=== PATIENT | male | born 1940 | race Caucasian/White ===

== ENCOUNTER 2017-03-25 10:57 | Emergency (ER) | payer OTHER ==
[~2017-03-25] VITALS: Ht 162.6 cm; Wt 66.1 kg
[~2017-03-25 10:57] MED LIST: AMLO5TAB2 PO; CLOB-65 TOP; DEXT30TA7 PO; DOCU100C31 PO; DOXY1LIQ PO; ERGO1CAP35 PO; GLC/500 PO; LSN25 PO; LVQ500 PO; METH500T37 PO; OXYC7.5T65 PO
[2017-03-25 11:01] VITALS: TEMP 37.3; Ht 162.6 cm; Wt 66.1 kg
[2017-03-25] MEDS ORDERED: RGL/5 PO (11:29)
[2017-03-25] MEDS ORDERED: MAGN1TAB41 PO (11:29)
[2017-03-25] MEDS ORDERED: VNTHFA/IN INH (11:29)
[2017-03-25] MEDS ORDERED: OXYC20TA50 PO (11:29)
[2017-03-25] MEDS ORDERED: [UNRECOGNIZED DRUG - CODE] (11:29)
[2017-03-25] MEDS ORDERED: VALA1TAB31 PO (11:29)
[2017-03-25] MEDS ORDERED: LACT10SO17 PO (11:29)
[2017-03-25] MEDS ORDERED: CLBCR15 (11:29)
[2017-03-25] MEDS ORDERED: ERGO500037 PO (11:29)
[2017-03-25] MEDS ORDERED: FLUT0.15 NAE (11:29)
[2017-03-25] MEDS ORDERED: KETOROLAC TROMETHAMINE 30 MG/ML VIAL IV STA (11:40)
[2017-03-25] MEDS ORDERED: DiphenhydrAMINE HCL 50 MG/ML VIAL IV STA (11:40)
[2017-03-25] MEDS ORDERED: DEXAMETHASONE SOD INJ 10 MG/ML VIAL IV ONE (11:45)
[2017-03-25 12:08] LABS: BASO % 0.3 %; BASO ABS # 0.03 K/uL (0-0.2); COMPLETE YES; EOS % 0.5 %; HEMATOCRIT 38.1 % (42-52); IG% 0.2 %; LYMPH % 12.8 %; LYMPH ABS # 1.12 K/uL (1.2-3.4); MEAN CELL VOLUME 91.4 fL (80-100); MEAN CORPUSCULAR HEMOGLOBIN 29.3 pg (25-34); MEAN PLATELET VOLUME 9.8 fL (7.4-10.4); MONO % 10.4 %; NEUT % 75.8 %; PLATELET COUNT 243 K/uL (130-400); RED BLOOD COUNT 4.17 M/uL (4.7-6.1); WHITE BLOOD COUNT 8.72 K/uL (4.8-10.8)
[2017-03-25 12:26] LABS: BUN/CREATININE RATIO 19.6 (10-20); CALCIUM 8.7 mg/dl (8.5-10.1); CREATININE 0.6 mg/dl (0.60-1.40)
[2017-03-25 12:29] LABS: C-REACTIVE PROTEIN 4.11 mg/dl (0-0.29)
[2017-03-25] MEDS ORDERED: PRED20TA PO (13:22)
--- NOTE | 2017-03-25 13:23 | EMERGENCY ROOM VISIT NOTE ---
History Report prepared by Baylee: Max Ponce Under the Supervision of: Dr. Sai Lema D.O. First contact with patient: 11:22 Chief Complaint: ALLERGIC REACTION Stated Complaint: RED FACE-BREATHING IS OK Nursing Triage Summary: Pt presents with c/o red, sore face that began during the night. Denies difficulty swallowing. Denies sob. Denies any new foods/meds. Pt states took Oxycodone PAPER STRIPPER for the pain. History of Present Illness The patient is a 76 year old male who presents to the Emergency Room with complaints of a persistent facial rash that started last night. The patient notes that started getting weak and tired 2 days ago, and was so tired that he could not get out of his chair. He states that he was going to the bathroom last night, when he started getting chills and facial swelling and redness. He then started having pain around the bridge of his nose. The patient says that his face was 3 times more swollen last night than it is currently. He denies any shortness of breath or difficulty swallowing. The patient also denies any environmental exposures, new foods, or new medications. He is diabetic. Per the patient's family, the patient has lost a lot of weight since being diagnosed with diabetes. The patient states that he has no history of lupus. The patient' s family says that they all live in the [facility], and there is concern that the patient may have Lyme Disease. Source of History: patient, family Onset: Last night Position: other (global - allergic reaction) Timing: other (persistent) Associated Symptoms: + chills, + fatigue, + weakness, No SOB Note: Associated symptoms: Facial swelling and redness, pain around bridge of nose. Denies any difficulty swallowing. Review of Systems See HPI for pertinent positives & negatives. A total of 10 systems reviewed and were otherwise negative. Past Medical & Surgical Medical Problems: (1) H/O blood clots (2) Left lower lobe pneumonia Surgical Problems: (1) Hx of gastric bypass Family History Diabetes mellitus Heart disease Hypertension Social History Smoking Status: Former Smoker Alcohol Use: none Drug Use: none Marital Status: Occupation Status: retired Current/Historical Medications Scheduled Albuterol Hfa (Ventolin Hfa), 1-2 PUFFS INH 4-6 hours Allopurinol (Zyloprim), 300 MG PO QAM Clobetasol Propionate (Clobetasol Propionate), BID Cyanocobalamin (Cyanocobalamin), 1,000 MCG IM MONTHLY Ergocalciferol (Vitamin D 98520 Unit), 50,000 UNIT PO 2XWK Ferrous Fumarate (Ferrous Fumarate 324), 324 MG PO QAM Fluticasone Propionate (Nasal) (Flonase Allergy Relief), 2 SPRAYS JOE DAILY Isosorbide Mononitrate Ext Rel (Imdur Ext Rel), 30 MG PO QAM Lactulose (Chronulac), 15 ML PO DAILY Loratadine (Claritin), 10 MG PO DAILY Magnesium Oxide (Magnesium), 400 MG PO DAILY Metoclopramide HCl (Metoclopramide HCl), 5 MG PO BID Metoprolol Tartrate (Lopressor) (Lopressor), 25 MG PO BID Omeprazole (Prilosec), 20 MG PO BID Pimecrolimus (Elidel), 1 APPLN TOP BID Prednisone (Prednisone), 3 TAB PO DAILY Ranitidine Hcl (Zantac), 300 MG PO HS Ropinirole (Requip), 2 MG PO HS Simvastatin (Simvastatin), 10 MG PO HS Tamsulosin Hcl (Flomax), 0.4 MG PO DAILY Valacyclovir Hcl (Valtrex), 1 GM PO DAILY Scheduled PRN Furosemide (Lasix), 40 MG PO DAILY PRN for EDEMA Nitroglycerin (Nitrostat), 0.4 MG UT UD PRN for Chest Pain Oxycodone Hcl (Oxycontin), 20 MG PO 5XD PRN for Pain Polyethylene Glycol 3350 (Miralax), 17 GM PO DAILY PRN for Constipation Miscellaneous Medications Nitroglycerin (Nitromist) Allergies Coded Allergies: No Known Allergies (Verified , 03/25/17) Physical Exam Vital Signs Date Time Temp Pulse Resp B/P Pulse Ox O2 Delivery O2 Flow Rate FiO2 03/25/17 13:07 69 18 153/78 94 Room Air 03/25/17 12:31 67 18 138/63 94 Room Air 03/25/17 11:03 95 Room Air 03/25/17 11:01 37.3 82 18 179/107 95 Room Air Physical Exam CONSTITUTIONAL/VITAL SIGNS: Reviewed / noted above. GENERAL: Non-toxic in appearance. INTEGUMENTARY: Warm, dry, and [place]. HEAD: Normocephalic. EYES: without scleral icterus or trauma. ENT/OROPHARYNX: Erythema, warmth, and mild swelling distributed in bilateral maxillary and cheek areas, as well as overlying bridge of nose. No mucosal edema. LYMPHADENOPATHY/NECK: Is supple without lymphadenopathy or meningismus. RESPIRATORY: Lungs clear and equal. CARDIOVASCULAR: Regular rate and rhythm. GI/ABDOMEN: Soft and nontender. No organomegaly or pulsatile mass. No rebound or guarding. Normal bowel sounds. EXTREMITIES: Warm and well perfused. BACK: No CVA tenderness. NEUROLOGICAL: Intact without focal deficits. PSYCHIATRIC: normal affect. MUSCULOSKELETAL: Normally developed with good muscle tone. Medical Decision & Procedures Laboratory Results 03/25/17 11:50 Red Blood Count 4.17, Mean Corpuscular Volume 91.4, Mean Corpuscular Hemoglobin 29.3, Mean Corpuscular Hemoglobin Concent 32.0, Mean Platelet Volume 9.8, Neutrophils (%) (Auto) 75.8, Lymphocytes (%) (Auto) 12.8, Monocytes (%) (Auto) 10.4, Eosinophils (%) (Auto) 0.5, Basophils (%) (Auto) 0.3, Neutrophils # (Auto ) 6.60, Lymphocytes # (Auto) 1.12, Monocytes # (Auto) 0.91, Eosinophils # (Auto ) 0.04, Basophils # (Auto) 0.03 03/25/17 11:50 Test 03/25/17 11:50 White Blood Count 8.72 K/uL (4.8-10.8) Red Blood Count 4.17 M/uL (4.7-6.1) Hemoglobin 12.2 g/dL (14.0-18.0) Hematocrit 38.1 % (42-52) Mean Corpuscular Volume 91.4 fL (80-100) Mean Corpuscular Hemoglobin 29.3 pg (25-34) Mean Corpuscular Hemoglobin Concent 32.0 g/dl (32-36) Platelet Count 243 K/uL (130-400) Mean Platelet Volume 9.8 fL (7.4-10.4) Neutrophils (%) (Auto) 75.8 % Lymphocytes (%) (Auto) 12.8 % Monocytes (%) (Auto) 10.4 % Eosinophils (%) (Auto) 0.5 % Basophils (%) (Auto) 0.3 % Neutrophils # (Auto) 6.60 K/uL (1.4-6.5) Lymphocytes # (Auto) 1.12 K/uL (1.2-3.4) Monocytes # (Auto) 0.91 K/uL (0.11-0.59) Eosinophils # (Auto) 0.04 K/uL (0-0.5) Basophils # (Auto) 0.03 K/uL (0-0.2) RDW Standard Deviation 54.8 fL (36.4-46.3) RDW Coefficient of Variation 16.5 % (11.5-14.5) Immature Granulocyte % (Auto) 0.2 % Immature Granulocyte # (Auto) 0.02 K/uL (0.00-0.02) Erythrocyte Sedimentation Rate 58 mm/hr (0-14) Anion Gap 6.0 mmol/L (3-11) Est Creatinine Clear Calc Drug Dose 85.0 ml/min Estimated GFR () 111.6 Estimated GFR (Non- 96.3 BUN/Creatinine Ratio 19.6 (10-20) Calcium Level 8.7 mg/dl (8.5-10.1) Total Bilirubin 0.4 mg/dl (0.2-1) Direct Bilirubin 0.1 mg/dl (0-0.2) Aspartate Amino Transf (AST/SGOT) 10 U/L (15-37) Alanine Aminotransferase (ALT/SGPT) 14 U/L (12-78) Alkaline Phosphatase 79 U/L (45-117) C-Reactive Protein 4.11 mg/dl (0-0.29) Total Protein 7.0 gm/dl (6.4-8.2) Albumin 3.1 gm/dl (3.4-5.0) Laboratory results as stated above per my review. Medications Administered Medications (Trade) Dose Ordered Sig/Bony Route Start Time Stop Time Status Last Admin Dose Admin Dexamethasone Sodium Phosphate (Decadron Inj) 10 mg NOW ONCE IV 03/25/17 11:45 03/25/17 11:46 DC 03/25/17 11:58 10 MG Diphenhydramine HCl (Benadryl Inj) 25 mg NOW STAT IV 03/25/17 11:40 03/25/17 11:41 DC 03/25/17 11:56 25 MG Ketorolac Tromethamine (Toradol Inj) 30 mg NOW STAT IV 03/25/17 11:40 03/25/17 11:41 DC 03/25/17 12:00 30 MG ED Course 1130: Previous medical records were reviewed. The patient was evaluated in room A2. A complete history and physical examination was performed. 1140: Ordered Toradol Inj 30 mg IV, Benadryl Inj 25 mg IV. 1145: Ordered Decadron Inj 10 mg IV. 1325: On reevaluation, the patient is resting comfortably. I discussed the results and findings with the patient. He verbalized agreement of the treatment plan. He was discharged home. Medical Decision Differential diagnosis: Etiologies such as contact dermatitis, viral exanthem, urticaria, allergic reaction, Saldaña-Almas syndrome, toxic epidermal necrolysis, erythema multiforme, cellulitis, scabies, HSV, varicella, zoster, eczema, staph scalded skin syndrome, fungal infection, as well as others were entertained. This is a 76-year-old male who presents to the ED with a chief complaint of a rash on his face. The patient states that he awoke in the middle the night with facial swelling and redness. He states that it was worse earlier in the night and has seemed to improve some. He states that yesterday he had some chills and felt cold. He denies any other significant symptoms. He denies any possible allergens or exposures. He has no other rashes on his body. He denies any shortness of breath or mucosal irritation. His initial blood pressure was elevated here. Vital signs were otherwise stable. His exam reveals a malar type rash to the face. It is symmetric on both sides of the face and extends over the bridge of the nose into the bilateral maxillary area and bilateral cheek area. It involves the chin slightly. There is no intraoral lesions or evidence of dental abscess. There is no mucosal edema. It is warm and slightly edematous. CBC is unremarkable. Sedimentation rate and CRP are mildly elevated. Complete metabolic panel was unremarkable. The patient was treated with IV Decadron IV Benadryl. He is looking a lot better. Redness is down as is swelling. He is felt to be stable for discharge. He will be discharged on Benadryl and prednisone. ANAs pending. He will follow- up with his PCP for this. This does not appear to be infection. It is symmetric in bilateral. This is likely immunologic. He is felt to be stable for discharge. He does not appear to be septic or toxic. Impression Primary Impression: Malar rash Scribe Attestation The scribe's documentation has been prepared under my direction and personally reviewed by me in its entirety. I confirm that the note above accurately reflects all work, treatment, procedures, and medical decision making performed by me. Departure Information Dispostion Home / Self-Care Prescriptions Prednisone (Prednisone) 20 Mg Tab 3 TAB PO DAILY for 4 Days, #12 TAB Prov: Sai Lema D.O. 03/25/17 Referrals Luisa Velasquez MD (PCP) Patient Instructions My [facility] Additional Instructions Take prednisone as prescribed. Take Benadryl 25 mg every 6-8 hours as needed for rash. Follow-up with your doctor for recheck. Have them check the blood work that was done today. Return for severe worsening or other concerns.
[2017-03-25 13:30] VITALS: BP 153/78; PULSE 69; O2SAT 94
[2017-03-25] MEDS ORDERED: ISOS30TA3 PO (14:01)
[2017-03-25] MEDS ORDERED: CYNI1000 IM (14:01)
[2017-03-25] MEDS ORDERED: POLY335019 PO (14:01)
[2017-03-25] MEDS ORDERED: FURO40TA3 PO (14:04)
[2017-03-25] MEDS ORDERED: ELDCR/30 TOP (14:04)
[2017-03-25] MEDS ORDERED: FERR324T15 PO (18:37)
[2017-03-25] MEDS ORDERED: CLR10 PO (18:37)
[2017-03-25] MEDS ORDERED: TAMS0.4C38 PO (23:22)
[2017-03-25] MEDS ORDERED: SIMV-150 PO (23:22)
[2017-03-25] MEDS ORDERED: ROPI2TAB6 PO (23:22)
[2017-03-25] MEDS ORDERED: RANI300T2 PO (23:22)
[2017-03-25] MEDS ORDERED: NTRGSL/4 UT (23:25)
[2017-03-25] MEDS ORDERED: PRLSR20 PO (23:25)
[2017-03-25] MEDS ORDERED: METO50TA16 PO (23:25)
[2017-03-25] MEDS ORDERED: ALLO300T2 PO (23:26)
== END 2017-03-25 13:30 | disposition home or self-care (01) ==
LOC: C.EDB 10:59 → C.EDA 13:30
DX: R21 Rash and other nonspecific skin eruption (principal); Z86.718 Personal history of other venous thrombosis and embolism; Z98.84 Bariatric surgery status; Z83.3 Family history of diabetes mellitus; Z82.49 Family history of ischemic heart disease and other diseases of the circulatory system; Z87.891 Personal history of nicotine dependence; Z79.899 Other long term (current) drug therapy

== ENCOUNTER → 2017-09-16 | Outpatient (CLI) | payer OTHER ==
[~2017-09-16] MED LIST changes: +ALLO300T2 PO; -AMLO5TAB2 PO; +CLBCR15; -CLOB-65 TOP; +CLR10 PO; +CYNI1000 IM; -DEXT30TA7 PO; -DOCU100C31 PO; -DOXY1LIQ PO; +ELDCR/30 TOP; -ERGO1CAP35 PO; +ERGO500037 PO; +FERR324T15 PO; +FLUT0.15 NAE; +FURO40TA3 PO; -GLC/500 PO; +ISOS30TA3 PO; +LACT10SO17 PO; -LSN25 PO; -LVQ500 PO; +MAGN1TAB41 PO; -METH500T37 PO; +METO50TA16 PO; +NTRGSL/4 UT; +OXYC20TA50 PO; -OXYC7.5T65 PO; +POLY335019 PO; +PRLSR20 PO; +RANI300T2 PO; +RGL/5 PO; +ROPI2TAB6 PO; +SIMV-150 PO; +TAMS0.4C38 PO; +VALA1TAB31 PO; +VNTHFA/IN INH; +[UNRECOGNIZED DRUG - CODE]
== END | disposition home or self-care (01) ==
LOC: C.LABSPEC 10:49
PROVIDERS: ATTEND Family Medicine
DX: S31.109A Unspecified open wound of abdominal wall, unspecified quadrant without penetration into peritoneal cavity, initial encounter (principal); X58.XXXA Exposure to other specified factors, initial encounter

== ENCOUNTER → 2017-11-05 | Outpatient (CLI) | payer OTHER | END | disposition home or self-care (01) | LOC: C.LABSPEC 17:44 | PROVIDERS: ATTEND Family Medicine | DX: S31.109A Unspecified open wound of abdominal wall, unspecified quadrant without penetration into peritoneal cavity, initial encounter (principal); X58.XXXA Exposure to other specified factors, initial encounter ==

== ENCOUNTER 2022-02-28 15:41 | Observation (INO) ==
--- NOTE | 2022-02-28 15:54 | Emergency Department Note ---
Impression & Plan Acute dehydration, Hypoxemia, Hypotension, Weakness, Cough ED Provider Note NAME: TULIO RUIZ JR AGE: 81 SEX: M : 1940 ARRIVES VIA: Ambulance INFORMANT: Patient, ED PROVIDER(S): Ernesto Mcclellan MD Chief Complaint: Outpatient referral, weakness, low oxygen saturation, chest pain, abdominal HPI: Patient presents at the behest of the primary care office as the patient reported he was hypotensive and hypoxic into the 80s. The patient has complained of worsening weakness and associated shortness of breath and chest pain ongoing for the last 3 weeks or so. The patient states that he tries to eat but he does have difficulty doing so. Patient does complain of upper abdominal pain that is nonradiating. Patient has also had associated chest pain in his back with radiation up to his head. Patient states that that pain has been ongoing for approximately 10 days or so. Patient denies any nausea or vomiting. Patient denies any diaphoresis. The patient does live at home by himself. Patient denies any fevers or chills or leg swelling. The patient does have a remote history of DVT in the past but does not take any blood thinners at this time as this was greater than 30 years ago. Former smoker 40 years prior. The patient does take oxycodone. He does suffer from chronic pain. Patient's cough has been productive with clear sputum. ROS: See HPI for pertinent positives and negatives. A total of 10 systems were reviewed and otherwise negative. Past medical history: See below Surgical history: See below Social history: See below Physical Exam: GENERAL: Cachectic in appearance, NAD, wearing glasses, wearing a mask, non- toxic. EYE EXAM: Normal conjunctiva. PERRL, no anisocoria and EOM's grossly intact w/o pain. NECK: Supple, no nuchal rigidity, no adenopathy, non-tender. No signs of meningismus. LUNGS: Sonorous breath sounds bilateral bases. Normal chest wall mechanics. HEART: NSR, no MRG. ABDOMEN: Abdomen soft, mild diffuse discomfort throughout but most prominent in the upper abdomen, normo-active bowel sounds, no masses, no rebound or guarding. BACK: No CVA TTP. SKIN: No rashes and no bruising. UPPER EXTREMITIES: Upper extremities are grossly normal. LOWER EXTREMITIES: Grossly normal, no edema. Negative Homans' sign bilaterally. NEURO EXAM: A&O x3, cranial nerves II-XII grossly intact, normal speech, moves all 4 extremities on command w/o issue. Differential diagnoses: Infection, dehydration, metabolic abnormality, hypo/hyperglycemia, electrolyte disturbance, anemia, hypoxia, cardiac sources, intracerebral event, toxicologic, neurologic, as well as other pathologies. Course: Patient was seen and evaluated the bedside. Full history physical exam was performed. EKG interpreted by me Normal sinus rhythm, rate of 69, normal intervals, normal axis, no ST changes or T WI Imaging Studies: See Below Cardiac monitoring: An order was placed for continuous cardiac monitoring. The monitor shows a rate of 72 with sinus rhythm. MDM: Patient presents due to concern for weakness hypoxemia and cough with associated chest and abdominal pain. Blood work is obtained along with a CT abdomen pelvis, EKG and troponin. Covid swab also obtained. The patient is also on fairly high-dose narcotics as the patient is on 45 mg of oxycodone twice daily. I did ask the overtakes this but states that he does not. Per review of the patient's vital signs at the time of check-in at [facility] this afternoon in the outpatient setting: The patient had a blood pressure of 88/48 with a pulse of 69 respirations 18 at 87% on room air with a temp of 34.5. Patient was ordered additional IV fluids and did have blood cultures ordered as well. The patient has a normal white count with mild anemia at 11.7. Coags are normal. The patient has normal kidney function albeit with prerenal azotemia and do believe that there is a dehydration component. Patient's TSH is normal. Urinalysis does not show no signs of obvious infection. Covid negative. Chest x-ray is clear. Patient CT shows wall thickening which may be due to underdistention versus nonspecific enteritis. Incompetence ruling mesenteric vessels raises the possibility of internal hernia however no evidence of bowel obstruction. The patient said symptoms for greater than 10 days with a normal white count and believe this to be less likely. Patient did have abdominal discomfort but it does not have a surgical abdomen. I did Siuta the on-call hospitalist Oliverio Angel resident physician and the patient was admitted to the medicine service by Dr. Sebastian. Antibiotics were deferred to the inpatient tea m Past Med/Surg History Medical History B12 deficiency BPH (benign prostatic hyperplasia) Chronic, continuous use of opioids Constipation Coronary atherosclerosis of [place] coronary vessel Depression DM2 (diabetes mellitus, type 2) prior to gastric bypass--no meds now Gastroparesis GERD without esophagitis Gouty arthropathy Hearing deficit Hyperlipidemia LDL goal <100 Hypertension OA (osteoarthritis) of hip Other psoriasis Poor historian Restless legs Sleep apnea hx of prior to gastric bypass sx--no device Surgical History Bariatric [place] [facility] [place] of bilateral cataract extraction History of cardiac cath x2 ? prior to bypass--pt does not believe any stents placed History of carpal tunnel surgery of right wrist History of colonoscopy History of esophagogastroduodenoscopy (EGD) History of tooth extraction all teeth removed S/P triple vessel bypass pt states "between 1994 and 1997 had procedure done" [place] [facility] [place] with Emigdio Bautista @ [facility] Status post panniculectomy Family History Mother Diabetes Other No family history of adverse response to anesthesia Denies family history of Ovarian cancer Prostate cancer Myocardial infarction Breast cancer Colorectal cancer Social History Smoking Status: Never smoker Tobacco Type: Cigarettes Age Started Using Tobacco: 20; Age Quit Using Tobacco: 63; packs per day: 1; Second Hand Exposure: No; Hx Alcohol Use: No Hx Substance Use: No Preferred Language: Turkish Communication Ability: Effective Visual Impairment: No Limitations Hearing Ability: Use of Hearing Aid Plastics Fitter Required: No Beliefs That Will Affect Care: None marital status: / Current Living Situation: Alone 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al status: retired 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 Feels Safe at Home: Yes Childhood Exposure to Second-Hand Smoke: No Diet Comment: "I barely eat, I live on boost" Dental Care, Regularly: No Physical Activity Frequency: Does not Exercise Seatbelt Use: sometimes Sunscreen Use: No Assistive Devices: Glasses and Hearing Aid - Bilateral Allergies Allergies Allergy/AdvReac Type Severity Reaction Status Date / Time No Known Allergies Allergy Verified 02/28/22 14:43 Home Meds Home Medications Medication Instructions Recorded Confirmed clobetasol 0.05 % topical cream 1 appln TOPICAL BID #1 gm 07/01/19 02/28/22 nitroglycerin 0.4 mg sublingual 0.4 mg SL Q5M PRN #25 tab 07/01/19 02/28/22 tablet polyethylene glycol 3350 17 17 gm PO DAILY PRN #1 gm 07/01/19 02/28/22 gram/dose oral powder allopurinol 300 mg tablet 300 mg PO QAM 07/13/21 02/28/22 food supplemt, lactose-reduced 1 ea PO 6XD 07/13/21 02/28/22 0.06 gram-1 kcal/mL oral liquid (Boost High Protein) linaclotide 290 mcg capsule 290 mcg PO QAM 07/13/21 02/28/22 (Linzess) Previous Rx's Medication Instructions Recorded guaifenesin 600 mg tablet, 600 mg PO Q12H PRN #60 tab 12/18/20 extended release 12 hr (Mucinex) omeprazole 40 mg capsule,delayed 40 mg PO BID #60 cap 07/24/21 release loratadine 10 mg tablet (Claritin) 10 mg PO HS #90 tab 08/02/21 tamsulosin 0.4 mg capsule 0.4 mg PO HS #90 cap 08/02/21 Lift Chair #1 ea 09/18/21 lactulose 10 gram/15 mL oral 30 ml PO BID PRN #946 ml 11/22/21 solution mupirocin 2 % topical ointment 1 applic TOPICAL BID #15 g 11/22/21 miconazole nitrate 2 % topical 1 applic TOPICAL BID 14 Days #85 g 12/04/21 powder prednisone 5 mg tablet 5 mg PO QAM #30 tab 02/04/22 oxycodone 15 mg tablet 15 mg PO BID PRN #60 tab 02/07/22 oxycodone 30 mg tablet,crush 30 mg PO Q12H 30 Days #60 tab 02/14/22 resistant,extended release 12 hr (OxyContin) Results & Data (ED) Vital Signs Vital Signs - 24 hr 02/28/22 15:33 02/28/22 15:45 02/28/22 15:50 Temperature 36.3 C L Temperature Source Oral Pulse Rate 70 67 70 Pulse Rate [Finger] Pulse Rate from SpO2 Sensor 67 67 Pulse Rhythm Respiratory Rate 20 16 22 Respiratory Effort / Characteristics Non-Labored Respiratory Pattern Regular Blood Pressure 109/43 L Blood Pressure [Right Arm] Blood Pressure Mean 65 Blood Pressure Mean [Right Arm] Pulse Oximetry 96 94 96 Oxygen Delivery Method Room Air Sepsis Recent Fever Within 48 Hours No Sepsis New/Unexplained Change in Mental Status No Sepsis Action Taken by Nursing No Action Required 02/28/22 16:00 02/28/22 16:02 02/28/22 16:05 Temperature Temperature Source Pulse Rate 69 68 66 Pulse Rate [Finger] Pulse Rate from SpO2 Sensor Pulse Rhythm Regular Respiratory Rate 21 17 13 Respiratory Effort / Characteristics Respiratory Pattern Blood Pressure 109/43 L 95/65 L Blood Pressure [Right Arm] Blood Pressure Mean 65 75 Blood Pressure Mean [Right Arm] Pulse Oximetry 96 Oxygen Delivery Method Room Air Sepsis Recent Fever Within 48 Hours Sepsis New/Unexplained Change in Mental Status Sepsis Action Taken by Nursing 02/28/22 16:10 02/28/22 16:20 02/28/22 16:30 Temperature Temperature Source Pulse Rate 70 69 67 Pulse Rate [Finger] Pulse Rate from SpO2 Sensor 69 69 67 Pulse Rhythm Respiratory Rate 21 16 16 Respiratory Effort / Characteristics Respiratory Pattern Blood Pressure 113/52 L Blood Pressure [Right Arm] Blood Pressure Mean 72 Blood Pressure Mean [Right Arm] Pulse Oximetry 95 95 93 Oxygen Delivery Method Sepsis Recent Fever Within 48 Hours Sepsis New/Unexplained Change in Mental Status Sepsis Action Taken by Nursing 02/28/22 16:40 02/28/22 16:57 02/28/22 17:00 Temperature Temperature Source Pulse Rate 70 66 68 Pulse Rate [Finger] Pulse Rate from SpO2 Sensor 71 Pulse Rhythm Respiratory Rate 22 17 22 Respiratory Effort / Characteristics Respiratory Pattern Blood Pressure 103/43 L Blood Pressure [Right Arm] Blood Pressure Mean 63 Blood Pressure Mean [Right Arm] Pulse Oximetry 97 Oxygen Delivery Method Sepsis Recent Fever Within 48 Hours Sepsis New/Unexplained Change in Mental Status Sepsis Action Taken by Nursing 02/28/22 17:10 02/28/22 17:20 02/28/22 17:30 Temperature Temperature Source Pulse Rate 69 69 68 Pulse Rate [Finger] Pulse Rate from SpO2 Sensor 65 69 67 Pulse Rhythm Respiratory Rate 21 19 22 Respiratory Effort / Characteristics Respiratory Pattern Blood Pressure 104/55 L Blood Pressure [Right Arm] Blood Pressure Mean 71 Blood Pressure Mean [Right Arm] Pulse Oximetry 91 92 95 Oxygen Delivery Method Sepsis Recent Fever Within 48 Hours Sepsis New/Unexplained Change in Mental Status Sepsis Action Taken by Nursing 02/28/22 17:40 02/28/22 17:50 02/28/22 18:00 Temperature Temperature Source Pulse Rate 67 70 68 Pulse Rate [Finger] Pulse Rate from SpO2 Sensor 69 Pulse Rhythm Respiratory Rate 17 18 25 H Respiratory Effort / Characteristics Respiratory Pattern Blood Pressure 122/81 Blood Pressure [Right Arm] Blood Pressure Mean 94 Blood Pressure Mean [Right Arm] Pulse Oximetry 97 Oxygen Delivery Method Sepsis Recent Fever Within 48 Hours Sepsis New/Unexplained Change in Mental Status Sepsis Action Taken by Nursing 02/28/22 18:10 02/28/22 18:20 02/28/22 18:30 Temperature Temperature Source Pulse Rate 71 73 72 Pulse Rate [Finger] Pulse Rate from SpO2 Sensor 71 Pulse Rhythm Respiratory Rate 24 19 19 Respiratory Effort / Characteristics Respiratory Pattern Blood Pressure 104/61 Blood Pressure [Right Arm] Blood Pressure Mean 75 Blood Pressure Mean [Right Arm] Pulse Oximetry 97 Oxygen Delivery Method Sepsis Recent Fever Within 48 Hours Sepsis New/Unexplained Change in Mental Status Sepsis Action Taken by Nursing 02/28/22 18:40 02/28/22 18:50 02/28/22 19:10 Temperature Temperature Source Pulse Rate 72 70 Pulse Rate [Finger] 71 Pulse Rate from SpO2 Sensor Pulse Rhythm Respiratory Rate 24 20 20 Respiratory Effort / Characteristics Respiratory Pattern Blood Pressure Blood Pressure [Right Arm] 99/54 L Blood Pressure Mean Blood Pressure Mean [Right Arm] 69 Pulse Oximetry 93 Oxygen Delivery Method Room Air Sepsis Recent Fever Within 48 Hours Sepsis New/Unexplained Change in Mental Status Sepsis Action Taken by Nursing 02/28/22 19:32 Temperature Temperature Source Pulse Rate 70 Pulse Rate [Finger] Pulse Rate from SpO2 Sensor Pulse Rhythm Respiratory Rate 18 Respiratory Effort / Characteristics Respiratory Pattern Blood Pressure 106/57 L Blood Pressure [Right Arm] Blood Pressure Mean Blood Pressure Mean [Right Arm] Pulse Oximetry 97 Oxygen Delivery Method Room Air Sepsis Recent Fever Within 48 Hours Sepsis New/Unexplained Change in Mental Status Sepsis Action Taken by [facility] Medications Current Medication List: was personally reviewed by me Laboratory Data Attestation: I reviewed the patient's lab results. Result diagrams: 02/28/22 15:58 02/28/22 15:58 Lab Results 02/28/22 02/28/22 02/28/22 Range/Units 15:58 15:58 15:58 WBC 8.85 (4.8-10.8) K/uL RBC 4.12 L (4.7-6.1) M/uL Hgb 11.7 L (14.0-18.0) g/dL Hct 36.1 L (42-52) % MCV 87.6 (80-100) fL MCH 28.4 (25-34) pg MCHC 32.4 (32-36) g/dL RDW Std Deviation 50.5 H (36.4-46.3) fL RDW Coeff of Yoanna 15.7 H (11.5-14.5) % Plt Count 347 (130-400) K/uL MPV 9.6 (7.4-10.4) fL Immature Gran % (Auto) 0.1 % Neut % (Auto) 71.1 % Lymph % (Auto) 19.3 % [place] % (Auto) 8.6 % Eos % (Auto) 0.7 % Baso % (Auto) 0.2 % Neut # (Auto) 6.29 (1.4-6.5) K/uL Lymph # (Auto) 1.71 (1.2-3.4) K/uL [place] # (Auto) 0.76 H (0.11-0.59) K/uL Eos # (Auto) 0.06 (0-0.5) K/uL Baso # (Auto) 0.02 (0-0.2) K/uL Immature Gran # (Auto) 0.01 (0.00-0.02) K/uL PT 11.5 (9.0-12.0) Seconds INR 1.1 (0.9-1.1) Sodium 136 (136-145) mmol/L Potassium 4.4 (3.5-5.1) mmol/L Chloride 100 (98-107) mmol/L Carbon Dioxide 29 (21-32) mmol/L Anion Gap 7 (3-11) BUN 23 (6-23) mg/dl Creatinine 0.68 (0.6-1.4) mg/dl Est Cr Clr Drug Dosing Not Reportable Est GFR ( Amer) 102.4 ml/min Est GFR (Non-Af Amer) 88.3 ml/min BUN/Creatinine Ratio 33.8 H (10-20) Glucose 100 H (70-99(Fasting)) mg/dl Lactate (0.4-2.0) mmol/L Calcium 8.8 (8.5-10.1) mg/dl Magnesium 1.7 (1.7-2.4) mg/dl Total Bilirubin 0.5 (0.2-1.0) mg/dl AST 14 (13-39) U/L ALT 8 (7-52) U/L Alkaline Phosphatase 99 (34-104) U/L Troponin I < 0.03 (0-0.04) ng/ml C-Reactive Protein (0-0.5) mg/dl Total Protein 7.0 (6.0-8.3) gm/dl Albumin 3.3 L (3.4-5.0) gm/dl Globulin 3.7 (2.5-4.0) gm/dl Albumin/Globulin Ratio 0.9 (0.9-2) TSH (0.300-4.500) uIu/ml Urine Color Urine Appearance (Clear) Urine pH (4.5-7.5) Ur Specific [place] (1.000-1.030) Urine Protein (Negative) Urine Glucose (UA) (Negative) Urine Ketones (Negative) Urine Blood (Negative) Urine Nitrite (Negative) Urine Bilirubin (Negative) Urine Urobilinogen (Negative) Ur Leukocyte Esterase (Negative) SARS-CoV-2, RNA, NAAT (NEGATIVE) 02/28/22 02/28/22 02/28/22 Range/Units 15:58 15:58 16:23 WBC (4.8-10.8) K/uL RBC (4.7-6.1) M/uL Hgb (14.0-18.0) g/dL Hct (42-52) % MCV (80-100) fL MCH (25-34) pg MCHC (32-36) g/dL RDW Std Deviation (36.4-46.3) fL RDW Coeff of Yoanna (11.5-14.5) % Plt Count (130-400) K/uL MPV (7.4-10.4) fL Immature Gran % (Auto) % Neut % (Auto) % Lymph % (Auto) % [place] % (Auto) % Eos % (Auto) % Baso % (Auto) % Neut # (Auto) (1.4-6.5) K/uL Lymph # (Auto) (1.2-3.4) K/uL [place] # (Auto) (0.11-0.59) K/uL Eos # (Auto) (0-0.5) K/uL Baso # (Auto) (0-0.2) K/uL Immature Gran # (Auto) (0.00-0.02) K/uL PT (9.0-12.0) Seconds INR (0.9-1.1) Sodium (136-145) mmol/L Potassium (3.5-5.1) mmol/L Chloride (98-107) mmol/L Carbon Dioxide (21-32) mmol/L Anion Gap (3-11) BUN (6-23) mg/dl Creatinine (0.6-1.4) mg/dl Est Cr Clr Drug Dosing Est GFR ( Amer) ml/min Est GFR (Non-Af Amer) ml/min BUN/Creatinine Ratio (10-20) Glucose (70-99(Fasting)) mg/dl Lactate (0.4-2.0) mmol/L Calcium (8.5-10.1) mg/dl Magnesium (1.7-2.4) mg/dl Total Bilirubin (0.2-1.0) mg/dl AST (13-39) U/L ALT (7-52) U/L Alkaline Phosphatase (34-104) U/L Troponin I (0-0.04) ng/ml C-Reactive Protein 1.22 H (0-0.5) mg/dl Total Protein (6.0-8.3) gm/dl Albumin (3.4-5.0) gm/dl Globulin (2.5-4.0) gm/dl Albumin/Globulin Ratio (0.9-2) TSH 2.869 (0.300-4.500) uIu/ml Urine Color Urine Appearance (Clear) Urine pH (4.5-7.5) Ur Specific [place] (1.000-1.030) Urine Protein (Negative) Urine Glucose (UA) (Negative) Urine Ketones (Negative) Urine Blood (Negative) Urine Nitrite (Negative) Urine Bilirubin (Negative) Urine Urobilinogen (Negative) Ur Leukocyte Esterase (Negative) SARS-CoV-2, RNA, NAAT NEGATIVE (NEGATIVE) 02/28/22 02/28/22 Range/Units 18:13 18:15 WBC (4.8-10.8) K/uL RBC (4.7-6.1) M/uL Hgb (14.0-18.0) g/dL Hct (42-52) % MCV (80-100) fL MCH (25-34) pg MCHC (32-36) g/dL RDW Std Deviation (36.4-46.3) fL RDW Coeff of [place]anna (11.5-14.5) % Plt Count (130-400) K/uL MPV (7.4-10.4) fL Immature Gran % (Auto) % Neut % (Auto) % Lymph % (Auto) % [place] % (Auto) % Eos % (Auto) % Baso % (Auto) % Neut # (Auto) (1.4-6.5) K/uL Lymph # (Auto) (1.2-3.4) K/uL [place] # (Auto) (0.11-0.59) K/uL Eos # (Auto) (0-0.5) K/uL Baso # (Auto) (0-0.2) K/uL Immature Gran # (Auto) (0.00-0.02) K/uL PT (9.0-12.0) Seconds INR (0.9-1.1) Sodium (136-145) mmol/L Potassium (3.5-5.1) mmol/L Chloride (98-107) mmol/L Carbon Dioxide (21-32) mmol/L Anion Gap (3-11) BUN (6-23) mg/dl Creatinine (0.6-1.4) mg/dl Est Cr Clr Drug Dosing Est GFR ( Amer) ml/min Est GFR (Non-Af Amer) ml/min BUN/Creatinine Ratio (10-20) Glucose (70-99(Fasting)) mg/dl Lactate 0.5 (0.4-2.0) mmol/L Calcium (8.5-10.1) mg/dl Magnesium (1.7-2.4) mg/dl Total Bilirubin (0.2-1.0) mg/dl AST (13-39) U/L ALT (7-52) U/L Alkaline Phosphatase (34-104) U/L Troponin I (0-0.04) ng/ml C-Reactive Protein (0-0.5) mg/dl Total Protein (6.0-8.3) gm/dl Albumin (3.4-5.0) gm/dl Globulin (2.5-4.0) gm/dl Albumin/Globulin Ratio (0.9-2) TSH (0.300-4.500) uIu/ml Urine Color Yellow Urine Appearance Clear (Clear) Urine pH 7.5 (4.5-7.5) Ur Specific [place] > 1.045 H (1.000-1.030) Urine Protein Negative (Negative) Urine Glucose (UA) Negative (Negative) Urine Ketones Negative (Negative) Urine Blood Negative (Negative) Urine Nitrite Negative (Negative) Urine Bilirubin Negative (Negative) Urine Urobilinogen Negative (Negative) Ur Leukocyte Esterase Negative (Negative) SARS-CoV-2, RNA, NAAT (NEGATIVE) Administered Medications Discontinued Medications Sodium Chloride (Nss 1000ml) 500 mls @ 999 mls/hr IV .Q31M ONE Stop: 02/28/22 16:39 Last Infusion: 02/28/22 19:06 Dose: 0 mls/hr Documented by: [id number] Admin: 02/28/22 17:12 Dose: 999 mls/hr Documented by: [id number] Sodium Chloride (Nss 1000ml) 500 mls @ 999 mls/hr IV .Q31M ONE Stop: 02/28/22 17:52 Last Infusion: 02/28/22 19:06 Dose: 0 mls/hr Documented by: [id number] Admin: 02/28/22 17:26 Dose: 999 mls/hr Documented by: [id number] Ioversol (Optiray 320 100ml) 92 ml IV ONCE ONE Stop: 02/28/22 16:53 Last Admin: 02/28/22 16:53 Dose: 92 ml Documented by: [id number] Imaging Data Radiologist's Impression: Chest X-Ray 02/28/22 16:02 XR chest 1V portable CLINICAL HISTORY: weakness COMPARISON STUDY: Chest radiograph May 02, 2021. Chest CT July 26, 2020. FINDINGS: Median sternotomy wires are noted. Cardiomediastinal silhouette is unremarkable. Elevation of the left hemidiaphragm is unchanged. Skinfolds project over the left chest. No pneumothorax or pleural effusion. No evidence for pulmonary edema or pneumonia. IMPRESSION: No acute cardiopulmonary findings. ACT 112: Negative or not required by law. Electronically signed by: Joshua Hernandez M.D. 02/28/2022 4:30 PM Abdomen/Pelvis CT 02/28/22 16:03 CT OF THE ABDOMEN AND PELVIS WITH CONTRAST CLINICAL HISTORY: Upper abdominal pain. COMPARISON STUDY: CT of the abdomen and pelvis April 15, 2018. TECHNIQUE: Following IV administration of 92 mL of Optiray, axial images of the abdomen and pelvis were obtained from the lung bases to the proximal femurs. Images were reviewed in the axial, sagittal, and coronal planes. IV contrast was administered without complication. Automated exposure control was utilized for the study. A dose lowering technique was utilized adhering to the principles of ALARA. CT DOSE: 269.49 mGy.cm FINDINGS: Bilateral gynecomastia is incidentally noted. Elevation of the left hemidiaphragm is unchanged. No pneumatosis, free air or portal venous gas is present. Evaluation of the abdomen and pelvis is difficult given a paucity of intra-abdominal fat. Water attenuation bilateral renal lesions reflect cysts. Biliary ductal dilatation is unchanged and likely related to cholecystectomy. The spleen, adrenal glands and pancreas are unremarkable. There is no peripancreatic infiltration. 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 There is swirling of the mesenteric vessels within left abdomen. However, there is no resultant bowel obstruction. There is mild wall thickening of several left upper quadrant jejunal loops. Apparent wall thickening of the sigmoid colon and rectum is likely due to underdistention. The appendix is normal. The abdominal aorta is ectatic, measuring 2.8 cm in caliber. There is extensive atherosclerotic plaque within the abdominal aorta and branch vessels. No acute fracture or suspicious lesion within the visualized skeletal structures. No ascites or lymphadenopathy. IMPRESSION: 1. Wall thickening of several left upper quadrant jejunal loops. Although this could be due to underdistention, the findings suggest a nonspecific enteritis. 2. Swirling of the mesenteric vessels within the left mid abdomen. This raises the possibility of an internal hernia however no evidence for a bowel obstruction at this time. Close clinical follow-up is recommended. 3. Technically difficult study to interpret given paucity of intra-abdominal fat. 4. Ectatic abdominal aorta. Extensive atherosclerotic plaque. ACT 112: Negative or not required by law. Electronically signed by: Joshua Hernandez M.D. 02/28/2022 5:16 PM Discharge Plan Visit Data Chief Complaint: Weakness ED Provider: Ernesto Mcclellan Discharge Problem: Acute dehydration, Hypoxemia, Hypotension, Weakness, Cough Patient Disposition: Admitted As Inpatient Discharge Instructions Interventions: ED Discharge Assessment Last Done: 02/28/22 19:32 Forms Stand Alone Forms: [facility] [place] [employer] Prescriptions Prescriptions: No Action omeprazole 40 mg capsule,delayed release(DR/EC) 40 mg PO BID Qty: 60 RF: 5 (DME) Lift Chair Misc See Rx Instructions .Route Qty: 1 RF: 0 lactulose 10 gram/15 mL solution 30 ml PO BID PRN (Reason: constipation) Qty: 946 RF: 1 mupirocin 2 % ointment 1 applic topical BID Qty: 15 RF: 3 prednisone 5 mg tablet 5 mg PO QAM Qty: 30 RF: 5 oxycodone 15 mg tablet 15 mg PO BID PRN (Reason: breakthrough pain) Qty: 60 RF: 0 oxycodone [OxyContin] 30 mg tablet,oral only,ext.rel.12 hr 30 mg PO Q12H 30 Days Qty: 60 RF: 0 clobetasol 0.05 % cream 1 appln topical BID Qty: 1 RF: 0 nitroglycerin 0.4 mg tablet, sublingual 0.4 mg SL Q5M PRN (Reason: chest pain) Qty: 25 RF: 0 polyethylene glycol 3350 17 gram/dose powder 17 gm PO DAILY PRN (Reason: Constipation) Qty: 1 RF: 0 guaifenesin [Mucinex] 600 mg tablet extended release 12hr 600 mg PO Q12H PRN (Reason: congestion) Qty: 60 RF: 0 loratadine [Claritin] 10 mg tablet 10 mg PO HS Qty: 90 RF: 1 tamsulosin 0.4 mg capsule 0.4 mg PO HS Qty: 90 RF: 3 miconazole nitrate 2 % powder 1 applic topical BID 14 Days Qty: 85 RF: 0 allopurinol 300 mg tablet 300 mg PO QAM RF: 0 Linzess 290 mcg capsule 290 mcg PO QAM RF: 0 Boost High Protein 0.06 gram- 1 kcal/mL liquid 1 ea PO 6XD RF: 0 Referrals Referrals: Luisa Velasquez MD [Primary Care Provider] -
[2022-02-28] MEDS ORDERED: SODIUM CHLORIDE 0.9% 1000ML 500 ML IV ONE ×2 (16:09→17:22)
[2022-02-28 16:12] LABS: Basophils # (auto) 0.02 K/uL (0-0.2); Basophils % (auto) 0.2 %; Eosinophils # (auto) 0.06 K/uL (0-0.5); Eosinophils % (auto) 0.7 %; Hematocrit (blood only) 36.1 % (42-52); Hemoglobin 11.7 g/dL (14.0-18.0); Immature Granulocytes # (auto) 0.01 K/uL (0.00-0.02); Immature Granulocytes % (auto) 0.1 %; Lymphocytes # (auto) 1.71 K/uL (1.2-3.4); Lymphocytes % (auto) 19.3 %; Mean Corpuscular Hemoglobin 28.4 pg (25-34); Mean Corpuscular Hgb Conc 32.4 g/dL (32-36); Mean Corpuscular Volume 87.6 fL (80-100); Mean Platelet Volume 9.6 fL (7.4-10.4); Monocytes # (auto) 0.76 K/uL (0.11-0.59); Monocytes % (auto) 8.6 %; Neutrophils # (auto) 6.29 K/uL (1.4-6.5); Neutrophils % (auto) 71.1 %; Platelet Count 347 K/uL (130-400); RDW Coefficient of Variation 15.7 % (11.5-14.5); RDW Standard Deviation 50.5 fL (36.4-46.3); Red Blood Count 4.12 M/uL (4.7-6.1); White Blood Count 8.85 K/uL (4.8-10.8)
[2022-02-28 16:21] LABS: INR 1.1 (0.9-1.1); Prothrombin Time 11.5 Seconds (9.0-12.0)
--- NOTE | 2022-02-28 16:31 | XRay Report ---
XR chest 1V portable CLINICAL HISTORY: weakness COMPARISON STUDY: Chest radiograph May 02, 2021. Chest CT July 26, 2020. FINDINGS: Median sternotomy wires are noted. Cardiomediastinal silhouette is unremarkable. Elevation of the left hemidiaphragm is unchanged. Skinfolds project over the left chest. No pneumothorax or ple ural effusion. No evidence for pulmonary edema or pneumonia. IMPRESSION: No acute cardiopulmonary findings. ACT 112: Negative or not required by law. Electronically signed by: Joshua Hernandez M.D. 02/28/2022 4:30 PM
[2022-02-28 16:38] LABS: Alanine Aminotransferase 8 U/L (7-52); Albumin Globulin Ratio 0.9 (0.9-2); Albumin Level 3.3 gm/dl (3.4-5.0); Alkaline Phosphatase 99 U/L (34-104); Anion Gap 7 (3-11); Aspartate Aminotransferase 14 U/L (13-39); BUN Creatinine Ratio 33.8 (10-20); Bilirubin,Total 0.5 mg/dl (0.2-1.0); Blood Urea Nitrogen 23 mg/dl (6-23); Calcium 8.8 mg/dl (8.5-10.1); Carbon Dioxide 29 mmol/L (21-32); Chloride 100 mmol/L (98-107); Est GFR (African American) 102.4 ml/min; Est GFR (Non-African American) 88.3 ml/min; Globulin 3.7 gm/dl (2.5-4.0); Glucose 100 mg/dl (70-99(Fasting)); Magnesium 1.7 mg/dl (1.7-2.4); Potassium 4.4 mmol/L (3.5-5.1); Sodium 136 mmol/L (136-145); Troponin I < 0.03 ng/ml (0-0.04)
--- NOTE | 2022-02-28 16:38 | Electrocardiogram Report ---
Test Reason : Blood Pressure : / mmHG Vent. Rate : 069 BPM Atrial Rate : 069 BPM P-R Int : 192 ms QRS Dur : 072 ms QT Int : 410 ms P-R-T Axes : 051 014 044 degrees QTc Int : 439 ms Normal sinus rhythm Normal ECG When compared with ECG of 26-JUL-2020 14:25, No significant change was found Confirmed by Diony Sky ([id number]) on 02/28/2022 4:38:34 PM Referred By: Luisa Velasquez Confirmed By:Diony Sky
[2022-02-28] MEDS ORDERED: OPTIRAY 320 100ml IV ONE (16:52)
--- NOTE | 2022-02-28 17:18 | CT Scan Report ---
CT OF THE ABDOMEN AND PELVIS WITH CONTRAST CLINICAL HISTORY: Upper abdominal pain. COMPARISON STUDY: CT of the abdomen and pelvis April 15, 2018. TECHNIQUE: Following IV administration of 92 mL of Optiray, axial images of the abdomen and pelvis we re obtained from the lung bases to the proximal femurs. Images were reviewed in the axial, sagittal, and coronal planes. IV contrast was administered without complication. Automated exposure control wa s utilized for the study. A dose lowering technique was utilized adhering to the principles of ALARA . CT DOSE: 269.49 mGy.cm FINDINGS: Bilateral gynecomastia is incidentally noted. Elevation of the left hemidiaphragm is unchan ged. No pneumatosis, free air or portal venous gas is present. Evaluation of the abdomen and pelvis i s difficult given a paucity of intra-abdominal fat. Water attenuation bilateral renal lesions reflect cysts. Biliary ductal dilatation is unchanged and likely related to cholecystectomy. The spleen, adr enal glands and pancreas are unremarkable. There is no peripancreatic infiltration. 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 There is swirling of the mesenteric vessels within left abdomen. However, ther e is no resultant bowel obstruction. There is mild wall thickening of several left upper quadrant jej unal loops. Apparent wall thickening of the sigmoid colon and rectum is likely due to underdistention . The appendix is normal. The abdominal aorta is ectatic, measuring 2.8 cm in caliber. There is exten sive atherosclerotic plaque within the abdominal aorta and branch vessels. No acute fracture or suspi cious lesion within the visualized skeletal structures. No ascites or lymphadenopathy. IMPRESSION: 1. Wall thickening of several left upper quadrant jejunal loops. Although this could be due to underd istention, the findings suggest a nonspecific enteritis. 2. Swirling of the mesenteric vessels within the left mid abdomen. This raises the possibility of an internal hernia however no evidence for a bowel obstruction at this time. Close clinical follow-up is recommended. 3. Technically difficult study to interpret given paucity of intra-abdominal fat. 4. Ectatic abdominal aorta. Extensive atherosclerotic plaque. ACT 112: Negative or not required by law. Electronically signed by: Joshua Hernandez M.D. 02/28/2022 5:16 PM
--- NOTE | 2022-02-28 17:38 | History & Physical Report ---
Date of Service February 28, 2022 Assessment & Plan (1) Generalized weakness: Plan: This is an 81-year-old gentleman with a notable history of gastric bypass surgery in ~2013 for obesity, B12 deficiency, CAD status post triple-vessel bypass, constipation, depression, type 2 diabetes, ?gastroparesis (patient unsure of this), hypertension, chronic use of opioids for back pain, cachexia, GERD, hypersomnia with sleep apnea, iron deficiency, blood clots > 30 years ago not on AC who presents to [facility] at recommendation of his PCP for weakness, hypotension, and hypoxemia, found to be saturating appropriately with low blood pressure on arrival. Etiology of his weakness and objective findings are currently unclear. Generalized Weakness -- over last 2-3 weeks Patient reporting significant fatigue-like weakness over the past 2 weeks in setting of abdominal discomfort and poor p.o. intake Work-up as follows On arrival, blood pressure around 90/60 with normal heart rates, respiratory rate, oxygen saturation CBC notable for mild normocytic anemia; electrolytes WNL; TSH WNL Troponin normal, ECG without conduction or repolarization abnormalities CRP elevated at 1.22, pro-Shamar normal; no leukocytosis Chest x-ray without acute pathology CT abdomen pelvis demonstrated wall thickening of the jejunum, mesenteric vessels swirlinginterpreted as possibly hernia versus bowel obstruction At present, suspect etiology of weakness is multifactorial. Suspect chronic poor p.o. intake and cachexia, alongside regular opioid use and constipation, are likely the major culprits. Malignancy certainly a possibility given cachexia, but unclear source at present. No current evidence of infection. No neurologic abnormalities appreciated. Cardiac murmurs appreciated on exam, however no symptoms or findings consistent with acute heart failure. Blood sugar, TSH normal. Defer from starting ABX at this time given no clear infectious source Check B12, folate, iron studies Check urine and blood cultures Fall precautions Appreciate assessments by PT, OT Maintain gentle hydration at 80 cc/h (2) Cachexia: Plan: Cachexia Per patient and daughter, long-term history of poor p.o. intake; history of gastric bypass in 2013 noted Per patient, dysphagia has only been ongoing for 2 weekssuspect cachexia rep resents a much longer term process. No pain with eating/drinking chronically. Boost 3 times daily Supplement with thiamine, folate, multivitamin Appreciate RD consultation for nutritional assessment and recommendations moving forward Can consider appetite stimulant, such as Marinol, pending further work-up above (3) Dysphagia: Plan: Dysphagia Patient reporting approximately 2 weeks worth of solid and liquid food dysphagia without odynophagia that feels like things are "getting stuck" CAUSTICS LOADER consulted for swallowing assessment, including possibly video/barium assessment Can consider consultation with gastroenterology pending their assessment Easy to chew diet in the interim Aspiration precautions (4) Epigastric pain: Plan: Abdominal Pain / Epigastric Pain / R-sided Chest Pain Patient reporting multiple weeks worth of waxing and waning abdominal discomfort, worse in the right upper quadrant; not associated with exertion or eating Patient's history of significant coronary artery disease requiring triple bypass noted in this regard. ECG without acute conduction or repolarization abnormalities. Admission troponin negative. --> Trend once more. Patient's chart does reflect a history of gastroparesis, however him and his daughter were unaware of such history; most recent A1c at 6.5%, no regurgitation of undigested food CT abdomen pelvis demonstrated wall thickening of the jejunum, mesenteric vessels swirlinginterpreted as possibly hernia versus bowel obstruction --> Patient reports passing a bowel movement morning of admission, as well as gas. No obvious evidence of hernia on exam. No diarrhea, n/v. Unclear etiology. Primarily suspect secondary to constipation in setting of poor p.o. intake, frequent opioid use. SBO seems more likely given recent passage of bowel movement. Monitor intake, output Constipation management as below (5) Constipation: Plan: Constipation Patient reporting long-term history of constipation/difficulty passing bowel movements, intermittently requiring manual extraction Primarily suspect secondary to poor p.o. intake, dehydration, and frequent use of opioids Patient did have large, non-bloody BM (per his report) on morning of admission; has been passing gas since Initiate MiraLAX twice daily, senna each morning Reduce oxycodone 15mg b.i.d. to once daily, add scheduled Tylenol and Toradol p.r.n. (6) Hypoxemia: Plan: Previous Hypoxemia Reported history of hypoxemia at PCP's office (high 80s) -- however, has largely been normal since been here No e/o CP abnormalities on CXR, including infectious etiologies or hypervolemia No evidence of leg swelling on exam - given normal HR, SpO2 here, lower suspicion for PE CAUSTICS LOADER consultation as above for swallow function Possibly atelectasis? If recurs and is persistent, could consider CT/CTA for further clarification (7) Murmur, cardiac: Plan: Murmurs On exam, patient found to have grade 2 out of 6 holosystolic murmur at the apex with "radiation versus additional systolic murmur to the right upper sternal border Patient significant history of coronary artery disease noted No evidence or symptoms of acute heart failure Check TTE in AM (8) History of gastric bypass: Plan: History of Gastric Bypass History noted in terms of cachexia above. Check B12, folate, iron panel in AM RD assessment, as above (9) S/P triple vessel bypass: Plan: CAD s/p CABG History noted in context of epigastric pain noted above ECG without conduction, repolarization abnormalities; troponin negative Not on statin, ASA, or BB (though contraindicated right now in setting of HoTN) -- will require further investigation as acute issues resolve TTE, as above (10) BPH (benign prostatic hyperplasia): Plan: BPH Continue Flomax (11) GERD without esophagitis: Plan: GERD Continue PPI (12) DM2 (diabetes mellitus, type 2): Plan: T2DM History noted. Last A1c at 6.7% in 02/2021. Not on home medications Check A1c in AM -- can consider starting ACHS BSG checks p.r.n. (13) Hypotension: Plan: Hypotension On arrival, patient noted to have blood pressure of around 90/60 with normal heart rate, respiratory rate, oxygen saturation, perfusion. Thankfully, not symptomatic (subacute weakness noted). Initially responsive to 2 L of fluid since arrival Good peripheral perfusion on exam. No evidence of heart failure or VTE. No obvious infectious source. Patient does appear somewhat dry. Weakness work-up ongoing, as above; primarily suspect hypotension is related to poor p.o. intake, dehydration, cachectic body habitus Await infectious labs: Procalcitonin (neg), blood cultures, urine studies Maintain normal saline at 80 cc / hour -- can do gentle boluses p.r.n. while awaiting TTE Check AM cortisol; setting of hypothermia noted (14) Chronic, continuous use of opioids: Plan: Chronic Back Pain Noted history of multilevel degenerative back pain that is chronic in nature Patient reports taking oxycodone 15mg bid - tid over the last few weeks Decrease oxycodone to 15mg once daily for now (in setting of abdominal pain, constipation) Schedule Tylenol - 1g t.i.d., Toradol p.r.n. for breakthrough pain Consider imaging if worsening / concern for infectious etiology (15) Body temperature low: Plan: On arrival, patient noted to have T 34.5C that subsequently improved with heated blankets. No shivering appreciated on exam. Normal mentation, normal telemetry. Low core body temperatures has been noted in past on chart review - though admitting temperature is quite low (94F/34.5C) Suspect multifactorial: cachexia, opioids, inactivity all known to cause hypothermia. No active source of infection at present. Cortisol level pending for AM. Thyroid normal. No obvious environmental causes Continue regular temperature checks Monitor on telemetry Continue above work-up Plan: Code: Full code - discussed with daughter in the room; he had indicated some uncertainty about this, and wishes to discuss more in the future, but for now wishes to remain FC Dispo: MS/Tele for tonight - likely can transition to MS tomorrow Diet: Easy to chew, NS @ 80cc/hr, MVI+thiamine+folate, RD consult PPX: Reduced Lovenox dose @ 30 q24 given weight, advanced age History of Present Illness Chief Complaint: weakness Primary Care Provider: Luisa Velasquez MD This is an 81-year-old gentleman with a notable history of gastric bypass surgery in ~2013 for obesity, B12 deficiency, CAD status post triple-vessel bypass, constipation, depression, type 2 diabetes, ?gastroparesis (patient unsure of this), hypertension, chronic use of opioids for back pain, cachexia, GERD, hypersomnia with sleep apnea, iron deficiency, blood clots > 30 years ago not on AC who presents to [facility] at recommendation of his PCP for weakness, hypotension, and hypoxemia. Patient says that over the last 2 weeks, he has progressively felt more and more weak. He says that this is generalized, and not waxing and waning. He describes the weakness as fatigue. He denies shortness of breath or cough. He denies any recent fevers, chills, night sweats. He does say that he has been having difficulty swallowing both liquids and solids. He says that when he swallows, "it feels like it will not go down, but then it does." He does not believe that this is contributing to his oral intake. However, he does endorse a long history of poor p.o. intake that started after his gastric bypass in 2013. In addition, he describes a vague epigastric/right sided chest pain that is there all the time. It is not worse with exertion and is not associated with shortness of breath. It does not seem to get worse with eating or drinking. He says it is difficult to describe. No nausea or vomiting. No leg swelling. When he went to his PCP today, he was noted to have hypoxemia in the high 80s as well as low blood pressure. In combination with the symptoms, they did recommend he go to the ER for further evaluation. He denies any pain or discomfort right now. Does endorse feeling fatigued. 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 He says he has been taking about 3 oxycodone 15 mg daily due to the pain. 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 Medications reviewed, include allopurinol, guaifenesin, lactulose, loratadine, omeprazole, oxycodone 15 mg twice daily, oxycodone 30 mg twice daily, prednisone 5 mg daily, Flomax. He denies new medications. Upon arrival in the ER, patient was found to be hypothermic to 34.5 and soft blood pressures ranging from 90/50 - 100/40 with normal HR, RR, SpO2. Labs demonstrated normal white count of 8.8, persistent anemia 11.7, mild monocytosis 0.76, normal electrolytes, negative troponin, TSH 2.8. Chest x-ray did not demonstrate any acute findings. CT abdomen pelvis demonstrated wall thickening of the jejunum, mesenteric vessels swirlinginterpreted as possibly hernia versus bowel obstruction, ectatic abdominal aorta. ECG demonstrated normal sinus rhythm. He was given 2 L of normal saline. Allergies Allergy/AdvReac Type Severity Reaction Status Date / Time No Known Allergies Allergy Verified 02/28/22 14:43 Home Medications Medication Instructions Recorded Confirmed Type clobetasol 0.05 % topical cream 1 appln TOPICAL BID #1 gm 07/01/19 02/28/22 History nitroglycerin 0.4 mg sublingual 0.4 mg SL Q5M PRN #25 tab 07/01/19 02/28/22 History tablet polyethylene glycol 3350 17 17 gm PO DAILY PRN #1 gm 07/01/19 02/28/22 History gram/dose oral powder guaifenesin 600 mg tablet, 600 mg PO Q12H PRN #60 tab 12/18/20 02/28/22 Rx extended release 12 hr (Mucinex) allopurinol 300 mg tablet 300 mg PO QAM 07/13/21 02/28/22 History food supplemt, lactose-reduced 1 ea PO 6XD 07/13/21 02/28/22 History 0.06 gram-1 kcal/mL oral liquid (Boost High Protein) linaclotide 290 mcg capsule 290 mcg PO QAM 07/13/21 02/28/22 History (Linzess) omeprazole 40 mg capsule,delayed 40 mg PO BID #60 cap 07/24/21 02/28/22 Rx release loratadine 10 mg tablet (Claritin) 10 mg PO HS #90 tab 08/02/21 02/28/22 Rx tamsulosin 0.4 mg capsule 0.4 mg PO HS #90 cap 08/02/21 02/28/22 Rx Lift Chair #1 ea 09/18/21 02/28/22 Rx lactulose 10 gram/15 mL oral 30 ml PO BID PRN #946 ml 11/22/21 02/28/22 Rx solution mupirocin 2 % topical ointment 1 applic TOPICAL BID #15 g 11/22/21 02/28/22 Rx miconazole nitrate 2 % topical 1 applic TOPICAL BID 14 Days #85 g 12/04/21 02/28/22 Rx powder prednisone 5 mg tablet 5 mg PO QAM #30 tab 02/04/22 02/28/22 Rx oxycodone 15 mg tablet 15 mg PO BID PRN #60 tab 02/07/22 02/28/22 Rx oxycodone 30 mg tablet,crush 30 mg PO Q12H 30 Days #60 tab 02/14/22 02/28/22 Rx resistant,extended release 12 hr (OxyContin) Past Med/Surg History Medical History (Updated 03/01/22 @ 12:03 by Avinash Demarco DO, FACS) B12 deficiency BPH (benign prostatic hyperplasia) Chronic, continuous use of opioids Constipation Coronary atherosclerosis of [place] coronary vessel Depression DM2 (diabetes mellitus, type 2) prior to gastric bypass--no meds now Gastroparesis GERD without esophagitis Gouty arthropathy Hearing deficit Hyperlipidemia LDL goal <100 Hypertension Internal hernia OA (osteoarthritis) of hip Other psoriasis Poor historian Restless legs Sleep apnea hx of prior to gastric bypass sx--no device Surgical History (Updated 02/28/22 @ 19:30 by Oliverio Angel MD) Bariatric surgery status 2007 @ [facility] [place] History of bilateral cataract extraction History of cardiac cath x2 ? prior to bypass--pt does not believe any stents placed History of carpal tunnel surgery of right wrist History of colonoscopy History of esophagogastroduodenoscopy (EGD) History of tooth extraction all teeth removed S/P triple vessel bypass pt states "between 1994 and 1997 had procedure done" @ [facility] [place] follows with Emigdio Bautista @ [facility] Status post panniculectomy Family History Mother Diabetes Other No family history of adverse response to anesthesia Denies family history of Ovarian cancer Prostate cancer Myocardial infarction Breast cancer Colorectal cancer Social History Smoking Status: Former smoker Tobacco Type: Cigarettes Age Started Using Tobacco: 20; Age Quit Using Tobacco: 63; packs per day: 1; Second Hand Exposure: No; Hx Alcohol Use: No Hx Substance Use: No Preferred Language: Slovenian Communication Ability: Effective Visual Impairment: No Limitations Hearing Ability: Use of Hearing Aid Supervisor Blasting Required: No Beliefs That Will Affect Care: None marital status: / Current Living Situation: Alone Current Living Situation Comment: lives home alone, states grandson is there often 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al status: retired 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 Fully alert and oriented. HEENT: NCAT. - Eyes - Sclera are white, anicteric, and without injection. PERRL. - Mouth - MMM with no tonsillar edema or exudates. - Neck - supple and without LAD. No JVD. Cardiac: Normal rate and regular rhythm; S1 and S2 present with grade 2/6 holosystolic murmur best heard at the apex that radiates towards the left sternal border. Also heard is a systolic murmur at the RUSB. Capillary refill < 3 seconds. Pulmonary: Good respiratory effort with symmetric expansion of the chest. No use of accessory muscles. Lungs were clear to auscultation bilaterally with no crackles or wheezes. Abdominal: Normoactive bowel sounds. Abdomen was soft and nondistended. There is +TTP in the epigastrium. Extremities: Upper and lower extremities are warm and well perfused. No peripheral edema. Desquamation of both heals appreciated. Back: Palpation down the spine does reveal diffuse TTP, primarily in the cervical and mid-thoracic spine. Neuro: CN2-12 grossly intact. UE, LE strength is 5/5. Sensation to light touch is grossly in tact in UE, LE. Psych: Well-developed, well-nourished, appropriately dressed for occasion. Behavior is cooperative and appropriate. Affect is WNL. Insight is appropriate. Results & Data Results & Data ([facility]) Vital Signs (Past 12 Hours) Vital Signs Temp Pulse Resp BP Pulse Ox 02/28/22 16:20 69 16 95 02/28/22 16:10 70 21 95 02/28/22 16:05 66 13 95/65 L 02/28/22 16:02 68 17 109/43 L 96 02/28/22 16:00 69 21 02/28/22 15:50 70 22 96 02/28/22 15:45 67 16 94 02/28/22 15:33 36.3 C L 70 20 109/43 L 96 Supervising Physician Co-Signing Physician Notes Patient seen and examined at bedside. During face to face encounter, obtained a physical examination and a history of present illness. Reviwed above history and agree with it. D/W admission plan with Dr. Angel Patient will be admitted for generalized weakness. Concern that this may be from poor nutrition. Malignancy is also a possibility for weight loss. will consult speech therapy. may require dietary consult. will also check cortisol in AM Resident Activity Tracking Resident Involvement: Resident Care Provided Care Provided: Adult [facility]
[2022-02-28] MEDS ORDERED: ACETAMINOPHEN 325 MG TAB PO PRN (18:15)
[2022-02-28] MEDS ORDERED: ACETAMINOPHEN 500 MG TAB PO STA (18:21)
[2022-02-28 18:46] LABS: Appearance Urine Clear (Clear); Bilirubin Urine Negative (Negative); Blood Urine Negative (Negative); Color Urine Yellow; Glucose Urine UA Negative (Negative); Ketones Urine Negative (Negative); Leukocyte Esterase Urine Negative (Negative); Nitrite Urine Negative (Negative); Protein Urine Negative (Negative); Specific Gravity Urine > 1.045 (1.000-1.030); Urobilinogen Urine Negative (Negative); pH Urine 7.5 (4.5-7.5)
[2022-02-28] MEDS ORDERED: SODIUM CHLORIDE 0.9% 1000ML 1,000 ML IV SCH (19:30)
[2022-02-28] MEDS ORDERED: POLYETHYLENE (MIRALAX) 17 GM PACK PO PRN (20:47)
[2022-02-28] MEDS ORDERED: KETOROLAC TROMETHAMINE 10 MG TABLET PO PRN (20:47)
[2022-02-28] MEDS ORDERED: NITROGLYCERIN SL 0.4 MG/TAB TAB SL PRN (20:47)
[2022-02-28] MEDS ORDERED: guaiFENesin 600 MG TABCR PO PRN (20:47)
[2022-02-28] MEDS: TAMSULOSIN HCL 0.4 MG CAP PO SCH (22:06)
[2022-02-28] MEDS: LORATADINE 10 MG TAB PO SCH (22:06)
[2022-02-28] MEDS: MICONAZOLE NITRATE POWDER 43 GM TOP SCH (22:06)
[2022-02-28] MEDS: MUPIROCIN 2% OINT 22 GM TUBE TOP SCH (22:07)
[2022-02-28] MEDS: PANTOprazole 40 MG TAB PO SCH (22:07)
[2022-02-28] MEDS: POLYETHYLENE (MIRALAX) 17 GM PACK PO SCH (22:07)
[2022-02-28] MEDS ORDERED: KETOROLAC TROMETHAMINE 15 MG/ML VIAL IV PRN (22:38)
[2022-02-28] MEDS: ENOXAPARIN INJ 30 MG/0.3 ML SYR SQ SCH (22:51)
[2022-02-28] MEDS ORDERED: ONDANSETRON 4 MG OD TAB PO PRN (23:10)
[2022-03-01 07:58] LABS: Basophils # (auto) 0.02 K/uL (0-0.2); Basophils % (auto) 0.3 %; Eosinophils # (auto) 0.07 K/uL (0-0.5); Hematocrit (blood only) 32.9 % (42-52); Hemoglobin 10.2 g/dL (14.0-18.0); Immature Granulocytes # (auto) 0.01 K/uL (0.00-0.02); Immature Granulocytes % (auto) 0.1 %; Lymphocytes % (auto) 20.6 %; Mean Corpuscular Hemoglobin 27.7 pg (25-34); Mean Corpuscular Volume 89.4 fL (80-100); Mean Platelet Volume 9.4 fL (7.4-10.4); Monocytes % (auto) 10.3 %; Neutrophils # (auto) 4.58 K/uL (1.4-6.5); Neutrophils % (auto) 67.7 %; Platelet Count 289 K/uL (130-400); RDW Standard Deviation 51.2 fL (36.4-46.3); Red Blood Count 3.68 M/uL (4.7-6.1); White Blood Count 6.78 K/uL (4.8-10.8)
[2022-03-01] MEDS: FOLIC ACID 1 MG TAB PO SCH (08:01)
[2022-03-01] MEDS: LINACLOTIDE 145 MCG CAPSULE PO SCH (08:02)
[2022-03-01] MEDS: PANTOprazole 40 MG TAB PO SCH ×2 (08:02→21:44)
[2022-03-01] MEDS: MULTIVITAMIN TAB PO SCH (08:02)
[2022-03-01] MEDS: THIAMINE HCL 100 MG TAB PO SCH (08:02)
[2022-03-01] MEDS: allopurinoL 300 MG TAB PO SCH (08:02)
[2022-03-01] MEDS: MICONAZOLE NITRATE POWDER 43 GM TOP SCH ×2 (08:02→21:49)
[2022-03-01] MEDS: MUPIROCIN 2% OINT 22 GM TUBE TOP SCH ×2 (08:03→21:49)
[2022-03-01] MEDS: POLYETHYLENE (MIRALAX) 17 GM PACK PO SCH ×2 (08:04→21:46)
[2022-03-01 08:26] LABS: Albumin Globulin Ratio 0.9 (0.9-2); Albumin Level 2.7 gm/dl (3.4-5.0); BUN Creatinine Ratio 33.9 (10-20); Bilirubin,Total 0.4 mg/dl (0.2-1.0); Calcium 8.1 mg/dl (8.5-10.1); Creatinine Clr Calc Pharmacy 74.5 ml/min; Est GFR (African American) 110.9 ml/min; Est GFR (Non-African American) 95.7 ml/min; Globulin 2.9 gm/dl (2.5-4.0); Total Protein 5.6 gm/dl (6.0-8.3)
[2022-03-01 08:31] LABS: Cortisol AM 23.66 mcg/dl (6.2-22.6)
[2022-03-01 08:45] LABS: Ferritin 140.2 ng/ml (8-388); Folate (Folic Acid) 16.47 ng/ml (>5.38)
[2022-03-01] MEDS ORDERED: oxyCODONE HCL IR 5 MG TAB (IMMEDIATE RELEASE) PO SCH (09:00)
[2022-03-01] MEDS ORDERED: predniSONE 5 MG TAB PO SCH (09:00)
[2022-03-01] MEDS ORDERED: SENNA 8.6 MG TAB PO SCH (09:00)
[2022-03-01] MEDS: LACTATED RINGER'S 1,000 ML IV SCH ×2 (09:56→21:48)
--- NOTE | 2022-03-01 10:11 | Gastrointestinal Consultation ---
Date of Consultation March 01, 2022 Assessment & Plan (1) Nausea & vomiting: (2) Weight loss: (3) Dysphagia: (4) Abdominal pain: Pt is a 81 yo male w hx of multiple abd surgeries (RYGB -> partial gastrectomy, cholecystectomy, gastrojejunostomy, hernia repair w VAC placement), having issues w chronic abd pain, and post prandial nausea, weight loss. He did note that in the last couple of weeks he's able to eat solids such as eggs and puckett. CT abd/pelvis showed LUQ jejunal thickening ? enteritis, mesenteric vessel swirling suspicious for internal hernia, no bowel obstruction noted. He is on chronic narcotic for back pain, has constipation despite several laxatives. Pain likely multifactorial including scarring from multiple abd surgeries, possible internal hernia, constipation. - Protonix 40mg BID - Post prandial nausea ? related to gastroparesis, can try Reglan 5mg IV BID - He does have mild dysphagia s/p EGD w dilation to 54Fr in 06/2021. Currently tolerating solids. Will defer repeat EGD at this time - Consider changing bowel regimen from Linzess to Movantik 25mg daily for opioid induced constipation. - Surgery consulted for possible hernia - Clinical Research Analyst consulted; protein supplements Supervising Physician Co-Signing Physician Notes I performed a history and physical examination of the patient today, including specifically on physical exam - soft abdomen. I have discussed the patient's management with the advanced practitioner. Please refer to the nurse practitioner's note for the documented findings and plan of care. Abdominal pain with Hx of extensive abdominal surgeries and adhesions, now with mesenteric swirling on CT scan and nonspecific enteritis. Recommend: Surgical evaluation. Bowel rest. Antiemetics. Recall GI if needed. History of Present Illness Reason for Consultation: Abd pain, hx of RYGB Requesting Physician: Dr. Mayra Nicole Attending Physician: Dr. Mo Márquez History of Present Illness Pt is a 81 yo male seen today for evaluation of diffuse abdominal pain, post prandial nausea, and weight loss. He had multiple abdominal surgeries including RYGB in 2003, followed by incisional hernia repair & cholecystectomy in 2006, partial gastrectomy with gastrojejunostomy in 2011, incisional hernia repair complicated by non healing wound w VAC placement in 2013. He reports that his abdominal pain has been present since his surgeries but it would intermittently get worse. He reports post prandial nausea in the last few months and only able to tolerate Boost 6-7 cans a day. In the last couple of weeks, he was able to eat solid meals such as puckett and eggs. He was 125lbs in 06/2021, today he's 115lbs. Hx of gastroparesis noted in chart but I cannot find gastric emptying study result. He does have mild dysphagia s/p EGD w dilation to 54Fr by Dr. Meade in 06/2021. G-J anastomosis normal appearing on EGD exam at that time. Not having problem with solid meals now. He admits to having constipation, hard stools and needing to digitally disimpact himself. Last BM yesterday, hard stools which turn to liquid. No rectal bleeding. Bowel regimen at home: Linzess, Amitiza, Senna/Colace, Miralax. He takes Oxycodone for chronic back pain. Labs reviewed - no leukocytosis, H/H , iron deficiency, normal coags, kidney and liver function tests. CT abd/pelvis w contrast: 1. Wall thickening of several left upper quadrant jejunal loops. Although this could be due to underdistention, the findings suggest a nonspecific enteritis. 2. Swirling of the mesenteric vessels within the left mid abdomen. This raises the possibility of an internal hernia however no evidence for a bowel obstruction at this time. Close clinical follow-up is recommended. 3. Technically difficult study to interpret given paucity of intra-abdominal fat. 4. Ectatic abdominal aorta. Extensive atherosclerotic plaque. Allergies Allergy/AdvReac Type Severity Reaction Status Date / Time No Known Allergies Allergy Verified 02/28/22 14:43 Home Medications Medication Instructions Recorded Confirmed Type clobetasol 0.05 % topical cream 1 appln TOPICAL BID #1 gm 07/01/19 02/28/22 History nitroglycerin 0.4 mg sublingual 0.4 mg SL Q5M PRN #25 tab 07/01/19 02/28/22 History tablet polyethylene glycol 3350 17 17 gm PO DAILY PRN #1 gm 07/01/19 02/28/22 History gram/dose oral powder guaifenesin 600 mg tablet, 600 mg PO Q12H PRN #60 tab 12/18/20 02/28/22 Rx extended release 12 hr (Mucinex) allopurinol 300 mg tablet 300 mg PO QAM 07/13/21 02/28/22 History food supplemt, lactose-reduced 1 ea PO 6XD 07/13/21 02/28/22 History 0.06 gram-1 kcal/mL oral liquid (Boost High Protein) linaclotide 290 mcg capsule 290 mcg PO QAM 07/13/21 02/28/22 History (Linzess) omeprazole 40 mg capsule,delayed 40 mg PO BID #60 cap 07/24/21 02/28/22 Rx release loratadine 10 mg tablet (Claritin) 10 mg PO HS #90 tab 08/02/21 02/28/22 Rx tamsulosin 0.4 mg capsule 0.4 mg PO HS #90 cap 08/02/21 02/28/22 Rx Lift Chair #1 ea 09/18/21 02/28/22 Rx lactulose 10 gram/15 mL oral 30 ml PO BID PRN #946 ml 11/22/21 02/28/22 Rx solution mupirocin 2 % topical ointment 1 applic TOPICAL BID #15 g 11/22/21 02/28/22 Rx miconazole nitrate 2 % topical 1 applic TOPICAL BID 14 Days #85 g 12/04/21 02/28/22 Rx powder prednisone 5 mg tablet 5 mg PO QAM #30 tab 02/04/22 02/28/22 Rx oxycodone 15 mg tablet 15 mg PO BID PRN #60 tab 02/07/22 02/28/22 Rx oxycodone 30 mg tablet,crush 30 mg PO Q12H 30 Days #60 tab 02/14/22 02/28/22 Rx resistant,extended release 12 hr (OxyContin) Patient History Medical History (Updated 03/01/22 @ 15:44 by Charlie Rowley MD) B12 deficiency BPH (benign prostatic hyperplasia) Chronic, continuous use of opioids Constipation Coronary atherosclerosis of [place] coronary vessel Depression DM2 (diabetes mellitus, type 2) prior to gastric bypass--no meds now Gastroparesis GERD without esophagitis Gouty arthropathy Hearing deficit Hyperlipidemia LDL goal <100 Hypertension Internal hernia OA (osteoarthritis) of hip Other psoriasis Poor historian Restless legs Sleep apnea hx of prior to gastric bypass sx--no device Surgical History (Updated 03/01/22 @ 15:44 by Charlie Rowley MD) Bariatric surgery status 2007 @ [facility] [place] History of bilateral cataract extraction History of cardiac cath x2 ? prior to bypass--pt does not believe any stents placed History of carpal tunnel surgery of right wrist History of colonoscopy History of esophagogastroduodenoscopy (EGD) History of tooth extraction all teeth removed S/P triple vessel bypass 1996 Status post panniculectomy Family History Mother Diabetes Other No family history of adverse response to anesthesia Denies family history of Ovarian cancer Prostate cancer Myocardial infarction Breast cancer Colorectal cancer Social History Smoking Status: Former smoker Tobacco Type: Cigarettes Age Started Using Tobacco: 20; Age Quit Using Tobacco: 63; packs per day: 1; Second Hand Exposure: No; Hx Alcohol Use: No Hx Substance Use: No Preferred Language: Yi Communication Ability: Effective Visual Impairment: No Limitations Hearing Ability: Use of Hearing Aid Locomotive Crane Operator Required: No Beliefs That Will Affect Care: None marital status: / Current Living Situation: Alone Current Living Situation Comment: lives home alone, states grandson is there often 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al status: retired 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 Feels Safe at Home: Yes Safety Concerns: Feels Safe At This Time Childhood Exposure to Second-Hand Smoke: No Diet Comment: "I barely eat, I live on boost" Dental Care, Regularly: No Physical Activity Frequency: Does not Exercise Seatbelt Use: sometimes Sunscreen Use: No Assistive Devices: None Physical Exam Constitutional: well groomed, cooperative and comfortable Cachectic appearing Eyes: PERRL, conjunctivae normal, anicteric sclerae ENMT: external ear and nose normal, oropharynx normal Respiratory: normal respiratory effort, lungs clear to auscultation Cardiovascular: RRR, no murmur, no edema Gastrointestinal (Abdomen): Soft, BS present, mild TTP Skin: no rashes, warm and dry no jaundice Neurologic: Motor/Sensory: no asterixis Psychiatric: A+Ox3, euthymic affect Lymphatic: no lymphedema Results & Data ([facility]) Vital Signs (Past 12 Hours) Vital Signs Temp Pulse Pulse Resp BP Pulse Ox 03/01/22 07:43 72 03/01/22 02:48 36.3 C L 65 16 96/42 L 96 03/01/22 00:57 66 94/41 L 95 02/28/22 23:15 36.5 C 67 18 88/49 L 94 02/28/22 22:20 76
--- NOTE | 2022-03-01 12:05 | Surgery Consultation ---
Date of Consultation March 01, 2022 Assessment & Plan (1) History of gastric bypass: 81-year-old male with complex surgical history including Ja-en-Y gastric bypass with chronic abdominal pain over the past several years, poor p.o. intake and failure to thrive. His symptoms do not sound acute. His CT scan suggests a possible internal hernia with no obstruction or ischemia. This can be a cause of chronic intermittent abdominal pain, though internal hernias are less common with open procedures versus laparoscopic. Given his surgical history, and history of bariatric surgery, we would recommend evaluation at a tertiary center. This may be performed as an outpatient as this does not appear acute. No surgical intervention would be recommended at this facility. No surgical intervention at this time Consider bariatric surgery evaluation at a tertiary center as an outpatient Surgery will sign off, call with questions or concerns (2) Internal hernia: History of Present Illness Attending Physician: Mayra Nicole MD History of Present Illness 81-year-old male with complex surgical history and chronic abdominal pain admitted for weakness. He has a history of an open Ja-en-Y gastric bypass performed in [place] around 2007. This appears to been complicated by a leak for which he had a revision. He later had another revision surgery. He then had either a hernia or stitch abscess with a chronic wound for 2 years that was later treated with removal of the sutures and wound VAC placement. Since then he has had chronic abdominal pain. Is on chronic narcotics. He can only take 5-6 boost shakes a day, and occasionally small amounts of food. The pain became worse over the past few weeks and he has been eating less. He also has cardiac history with a bypass surgery. He has been passing gas and having bowel movements. Allergies Allergy/AdvReac Type Severity Reaction Status Date / Time No Known Allergies Allergy Verified 02/28/22 14:43 Home Medications Medication Instructions Recorded Confirmed Type clobetasol 0.05 % topical cream 1 appln TOPICAL BID #1 gm 07/01/19 02/28/22 History nitroglycerin 0.4 mg sublingual 0.4 mg SL Q5M PRN #25 tab 07/01/19 02/28/22 History tablet polyethylene glycol 3350 17 17 gm PO DAILY PRN #1 gm 07/01/19 02/28/22 History gram/dose oral powder guaifenesin 600 mg tablet, 600 mg PO Q12H PRN #60 tab 12/18/20 02/28/22 Rx extended release 12 hr (Mucinex) allopurinol 300 mg tablet 300 mg PO QAM 07/13/21 02/28/22 History food supplemt, lactose-reduced 1 ea PO 6XD 07/13/21 02/28/22 History 0.06 gram-1 kcal/mL oral liquid (Boost High Protein) linaclotide 290 mcg capsule 290 mcg PO QAM 07/13/21 02/28/22 History (Linzess) omeprazole 40 mg capsule,delayed 40 mg PO BID #60 cap 07/24/21 02/28/22 Rx release loratadine 10 mg tablet (Claritin) 10 mg PO HS #90 tab 08/02/21 02/28/22 Rx tamsulosin 0.4 mg capsule 0.4 mg PO HS #90 cap 08/02/21 02/28/22 Rx Lift Chair #1 ea 09/18/21 02/28/22 Rx lactulose 10 gram/15 mL oral 30 ml PO BID PRN #946 ml 11/22/21 02/28/22 Rx solution mupirocin 2 % topical ointment 1 applic TOPICAL BID #15 g 11/22/21 02/28/22 Rx miconazole nitrate 2 % topical 1 applic TOPICAL BID 14 Days #85 g 12/04/21 02/28/22 Rx powder prednisone 5 mg tablet 5 mg PO QAM #30 tab 02/04/22 02/28/22 Rx oxycodone 15 mg tablet 15 mg PO BID PRN #60 tab 02/07/22 02/28/22 Rx oxycodone 30 mg tablet,crush 30 mg PO Q12H 30 Days #60 tab 02/14/22 02/28/22 Rx resistant,extended release 12 hr (OxyContin) Patient History Medical History (Updated 03/01/22 @ 12:03 by Avinash Demarco DO, FACS) B12 deficiency BPH (benign prostatic hyperplasia) Chronic, continuous use of opioids Constipation Coronary atherosclerosis of [place] coronary vessel Depression DM2 (diabetes mellitus, type 2) prior to gastric bypass--no meds now Gastroparesis GERD without esophagitis Gouty arthropathy Hearing deficit Hyperlipidemia LDL goal <100 Hypertension Internal hernia OA (osteoarthritis) of hip Other psoriasis Poor historian Restless legs Sleep apnea hx of prior to gastric bypass sx--no device Surgical History (Updated 02/28/22 @ 19:30 by Oliverio Angel MD) [place] [facility] [place] of bilateral cataract extraction History of cardiac cath x2 ? prior to bypass--pt does not believe any stents placed History of carpal tunnel surgery of right wrist History of colonoscopy History of esophagogastroduodenoscopy (EGD) History of tooth extraction all teeth removed S/P triple vessel bypass pt states "between 1994 and 1997 had procedure done" [place] [facility] [place] Emigd[facility] [place] Status post panniculectomy Family History Mother Diabetes Other No family history of adverse response to anesthesia Denies family history of Ovarian cancer Prostate cancer Myocardial infarction Breast cancer Colorectal cancer Social History Smoking Status: Former smoker Tobacco Type: Cigarettes Age Started Using Tobacco: 20; Age Quit Using Tobacco: 63; packs per day: 1; Second Hand Exposure: No; Hx Alcohol Use: No Hx Substance Use: No Preferred Language: Japanese Communication Ability: Effective Visual Impairment: No Limitations Hearing Ability: Use of Hearing Aid Roller Staker Required: No Beliefs That Will Affect Care: None marital status: / Current Living Situation: Alone Current Living Situation Comment: lives home alone, states grandson is there often 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al status: retired 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 Feels Safe at Home: Yes Safety Concerns: Feels Safe At This Time Childhood Exposure to Second-Hand Smoke: No Diet Comment: "I barely eat, I live on boost" Dental Care, Regularly: No Physical Activity Frequency: Does not Exercise Seatbelt Use: sometimes Sunscreen Use: No Assistive Devices: Glasses and Hearing Aid - Bilateral Review of Systems Review of Systems: All systems reviewed & are unremarkable except as noted in HPI & below Physical Exam Constitutional: + cachectic; no acute distress Gastrointestinal (Abdomen): normal bowel sounds, soft, nontender, no hepatosplenomegaly Inspection/Auscultation: + abdominal surgical scar (Large midline scar) Results & Data ([facility]) Vital Signs (Past 12 Hours) Vital Signs Temp Pulse Pulse Resp BP Pulse Ox 03/01/22 11:01 36.5 C 66 20 95/57 L 96 03/01/22 07:43 72 03/01/22 02:48 36.3 C L 65 16 96/42 L 96 03/01/22 00:57 66 94/41 L 95 Laboratory Results Laboratory Results - last 24 hr 02/28/22 02/28/22 02/28/22 15:58 15:58 15:58 WBC 8.85 RBC 4.12 L Hgb 11.7 L Hct 36.1 L MCV 87.6 MCH 28.4 MCHC 32.4 RDW Std Deviation 50.5 H RDW Coeff of Yoanna 15.7 H Plt Count 347 MPV 9.6 Immature Gran % (Auto) 0.1 Neut % (Auto) 71.1 Lymph % (Auto) 19.3 Garfield % (Auto) 8.6 Eos % (Auto) 0.7 Baso % (Auto) 0.2 Neut # (Auto) 6.29 Lymph # (Auto) 1.71 Garfield # (Auto) 0.76 H Eos # (Auto) 0.06 Baso # (Auto) 0.02 Immature Gran # (Auto) 0.01 PT 11.5 INR 1.1 Sodium 136 Potassium 4.4 Chloride 100 Carbon Dioxide 29 Anion Gap 7 BUN 23 Creatinine 0.68 Est Cr Clr Drug Dosing Not Reportable Est GFR ( Amer) 102.4 Est GFR (Non-Af Amer) 88.3 BUN/Creatinine Ratio 33.8 H Glucose 100 H Lactate Calcium 8.8 Magnesium 1.7 Iron Unsaturated IBC Transferrin Ferritin Total Bilirubin 0.5 AST 14 ALT 8 Alkaline Phosphatase 99 Troponin I < 0.03 C-Reactive Protein Total Protein 7.0 Albumin 3.3 L Globulin 3.7 Albumin/Globulin Ratio 0.9 Lipase Vitamin B12 Folate Procalcitonin TSH Cortisol AM Sample Urine Color Urine Appearance Urine pH Ur Specific [place] Urine Protein Urine Glucose (UA) Urine Ketones Urine Blood Urine Nitrite Urine Bilirubin Urine Urobilinogen Ur Leukocyte Esterase SARS-CoV-2, RNA, NAAT 02/28/22 02/28/22 02/28/22 15:58 15:58 16:23 WBC RBC Hgb Hct MCV MCH MCHC RDW Std Deviation RDW Coeff of Yoanna Plt Count MPV Immature Gran % (Auto) Neut % (Auto) Lymph % (Auto) [place] % (Auto) Eos % (Auto) Baso % (Auto) Neut # (Auto) Lymph # (Auto) Garfield # (Auto) Eos # (Auto) Baso # (Auto) Immature Gran # (Auto) PT INR Sodium Potassium Chloride Carbon Dioxide Anion Gap BUN Creatinine Est Cr Clr Drug Dosing Est GFR ( Amer) Est GFR (Non-Af Amer) BUN/Creatinine Ratio Glucose Lactate Calcium Magnesium Iron Unsaturated IBC Transferrin Ferritin Total Bilirubin AST ALT Alkaline Phosphatase Troponin I C-Reactive Protein 1.22 H Total Protein Albumin Globulin Albumin/Globulin Ratio Lipase Vitamin B12 Folate Procalcitonin TSH 2.869 Cortisol AM Sample Urine Color Urine Appearance Urine pH Ur Specific [place] Urine Protein Urine Glucose (UA) Urine Ketones Urine Blood Urine Nitrite Urine Bilirubin Urine Urobilinogen Ur Leukocyte Esterase SARS-CoV-2, RNA, NAAT NEGATIVE 02/28/22 02/28/22 02/28/22 18:13 18:13 18:15 WBC RBC Hgb Hct MCV MCH MCHC RDW Std Deviation RDW Coeff of Yoanna Plt Count MPV Immature Gran % (Auto) Neut % (Auto) Lymph % (Auto) [place] % (Auto) Eos % (Auto) Baso % (Auto) Neut # (Auto) Lymph # (Auto) Garfield # (Auto) Eos # (Auto) Baso # (Auto) Immature Gran # (Auto) PT INR Sodium Potassium Chloride Carbon Dioxide Anion Gap BUN Creatinine Est Cr Clr Drug Dosing Est GFR ( Amer) Est GFR (Non-Af Amer) BUN/Creatinine Ratio Glucose Lactate 0.5 Calcium Magnesium Iron Unsaturated IBC Transferrin Ferritin Total Bilirubin AST ALT Alkaline Phosphatase Troponin I C-Reactive Protein Total Protein Albumin Globulin Albumin/Globulin Ratio Lipase Vitamin B12 Folate Procalcitonin < 0.05 TSH Cortisol AM Sample Urine Color Yellow Urine Appearance Clear Urine pH 7.5 Ur Specific [place] > 1.045 H Urine Protein Negative Urine Glucose (UA) Negative Urine Ketones Negative Urine Blood Negative Urine Nitrite Negative Urine Bilirubin Negative Urine Urobilinogen Negative Ur Leukocyte Esterase Negative SARS-CoV-2, RNA, NAAT 02/28/22 03/01/22 03/01/22 23:11 07:40 07:40 WBC RBC Hgb Hct MCV MCH MCHC RDW Std Deviation RDW Coeff of Yoanna Plt Count MPV Immature Gran % (Auto) Neut % (Auto) Lymph % (Auto) Garfield % (Auto) Eos % (Auto) Baso % (Auto) Neut # (Auto) Lymph # (Auto) Garfield # (Auto) Eos # (Auto) Baso # (Auto) Immature Gran # (Auto) PT INR Sodium 139 Potassium 4.0 Chloride 107 Carbon Dioxide 30 Anion Gap 2 L BUN 19 Creatinine 0.56 L Est Cr Clr Drug Dosing 74.5 Est GFR ( Amer) 110.9 Est GFR (Non-Af Amer) 95.7 BUN/Creatinine Ratio 33.9 H Glucose 91 Lactate Calcium 8.1 L Magnesium Iron 13 L Unsaturated IBC 200 Transferrin 148 L Ferritin 140.2 Total Bilirubin 0.4 AST 11 L ALT 6 L Alkaline Phosphatase 79 Troponin I < 0.03 C-Reactive Protein Total Protein 5.6 L Albumin 2.7 L Globulin 2.9 Albumin/Globulin Ratio 0.9 Lipase Vitamin B12 500 Folate 16.47 Procalcitonin TSH Cortisol AM Sample 23.66 H Urine Color Urine Appearance Urine pH Ur Specific [place] Urine Protein Urine Glucose (UA) Urine Ketones Urine Blood Urine Nitrite Urine Bilirubin Urine Urobilinogen Ur Leukocyte Esterase SARS-CoV-2, RNA, NAAT 03/01/22 03/01/22 07:40 07:45 WBC 6.78 RBC 3.68 L Hgb 10.2 L Hct 32.9 L MCV 89.4 MCH 27.7 MCHC 31.0 L RDW Std Deviation 51.2 H RDW Coeff of Yoanna 16.0 H Plt Count 289 MPV 9.4 Immature Gran % (Auto) 0.1 Neut % (Auto) 67.7 Lymph % (Auto) 20.6 Garfield % (Auto) 10.3 Eos % (Auto) 1.0 Baso % (Auto) 0.3 Neut # (Auto) 4.58 Lymph # (Auto) 1.40 Garfield # (Auto) 0.70 H Eos # (Auto) 0.07 Baso # (Auto) 0.02 Immature Gran # (Auto) 0.01 PT INR Sodium Potassium Chloride Carbon Dioxide Anion Gap BUN Creatinine Est Cr Clr Drug Dosing Est GFR ( Amer) Est GFR (Non-Af Amer) BUN/Creatinine Ratio Glucose Lactate Calcium Magnesium Iron Unsaturated IBC Transferrin Ferritin Total Bilirubin AST ALT Alkaline Phosphatase Troponin I C-Reactive Protein Total Protein Albumin Globulin Albumin/Globulin Ratio Lipase 18 Vitamin B12 Folate Procalcitonin TSH Cortisol AM Sample Urine Color Urine Appearance Urine pH Ur Specific [place] Urine Protein Urine Glucose (UA) Urine Ketones Urine Blood Urine Nitrite Urine Bilirubin Urine Urobilinogen Ur Leukocyte Esterase SARS-CoV-2, RNA, NAAT Diagnostic Findings CT OF THE ABDOMEN AND PELVIS WITH CONTRAST CLINICAL HISTORY: Upper abdominal pain. COMPARISON STUDY: CT of the abdomen and pelvis April 15, 2018. TECHNIQUE: Following IV administration of 92 mL of Optiray, axial images of the abdomen and pelvis were obtained from the lung bases to the proximal femurs. Images were reviewed in the axial, sagittal, and coronal planes. IV contrast was administered without complication. Automated exposure control was utilized for the study. A dose lowering technique was utilized adhering to the principles of ALARA. CT DOSE: 269.49 mGy.cm FINDINGS: Bilateral gynecomastia is incidentally noted. Elevation of the left hemidiaphragm is unchanged. No pneumatosis, free air or portal venous gas is present. Evaluation of the abdomen and pelvis is difficult given a paucity of intra-abdominal fat. Water attenuation bilateral renal lesions reflect cysts. Biliary ductal dilatation is unchanged and likely related to cholecystectomy. T he spleen, adrenal glands and pancreas are unremarkable. There is no peripancreatic infiltration. 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 There is swirling of the mesenteric vessels within left abdomen. However, there is no resultant bowel obstruction. There is mild wall thickening of several left upper quadrant jejunal loops. Apparent wall thickening of the sigmoid colon and rectum is likely due to underdistention. The appendix is normal. The abdominal aorta is ectatic, measuring 2.8 cm in caliber. There is extensive atherosclerotic plaque within the abdominal aorta and branch vessels. No acute fracture or suspicious lesion within the visualized skeletal structures. No ascites or lymphadenopathy. IMPRESSION: 1. Wall thickening of several left upper quadrant jejunal loops. Although this could be due to underdistention, the findings suggest a nonspecific enteritis. 2. Swirling of the mesenteric vessels within the left mid abdomen. This raises the possibility of an internal hernia however no evidence for a bowel obstruction at this time. Close clinical follow-up is recommended. 3. Technically difficult study to interpret given paucity of intra-abdominal fat. 4. Ectatic abdominal aorta. Extensive atherosclerotic plaque. PG Care Time/CCT Total # of Minutes Spent Total Time Spent with Patient: Total time spent is greater than 50% in coordination of care (as documented) at patient's floor/unit and/or counseling patient: Coding Level of Care Code 80129 Initial Inpt Care Lvl 2 Diagnoses History of gastric bypass Z98.84 Internal hernia K45.8
[2022-03-01] MEDS: ONDANSETRON INJ 2 MG/ML 2 ML VIAL IV PRN ×2 (12:58→20:16)
[2022-03-01] MEDS ORDERED: oxyCODONE HCL IR 5 MG TAB (IMMEDIATE RELEASE) PO PRN (13:24)
--- NOTE | 2022-03-01 14:19 | Billing Data ---
Date of Service February 28, 2022 Coding Level of Care Code INT OBSERVATION CARE 70M LVL 3
[2022-03-01] MEDS ORDERED: bisacodyL 10 MG SUPP PR PRN (14:21)
--- NOTE | 2022-03-01 14:23 | Hospitalist Progress Note ---
Date of Service March 01, 2022 Assessment & Plan (1) Nausea & vomiting: Plan: This is an 81-year-old gentleman with a notable history of gastric bypass surgery in ~2014 for obesity, B12 deficiency, CAD status post triple-vessel bypass, constipation, depression, type 2 diabetes, ?gastroparesis (patient unsure of this), hypertension, chronic use of opioids for back pain, cachexia, GERD, hypersomnia with sleep apnea, iron deficiency, blood clots > 30 years ago not on AC who presents to [facility] at recommendation of his PCP for weakness, hypotension, and hypoxemia, found to be saturating appropriately with low blood pressure on arrival. Etiology of his weakness and objective findings are currently unclear. N/V Persistent, for years. ABle to take 6-7 Boost drinks daily but continues to lose weight EGD 06/2021 with esophageal dilation performed but otherwise normal. No colonoscopy in many years as per pt Chronic opioids almost certainly play some role even though he insists they do not as this has been present before he started on opioids Also with question of internal hernia present on CT--> no obstruction but Surgery here recommends tertiary care Bariatric Surgery outpt referral which is arranged by Nurse Navigator for next week 03/07 He requests to adv diet to regular and add on Boost Zofran as needed add IVFs Bowel regimen for severe constipation as below Add on Movantik as outpt for opioid induced constipation (2) Abdominal pain: Plan: as above, secondary to adhesions, possible internal hernia GI says no repeat ecope needed as EGD just performed 06/2021 continue bowel regimen as moving bowels does relieve his pain (3) Constipation: Plan: severe, opioid induced and 2/2 adhesive disease no obstruction on CT here increase lactulose to bid add Miralax bid although he reports this doesn't help he takes senna prn continue Linzess add on Movantix as outpt as not available here-cost $9/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 intake Work-up as follows On arrival, blood pressure around 90/60 with normal heart rates, respiratory rate, oxygen saturation CBC notable for mild normocytic anemia; electrolytes WNL; TSH WNL Troponin normal, ECG without conduction or repolarization abnormalities CRP elevated at 1.22, pro-Shamar normal; no leukocytosis Chest x-ray without acute pathology CT abdomen pelvis demonstrated wall thickening of the jejunum, mesenteric v essels swirlinginterpreted as possibly hernia versus bowel obstruction At present, suspect etiology of weakness is multifactorial. Suspect chronic poor p.o. intake and cachexia, alongside regular opioid use and constipation, are likely the major culprits. Malignancy certainly a possibility given cachexia, but unclear source at present. No current evidence of infection. No neurologic abnormalities appreciated. Cardiac murmurs appreciated on exam, however no symptoms or findings consistent with acute heart failure. Blood sugar, TSH normal. Also takes chronic prednisone 5mg daily for at least the last 8 months he reports but sometimes forgets to take it--> likely some component of adrenal insufficiency given hypothermia, low BPs although cortisol level this AM is 23 give one day of stress steroids IV today and convert to tapering prednisone dose for tomorrow at 20mg x 2 days, then 10mg x 2 days then back to 5mg daily Check B12, folate, iron studies-normal except low iron-give IV Venofer as po FeSO4 will worsen constipation -needs walker-will provide Rx -PT/OT consult Check urine and blood cultures-no growth Fall precautions (8) Severe aortic stenosis: Plan: seen on ECHO ordered for murmur consult Cardio will need outpt eval for TAVR? (9) Dysphagia: Plan: Patient reporting approximately 2 weeks worth of solid and liquid food dysphagia without odynophagia that feels like things are "getting stuck" in his throat [employer] consulted for swallowing assessment, including possibly video/barium assessment which could be done as outpt Aspiration precautions (10) Constipation: Plan: Constipation Patient reporting long-term history of constipation/difficulty passing bowel movements, intermittently requiring manual extraction Primarily suspect secondary to poor p.o. intake, dehydration, adhesive disease, and frequent use of opioids Patient did have large, non-bloody BM (per his report) on morning of admission; has been passing gas since Initiate MiraLAX twice daily, senna each morning and increase lactulose add Movantik as above cannot reduce opioids as pt very upset about this and says he has tried in the past but this causes severe pain-keep same doses for now (11) Hypoxemia: Plan: Previous Hypoxemia Reported history of hypoxemia at PCP's office 87% -- however, has been normal since been here No abnormalities on CXR, including infectious etiologies or hypervolemia -no h/o COPD No evidence of leg swelling on exam - given normal HR, SpO2 here, lower ney picion for PE [employer] consultation as above for swallow function Possibly atelectasis? If recurs and is persistent, could consider CT/CTA for further clarification (12) History of gastric bypass: Plan: as above, f/u with bariatric surgery nutritional assessment (13) S/P triple vessel bypass: Plan: CAD s/p CABG ECG without conduction, repolarization abnormalities; troponin negative Not on statin, ASA, or BB (though contraindicated right now in setting of HoTN) -- will require further investigation as acute issues resolve TTE, as above w/o WMAs (14) BPH (benign prostatic hyperplasia): Plan: BPH Continue Flomax (15) GERD without esophagitis: Plan: GERD Continue PPI (16) DM2 (diabetes mellitus, type 2): Plan: History noted. Last A1c at 6.7% in 02/2021. Not on home medications Check A1c in AM -- can consider starting ACHS BSG checks p.r.n. (17) Hypotension: Plan: On arrival, patient noted to have blood pressure of around 90/60 with normal heart rate, respiratory rate, oxygen saturation, perfusion. Thankfully, not symptomatic (subacute weakness noted). Initially responsive to 2 L of fluid since arrival Good peripheral perfusion on exam. No evidence of heart failure or VTE. No obvious infectious source. Patient does appear somewhat dry. Weakness work-up ongoing, as above; primarily suspect hypotension is related to poor p.o. intake, dehydration, cachectic body habitus, and missing doses of chronicprednisone stress steroids as above no signs of infection (18) Chronic, continuous use of opioids: Plan: Chronic Back and neck Pain continue chronic opioids-return to home doses at his request add Movantik avoid NSAIDs in h/o gastric bypass-dc toradol (19) Body temperature low: Plan: On arrival, patient noted to have T 34.5C that subsequently improved with hea alicia blankets. No shivering appreciated on exam. Normal mentation, normal telemetry. Low core body temperatures has been noted in past on chart review - though admitting temperature is quite low (94F/34.5C) Suspect multifactorial: cachexia, opioids, inactivity all known to cause hypothermia. No active source of infection at present. Cortisol level normal. Thyroid normal. No obvious environmental causes Continue regular temperature checks Monitor on telemetry stress steroids (20) B12 deficiency: Plan: continue B12 level here normal (21) Restless legs: Plan: replace iron Plan: Code: Full code - discussed with daughter in the room; he had indicated some uncertainty about this, and wishes to discuss more in the future, but for now wishes to remain FC Dispo: continued stay, likely dc tomorrow PPX: Reduced Lovenox dose @ 30 q24 given weight, advanced age Admission and Anticipated Discharge Date Admission Date: February 28, 2022 Subjective I had a long discussion with the patient about his medical issues over the last few years. He reports that he has had almost daily nausea and vomiting for years, but what changed recently was that he had severe mid abdominal and back pain about 2 weeks ago that improved with having 2 very large bowel movements after taking lactulose. Since that time, he continues to have worsening pain anytime he eats anything, but continues to move his bowels once daily although it is very hard and he has to strain to get it out. He insists that his severe constipation and nausea issues were ongoing for years before he was placed on chronic opioid therapy. He reports he is able to tolerate 6-7 boost shakes per day to keep up with his protein and occasionally has some solid foods. He does cough up sputum frequently He also reports that he frequently forgets to take his prednisone and has been on chronic prednisone for at least 8 months for chronic pain. His chronic pain is located in his neck and all the way down his spine. He denies any syncope or chest pain, no shortness of breath. We discussed his severe aortic stenosis found on echocardiogram. Telemetry with normal sinus rhythm with rates in the 60s. Review of Systems Review of Systems: All systems reviewed & are unremarkable except as noted in HPI & below Physical Exam Constitutional: + cachectic and + underweight; no acute distress Eyes: PERRL, conjunctivae normal, anicteric sclerae ENMT: external ear and nose normal, oropharynx normal Neck: trachea midline, no thyromegaly Respiratory: normal respiratory effort, lungs clear to auscultation Cardiovascular: Rate/Rhythm: regular rate and regular rhythm Heart Sounds: + murmur (3/6 ABIOLA at RUSB) Vessels: dorsalis pedis pulses present (1+ bilaterally) Extremities: no edema Chest (Breasts): Chest: normal inspection of chest Gastrointestinal (Abdomen): Inspection/Auscultation: normal bowel sounds; + abdomen abnormal to inspection (Numerous incisional scars on abdomen) and abdomen not distended Percussion/Palpation: + abdomen tender (Across mid abdomen) and abdomen soft; no guarding Musculoskeletal: Extremities: extremities normal to inspection; no cyanosis and no clubbing Sarcopenia throughout Skin: no rashes, warm and dry Neurologic: moves all extremities and awake; no focal motor deficits Psychiatric: A+Ox3, euthymic affect Lymphatic: no lymphedema Results & Data Results & Data ([facility]) Vital Signs (Past 12 Hours) Vital Signs Temp Pulse Pulse Resp BP Pulse Ox 03/01/22 11:01 36.5 C 66 20 95/57 L 96 03/01/22 07:43 72 03/01/22 02:48 36.3 C L 65 16 96/42 L 96 Laboratory Results 03/01/22 03/01/22 03/01/22 Range/Units 07:45 07:40 07:40 WBC 6.78 (4.8-10.8) K/uL RBC 3.68 L (4.7-6.1) M/uL Hgb 10.2 L (14.0-18.0) g/dL Hct 32.9 L (42-52) % MCV 89.4 (80-100) fL MCH 27.7 (25-34) pg MCHC 31.0 L (32-36) g/dL RDW Std Deviation 51.2 H (36.4-46.3) fL RDW Coeff of Yoanna 16.0 H (11.5-14.5) % Plt Count 289 (130-400) K/uL MPV 9.4 (7.4-10.4) fL Immature Gran % (Auto) 0.1 % Neut % (Auto) 67.7 % Lymph % (Auto) 20.6 % Ingham % (Auto) 10.3 % Eos % (Auto) 1.0 % Baso % (Auto) 0.3 % Neut # (Auto) 4.58 (1.4-6.5) K/uL Lymph # (Auto) 1.40 (1.2-3.4) K/uL Ingham # (Auto) 0.70 H (0.11-0.59) K/uL Eos # (Auto) 0.07 (0-0.5) K/uL Baso # (Auto) 0.02 (0-0.2) K/uL Immature Gran # (Auto) 0.01 (0.00-0.02) K/uL Sodium (136-145) mmol/L Potassium (3.5-5.1) mmol/L Chloride (98-107) mmol/L Carbon Dioxide (21-32) mmol/L Anion Gap (3-11) BUN (6-23) mg/dl Creatinine (0.6-1.4) mg/dl Est Cr Clr Drug Dosing ml/min Est GFR ( Amer) ml/min Est GFR (Non-Af Amer) ml/min BUN/Creatinine Ratio (10-20) Glucose (70-99(Fasting)) mg/dl Lactate (0.4-2.0) mmol/L Calcium (8.5-10.1) mg/dl Iron (35-175) mcg/dl Unsaturated IBC (155-355) mcg/dl Transferrin (200-360) mg/dl Ferritin (8-388) ng/ml Total Bilirubin (0.2-1.0) mg/dl AST (13-39) U/L ALT (7-52) U/L Alkaline Phosphatase (34-104) U/L Troponin I (0-0.04) ng/ml Total Protein (6.0-8.3) gm/dl Albumin (3.4-5.0) gm/dl Globulin (2.5-4.0) gm/dl Albumin/Globulin Ratio (0.9-2) Lipase 18 (11-82) U/L Vitamin B12 500 (180-914) pg/ml Folate 16.47 (>5.38) ng/ml Procalcitonin (0-0.5) ng/ml Cortisol AM Sample 23.66 H (6.2-22.6) mcg/dl Urine Color Urine Appearance (Clear) Urine pH (4.5-7.5) Ur Specific Weston (1.000-1.030) Urine Protein (Negative) Urine Glucose (UA) (Negative) Urine Ketones (Negative) Urine Blood (Negative) Urine Nitrite (Negative) Urine Bilirubin (Negative) Urine Urobilinogen (Negative) Ur Leukocyte Esterase (Negative) 03/01/22 02/28/22 02/28/22 Range/Units 07:40 23:11 18:15 WBC (4.8-10.8) K/uL RBC (4.7-6.1) M/uL Hgb (14.0-18.0) g/dL Hct (42-52) % MCV (80-100) fL MCH (25-34) pg MCHC (32-36) g/dL RDW Std Deviation (36.4-46.3) fL RDW Coeff of Yoanna (11.5-14.5) % Plt Count (130-400) K/uL MPV (7.4-10.4) fL Immature Gran % (Auto) % Neut % (Auto) % Lymph % (Auto) % Ingham % (Auto) % Eos % (Auto) % Baso % (Auto) % Neut # (Auto) (1.4-6.5) K/uL Lymph # (Auto) (1.2-3.4) K/uL Ingham # (Auto) (0.11-0.59) K/uL Eos # (Auto) (0-0.5) K/uL Baso # (Auto) (0-0.2) K/uL Immature Gran # (Auto) (0.00-0.02) K/uL Sodium 139 (136-145) mmol/L Potassium 4.0 (3.5-5.1) mmol/L Chloride 107 (98-107) mmol/L Carbon Dioxide 30 (21-32) mmol/L Anion Gap 2 L (3-11) BUN 19 (6-23) mg/dl Creatinine 0.56 L (0.6-1.4) mg/dl Est Cr Clr Drug Dosing 74.5 ml/min Est GFR ( Amer) 110.9 ml/min Est GFR (Non-Af Amer) 95.7 ml/min BUN/Creatinine Ratio 33.9 H (10-20) Glucose 91 (70-99(Fasting)) mg/dl Lactate (0.4-2.0) mmol/L Calcium 8.1 L (8.5-10.1) mg/dl Iron 13 L (35-175) mcg/dl Unsaturated IBC 200 (155-355) mcg/dl Transferrin 148 L (200-360) mg/dl Ferritin 140.2 (8-388) ng/ml Total Bilirubin 0.4 (0.2-1.0) mg/dl AST 11 L (13-39) U/L ALT 6 L (7-52) U/L Alkaline Phosphatase 79 (34-104) U/L Troponin I < 0.03 (0-0.04) ng/ml Total Protein 5.6 L (6.0-8.3) gm/dl Albumin 2.7 L (3.4-5.0) gm/dl Globulin 2.9 (2.5-4.0) gm/dl Albumin/Globulin Ratio 0.9 (0.9-2) Lipase (11-82) U/L Vitamin B12 (180-914) pg/ml Folate (>5.38) ng/ml Procalcitonin (0-0.5) ng/ml Cortisol AM Sample (6.2-22.6) mcg/dl Urine Color Yellow Urine Appearance Clear (Clear) Urine pH 7.5 (4.5-7.5) Ur Specific Weston > 1.045 H (1.000-1.030) Urine Protein Negative (Negative) Urine Glucose (UA) Negative (Negative) Urine Ketones Negative (Negative) Urine Blood Negative (Negative) Urine Nitrite Negative (Negative) Urine Bilirubin Negative (Negative) Urine Urobilinogen Negative (Negative) Ur Leukocyte Esterase Negative (Negative) 02/28/22 02/28/22 Range/Units 18:13 18:13 WBC (4.8-10.8) K/uL RBC (4.7-6.1) M/uL Hgb (14.0-18.0) g/dL Hct (42-52) % MCV (80-100) fL MCH (25-34) pg MCHC (32-36) g/dL RDW Std Deviation (36.4-46.3) fL RDW Coeff of Yoanna (11.5-14.5) % Plt Count (130-400) K/uL MPV (7.4-10.4) fL Immature Gran % (Auto) % Neut % (Auto) % Lymph % (Auto) % Ing[place] % (Auto) % Eos % (Auto) % Baso % (Auto) % Neut # (Auto) (1.4-6.5) K/uL Lymph # (Auto) (1.2-3.4) K/uL Ingham # (Auto) (0.11-0.59) K/uL Eos # (Auto) (0-0.5) K/uL Baso # (Auto) (0-0.2) K/uL Immature Gran # (Auto) (0.00-0.02) K/uL Sodium (136-145) mmol/L Potassium (3.5-5.1) mmol/L Chloride (98-107) mmol/L Carbon Dioxide (21-32) mmol/L Anion Gap (3-11) BUN (6-23) mg/dl Creatinine (0.6-1.4) mg/dl Est Cr Clr Drug Dosing ml/min Est GFR ( Amer) ml/min Est GFR (Non-Af Amer) ml/min BUN/Creatinine Ratio (10-20) Glucose (70-99(Fasting)) mg/dl Lactate 0.5 (0.4-2.0) mmol/L Calcium (8.5-10.1) mg/dl Iron (35-175) mcg/dl Unsaturated IBC (155-355) mcg/dl Transferrin (200-360) mg/dl Ferritin (8-388) ng/ml Total Bilirubin (0.2-1.0) mg/dl AST (13-39) U/L ALT (7-52) U/L Alkaline Phosphatase (34-104) U/L Troponin I (0-0.04) ng/ml Total Protein (6.0-8.3) gm/dl Albumin (3.4-5.0) gm/dl Globulin (2.5-4.0) gm/dl Albumin/Globulin Ratio (0.9-2) Lipase (11-82) U/L Vitamin B12 (180-914) pg/ml Folate (>5.38) ng/ml Procalcitonin < 0.05 (0-0.5) ng/ml Cortisol AM Sample (6.2-22.6) mcg/dl Urine Color Urine Appearance (Clear) Urine pH (4.5-7.5) Ur Specific Weston (1.000-1.030) Urine Protein (Negative) Urine Glucose (UA) (Negative) Urine Ketones (Negative) Urine Blood (Negative) Urine Nitrite (Negative) Urine Bilirubin (Negative) Urine Urobilinogen (Negative) Ur Leukocyte Esterase (Negative) PG Care Time/CCT Total # of Minutes Spent Total Time Spent with Patient: Total time spent is greater than 50% in coordination of care (as documented) at patient's floor/unit and/or counseling patient: Coding Level of Care Code 05462 Subseq Obs Care Lvl 3 Diagnoses Generalized weakness R53.1 Cachexia R64 Dysphagia R13.10 Constipation K59.00 Hypoxemia R09.02 History of gastric bypass Z98.84 S/P triple vessel bypass Z95.1 BPH (benign prostatic hyperplasia) N40.0 GERD without esophagitis K21.9 DM2 (diabetes mellitus, type 2) E11.9 Hypotension I95.9 Chronic, continuous use of opioids F11.90 Body temperature low R68.89 Severe aortic stenosis I35.0 Internal hernia K45.8 Abdominal pain R10.9 Nausea & vomiting R11.2 Weight loss R63.4 Constipation K59.00 B12 deficiency E53.8 Restless legs G25.81
--- NOTE | 2022-03-01 14:48 | Cardiology Consultation ---
Date of Consultation March 01, 2022 Assessment & Plan (1) Severe aortic stenosis: (2) S/P triple vessel bypass: (3) Bariatric surgery status: (4) Weakness: Patient is an 81-year-old male with complex history as outlined which includes coronary artery disease status post remote coronary bypass grafting with stable class I 2 angina pectoris, prior cor pulmonale and pickwickian syndrome status post gastric bypass surgery with resultant resolve Patient has struggled with chronic abdominal and back pain anorexia and weight loss. He presents this admission noting generalized weakness and fatigue slowly progressive. No initial acute findings however echocardiogram demonstrates severe calcific aortic stenosis. No signs or symptoms of acute infection with blood cultures negative and procalcitonin levels normal. EKG without strain pattern and no signs of congestive heart failure. Last echocardiogram performed 2015 demonstrated mild aortic stenosis at that time. Patient had discontinued cardiology follow-up in the interim Recommendations: Agree with current plans for evaluation of noncardiac source symptoms . Do believe aortic stenosis is contributing in part to patient's chronic symptoms of fatigue. We will schedule outpatient follow-up and referral to valve clinic to assess feasibility of JOSE A. No indications for urgent intervention Appointments being scheduled History of Present Illness Attending Physician: Mayra Nicole MD History of Present Illness 1. Atherosclerotic coronary artery disease status post CABG x 3 in 1996 2. Chronic stable class II angina pectoris 3. Prior morbid obesity status post gastric bypass surgery for right heart failure and cor pulmonale in 2003 with revision with resultant 200 pound weight loss 4. Hypertension 5. Hyperlipidemia 6. Chronic abdominal pain, gastroparesis 7. Type 2 diabetes mellitus 8. Chronic back pain narcotic dependent Patient was presented admitted for symptoms of gradually worsening fatigue, weakness and anorexia. He notes no acute cardiac complaints. No recent chest pains or shortness of breath. No fevers chills or unexplained infections. No syncope or near syncope. No tachypalpitations. Minimal edema but no orthopnea PND acute dyspnea. Weight has been trending lower until recent improvement in appetite. Has had chronic difficulties with oral intake and postprandial pain No history of TIA or stroke. No unexplained fevers or infections recently. Relatively sedentary about his home but does perform ADLs about. No recent falls or injuries Allergies Allergy/AdvReac Type Severity Reaction Status Date / Time No Known Allergies Allergy Verified 02/28/22 14:43 Home Medications Medication Instructions Recorded Confirmed Type clobetasol 0.05 % topical cream 1 appln TOPICAL BID #1 gm 07/01/19 02/28/22 History nitroglycerin 0.4 mg sublingual 0.4 mg SL Q5M PRN #25 tab 07/01/19 02/28/22 History tablet polyethylene glycol 3350 17 17 gm PO DAILY PRN #1 gm 07/01/19 02/28/22 History gram/dose oral powder guaifenesin 600 mg tablet, 600 mg PO Q12H PRN #60 tab 12/18/20 02/28/22 Rx extended release 12 hr (Mucinex) allopurinol 300 mg tablet 300 mg PO QAM 07/13/21 02/28/22 History food supplemt, lactose-reduced 1 ea PO 6XD 07/13/21 02/28/22 History 0.06 gram-1 kcal/mL oral liquid (Boost High Protein) linaclotide 290 mcg capsule 290 mcg PO QAM 07/13/21 02/28/22 History (Linzess) omeprazole 40 mg capsule,delayed 40 mg PO BID #60 cap 07/24/21 02/28/22 Rx release loratadine 10 mg tablet (Claritin) 10 mg PO HS #90 tab 08/02/21 02/28/22 Rx tamsulosin 0.4 mg capsule 0.4 mg PO HS #90 cap 08/02/21 02/28/22 Rx Lift Chair #1 ea 09/18/21 02/28/22 Rx lactulose 10 gram/15 mL oral 30 ml PO BID PRN #946 ml 11/22/21 02/28/22 Rx solution mupirocin 2 % topical ointment 1 applic TOPICAL BID #15 g 11/22/21 02/28/22 Rx miconazole nitrate 2 % topical 1 applic TOPICAL BID 14 Days #85 g 12/04/21 02/28/22 Rx powder prednisone 5 mg tablet 5 mg PO QAM #30 tab 02/04/22 02/28/22 Rx oxycodone 15 mg tablet 15 mg PO BID PRN #60 tab 02/07/22 02/28/22 Rx oxycodone 30 mg tablet,crush 30 mg PO Q12H 30 Days #60 tab 02/14/22 02/28/22 Rx resistant,extended release 12 hr (OxyContin) Patient History Medical History (Updated 03/01/22 @ 15:44 by Charlie Rowley MD) B12 deficiency BPH (benign prostatic hyperplasia) Chronic, continuous use of opioids Constipation Coronary atherosclerosis of ione coronary vessel Depression DM2 (diabetes mellitus, type 2) prior to gastric bypass--no meds now Gastroparesis GERD without esophagitis Gouty arthropathy Hearing deficit Hyperlipidemia LDL goal <100 Hypertension Internal hernia OA (osteoarthritis) of hip Other psoriasis Poor historian Restless legs Sleep apnea hx of prior to gastric bypass sx--no device Surgical History (Updated 03/01/22 @ 15:44 by Charlie Rowley MD) Bariatric surgery status 2007 @ [facility] [place] History of bilateral cataract extraction History of cardiac cath x2 ? prior to bypass--pt does not believe any stents placed History of carpal tunnel surgery of right wrist History of colonoscopy History of esophagogastroduodenoscopy (EGD) History of tooth extraction all teeth removed S/P triple vessel bypass 1996 Status post panniculectomy Family History Mother Diabetes Other No family history of adverse response to anesthesia Denies family history of Ovarian cancer Prostate cancer Myocardial infarction Breast cancer Colorectal cancer Social History Smoking Status: Former smoker Tobacco Type: Cigarettes Age Started Using Tobacco: 20; Age Quit Using Tobacco: 63; packs per day: 1; Second Hand Exposure: No; Hx Alcohol Use: No Hx Substance Use: No Preferred Language: Hungarian Communication Ability: Effective Visual Impairment: No Limitations Hearing Ability: Use of Hearing Aid Medical Imaging Technologist Required: No Beliefs That Will Affect Care: None marital status: / Current Living Situation: Alone Current Living Situation Comment: lives home alone, states grandson is there often 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al status: retired 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: 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 Feels Safe at Home: Yes Safety Concerns: Feels Safe At This Time Childhood Exposure to Second-Hand Smoke: No Diet Comment: "I barely eat, I live on boost" Dental Care, Regularly: No Physical Activity Frequency: Does not Exercise Seatbelt Use: sometimes Sunscreen Use: No Assistive Devices: None Review of Systems Review of Systems: All systems reviewed & are unremarkable except as noted in Subjective Physical Exam Constitutional: + thin and + cachectic; no acute distress Eyes: PERRL, conjunctivae normal, anicteric sclerae ENMT: external ear and nose normal, oropharynx normal Neck: trachea midline, no thyromegaly Respiratory: normal respiratory effort, lungs clear to auscultation Cardiovascular: Rate/Rhythm: regular rate and regular rhythm Heart Sounds: normal S1 and + murmur (Harsh grade 3/6 systolic murmur best at lower left sternal border); + abnormal S2 and no gallop Palpation: normal PMI Vessels: radial pulses present; no JVD and no carotid bruit Extremities: + edema (Trivial) Gastrointestinal (Abdomen): normal bowel sounds, soft, nontender, no hepatosplenomegaly Musculoskeletal: no cyanosis or clubbing, extremities motor strength 5/5 Skin: no rashes, warm and dry Neurologic: PERRL, EOMI, accommodation nl, no face palsy, no dysarthria Psychiatric: A+Ox3, euthymic affect Results & Data ([facility]) Vital Signs (Past 12 Hours) Vital Signs Temp Pulse Pulse Resp BP Pulse Ox 03/01/22 11:01 36.5 C 66 20 95/57 L 96 03/01/22 07:43 72 03/01/22 02:48 36.3 C L 65 16 96/42 L 96 Laboratory Results Laboratory Results - last 24 hr 02/28/22 02/28/22 02/28/22 15:58 15:58 15:58 WBC 8.85 RBC 4.12 L Hgb 11.7 L Hct 36.1 L MCV 87.6 MCH 28.4 MCHC 32.4 RDW Std Deviation 50.5 H RDW Coeff of Yoanna 15.7 H Plt Count 347 MPV 9.6 Immature Gran % (Auto) 0.1 Neut % (Auto) 71.1 Lymph % (Auto) 19.3 Cooper % (Auto) 8.6 Eos % (Auto) 0.7 Baso % (Auto) 0.2 Neut # (Auto) 6.29 Lymph # (Auto) 1.71 Cooper # (Auto) 0.76 H Eos # (Auto) 0.06 Baso # (Auto) 0.02 Immature Gran # (Auto) 0.01 PT 11.5 INR 1.1 Sodium 136 Potassium 4.4 Chloride 100 Carbon Dioxide 29 Anion Gap 7 BUN 23 Creatinine 0.68 Est Cr Clr Drug Dosing Not Reportable Est GFR ( Amer) 102.4 Est GFR (Non-Af Amer) 88.3 BUN/Creatinine Ratio 33.8 H Glucose 100 H Lactate Calcium 8.8 Magnesium 1.7 Iron Unsaturated IBC Transferrin Ferritin Total Bilirubin 0.5 AST 14 ALT 8 Alkaline Phosphatase 99 Troponin I < 0.03 C-Reactive Protein Total Protein 7.0 Albumin 3.3 L Globulin 3.7 Albumin/Globulin Ratio 0.9 Lipase Vitamin B12 Folate Procalcitonin TSH Cortisol AM Sample Urine Color Urine Appearance Urine pH Ur Specific [place] Urine Protein Urine Glucose (UA) Urine Ketones Urine Blood Urine Nitrite Urine Bilirubin Urine Urobilinogen Ur Leukocyte Esterase SARS-CoV-2, RNA, NAAT 02/28/22 02/28/22 02/28/22 15:58 15:58 16:23 WBC RBC Hgb Hct MCV MCH MCHC RDW Std Deviation RDW Coeff of Yoanna Plt Count MPV Immature Gran % (Auto) Neut % (Auto) Lymph % (Auto) Cooper % (Auto) Eos % (Auto) Baso % (Auto) Neut # (Auto) Lymph # (Auto) Cooper # (Auto) Eos # (Auto) Baso # (Auto) Immature Gran # (Auto) PT INR Sodium Potassium Chloride Carbon Dioxide Anion Gap BUN Creatinine Est Cr Clr Drug Dosing Est GFR ( Amer) Est GFR (Non-Af Amer) BUN/Creatinine Ratio Glucose Lactate Calcium Magnesium Iron Unsaturated IBC Transferrin Ferritin Total Bilirubin AST ALT Alkaline Phosphatase Troponin I C-Reactive Protein 1.22 H Total Protein Albumin Globulin Albumin/Globulin Ratio Lipase Vitamin B12 Folate Procalcitonin TSH 2.869 Cortisol AM Sample Urine Color Urine Appearance Urine pH Ur Specific [place] Urine Protein Urine Glucose (UA) Urine Ketones Urine Blood Urine Nitrite Urine Bilirubin Urine Urobilinogen Ur Leukocyte Esterase SARS-CoV-2, RNA, NAAT NEGATIVE 02/28/22 02/28/22 02/28/22 18:13 18:13 18:15 WBC RBC Hgb Hct MCV MCH MCHC RDW Std Deviation RDW Coeff of Yoanna Plt Count MPV Immature Gran % (Auto) Neut % (Auto) Lymph % (Auto) Cooper % (Auto) Eos % (Auto) Baso % (Auto) Neut # (Auto) Lymph # (Auto) Cooper # (Auto) Eos # (Auto) Baso # (Auto) Immature Gran # (Auto) PT INR Sodium Potassium Chloride Carbon Dioxide Anion Gap BUN Creatinine Est Cr Clr Drug Dosing Est GFR ( Amer) Est GFR (Non-Af Amer) BUN/Creatinine Ratio Glucose Lactate 0.5 Calcium Magnesium Iron Unsaturated IBC Transferrin Ferritin Total Bilirubin AST ALT Alkaline Phosphatase Troponin I C-Reactive Protein Total Protein Albumin Globulin Albumin/Globulin Ratio Lipase Vitamin B12 Folate Procalcitonin < 0.05 TSH Cortisol AM Sample Urine Color Yellow Urine Appearance Clear Urine pH 7.5 Ur Specific [place] > 1.045 H Urine Protein Negative Urine Glucose (UA) Negative Urine Ketones Negative Urine Blood Negative Urine Nitrite Negative Urine Bilirubin Negative Urine Urobilinogen Negative Ur Leukocyte Esterase Negative SARS-CoV-2, RNA, NAAT 02/28/22 03/01/22 03/01/22 23:11 07:40 07:40 WBC RBC Hgb Hct MCV MCH MCHC RDW Std Deviation RDW Coeff of Yoanna Plt Count MPV Immature Gran % (Auto) Neut % (Auto) Lymph % (Auto) Cooper % (Auto) Eos % (Auto) Baso % (Auto) Neut # (Auto) Lymph # (Auto) Cooper # (Auto) Eos # (Auto) Baso # (Auto) Immature Gran # (Auto) PT INR Sodium 139 Potassium 4.0 Chloride 107 Carbon Dioxide 30 Anion Gap 2 L BUN 19 Creatinine 0.56 L Est Cr Clr Drug Dosing 74.5 Est GFR ( Amer) 110.9 Est GFR (Non-Af Amer) 95.7 BUN/Creatinine Ratio 33.9 H Glucose 91 Lactate Calcium 8.1 L Magnesium Iron 13 L Unsaturated IBC 200 Transferrin 148 L Ferritin 140.2 Total Bilirubin 0.4 AST 11 L ALT 6 L Alkaline Phosphatase 79 Troponin I < 0.03 C-Reactive Protein Total Protein 5.6 L Albumin 2.7 L Globulin 2.9 Albumin/Globulin Ratio 0.9 Lipase Vitamin B12 500 Folate 16.47 Procalcitonin TSH Cortisol AM Sample 23.66 H Urine Color Urine Appearance Urine pH Ur Specific [place] Urine Protein Urine Glucose (UA) Urine Ketones Urine Blood Urine Nitrite Urine Bilirubin Urine Urobilinogen Ur Leukocyte Esterase SARS-CoV-2, RNA, NAAT 03/01/22 03/01/22 07:40 07:45 WBC 6.78 RBC 3.68 L Hgb 10.2 L Hct 32.9 L MCV 89.4 MCH 27.7 MCHC 31.0 L RDW Std Deviation 51.2 H RDW Coeff of Yoanna 16.0 H Plt Count 289 MPV 9.4 Immature Gran % (Auto) 0.1 Neut % (Auto) 67.7 Lymph % (Auto) 20.6 Cooper % (Auto) 10.3 Eos % (Auto) 1.0 Baso % (Auto) 0.3 Neut # (Auto) 4.58 Lymph # (Auto) 1.40 Cooper # (Auto) 0.70 H Eos # (Auto) 0.07 Baso # (Auto) 0.02 Immature Gran # (Auto) 0.01 PT INR Sodium Potassium Chloride Carbon Dioxide Anion Gap BUN Creatinine Est Cr Clr Drug Dosing Est GFR ( Amer) Est GFR (Non-Af Amer) BUN/Creatinine Ratio Glucose Lactate Calcium Magnesium Iron Unsaturated IBC Transferrin Ferritin Total Bilirubin AST ALT Alkaline Phosphatase Troponin I C-Reactive Protein Total Protein Albumin Globulin Albumin/Globulin Ratio Lipase 18 Vitamin B12 Folate Procalcitonin TSH Cortisol AM Sample Urine Color Urine Appearance Urine pH Ur Specific [place] Urine Protein Urine Glucose (UA) Urine Ketones Urine Blood Urine Nitrite Urine Bilirubin Urine Urobilinogen Ur Leukocyte Esterase SARS-CoV-2, RNA, NAAT Diagnostic Findings Echocardiogram 03/01/2022 Moderate left hypertrophy with normal left ventricular systolic function Calcified aortic valve with restricted valve leaflet mobility and severe aortic stenosis. Peak aortic valve velocity 3.9 m/s but calculated aortic valve area less than 0.6 cm Mildly restricted mitral valve leaflet mobility ECG Additional Comments: 28-FEB-2022 15:47:56 [facility]-EDSTAT ROUTINE RETRIEVAL Normal sinus rhythm Normal ECG When compared with ECG of 26-JUL-2020 14:25, No significant change was found
[2022-03-01] MEDS: HYDROCORTISONE SOD 50 MG in SYRINGE 0 ML IV SCH ×2 (15:12→21:46)
[2022-03-01] MEDS: oxyCODONE HCL 15 MG TABCR (OxyCONTIN) PO SCH (15:12)
[2022-03-01] MEDS: LACTULOSE SYRUP 30 GM/45 ML UDP PO SCH (17:37)
[2022-03-01] MEDS: ENOXAPARIN INJ 30 MG/0.3 ML SYR SQ SCH (21:43)
[2022-03-01] MEDS: TAMSULOSIN HCL 0.4 MG CAP PO SCH (21:43)
[2022-03-01] MEDS: LORATADINE 10 MG TAB PO SCH (21:44)
[2022-03-02] MEDS: HYDROCORTISONE SOD 50 MG in SYRINGE 0 ML IV SCH ×2 (05:53→14:41)
[2022-03-02] MEDS ORDERED: DOCUSATE SODIUM/SENNA 50/8.6MG TAB PO PRN (07:25)
[2022-03-02] MEDS ORDERED: IRON SUCROSE 300 MG in SODIUM CHLORIDE 0.9% 250 ML IV ONE (08:00)
[2022-03-02] MEDS: oxyCODONE HCL 15 MG TABCR (OxyCONTIN) PO SCH (08:24)
[2022-03-02] MEDS: allopurinoL 300 MG TAB PO SCH (08:25)
[2022-03-02] MEDS: MULTIVITAMIN TAB PO SCH (08:26)
[2022-03-02] MEDS: LINACLOTIDE 145 MCG CAPSULE PO SCH (08:26)
[2022-03-02] MEDS: PANTOprazole 40 MG TAB PO SCH (08:26)
[2022-03-02] MEDS: THIAMINE HCL 100 MG TAB PO SCH (08:26)
[2022-03-02] MEDS: FOLIC ACID 1 MG TAB PO SCH (08:26)
[2022-03-02] MEDS: LACTULOSE SYRUP 30 GM/45 ML UDP PO SCH (08:27)
[2022-03-02] MEDS: MICONAZOLE NITRATE POWDER 43 GM TOP SCH (08:27)
[2022-03-02] MEDS: MUPIROCIN 2% OINT 22 GM TUBE TOP SCH (08:28)
[2022-03-02] MEDS: POLYETHYLENE (MIRALAX) 17 GM PACK PO SCH (08:29)
[2022-03-02 08:38] LABS: Albumin Globulin Ratio 0.9 (0.9-2); Albumin Level 2.9 gm/dl (3.4-5.0); BUN Creatinine Ratio 21.9 (10-20); Bilirubin,Total 0.4 mg/dl (0.2-1.0); Calcium 8.5 mg/dl (8.5-10.1); Creatinine Clr Calc Pharmacy 61.8 ml/min; Est GFR (African American) 104.9 ml/min; Est GFR (Non-African American) 90.5 ml/min; Globulin 3.3 gm/dl (2.5-4.0); Magnesium 1.5 mg/dl (1.7-2.4); Phosphorus 3.2 mg/dl (2.5-4.9); Potassium 4.1 mmol/L (3.5-5.1); Total Protein 6.2 gm/dl (6.0-8.3)
[2022-03-02 08:57] LABS: Estimated Average Glucose 123 mg/dl; Hemoglobin A1C 5.9 % (4.5-5.6)
[2022-03-02] MEDS: MAGNESIUM SULFATE / D5W 1 GM/100 ML BAG IV SCH ×2 (10:43→12:56)
[2022-03-02] MEDS: LACTATED RINGER'S 1,000 ML IV SCH (11:41)
[2022-03-02] MEDS: ONDANSETRON INJ 2 MG/ML 2 ML VIAL IV PRN (13:01)
--- NOTE | 2022-03-02 15:42 | Discharge Summary ---
Date of Service March 02, 2022 Admission HPI Per Admitting Provider This is an 81-year-old gentleman with a notable history of gastric bypass surgery in ~2013 for obesity, B12 deficiency, CAD status post triple-vessel bypass, constipation, depression, type 2 diabetes, ?gastroparesis (patient unsure of this), hypertension, chronic use of opioids for back pain, cachexia, GERD, hypersomnia with sleep apnea, iron deficiency, blood clots > 30 years ago not on AC who presents to [facility] at recommendation of his PCP for weakness, hypotension, and hypoxemia. Patient says that over the last 2 weeks, he has progressively felt more and more weak. He says that this is generalized, and not waxing and waning. He describes the weakness as fatigue. He denies shortness of breath or cough. He denies any recent fevers, chills, night sweats. He does say that he has been having difficulty swallowing both liquids and solids. He says that when he swallows, "it feels like it will not go down, but then it does." He does not believe that this is contributing to his oral intake. However, he does endorse a long history of poor p.o. intake that started after his gastric bypass in 2013. In addition, he describes a vague epigastric/right sided chest pain that is there all the time. It is not worse with exertion and is not associated with shortness of breath. It does not seem to get worse with eating or drinking. He says it is difficult to describe. No nausea or vomiting. No leg swelling. When he went to his PCP today, he was noted to have hypoxemia in the high 80s as well as low blood pressure. In combination with the symptoms, they did recommend he go to the ER for further evaluation. He denies any pain or discomfort right now. Does endorse feeling fatigued. 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 He says he has been taking about 3 oxycodone 15 mg daily due to the pain. He also endorses a penitentiary history of restless leg syndrome, which will sometimes keep him up at night. Medications reviewed, include allopurinol, guaifenesin, lactulose, loratadine, omeprazole, oxycodone 15 mg twice daily, oxycodone 30 mg twice daily, prednisone 5 mg daily, Flomax. He denies new medications. Upon arrival in the ER, patient was found to be hypothermic to 34.5 and soft blood pressures ranging from 90/50 - 100/40 with normal HR, RR, SpO2. Labs demonstrated normal white count of 8.8, persistent anemia 11.7, mild monocytosis 0.76, normal electrolytes, negative troponin, TSH 2.8. Chest x-ray did not demonstrate any acute findings. CT abdomen pelvis demonstrated wall thickening of the jejunum, mesenteric vessels swirlinginterpreted as possibly hernia versus bowel obstruction, ectatic abdominal aorta. ECG demonstrated normal sinus rhythm. He was given 2 L of normal saline. Principal Diagnosis Failure to thrive, generalized weakness, nausea/vomiting, abdominal pain, possible internal hernia, severe constipation, severe aortic stenosis Discharge Exam Constitutional + cachectic and + underweight; no acute distress Eyes + anicteric sclerae ENMT external ear and nose normal, oropharynx normal Neck trachea midline, no thyromegaly Respiratory normal respiratory effort, lungs clear to auscultation Cardiovascular Rate/Rhythm: regular rate and regular rhythm Heart Sounds: + murmur (3/6 ABIOLA at RUSB) Vessels: dorsalis pedis pulses present (1+ bilaterally) Extremities: no edema Chest (Breasts) Chest: normal inspection of chest Gastrointestinal (Abdomen) Inspection/Auscultation: normal bowel sounds; + abdomen abnormal to inspection (Numerous incisional scars on abdomen) and abdomen not distended Percussion/Palpation: + abdomen tender (Across mid abdomen) and abdomen soft; no guarding Musculoskeletal Extremities: extremities normal to inspection; no cyanosis and no clubbing Skin no rashes, warm and dry Neurologic moves all extremities and awake; no focal motor deficits Psychiatric A+Ox3, euthymic affect Lymphatic no lymphedema Discharge Data Allergies Allergy/AdvReac Type Severity Reaction Status Date / Time No Known Allergies Allergy Verified 02/28/22 14:43 Consultations 02/28/22 17:39 ED Decision to Admit Stat 03/01/22 09:15 Consult Gastroenterology Routine Consult General Surgery Routine 03/01/22 14:18 Consult Cardiology Routine Ordered Studies 02/28/22 16:03 CT abd pelvis IV con only Stat Hospital Course (1) Nausea & vomiting: This is an 81-year-old gentleman with a notable history of gastric bypass surgery in ~2013 for obesity, B12 deficiency, CAD status post triple-vessel bypass, constipation, depression, type 2 diabetes, ?gastroparesis (patient unsure of this), hypertension, chronic use of opioids for back pain, cachexia, GERD, hypersomnia with sleep apnea, iron deficiency, blood clots > 30 years ago not on AC who presents to [facility] at recommendation of his PCP for weakness, hypotension, and hypoxemia, found to be saturating appropriately with low blood pressure on arrival. Etiology of his weakness and objective findings are currently unclear. N/V Persistent, for years. ABle to take 6-7 Boost drinks daily but continues to lose weight EGD 06/2021 with esophageal dilation performed but otherwise normal. No colonoscopy in many years as per pt Chronic opioids almost certainly play some role even though he insists they do not as this has been present before he started on opioids Also with question of internal hernia present on CT--> no obstruction but Surgery here recommends tertiary care Bariatric Surgery outpt referral which is arranged by Nurse Navigator for next week 03/07 He is feeling much improved after numerous bowel movements overnight with increased dose of lactulose. Still some nausea which is improved with Zofran Stable for discharge to home with prescription for p.o. Zofran Increase lactulose to 30 g p.o. twice daily on a regular basis Continue MiraLAX at least once daily upon discharge Continue on boost shakes 6 times a day as before to keep up with nutritional status We have arranged follow-up with bariatric surgeon at [place] for next week to evaluate further for this possible internal hernia (2) Abdominal pain: as above, secondary to adhesions, possible internal hernia, and severe constipation GI says no repeat EGD needed as EGD just performed 06/2021 continue bowel regimen as moving bowels does relieve his pain (3) Constipation: severe, opioid induced and 2/2 adhesive disease no obstruction on CT here As above, much improved with increased dose of lactulose Continue lactulose 30 g p.o. twice daily add Miralax once daily although he reports this does not usually help he takes senna prn at home continue Linlivs Could consider adding on Movantix as outpt -cost $9/month as per Physician Chief Of Pathology-we will hold off at this time as he is doing very well with just increased dose of lactulose alone (4) Weight loss: 2/2 chronic N/V, abd pain (5) Internal hernia: as above, follow-up with bariatric surgeon (6) Cachexia: as above Supplement with thiamine, folate, multivitamin Appreciate RD consultation for nutritional assessment and recommendations moving forward (7) Generalized weakness: - over last 2-3 weeks Patient reporting significant fatigue-like weakness over the past 2 weeks in setting of abdominal discomfort and poor p.o. intake Work-up as follows On arrival, blood pressure around 90/60 with normal heart rates, respiratory rate, oxygen saturation CBC notable for mild normocytic anemia; electrolytes WNL; TSH WNL Troponin normal, ECG without conduction or repolarization abnormalities CRP elevated at 1.22, pro-Shamar normal; no leukocytosis Chest x-ray without acute pathology CT abdomen pelvis demonstrated wall thickening of the jejunum, mesenteric vessels swirlinginterpreted as possibly hernia versus bowel obstruction At present, suspect etiology of weakness is multifactorial. Suspect chronic poor p.o. intake and cachexia, alongside regular opioid use and constipation, are likely the major culprits. Malignancy certainly a possibility given cachexia, but unclear source at present. No current evidence of infection. No neurologic abnormalities appreciated. Cardiac murmurs appreciated on exam, however no symptoms or findings consistent with acute heart failure. Blood sugar, TSH normal. Also takes chronic prednisone 5mg daily for at least the last 8 months he reports but sometimes forgets to take it--> likely some component of adrenal insufficiency given hypothermia, low BPs although cortisol level this AM is 23 give one day of stress steroids IV today and convert to tapering prednisone dose for tomorrow at 20mg x 2 days, then 10mg x 2 days then back to 5mg daily Check B12, folate, iron studies-normal except low iron-give IV Venofer as po FeSO4 will worsen constipation -needs walker-will provide Rx -PT/OT consult appreciated-stable for discharge to home Check urine and blood cultures-no growth Fall precautions (8) Severe aortic stenosis: seen on ECHO ordered for murmur consult Cardio will need outpt eval for TAVR (9) Dysphagia: Patient reporting approximately 2 weeks worth of solid and liquid food dysphagia without odynophagia that feels like things are "getting stuck" in his throat FARMWORKER consulted for swallowing assessment, including possibly video/barium assessment which could be done as outpt-needs to be ordered by PCP Aspiration precautions (10) Hypoxemia: Previous Hypoxemia Reported history of hypoxemia at PCP's office 87% -- however, has been normal since been here No abnormalities on CXR, including infectious etiologies or hypervolemia -no h/o COPD No evidence of leg swelling on exam - given normal HR, SpO2 here, lower suspicion for PE No further issues (11) History of gastric bypass: as above, f/u with bariatric surgery nutritional assessment (12) S/P triple vessel bypass: CAD s/p CABG ECG without conduction, repolarization abnormalities; troponin negative Not on statin, ASA, or BB (though contraindicated right now in setting of HoTN) -- will require further investigation as acute issues resolve TTE, as above w/o WMAs (13) BPH (benign prostatic hyperplasia): BPH Continue Flomax (14) GERD without esophagitis: GERD Continue PPI (15) DM2 (diabetes mellitus, type 2): History noted. Last A1c at 6.7% in 02/2021. Not on home medications A1c here now is 5.9% (16) Hypotension: On arrival, patient noted to have blood pressure of around 90/60 with normal heart rate, respiratory rate, oxygen saturation, perfusion. Thankfully, not symptomatic (subacute weakness noted). Initially responsive to 2 L of fluid since arrival Good peripheral perfusion on exam. No evidence of heart failure or VTE. No obvious infectious source. Patient does appear somewhat dry. Weakness work-up ongoing, as above; primarily suspect hypotension is related to poor p.o. intake, dehydration, cachectic body habitus, and missing doses of chronicprednisone stress steroids as above no signs of infection (17) Chronic, continuous use of opioids: Chronic Back and neck Pain continue chronic opioids-return to home doses at his request avoid NSAIDs in h/o gastric bypass (18) Body temperature low: On arrival, patient noted to have T 34.5C that subsequently improved with heated blankets. No shivering appreciated on exam. Normal mentation, normal telemetry. Low core body temperatures has been noted in past on chart review - though admitting temperature is quite low (94F/34.5C) Suspect multifactorial: cachexia, opioids, inactivity all known to cause hypothermia. No active source of infection at present. Cortisol level normal. Thyroid normal. No obvious environmental causes Continue regular temperature checks Monitor on telemetry stress steroids (19) B12 deficiency: continue B12 level here normal (20) Restless legs: replace iron Code: Full code - discussed with daughter in the room; he had indicated some uncertainty about this, and wishes to discuss more in the future, but for now wishes to remain FC Dispo: Stable for discharge to home, he declines to have home health. Prescription for rolling walker given PPX: Reduced Lovenox dose @ 30 q24 given weight, advanced age Total Time Total Time Spent Total Time Spent (In Minutes): 40 minutes Discharge Plan Discharge Items Patient Disposition: Home - Self-Care Reason For Visit: WEAKNESS Discharge Diagnosis: Nausea/vomiting, possible internal hernia, abdominal pain, severe constipation, failure to thrive, severe aortic stenosis Condition on Discharge: Fair Activity: Resume your previous activity Non-emergency contact: Primary Care Provider, Surgeon and Sleep Scientist Call non-emergency contact if: you have any medication questions and your symptoms worsen Follow-up/Referrals: Luisa Velasquez MD [Primary Care Provider] - (Follow up within 1-2 weeks) Charlie Rowley MD [Physician] - (Dr. Rowley's office should be arranging a Cardiology appointment for you at [facility]) Krzysztof Macedo MD [Outside Practitioners] - 03/07/22 11:45 am ([facility] in [place]: Dr. Macedo's office is on the 7th floor of [facility] in [place]. If you cannot attend this appointment, please call the office to reschedule.) Diet: Regular Addtl Attending Provider Instructions: Please continue on the lactulose twice a day for your severe constipation which is contributing to your nausea. You can take Zofran as needed for nausea. There is a medication called Movantik that you could trial for opioid-induced constipation, but since your constipation is much improved with just increasing your lactulose, we'll hold off on prescribing that for now. Please follow up with the Bariatric Surgeon at [place] as scheduled for you regarding your abdominal pain and possible internal hernia. Please taper your prednisone down as follows: Take 20 mg daily x2 days, then 10 mg daily x2 days, then back to your usual 5 mg daily. It is important that you do not skip any doses of prednisone as this can make your blood pressure and your temperature drop low like they were when you came i n. You will need to follow-up with the juice packaging machines setter regarding your severe aortic stenosis (bad heart valve). You may need to have evaluation for valve replacement surgery. Your iron levels were found to be low and you were given a dose of IV iron while you are in the hospital. Please follow-up with your primary care physician to arrange further IV iron infusions as an outpatient. Oral iron will make you more constipated so I would not recommend taking this. Pending Studies at Discharge: No Stand-Alone Forms: My [facility], Smoking Cessation Medications and DC Order Prescriptions: New lactulose 20 gram/30 mL Solution 30 g PO [id number] 30 Days Qty: 1350 RF: 0 folic acid 1 mg Tablet 1 mg PO QAM Qty: 30 RF: 0 multivitamin with folic acid [Daily-Ludivina (with folic acid)] 400 mcg Tablet 1 tab PO QAM Qty: 30 RF: 0 thiamine HCl (vitamin B1) 100 mg Tablet 100 mg PO QAM Qty: 30 RF: 0 prednisone 10 mg tablet 20 mg PO DAILY Qty: 6 RF: 0 ondansetron 4 mg tablet,disintegrating 4 mg PO Q8H PRN (Reason: nausea and vomiting) Qty: 30 RF: 0 Continued omeprazole 40 mg capsule,delayed release(DR/EC) 40 mg PO BID Qty: 60 RF: 5 (DME) Lift Chair Misc See Rx Instructions .Route Qty: 1 RF: 0 mupirocin 2 % ointment 1 applic topical BID Qty: 15 RF: 3 prednisone 5 mg tablet 5 mg PO QAM Qty: 30 RF: 5 oxycodone 15 mg tablet 15 mg PO BID PRN (Reason: breakthrough pain) Qty: 60 RF: 0 oxycodone [OxyContin] 30 mg tablet,oral only,ext.rel.12 hr 30 mg PO Q12H 30 Days Qty: 60 RF: 0 clobetasol 0.05 % cream 1 appln topical BID Qty: 1 RF: 0 nitroglycerin 0.4 mg tablet, sublingual 0.4 mg SL Q5M PRN (Reason: chest pain) Qty: 25 RF: 0 guaifenesin [Mucinex] 600 mg tablet extended release 12hr 600 mg PO Q12H PRN (Reason: congestion) Qty: 60 RF: 0 loratadine [Claritin] 10 mg tablet 10 mg PO HS Qty: 90 RF: 1 tamsulosin 0.4 mg capsule 0.4 mg PO HS Qty: 90 RF: 3 miconazole nitrate 2 % powder 1 applic topical BID 14 Days Qty: 85 RF: 0 allopurinol 300 mg tablet 300 mg PO QAM RF: 0 Linzess 290 mcg capsule 290 mcg PO QAM RF: 0 Boost High Protein 0.06 gram- 1 kcal/mL liquid 1 ea PO 6XD RF: 0 Changed polyethylene glycol 3350 17 gram/dose powder 17 gm PO DAILY Qty: 1 RF: 0 Discontinued lactulose 10 gram/15 mL solution 30 ml PO BID PRN (Reason: constipation) Qty: 946 RF: 1 Discharge Orders: Discharge Order (Routine); Ordered 03/02/22 Ordered By: Mayra Nicole Admission Data Admit Date/Time: 02/28/22 18:15 Attending Provider: Mayra Nicole Admit Provider: Oliverio Angel Primary Care Provider: Luisa Velasquez Other Providers: Brad Sebastian ; Avinash Demarco ; Erika Meade ; Charlie Rowley Coding Level of Care Code D/C DAY MANAGEMENT >30 MINS Diagnoses Nausea & vomiting R11.2 Abdominal pain R10.9 Constipation K59.00 Weight loss R63.4 Internal hernia K45.8 Cachexia R64 Generalized weakness R53.1 Severe aortic stenosis I35.0 Dysphagia R13.10 Hypoxemia R09.02 History of gastric bypass Z98.84 S/P triple vessel bypass Z95.1 BPH (benign prostatic hyperplasia) N40.0 GERD without esophagitis K21.9 DM2 (diabetes mellitus, type 2) E11.9 Hypotension I95.9 Chronic, continuous use of opioids F11.90 Body temperature low R68.89 B12 deficiency E53.8 Restless legs G25.81
== END 2022-03-02 16:14 | disposition home or self-care (01) ==
LOC: ED 15:41 → 2W 15:41 → SUATTDRO 18:15 → 2W 19:32

== ENCOUNTER 2022-05-07 15:13 | Inpatient (IN) ==
[2022-05-07] MEDS ORDERED: SODIUM CHLORIDE 0.9% 500 ML IV STA (15:19)
--- NOTE | 2022-05-07 15:25 | Emergency Department Note ---
Impression & Plan Fracture of hip, right, closed ED Provider Note NAME: TULIO RUIZ JR AGE: 81 SEX: M : 1940 ARRIVES VIA: Ambulance INFORMANT: Patient, EMS ED PROVIDER(S): Roamn Louie DO CHIEF COMPLAINT: Hip pain HPI: The patient is an 81-year-old male who presented to the emergency department after a ground-level fall. The patient was knocked to the ground by a dog. He fell onto his right side. He suffered injury to his right hip. He was unable to stand immediately. He denies having any headache. He does not take any blood thinners. He denies having any neck or back pain. There was no loss of consciousness. He states he has very severe pain into his right groin whenever he tries to ambulate. He denies having any numbness in his leg. He presented to the emergency department via ALS and received fentanyl prior to arrival with good improvement of his symptoms. ROS: See above HPI for pertinent positives & negatives. A total of 10 systems reviewed and were otherwise negative. PAST MEDICAL HISTORY: See Below PAST SURGICAL HISTORY: See Below FAMILY HISTORY: See Below SOCIAL HISTORY: See Below HOME MEDICATIONS: See Below ALLERGIES: See Below VITALS: See Below PHYSICAL EXAMINATION: GENERAL: The patient is awake and alert. He appears very uncomfortable. EYES: The conjunctivae are clear. The pupils are round and reactive. EARS, NOSE, MOUTH AND THROAT: The nose is without any evidence of any deformity. NECK: The neck is nontender and supple. RESPIRATORY: Normal respiratory effort is noted there is no evidence of wheezing rhonchi or rales CARDIOVASCULAR: Regular rate and rhythm was noted auscultation. Systolic murmur was suggested. GASTROINTESTINAL: The abdomen is soft. Abdomen is nontender. BACK: No midline tenderness or or step-off noted range of motion in flexion ext ension as well as rotation no signs of muscle spasm noted MUSCULOSKELETAL/EXTREMITIES: Right lower extremity is externally rotated and shortened. Pulses are symmetric in both feet. There is no evidence of gross deformity full range of motion is noted in the hips and shoulders. SKIN: There is no obvious evidence of any rash. There are no petechiae, pallor or cyanosis noted. NEUROLOGIC: Patient is awake alert and oriented x3 MEDICAL DECISION MAKING: The patient is an 81-year-old male who presented to the emergency department by ambulance for an evaluation after a fall. The patient had a fall onto his right side. He was unable to bear weight. Radiographic studies were obtained and appear to be consistent with a hip fracture. I discussed the patient's laboratory and radiographic studies with him. I also discussed his case with the on-call [facility] hospitalist as well as the on-call orthopedic doctor for the patient's requested group. The patient was treated with IV fentanyl in the emergency department. He was reevaluated multiple times. Triage Nursing notes reviewed. Prior medical records reviewed Vital Signs: reviewed and remarkable for no significant abnormalities Differential diagnosis: Fracture, subluxation, dislocation, contusion, ligamentous injury, neurovascular, compartment syndrome, rhabdomyolysis, as well as other pat hologies. ER treatment provided: See below Diagnostics interpreted by me: ECG: EKG was obtained in the emergency department. My interpretation is normal sinus rhythm at 85 bpm. There were no PVCs noted. There were no acute ST segment abnormalities noted. This was compared to a tracing from April 23, 2022. No changes were noted. Cardiac Monitoring: An order was placed for continuous cardiac monitoring. The monitor shows a rate of 84 bpm with sinus rhythm. Laboratory studies: As stated above and show below. Imaging studies: See below Consultation(s): I discussed this case with Dr. Hannah who is on-call for the [facility] hospitalist group. Discussed this case with Dr. 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 prior to bypass--pt does not believe any stents placed History of carpal tunnel surgery of right wrist History of colonoscopy History of esophagogastroduodenoscopy (EGD) History of tooth extraction all teeth removed S/P triple vessel bypass 1996 Status post panniculectomy Family History Mother Diabetes Other No family history of adverse response to anesthesia Denies family history of Ovarian cancer Prostate cancer Myocardial infarction Breast cancer Colorectal cancer Social History Smoking Status: Former smoker Tobacco Type: Cigarettes Age Started Using Tobacco: 20; Age Quit Using Tobacco: 63; packs per day: 1; Second Hand Exposure: No; Hx Alcohol Use: No Hx Substance Use: No Preferred Language: [place] Communication Ability: Effective Visual Impairment: No Limitations Hearing Ability: Use of Hearing Aid Podiatrist Required: No Beliefs That Will Affect Care: None marital status: / Current Living Situation: Alone Current Living Situation Comment: lives home alone, states grandson is there often 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al status: retired 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: 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 Feels Safe at Home: Yes Childhood Exposure to Second-Hand Smoke: No Diet Comment: "I barely eat, I live on boost" Dental Care, Regularly: No Physical Activity Frequency: Does not Exercise Seatbelt Use: sometimes Sunscreen Use: No Assistive Devices: None Allergies Allergies Allergy/AdvReac Type Severity Reaction Status Date / Time No Known Allergies Allergy Verified 05/07/22 17:20 Home Meds Home Medications Medication Instructions Recorded Confirmed clobetasol 0.05 % topical cream 1 appln TOPICAL BID PRN #1 gm 07/01/19 05/07/22 nitroglycerin 0.4 mg sublingual 0.4 mg SL Q5M PRN #25 tab 07/01/19 05/07/22 tablet allopurinol 300 mg tablet 300 mg PO QAM 07/13/21 05/07/22 food supplemt, lactose-reduced 1 ea PO 6XD 07/13/21 05/07/22 0.06 gram-1 kcal/mL oral liquid (Boost High Protein) linaclotide 290 mcg capsule 290 mcg PO QAM 07/13/21 05/07/22 (Linzess) ipratropium bromide 21 mcg (0.03 2 spray INTRANASAL BID PRN 04/23/22 05/07/22 %) nasal spray misoprostol 100 mcg tablet 100 mcg PO QID 04/23/22 05/07/22 sucralfate 1 gram tablet 1 g PO QID 04/23/22 05/07/22 mupirocin 2 % topical ointment 1 applic TOPICAL BID PRN 05/07/22 05/07/22 Previous Rx's Medication Instructions Recorded guaifenesin 600 mg tablet, 600 mg PO Q12H PRN #60 tab 12/18/20 extended release 12 hr (Mucinex) omeprazole 40 mg capsule,delayed 40 mg PO BID #60 cap 07/24/21 release loratadine 10 mg tablet (Claritin) 10 mg PO HS #90 tab 08/02/21 tamsulosin 0.4 mg capsule 0.4 mg PO HS #90 cap 08/02/21 prednisone 5 mg tablet 5 mg PO QAM #30 tab 02/04/22 folic acid 1 mg tablet 1 mg PO QAM #30 tab 03/02/22 multivitamin with folic acid 400 1 tab PO QAM #30 tab 03/02/22 mcg tablet (Daily-Ludivina (with folic acid)) polyethylene glycol 3350 17 17 gm PO DAILY #1 gm 03/02/22 gram/dose oral powder thiamine HCl (vitamin B1) 100 mg 100 mg PO QAM #30 tab 03/02/22 tablet duloxetine 30 mg capsule,delayed 30 mg PO DAILY #30 cap 03/14/22 release nystatin 100,000 unit/gram topical 1 applic TOPICAL BID #30 g 03/14/22 cream triamcinolone acetonide 0.1 % 1 applic TOPICAL BID #30 g 03/14/22 topical cream oxycodone 30 mg tablet,crush 30 mg PO Q12H 30 Days #60 tab 04/10/22 resistant,extended release 12 hr (OxyContin) ondansetron 4 mg disintegrating 4 mg PO Q8H PRN #30 tab 04/11/22 tablet oxycodone 15 mg tablet 15 mg PO BID PRN #60 tab 05/03/22 Results & Data (ED) Vital Signs Vital Signs - 24 hr 05/07/22 15:17 05/07/22 15:26 05/07/22 15:27 Temperature 36.5 C Temperature Source Oral Pulse Rate 87 84 Pulse Rate from SpO2 Sensor Respiratory Rate 16 14 Blood Pressure 127/71 Blood Pressure Mean 89 Blood Pressure Position Semi-fowlers Pulse Oximetry 94 94 Oxygen Delivery Method Room Air Room Air Sepsis Recent Fever Within 48 Hours No Sepsis New/Unexplained Change in Mental Status No Sepsis Action Taken by Nursing No Action Required 05/07/22 15:30 05/07/22 15:45 05/07/22 16:00 Temperature Temperature Source Pulse Rate 84 86 93 H Pulse Rate from SpO2 Sensor 83 88 Respiratory Rate 18 15 15 Blood Pressure Blood Pressure Mean Blood Pressure Position Pulse Oximetry 95 96 Oxygen Delivery Method Room Air Room Air Sepsis Recent Fever Within 48 Hours Sepsis New/Unexplained Change in Mental Status Sepsis Action Taken by Nursing 05/07/22 16:15 05/07/22 16:23 05/07/22 16:30 Temperature Temperature Source Pulse Rate 80 82 82 Pulse Rate from SpO2 Sensor 82 78 82 Respiratory Rate 15 22 15 Blood Pressure 101/70 Blood Pressure Mean 80 Blood Pressure Position Pulse Oximetry 91 91 94 Oxygen Delivery Method Room Air Room Air Sepsis Recent Fever Within 48 Hours Sepsis New/Unexplained Change in Mental Status Sepsis Action Taken by Nursing 05/07/22 16:45 05/07/22 17:00 05/07/22 17:30 Temperature Temperature Source Pulse Rate 83 86 88 Pulse Rate from SpO2 Sensor 83 88 Respiratory Rate 15 19 16 Blood Pressure 127/65 Blood Pressure Mean 85 Blood Pressure Position Pulse Oximetry 94 97 Oxygen Delivery Method Sepsis Recent Fever Within 48 Hours Sepsis New/Unexplained Change in Mental Status Sepsis Action Taken by Nursing 05/07/22 18:00 05/07/22 18:30 Temperature Temperature Source Pulse Rate 87 84 Pulse Rate from SpO2 Sensor Respiratory Rate 19 18 Blood Pressure 117/84 112/71 Blood Pressure Mean 95 84 Blood Pressure Position Pulse Oximetry 98 Oxygen Delivery Method Sepsis Recent Fever Within 48 Hours Sepsis New/Unexplained Change in Mental Status Sepsis Action Taken by Fdc Medications Current Medication List: was personally reviewed by me Laboratory Data Attestation: I reviewed the patient's lab results. Result diagrams: 05/07/22 15:25 05/07/22 15:25 Lab Results 05/07/22 05/07/22 05/07/22 Range/Units 15:25 15:25 15:25 WBC 6.56 (4.8-10.8) K/uL RBC 3.82 L (4.7-6.1) M/uL Hgb 11.0 L (14.0-18.0) g/dL Hct 35.0 L (42-52) % MCV 91.6 (80-100) fL MCH 28.8 (25-34) pg MCHC 31.4 L (32-36) g/dL RDW Std Deviation 50.8 H (36.4-46.3) fL RDW Coeff of Yoanna 15.5 H (11.5-14.5) % Plt Count 465 H (130-400) K/uL MPV 10.3 (7.4-10.4) fL Immature Gran % (Auto) 0.5 % Neut % (Auto) 64.9 % Lymph % (Auto) 24.7 % [place] % (Auto) 8.8 % Eos % (Auto) 0.6 % Baso % (Auto) 0.5 % Neut # (Auto) 4.26 (1.4-6.5) K/uL Lymph # (Auto) 1.62 (1.2-3.4) K/uL [place] # (Auto) 0.58 (0.11-0.59) K/uL Eos # (Auto) 0.04 (0-0.5) K/uL Baso # (Auto) 0.03 (0-0.2) K/uL Immature Gran # (Auto) 0.03 H (0.00-0.02) K/uL ESR (0-20) mm/hr PT 11.2 (9.0-12.0) Seconds INR 1.1 (0.9-1.1) APTT 27.9 (21.0-31.0) Seconds PTT Ratio 1.0 Sodium 133 L (136-145) mmol/L Potassium 4.5 (3.5-5.1) mmol/L Chloride 96 L (98-107) mmol/L Carbon Dioxide 30 (21-32) mmol/L Anion Gap 7 (3-11) BUN 18 (6-23) mg/dl Creatinine 0.59 L (0.6-1.4) mg/dl Est Cr Clr Drug Dosing 64.9 ml/min Est GFR ( Amer) 108.5 ml/min Est GFR (Non-Af Amer) 93.6 ml/min BUN/Creatinine Ratio 30.5 H (10-20) Glucose 113 H (70-99(Fasting)) mg/dl Calcium 9.0 (8.5-10.1) mg/dl Total Bilirubin 0.3 (0.2-1.0) mg/dl AST 20 (13-39) U/L ALT 16 (7-52) U/L Alkaline Phosphatase 80 (34-104) U/L Total Creatine Kinase (30-223) U/L Troponin I High Sens 7.3 (0-20) pg/ml Total Protein 7.0 (6.0-8.3) gm/dl Albumin 3.3 L (3.4-5.0) gm/dl Globulin 3.7 (2.5-4.0) gm/dl Albumin/Globulin Ratio 0.9 (0.9-2) Lipase 34 (11-82) U/L SARS-CoV-2, RNA, NAAT (NEGATIVE) 05/07/22 05/07/22 05/07/22 Range/Units 15:25 15:45 17:25 WBC (4.8-10.8) K/uL RBC (4.7-6.1) M/uL Hgb (14.0-18.0) g/dL Hct (42-52) % MCV (80-100) fL MCH (25-34) pg MCHC (32-36) g/dL RDW Std Deviation (36.4-46.3) fL RDW Coeff of Yoanna (11.5-14.5) % Plt Count (130-400) K/uL MPV (7.4-10.4) fL Immature Gran % (Auto) % Neut % (Auto) % Lymph % (Auto) % [place] % (Auto) % Eos % (Auto) % Baso % (Auto) % Neut # (Auto) (1.4-6.5) K/uL Lymph # (Auto) (1.2-3.4) K/uL [place] # (Auto) (0.11-0.59) K/uL Eos # (Auto) (0-0.5) K/uL Baso # (Auto) (0-0.2) K/uL Immature Gran # (Auto) (0.00-0.02) K/uL ESR 50 H (0-20) mm/hr PT (9.0-12.0) Seconds INR (0.9-1.1) APTT (21.0-31.0) Seconds PTT Ratio Sodium (136-145) mmol/L Potassium (3.5-5.1) mmol/L Chloride (98-107) mmol/L Carbon Dioxide (21-32) mmol/L Anion Gap (3-11) BUN (6-23) mg/dl Creatinine (0.6-1.4) mg/dl Est Cr Clr Drug Dosing ml/min Est GFR ( Amer) ml/min Est GFR (Non-Af Amer) ml/min BUN/Creatinine Ratio (10-20) Glucose (70-99(Fasting)) mg/dl Calcium (8.5-10.1) mg/dl Total Bilirubin (0.2-1.0) mg/dl AST (13-39) U/L ALT (7-52) U/L Alkaline Phosphatase (34-104) U/L Total Creatine Kinase 35 (30-223) U/L Troponin I High Sens (0-20) pg/ml Total Protein (6.0-8.3) gm/dl Albumin (3.4-5.0) gm/dl Globulin (2.5-4.0) gm/dl Albumin/Globulin Ratio (0.9-2) Lipase (11-82) U/L SARS-CoV-2, RNA, NAAT NEGATIVE (NEGATIVE) Administered Medications Morphine Sulfate (Morphine Sulfate 4 Mg/Ml 1 Ml Carp\\Vial) 4 mg IV Q3H PRN PRN Reason: Pain (6,7,8,9,10) Stop: 05/21/22 16:53 Last Admin: 05/07/22 17:25 Dose: 4 mg Documented by: [id number] Discontinued Medications Fentanyl Citrate (Fentanyl Citrate 100 Mcg/2 Ml Vial) 50 mcg IV Q15M PRN PRN Reason: Pain Stop: 05/21/22 15:18 Last Admin: 05/07/22 16:23 Dose: 50 mcg Documented by: [id number] Admin: 05/07/22 15:34 Dose: 50 mcg Documented by: [id number] Sodium Chloride (Nss) 500 mls @ 999 mls/hr IV .Q31M STA Stop: 05/07/22 15:49 Last Infusion: 05/07/22 16:23 Dose: 0 mls/hr Documented by: [id number] Admin: 05/07/22 15:34 Dose: 999 mls/hr Documented by: [id number] Lidocaine HCl (Lidocaine 2% Jelly 5 Ml Tube) 2 ml EXT NOW ONE Stop: 05/07/22 17:40 Last Admin: 05/07/22 18:04 Dose: Not Given Documented by: [id number] Imaging Data Radiologist's Impression: Chest X-Ray 05/07/22 15:19 XR chest 1V portable CLINICAL HISTORY: Chest Pain. COMPARISON STUDY: 04/23/2022 TECHNIQUE: 1 view of the chest FINDINGS: Single frontal view of the chest demonstrates the heart size to be within normal limits status post previous cardiothoracic surgery. There is again asymmetric elevation of left hemidiaphragm. The lungs are clear of alveolar opacities. There is no evidence for pleural effusion. There is no evidence for vascular congestion. There is no acute osseous pathology. IMPRESSION: 1. No acute cardiopulmonary disease. ACT 112: Negative or not required by law. Electronically signed by: Esau Goodrich M.D. 05/07/2022 4:25 PM Hip/Pelvis X-Ray 05/07/22 15:19 SINGLE VIEW PELVIS; 2 VIEWS RIGHT HIP CLINICAL HISTORY: Fall with right hip injury. FINDINGS: An AP view of the pelvis with AP and crosstable lateral views of the right hip are compared to study dated 05/02/2021. The skeletal structures are osteopenic. There is a comminuted intertrochanteric fracture of the right proximal femur. The fragments are mildly displaced and angulated. Overlying soft tissue edema is noted. No additional fracture is seen involving the left hip or the bony pelvis. Moderate arthritic change and joint space narrowing is seen in the hips. Mild degenerative change is also seen in the sacroiliac joints. Phleboliths are noted in the pelvis. There is advanced atherosclerotic calcification of the femoral arteries. IMPRESSION: Intertrochanteric fracture of the right proximal femur as above. Electronically signed by: Yeison Jennings M.D. 05/07/2022 4:15 PM Discharge Plan Visit Data Chief Complaint: Hip Pain Stated Complaint: Fall R hip pain ED Provider: Roman Louie Discharge Problem: Fracture of hip, right, closed Patient Disposition: Being Evaluated by Hospitalist Discharge Instructions Interventions: ED Discharge Assessment Last Done: 05/07/22 18:34 Forms Stand Alone Forms: [place] Prescriptions Prescriptions: No Action omeprazole 40 mg capsule,delayed release(DR/EC) 40 mg PO BID Qty: 60 RF: 5 prednisone 5 mg tablet 5 mg PO QAM Qty: 30 RF: 5 oxycodone [OxyContin] 30 mg tablet,oral only,ext.rel.12 hr 30 mg PO Q12H 30 Days Qty: 60 RF: 0 ondansetron 4 mg tablet,disintegrating 4 mg PO Q8H PRN (Reason: nausea and vomiting) Qty: 30 RF: 0 oxycodone 15 mg tablet 15 mg PO BID PRN (Reason: breakthrough pain) Qty: 60 RF: 0 clobetasol 0.05 % cream 1 appln topical BID PRN (Reason: flare ups) Qty: 1 RF: 0 nitroglycerin 0.4 mg tablet, sublingual 0.4 mg SL Q5M PRN (Reason: chest pain) Qty: 25 RF: 0 guaifenesin [Mucinex] 600 mg tablet extended release 12hr 600 mg PO Q12H PRN (Reason: congestion) Qty: 60 RF: 0 loratadine [Claritin] 10 mg tablet 10 mg PO HS Qty: 90 RF: 1 tamsulosin 0.4 mg capsule 0.4 mg PO HS Qty: 90 RF: 3 duloxetine 30 mg capsule,delayed release(DR/EC) 30 mg PO DAILY Qty: 30 RF: 5 nystatin 100,000 unit/gram cream 1 applic topical BID Qty: 30 RF: 3 triamcinolone acetonide 0.1 % cream 1 applic topical BID Qty: 30 RF: 3 allopurinol 300 mg tablet 300 mg PO QAM RF: 0 Linzess 290 mcg capsule 290 mcg PO QAM RF: 0 Boost High Protein 0.06 gram- 1 kcal/mL liquid 1 ea PO 6XD RF: 0 sucralfate 1 gram Tablet 1 g PO QID RF: 0 misoprostol 100 mcg tablet 100 mcg PO QID RF: 0 ipratropium bromide 21 mcg (0.03 %) [place],Non-Aerosol 2 spray INTRANASAL BID PRN (Reason: rhinitis) RF: 0 mupirocin 2 % ointment 1 applic topical BID PRN (Reason: ..) RF: 0 folic acid 1 mg Tablet 1 mg PO QAM Qty: 30 RF: 0 multivitamin with folic acid [Daily-Ludivina (with folic acid)] 400 mcg Tablet 1 tab PO QAM Qty: 30 RF: 0 thiamine HCl (vitamin B1) 100 mg Tablet 100 mg PO QAM Qty: 30 RF: 0 polyethylene glycol 3350 17 gram/dose powder 17 gm PO DAILY Qty: 1 RF: 0 Referrals Referrals: Luisa Velasquez MD [Primary Care Provider] -
[2022-05-07] MEDS: fentaNYL citrate 100 MCG/2 ML VIAL IV PRN ×2 (15:34→16:23)
[2022-05-07 16:09] LABS: Basophils # (auto) 0.03 K/uL (0-0.2); Basophils % (auto) 0.5 %; Eosinophils # (auto) 0.04 K/uL (0-0.5); Eosinophils % (auto) 0.6 %; Immature Granulocytes # (auto) 0.03 K/uL (0.00-0.02); Immature Granulocytes % (auto) 0.5 %; Lymphocytes # (auto) 1.62 K/uL (1.2-3.4); Lymphocytes % (auto) 24.7 %; Mean Corpuscular Hemoglobin 28.8 pg (25-34); Mean Corpuscular Hgb Conc 31.4 g/dL (32-36); Mean Corpuscular Volume 91.6 fL (80-100); Mean Platelet Volume 10.3 fL (7.4-10.4); Monocytes # (auto) 0.58 K/uL (0.11-0.59); Monocytes % (auto) 8.8 %; Neutrophils # (auto) 4.26 K/uL (1.4-6.5); Neutrophils % (auto) 64.9 %; Platelet Count 465 K/uL (130-400); RDW Coefficient of Variation 15.5 % (11.5-14.5); RDW Standard Deviation 50.8 fL (36.4-46.3); Red Blood Count 3.82 M/uL (4.7-6.1); White Blood Count 6.56 K/uL (4.8-10.8)
--- NOTE | 2022-05-07 16:16 | History & Physical Report ---
Date of Service May 07, 2022 Assessment & Plan (1) Intertrochanteric fracture of right hip: Plan: Regular diet, NPO after midnight Pain management with morphine 2-4 mg in addition to his usual OxyContin 30mg PO BID CXR - no acute cardiopulmonary disease, EKG - NSR, no ischemic changes, no change from April 23, 2022 Consult cardiology for pre op clearance. Morning cortisol ordered to assess need for perioperative steroids. If <10 mcg/dL consider hydrocortisone 25mg Q6H for 24 hours. Consult orthopedics (2) Balanitis: Plan: Clotrimazole 1% cream BID Cortez catheter inserted Keep clean Wound culture to r/o bacterial infection RPR with AM labs to assess for syphilis although lesion is more consistent with balanitis Consider urology consult if not improving during admission (3) Severe aortic stenosis: Plan: Recently referred for TAVR. Exercise tolerance of 20 steps on flat or 6 stairs with chest pain/SOB/fatigue. Will need cardiac clearance pre-operatively. (4) History of gastric bypass: Plan: Noted history of this (5) Generalized weakness: Plan: PT/OT post operatively (6) Severe protein-calorie malnutrition: Plan: Boost drinks and rvda master certified rv technician consult (7) Vitamin D deficiency: Plan: History of this but not on supplementation. Repeat level with AM labs. (8) GERD without esophagitis: Plan: Switch omeprazole for pantoprazole per hospital formulary (9) BPH (benign prostatic hyperplasia): Plan: Continue tamsulosin 0.4mg PO HS Cortez catheter placed on admission (10) Osteoarthritis, generalized: Plan: Reportedly on prednisone 5mg PO daily for this although most recent PCP note mentions on this for pruritus scroti Plan: VTE Prophylaxis - SCDs, chemical prophylaxis held pre-operatively Diet - regular, NPO @ midnight Disposition - admit to med/surg Admission and Anticipated Discharge Date Admission Date: May 07, 2022 History of Present Illness Chief Complaint: Right hip pain Primary Care Provider: Luisa Velasquez MD Krzysztof Briones is an 81 year old male who presents to the ER after a fall earlier today after he stepped backwards from his dog running in front of him. Right groin pain following the fall. He did not hit his head or loose consciousness. He was recently in the ER for Asymptomatic with COVID on April 23. SARS-COV-2 PCR negative in the ER on this occasion. He has a significant cardiac history with CAD s/p CABG in 1996 and severe calcific aortic stenosis - recently referred for TAVR. S/p gastric bypass surgery in 2003. Reportedly on chronic prednisone for arthritis in his neck although he describes more proximal muscle pain but has no known diagnosis of polymyalgia rheumatica. In the ER hip XR confirmed intertrochanteric hip fracture of the right proximal femur. He was referred to medicine for admission and ongoing management of this. Allergies Allergy/AdvReac Type Severity Reaction Status Date / Time No Known Allergies Allergy Verified 05/07/22 17:20 Home Medications Medication Instructions Recorded Confirmed Type clobetasol 0.05 % topical cream 1 appln TOPICAL BID PRN #1 gm 07/01/19 05/07/22 History nitroglycerin 0.4 mg sublingual 0.4 mg SL Q5M PRN #25 tab 07/01/19 05/07/22 History tablet guaifenesin 600 mg tablet, 600 mg PO Q12H PRN #60 tab 12/18/20 05/07/22 Rx extended release 12 hr (Mucinex) allopurinol 300 mg tablet 300 mg PO QAM 07/13/21 05/07/22 History food supplemt, lactose-reduced 1 ea PO 6XD 07/13/21 05/07/22 History 0.06 gram-1 kcal/mL oral liquid (Boost High Protein) linaclotide 290 mcg capsule 290 mcg PO QAM 07/13/21 05/07/22 History (Linzess) omeprazole 40 mg capsule,delayed 40 mg PO BID #60 cap 07/24/21 05/07/22 Rx release loratadine 10 mg tablet (Claritin) 10 mg PO HS #90 tab 08/02/21 05/07/22 Rx tamsulosin 0.4 mg capsule 0.4 mg PO HS #90 cap 08/02/21 05/07/22 Rx prednisone 5 mg tablet 5 mg PO QAM #30 tab 02/04/22 05/07/22 Rx folic acid 1 mg tablet 1 mg PO QAM #30 tab 03/02/22 05/07/22 Rx multivitamin with folic acid 400 1 tab PO QAM #30 tab 03/02/22 05/07/22 Rx mcg tablet (Daily-Ludivina (with folic acid)) polyethylene glycol 3350 17 17 gm PO DAILY #1 gm 03/02/22 05/07/22 Rx gram/dose oral powder thiamine HCl (vitamin B1) 100 mg 100 mg PO QAM #30 tab 03/02/22 05/07/22 Rx tablet duloxetine 30 mg capsule,delayed 30 mg PO DAILY #30 cap 03/14/22 05/07/22 Rx release nystatin 100,000 unit/gram topical 1 applic TOPICAL BID #30 g 03/14/22 05/07/22 Rx cream triamcinolone acetonide 0.1 % 1 applic TOPICAL BID #30 g 03/14/22 05/07/22 Rx topical cream oxycodone 30 mg tablet,crush 30 mg PO Q12H 30 Days #60 tab 04/10/22 05/07/22 Rx resistant,extended release 12 hr (OxyContin) ondansetron 4 mg disintegrating 4 mg PO Q8H PRN #30 tab 04/11/22 05/07/22 Rx tablet ipratropium bromide 21 mcg (0.03 2 spray INTRANASAL BID PRN 04/23/22 05/07/22 History %) nasal spray misoprostol 100 mcg tablet 100 mcg PO QID 04/23/22 05/07/22 History sucralfate 1 gram tablet 1 g PO QID 04/23/22 05/07/22 History oxycodone 15 mg tablet 15 mg PO BID PRN #60 tab 05/03/22 05/07/22 Rx mupirocin 2 % topical ointment 1 applic TOPICAL BID PRN 05/07/22 05/07/22 History Past Med/Surg History Medical History B12 deficiency BPH (benign prostatic hyperplasia) Chronic, continuous use of opioids Coronary atherosclerosis of [place] coronary vessel Depression DM2 (diabetes mellitus, type 2) prior to gastric bypass--no meds now Gastroparesis GERD without esophagitis Gouty arthropathy Hearing deficit Hyperlipidemia LDL goal <100 Hypertension Internal hernia OA (osteoarthritis) of hip Other psoriasis Poor historian Restless legs Sleep apnea hx of prior to gastric bypass sx--no device Surgical History Bariatric surgery status 2007 @ [facility] [place] History of bilateral cataract extraction History of cardiac cath x2 ? prior to bypass--pt does not believe any stents placed History of carpal tunnel surgery of right wrist History of colonoscopy History of esophagogastroduodenoscopy (EGD) History of tooth extraction all teeth removed S/P triple vessel bypass 1996 Status post panniculectomy Family History Mother Diabetes Other No family history of adverse response to anesthesia Denies family history of Ovarian cancer Prostate cancer Myocardial infarction Breast cancer Colorectal cancer Social History Smoking Status: Former smoker Tobacco Type: Cigarettes Age Started Using Tobacco: 20; Age Quit Using Tobacco: 63; packs per day: 1; Second Hand Exposure: No; Hx Alcohol Use: No Hx Substance Use: No Preferred Language: Armenian Communication Ability: Effective Visual Impairment: No Limitations Hearing Ability: Use of Hearing Aid Respiratory Coordinator Required: No Beliefs That Will Affect Care: None marital status: / Current Living Situation: Alone Current Living Situation Comment: lives home alone, states grandson is there often 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al status: retired 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: 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 Placed on Valtrex for possible herpes although no improvement. Significant weight loss of 20 lb in last 3 months. Reduced appetite. No dysph agia. Physical Exam Constitutional: WD/WN, vitals as above + thin and + frail appearing; no acute distress Eyes: PERRL, conjunctivae normal, anicteric sclerae ENMT: external ear and nose normal, oropharynx normal Neck: trachea midline, no thyromegaly Respiratory: normal respiratory effort, lungs clear to auscultation Cardiovascular: Rate/Rhythm: regular rate and regular rhythm Heart Sounds: + murmur (throughout with late opening) Extremities: normal capillary refill; no calf tenderness and no pedal edema Gastrointestinal (Abdomen): normal bowel sounds, soft, nontender, no hepatosplenomegaly Musculoskeletal: Shortened and externally rotated right leg. Skin intact and NV intact distally. Skin: no rashes, warm and dry Neurologic: awake; not confused Psychiatric: A+Ox3, euthymic affect Results & Data Results & Data ([facility]) Vital Signs (Past 12 Hours) Vital Signs Temp Pulse Resp BP Pulse Ox 05/07/22 15:27 94 05/07/22 15:17 36.5 C 87 16 127/71 94 Laboratory Results Abnormal lab results 05/07/22 05/07/22 05/07/22 Range/Units 15:25 15:25 15:45 RBC 3.82 L (4.7-6.1) M/uL Hgb 11.0 L (14.0-18.0) g/dL Hct 35.0 L (42-52) % MCHC 31.4 L (32-36) g/dL RDW Std Deviation 50.8 H (36.4-46.3) fL RDW Coeff of Yoanna 15.5 H (11.5-14.5) % Plt Count 465 H (130-400) K/uL Immature Gran # (Auto) 0.03 H (0.00-0.02) K/uL ESR 50 H (0-20) mm/hr Sodium 133 L (136-145) mmol/L Chloride 96 L (98-107) mmol/L Creatinine 0.59 L (0.6-1.4) mg/dl BUN/Creatinine Ratio 30.5 H (10-20) Glucose 113 H (70-99(Fasting)) mg/dl Albumin 3.3 L (3.4-5.0) gm/dl Diagnostic Findings XR chest 1V portable CLINICAL HISTORY: Chest Pain. COMPARISON STUDY: 04/23/2022 TECHNIQUE: 1 view of the chest FINDINGS: Single frontal view of the chest demonstrates the heart size to be within normal limits status post previous cardiothoracic surgery. There is again asymmetric elevation of left hemidiaphragm. The lungs are clear of alveolar opacities. There is no evidence for pleural effusion. There is no evidence for vascular congestion. There is no acute osseous pathology. IMPRESSION: 1. No acute cardiopulmonary disease. SINGLE VIEW PELVIS; 2 VIEWS RIGHT HIP CLINICAL HISTORY: Fall with right hip injury. FINDINGS: An AP view of the pelvis with AP and crosstable lateral views of the right hip are compared to study dated 05/02/2021. The skeletal structures are osteopenic. There is a comminuted intertrochanteric fracture of the right proximal femur. The fragments are mildly displaced and angulated. Overlying soft tissue edema is noted. No additional fracture is seen involving the left hip or the bony pelvis. Moderate arthritic change and joint space narrowing is seen in the hips. Mild degenerative change is also seen in the sacroiliac joints. Phleboliths are noted in the pelvis. There is advanced atherosclerotic calcification of the femoral arteries. IMPRESSION: Intertrochanteric fracture of the right proximal femur as above. Medications Administered ER Medications Given: NSS 500ml bolus Fentanyl 50 mcg IV x2 ECG Indication: other (pre-op) Rate (beats per minute): 85 Findings: no acute ischemic change Comparison ECG Date: from (April 23, 2022) Change: no significant change Code Status & VTE Plan Code Status Do not resuscitation in the event of a cardiac arrest Ok for all other interventions including artificial ventilation VTE Prophylaxis Plan VTE Prophylaxis will be ordered: Yes PG Care Time/CCT Total # of Minutes Spent Total Time Spent with Patient: Total time spent is greater than 50% in coordination of care (as documented) at patient's floor/unit and/or counseling patient: Coding Level of Care Code 49696 Initial Inpt Care Lvl 3 Diagnoses Intertrochanteric fracture of right hip S72.141A Severe aortic stenosis I35.0 History of gastric bypass Z98.84 Generalized weakness R53.1 Severe protein-calorie malnutrition E43 Vitamin D deficiency E55.9 Balanitis N48.1 GERD without esophagitis K21.9 BPH (benign prostatic hyperplasia) N40.0 Osteoarthritis, generalized M15.9
--- NOTE | 2022-05-07 16:17 | XRay Report ---
SINGLE VIEW PELVIS; 2 VIEWS RIGHT HIP CLINICAL HISTORY: Fall with right hip injury. FINDINGS: An AP view of the pelvis with AP and crosstable lateral views of the right hip are compared to study dated 05/02/2021. The skeletal structures are osteopenic. There is a comminuted intertrochant candice fracture of the right proximal femur. The fragments are mildly displaced and angulated. Overlyin g soft tissue edema is noted. No additional fracture is seen involving the left hip or the bony pelvi s. Moderate arthritic change and joint space narrowing is seen in the hips. Mild degenerative change is also seen in the sacroiliac joints. Phleboliths are noted in the pelvis. There is advanced atheros clerotic calcification of the femoral arteries. IMPRESSION: Intertrochanteric fracture of the right proximal femur as above. Electronically signed by: Candice Jennings M.D. 05/07/2022 4:15 PM
[2022-05-07 16:19] LABS: INR 1.1 (0.9-1.1); Partial Thromboplastin Time 27.9 Seconds (21.0-31.0); Prothrombin Time 11.2 Seconds (9.0-12.0)
--- NOTE | 2022-05-07 16:27 | XRay Report ---
XR chest 1V portable CLINICAL HISTORY: Chest Pain. COMPARISON STUDY: 04/23/2022 TECHNIQUE: 1 view of the chest FINDINGS: Single frontal view of the chest demonstrates the heart size to be within normal limits status post p revious cardiothoracic surgery. There is again asymmetric elevation of left hemidiaphragm. The lungs are clear of alveolar opacities. There is no evidence for pleural effusion. There is no evidence for vascular congestion. There is no acute osseous pathology. IMPRESSION: 1. No acute cardiopulmonary disease. ACT 112: Negative or not required by law. Electronically signed by: Esau Goodrich M.D. 05/07/2022 4:25 PM
[2022-05-07 16:35] LABS: Troponin I High Sensitivity 7.3 pg/ml (0-20)
[2022-05-07 16:37] LABS: Albumin Globulin Ratio 0.9 (0.9-2); Albumin Level 3.3 gm/dl (3.4-5.0); BUN Creatinine Ratio 30.5 (10-20); Bilirubin,Total 0.3 mg/dl (0.2-1.0); Creatinine Clr Calc Pharmacy 64.9 ml/min; Est GFR (African American) 108.5 ml/min; Est GFR (Non-African American) 93.6 ml/min; Globulin 3.7 gm/dl (2.5-4.0); Potassium 4.5 mmol/L (3.5-5.1)
[2022-05-07] MEDS ORDERED: ACETAMINOPHEN 500 MG TAB PO STA (16:53)
[2022-05-07] MEDS ORDERED: NALOXONE HCL 0.4 MG/1 ML VIAL/CARP IV PRN ×2 (16:54→19:33)
[2022-05-07] MEDS ORDERED: MoRPHine SULFATE 4 MG/ML 1 ML CARP\\VIAL IV PRN (16:54)
[2022-05-07] MEDS ORDERED: MoRPHine SULFATE 2 MG/ML CARP IV PRN ×2 (16:54→19:33)
[2022-05-07] MEDS ORDERED: LIDOCAINE 2% JELLY 5 ML TUBE EXT ONE (17:39)
--- NOTE | 2022-05-07 19:17 | Electrocardiogram Report ---
Test Reason : Blood Pressure : / mmHG Vent. Rate : 085 BPM Atrial Rate : 085 BPM P-R Int : 190 ms QRS Dur : 074 ms QT Int : 378 ms P-R-T Axes : 080 012 063 degrees QTc Int : 449 ms Normal sinus rhythm Low voltage QRS Nonspecific T wave abnormality Abnormal ECG When compared with ECG of 23-APR-2022 16:43, No significant change was found Confirmed by Crow Post ([id number]) on 05/07/2022 7:16:42 PM Referred By: REFERRED SELF Confirmed By:Manan Post
[2022-05-07] MEDS ORDERED: bisacodyL 10 MG SUPP PR PRN (19:33)
[2022-05-07] MEDS ORDERED: MAGNESIUM HYDROXIDE SUSP 30 ML UDC PO PRN (19:33)
[2022-05-07] MEDS ORDERED: ONDANSETRON INJ 2 MG/ML 2 ML VIAL IV PRN (19:33)
[2022-05-07] MEDS: DOCUSATE SODIUM/SENNA 50/8.6MG TAB PO SCH (23:02)
[2022-05-07] MEDS: MoRPHine SULFATE 4 MG/ML 1 ML CARP\\VIAL IV PRN (23:15)
[2022-05-07] MEDS: TAMSULOSIN HCL 0.4 MG CAP PO SCH (23:48)
[2022-05-07] MEDS: oxyCODONE HCL 15 MG TABCR (OxyCONTIN) PO SCH (23:48)
[2022-05-07] MEDS: CLOTRIMAZOLE 1% CR 15 GM TUBE EXT SCH (23:49)
[2022-05-07] MEDS: LORATADINE 10 MG TAB PO SCH (23:49)
[2022-05-07] MEDS: PANTOprazole 40 MG TAB PO SCH (23:49)
[2022-05-08] MEDS: MELATONIN 3 MG TAB PO PRN (00:06)
[2022-05-08] MEDS: MoRPHine SULFATE 4 MG/ML 1 ML CARP\\VIAL IV PRN ×5 (04:07→15:04)
[2022-05-08 07:39] LABS: Basophils % (auto) 0.7 %; Hematocrit (blood only) 32.5 % (42-52); Hemoglobin 10.2 g/dL (14.0-18.0); Immature Granulocytes % (auto) 0.2 %; Lymphocytes % (auto) 28.1 %; Mean Corpuscular Hemoglobin 28.1 pg (25-34); Mean Corpuscular Hgb Conc 31.4 g/dL (32-36); Mean Corpuscular Volume 89.5 fL (80-100); Mean Platelet Volume 9.3 fL (7.4-10.4); Monocytes % (auto) 13.4 %; Neutrophils # (auto) 3.24 K/uL (1.4-6.5); Neutrophils % (auto) 56.6 %; Platelet Count 398 K/uL (130-400); RDW Coefficient of Variation 15.6 % (11.5-14.5); RDW Standard Deviation 50.2 fL (36.4-46.3); Red Blood Count 3.63 M/uL (4.7-6.1); White Blood Count 5.73 K/uL (4.8-10.8)
[2022-05-08 07:40] LABS: Basophils # (auto) 0.04 K/uL (0-0.2); Eosinophils # (auto) 0.06 K/uL (0-0.5); Immature Granulocytes # (auto) 0.01 K/uL (0.00-0.02); Lymphocytes # (auto) 1.61 K/uL (1.2-3.4); Monocytes # (auto) 0.77 K/uL (0.11-0.59)
--- NOTE | 2022-05-08 07:44 | Hospitalist Progress Note ---
Date of Service May 08, 2022 Assessment & Plan (1) Intertrochanteric fracture of right hip: Plan: Fell when walking dog, fell and sustained intertroch hip fx Of note, patient in ER 04/23, +COVID. Complaints of not eating well/lesions to groin/groin discomfort (RPR pending) 95% on RA. CXR clear Ortho consulted, cardiology consulted for pre-op clearance NPO for surgery Pain control, antiemetics increased to Q2h morphine given usually on oxycontin 30mg BID Vit D low -- start supp for AM Morning cortisol ordered to assess need for perioperative steroids -- elevated but hypotensive (feels tired, no lightheaded/dizzy/cp/sob) and ordered hydrocortisone for next 24 hours then resume usual meds PT/OT after surgery Will give 1 gm IV mag given lower normal in elderly patient to prevent afib will avoid excessive IVF given aortic stenosis and not overloaded currently Monitor labs in AM (2) Balanitis: Plan: Clotrimazole 1% cream BID Barrett catheter inserted Keep clean Wound culture to r/o bacterial infection RPR with AM labs to assess for syphilis although lesion is more consistent with balanitis Consider urology consult if not improving during admission (3) Severe aortic stenosis: Plan: Recently referred for TAVR. Exercise tolerance of 20 steps on flat or 6 stairs with chest pain/SOB/fatigue. 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 Repeat level with AM labs --LOW start supplementation in AM (8) GERD without esophagitis: Plan: Switch omeprazole for pantoprazole per hospital formulary (9) BPH (benign prostatic hyperplasia): Plan: Continue tamsulosin 0.4mg PO HS Barrett catheter placed on admission (10) Osteoarthritis, generalized: Plan: Reportedly on prednisone 5mg PO daily for this although most recent PCP note mentions on this for pruritus scroti was on prednisone last admit, stress dosing, possible dx PMR but not documented (ESR 50) stress steroids as above (11) COVID: Plan: prior hx last month, no tx needed stable on RA, >14 days since testing monitor (12) Coronary atherosclerosis of [place] coronary vessel: Plan: hx CABG, continue home medications cards consulted as above (13) DM2 (diabetes mellitus, type 2): Plan: prior hx of such but not needing any meds since gastric bypass BSG on am labs 96 monitor on hydrocortisone Plan: VTE Prophylaxis - SCDs, chemical prophylaxis held pre-operatively Diet - NPO for OR PT/OT following surgery Admission and Anticipated Discharge Date Admission Date: May 07, 2022 Subjective Patient evaluated this morning. Resting in bed, states having moderate amount of pain and needing something for this. Typically on OxyContin BID at home. States morphine effective but wears off. Will ask RN to administer dose. Got 4mg IV this morning, will change to Q2H for now and monitor. States was getting meals/wheels delivered and dog ran to the front door and knocked him over. No lightheadedness, palpitations, headache at this time. He does note fatigue currently. Discussed giving extra dose of steroids given on chronic use and BP currently 96/61. Passing gas but no BM. Following surgery will work on aggressive bowel regimen. No fever/chills, chest pain, shortness of breath, abdominal pain or nausea at this time. Questions/concerns addressed. Review of Systems Review of Systems: All systems reviewed & are unremarkable except as noted in HPI & below Physical Exam Physical Exam: General: thin, cachectic elderly male resting in bed, no acute distress but reporting moderate discomfort HEENT: pupils equal, reactive, sclerae anicteric, trachea midline without deviation, mm slightly dry Resp: CTAB, diminished inspiratory effort, no w/c, on room air CV: RRR, 3-4/6 systolic murmur radiation to carotids, no edema/calf tenderness GI: +BS, thin/scaphoid, non-tender MSK/Neuro: NVI, RLE shortened and externally rotated, tenderness to palpation trochanter, no hematoma, pulses palpable, cap refill wnl : barrett draining clear urine, penis with balanitis appearance Psych: AOx3, pleasant Skin: thin, dry, chronic prednisone use Results & Data Results & Data ([facility]) Vital Signs (Past 12 Hours) Vital Signs Temp Pulse Resp BP Pulse Ox 05/08/22 04:16 36.7 C 75 18 104/61 94 06/15/22 00:10 36.7 C 76 18 122/65 95 05/07/22 21:25 36.8 C 84 18 112/71 98 Laboratory Results 05/08/22 05/08/22 05/08/22 Range/Units 07:11 07:11 07:11 WBC 5.73 (4.8-10.8) K/uL RBC 3.63 L (4.7-6.1) M/uL Hgb 10.2 L (14.0-18.0) g/dL Hct 32.5 L (42-52) % MCV 89.5 (80-100) fL MCH 28.1 (25-34) pg MCHC 31.4 L (32-36) g/dL RDW Std Deviation 50.2 H (36.4-46.3) fL RDW Coeff of Yoanna 15.6 H (11.5-14.5) % Plt Count 398 (130-400) K/uL MPV 9.3 (7.4-10.4) fL Immature Gran % (Auto) 0.2 % Neut % (Auto) 56.6 % Lymph % (Auto) 28.1 % [place] % (Auto) 13.4 % Eos % (Auto) 1.0 % Baso % (Auto) 0.7 % Neut # (Auto) 3.24 (1.4-6.5) K/uL Lymph # (Auto) 1.61 (1.2-3.4) K/uL [place] # (Auto) 0.77 H (0.11-0.59) K/uL Eos # (Auto) 0.06 (0-0.5) K/uL Baso # (Auto) 0.04 (0-0.2) K/uL Immature Gran # (Auto) 0.01 (0.00-0.02) K/uL ESR (0-20) mm/hr PT (9.0-12.0) Seconds INR (0.9-1.1) APTT (21.0-31.0) Seconds PTT Ratio Sodium 133 L (136-145) mmol/L Potassium 4.4 (3.5-5.1) mmol/L Chloride 98 (98-107) mmol/L Carbon Dioxide 32 (21-32) mmol/L Anion Gap 3 (3-11) BUN 15 (6-23) mg/dl Creatinine 0.50 L (0.6-1.4) mg/dl Est Cr Clr Drug Dosing 73.8 ml/min Est GFR ( Amer) 116.2 ml/min Est GFR (Non-Af Amer) 100.2 ml/min BUN/Creatinine Ratio 30.0 H (10-20) Glucose 96 (70-99(Fasting)) mg/dl Calcium 8.6 (8.5-10.1) mg/dl Magnesium 1.7 (1.7-2.4) mg/dl Total Bilirubin (0.2-1.0) mg/dl AST (13-39) U/L ALT (7-52) U/L Alkaline Phosphatase (34-104) U/L Total Creatine Kinase (30-223) U/L Troponin I High Sens (0-20) pg/ml Total Protein (6.0-8.3) gm/dl Albumin (3.4-5.0) gm/dl Globulin (2.5-4.0) gm/dl Albumin/Globulin Ratio (0.9-2) Lipase (11-82) U/L 25-OH Vitamin D Total (30-100) ng/ml Cortisol AM Sample (6.2-22.6) mcg/dl Nasal Screen MRSA (PCR) (Negative) RPR Pending SARS-CoV-2, RNA, NAAT (NEGATIVE) Blood Type Antibody Screen 05/08/22 05/08/22 05/07/22 Range/Units 07:11 07:11 19:40 WBC (4.8-10.8) K/uL RBC (4.7-6.1) M/uL Hgb (14.0-18.0) g/dL Hct (42-52) % MCV (80-100) fL MCH (25-34) pg MCHC (32-36) g/dL RDW Std Deviation (36.4-46.3) fL RDW Coeff of Yoanna (11.5-14.5) % Plt Count (130-400) K/uL MPV (7.4-10.4) fL Immature Gran % (Auto) % Neut % (Auto) % Lymph % (Auto) % [place] % (Auto) % Eos % (Auto) % Baso % (Auto) % Neut # (Auto) (1.4-6.5) K/uL Lymph # (Auto) (1.2-3.4) K/uL [place] # (Auto) (0.11-0.59) K/uL Eos # (Auto) (0-0.5) K/uL Baso # (Auto) (0-0.2) K/uL Immature Gran # (Auto) (0.00-0.02) K/uL ESR (0-20) mm/hr PT (9.0-12.0) Seconds INR (0.9-1.1) APTT (21.0-31.0) Seconds PTT Ratio Sodium (136-145) mmol/L Potassium (3.5-5.1) mmol/L Chloride (98-107) mmol/L Carbon Dioxide (21-32) mmol/L Anion Gap (3-11) BUN (6-23) mg/dl Creatinine (0.6-1.4) mg/dl Est Cr Clr Drug Dosing ml/min Est GFR ( Amer) ml/min Est GFR (Non-Af Amer) ml/min BUN/Creatinine Ratio (10-20) Glucose (70-99(Fasting)) mg/dl Calcium (8.5-10.1) mg/dl Magnesium (1.7-2.4) mg/dl Total Bilirubin (0.2-1.0) mg/dl AST (13-39) U/L ALT (7-52) U/L Alkaline Phosphatase (34-104) U/L Total Creatine Kinase (30-223) U/L Troponin I High Sens (0-20) pg/ml Total Protein (6.0-8.3) gm/dl Albumin (3.4-5.0) gm/dl Globulin (2.5-4.0) gm/dl Albumin/Globulin Ratio (0.9-2) Lipase (11-82) U/L 25-OH Vitamin D Total 22.9 L (30-100) ng/ml Cortisol AM Sample 23.11 H (6.2-22.6) mcg/dl Nasal Screen MRSA (PCR) Negative (Negative) RPR SARS-CoV-2, RNA, NAAT (NEGATIVE) Blood Type Antibody Screen 06/14/22 06/14/22 06/14/22 Range/Units 17:25 17:25 15:45 WBC (4.8-10.8) K/uL RBC (4.7-6.1) M/uL Hgb (14.0-18.0) g/dL Hct (42-52) % MCV (80-100) fL MCH (25-34) pg MCHC (32-36) g/dL RDW Std Deviation (36.4-46.3) fL RDW Coeff of Yoanna (11.5-14.5) % Plt Count (130-400) K/uL MPV (7.4-10.4) fL Immature Gran % (Auto) % Neut % (Auto) % Lymph % (Auto) % [place] % (Auto) % Eos % (Auto) % Baso % (Auto) % Neut # (Auto) (1.4-6.5) K/uL Lymph # (Auto) (1.2-3.4) K/uL [place] # (Auto) (0.11-0.59) K/uL Eos # (Auto) (0-0.5) K/uL Baso # (Auto) (0-0.2) K/uL Immature Gran # (Auto) (0.00-0.02) K/uL ESR 50 H (0-20) mm/hr PT (9.0-12.0) Seconds INR (0.9-1.1) APTT (21.0-31.0) Seconds PTT Ratio Sodium (136-145) mmol/L Potassium (3.5-5.1) mmol/L Chloride (98-107) mmol/L Carbon Dioxide (21-32) mmol/L Anion Gap (3-11) BUN (6-23) mg/dl Creatinine (0.6-1.4) mg/dl Est Cr Clr Drug Dosing ml/min Est GFR ( Amer) ml/min Est GFR (Non-Af Amer) ml/min BUN/Creatinine Ratio (10-20) Glucose (70-99(Fasting)) mg/dl Calcium (8.5-10.1) mg/dl Magnesium (1.7-2.4) mg/dl Total Bilirubin (0.2-1.0) mg/dl AST (13-39) U/L ALT (7-52) U/L Alkaline Phosphatase (34-104) U/L Total Creatine Kinase 35 (30-223) U/L Troponin I High Sens (0-20) pg/ml Total Protein (6.0-8.3) gm/dl Albumin (3.4-5.0) gm/dl Globulin (2.5-4.0) gm/dl Albumin/Globulin Ratio (0.9-2) Lipase (11-82) U/L 25-OH Vitamin D Total (30-100) ng/ml Cortisol AM Sample (6.2-22.6) mcg/dl Nasal Screen MRSA (PCR) (Negative) RPR SARS-CoV-2, RNA, NAAT (NEGATIVE) Blood Type O Positive Antibody Screen NEGATIVE 05/07/22 05/07/22 05/07/22 Range/Units 15:25 15:25 15:25 WBC (4.8-10.8) K/uL RBC (4.7-6.1) M/uL Hgb (14.0-18.0) g/dL Hct (42-52) % MCV (80-100) fL MCH (25-34) pg MCHC (32-36) g/dL RDW Std Deviation (36.4-46.3) fL RDW Coeff of Yoanna (11.5-14.5) % Plt Count (130-400) K/uL MPV (7.4-10.4) fL Immature Gran % (Auto) % Neut % (Auto) % Lymph % (Auto) % [place] % (Auto) % Eos % (Auto) % Baso % (Auto) % Neut # (Auto) (1.4-6.5) K/uL Lymph # (Auto) (1.2-3.4) K/uL [place] # (Auto) (0.11-0.59) K/uL Eos # (Auto) (0-0.5) K/uL Baso # (Auto) (0-0.2) K/uL Immature Gran # (Auto) (0.00-0.02) K/uL ESR (0-20) mm/hr PT 11.2 (9.0-12.0) Seconds INR 1.1 (0.9-1.1) APTT 27.9 (21.0-31.0) Seconds PTT Ratio 1.0 Sodium 133 L (136-145) mmol/L Potassium 4.5 (3.5-5.1) mmol/L Chloride 96 L (98-107) mmol/L Carbon Dioxide 30 (21-32) mmol/L Anion Gap 7 (3-11) BUN 18 (6-23) mg/dl Creatinine 0.59 L (0.6-1.4) mg/dl Est Cr Clr Drug Dosing 64.9 ml/min Est GFR ( Amer) 108.5 ml/min Est GFR (Non-Af Amer) 93.6 ml/min BUN/Creatinine Ratio 30.5 H (10-20) Glucose 113 H (70-99(Fasting)) mg/dl Calcium 9.0 (8.5-10.1) mg/dl Magnesium (1.7-2.4) mg/dl Total Bilirubin 0.3 (0.2-1.0) mg/dl AST 20 (13-39) U/L ALT 16 (7-52) U/L Alkaline Phosphatase 80 (34-104) U/L Total Creatine Kinase (30-223) U/L Troponin I High Sens 7.3 (0-20) pg/ml Total Protein 7.0 (6.0-8.3) gm/dl Albumin 3.3 L (3.4-5.0) gm/dl Globulin 3.7 (2.5-4.0) gm/dl Albumin/Globulin Ratio 0.9 (0.9-2) Lipase 34 (11-82) U/L 25-OH Vitamin D Total (30-100) ng/ml Cortisol AM Sample (6.2-22.6) mcg/dl Nasal Screen MRSA (PCR) (Negative) RPR SARS-CoV-2, RNA, NAAT NEGATIVE (NEGATIVE) Blood Type Antibody Screen 05/07/22 Range/Units 15:25 WBC 6.56 (4.8-10.8) K/uL RBC 3.82 L (4.7-6.1) M/uL Hgb 11.0 L (14.0-18.0) g/dL Hct 35.0 L (42-52) % MCV 91.6 (80-100) fL MCH 28.8 (25-34) pg MCHC 31.4 L (32-36) g/dL RDW Std Deviation 50.8 H (36.4-46.3) fL RDW Coeff of Yoanna 15.5 H (11.5-14.5) % Plt Count 465 H (130-400) K/uL MPV 10.3 (7.4-10.4) fL Immature Gran % (Auto) 0.5 % Neut % (Auto) 64.9 % Lymph % (Auto) 24.7 % [place] % (Auto) 8.8 % Eos % (Auto) 0.6 % Baso % (Auto) 0.5 % Neut # (Auto) 4.26 (1.4-6.5) K/uL Lymph # (Auto) 1.62 (1.2-3.4) K/uL [place] # (Auto) 0.58 (0.11-0.59) K/uL Eos # (Auto) 0.04 (0-0.5) K/uL Baso # (Auto) 0.03 (0-0.2) K/uL Immature Gran # (Auto) 0.03 H (0.00-0.02) K/uL ESR (0-20) mm/hr PT (9.0-12.0) Seconds INR (0.9-1.1) APTT (21.0-31.0) Seconds PTT Ratio Sodium (136-145) mmol/L Potassium (3.5-5.1) mmol/L Chloride (98-107) mmol/L Carbon Dioxide (21-32) mmol/L Anion Gap (3-11) BUN (6-23) mg/dl Creatinine (0.6-1.4) mg/dl Est Cr Clr Drug Dosing ml/min Est GFR ( Amer) ml/min Est GFR (Non-Af Amer) ml/min BUN/Creatinine Ratio (10-20) Glucose (70-99(Fasting)) mg/dl Calcium (8.5-10.1) mg/dl Magnesium (1.7-2.4) mg/dl Total Bilirubin (0.2-1.0) mg/dl AST (13-39) U/L ALT (7-52) U/L Alkaline Phosphatase (34-104) U/L Total Creatine Kinase (30-223) U/L Troponin I High Sens (0-20) pg/ml Total Protein (6.0-8.3) gm/dl Albumin (3.4-5.0) gm/dl Globulin (2.5-4.0) gm/dl Albumin/Globulin Ratio (0.9-2) Lipase (11-82) U/L 25-OH Vitamin D Total (30-100) ng/ml Cortisol AM Sample (6.2-22.6) mcg/dl Nasal Screen MRSA (PCR) (Negative) RPR SARS-CoV-2, RNA, NAAT (NEGATIVE) Blood Type Antibody Screen Diagnostic Findings Chest X-Ray 05/07/22 15:19 XR chest 1V portable CLINICAL HISTORY: Chest Pain. COMPARISON STUDY: 04/23/2022 TECHNIQUE: 1 view of the chest FINDINGS: Single frontal view of the chest demonstrates the heart size to be within normal limits status post previous cardiothoracic surgery. There is again asymmetric elevation of left hemidiaphragm. The lungs are clear of alveolar opacities. There is no evidence for pleural effusion. There is no evidence for vascular congestion. There is no acute osseous pathology. IMPRESSION: 1. No acute cardiopulmonary disease. ACT 112: Negative or not required by law. Electronically signed by: Esau Goodrich M.D. 05/07/2022 4:25 PM Hip/Pelvis X-Ray 05/07/22 15:19 SINGLE VIEW PELVIS; 2 VIEWS RIGHT HIP CLINICAL HISTORY: Fall with right hip injury. FINDINGS: An AP view of the pelvis with AP and crosstable lateral views of the right hip are compared to study dated 05/02/2021. The skeletal structures are osteopenic. There is a comminuted intertrochanteric fracture of the right proximal femur. The fragments are mildly displaced and angulated. Overlying soft tissue edema is noted. No additional fracture is seen involving the left hip or the bony pelvis. Moderate arthritic change and joint space narrowing is seen in the hips. Mild degenerative change is also seen in the sacroiliac joints. Phleboliths are noted in the pelvis. There is advanced atherosclerotic calcification of the femoral arteries. IMPRESSION: Intertrochanteric fracture of the right proximal femur as above. Electronically signed by: Yeison Jennings M.D. 05/07/2022 4:15 PM PG Care Time/CCT Total # of Minutes Spent Total Time Spent with Patient: Total time spent is greater than 50% in coordination of care (as documented) at patient's floor/unit and/or counseling patient: Coding Level of Care Code 61912 Subseq Hosp Care Lvl 3 Diagnoses Intertrochanteric fracture of right hip S72.141A Balanitis N48.1 Severe aortic stenosis I35.0 History of gastric bypass Z98.84 Generalized weakness R53.1 Severe protein-calorie malnutrition E43 Vitamin D deficiency E55.9 GERD without esophagitis K21.9 BPH (benign prostatic hyperplasia) N40.0 Osteoarthritis, generalized M15.9 COVID U07.1 Coronary atherosclerosis of [place] coronary vessel I25.10 DM2 (diabetes mellitus, type 2) E11.9
--- NOTE | 2022-05-08 07:49 | Orthopedic Consultation ---
Date of Consultation May 08, 2022 Assessment & Plan (1) Fracture of hip, right, closed: Case has been discussed with Dr. Bowie. X-rays have been reviewed. Patient will require a right trochanteric femoral nail. Dr. Rowley from cardiology has seen the patient and feels although patient is high risk that he is stable for surgery I have discussed with the patient that if no surgery was performed, that he would require bed rest for 4 to 6 weeks of which comes with its own issues. Patient states that he would rather not do the bedrest. He states he was fairly ambulatory prior to this happening and would like to get back to that status. He would like to go ahead with surgery. We w ill plan for right TFN later this afternoon. History of Present Illness Reason for Consultation: Right hip fracture Attending Physician: Teddy Soares MD History of Present Illness Patient is a 81-year-old male with past medical history of severe aortic stenosis, type 2 diabetes mellitus,hypertension, depression, polymyalgia rheumatica, B12 deficiency, BPH (benign prostatic hyperplasia),Chronic, continuous use of opioids, Coronary atherosclerosis of [place] coronary vessel, Severe , GERD, Gouty arthropathy, Hyperlipidemia, Psoriasis, Sleep Apnea, gastric bypass, who states that he was standing in front of a dog's food dish whenever they put the food down for him to eat. The dog came in quickly and knocked him off balance. This caused him to fall onto his right side and he had immediate pain in his right hip and groin. He was having difficulty ambulating. He was brought to the emergency room and seen by the staff. X-rays were taken and it was found that he had a right intertrochanteric hip fracture. [facility] we have been asked to take care of his right hip fracture. He denies loss of consciousness. He denies shortness of breath, chest pain, lightheadedness prior to or after the fall. Allergies Allergy/AdvReac Type Severity Reaction Status Date / Time No Known Allergies Allergy Verified 05/07/22 17:20 Home Medications Medication Instructions Recorded Confirmed Type clobetasol 0.05 % topical cream 1 appln TOPICAL BID PRN #1 gm 07/01/19 05/07/22 History nitroglycerin 0.4 mg sublingual 0.4 mg SL Q5M PRN #25 tab 07/01/19 05/07/22 History tablet guaifenesin 600 mg tablet, 600 mg PO Q12H PRN #60 tab 12/18/20 05/07/22 Rx extended release 12 hr (Mucinex) allopurinol 300 mg tablet 300 mg PO QAM 07/13/21 05/07/22 History food supplemt, lactose-reduced 1 ea PO 6XD 07/13/21 05/07/22 History 0.06 gram-1 kcal/mL oral liquid (Boost High Protein) linaclotide 290 mcg capsule 290 mcg PO QAM 07/13/21 05/07/22 History (Linzess) omeprazole 40 mg capsule,delayed 40 mg PO BID #60 cap 07/24/21 05/07/22 Rx release loratadine 10 mg tablet (Claritin) 10 mg PO HS #90 tab 08/02/21 05/07/22 Rx tamsulosin 0.4 mg capsule 0.4 mg PO HS #90 cap 08/02/21 05/07/22 Rx prednisone 5 mg tablet 5 mg PO QAM #30 tab 02/04/22 05/07/22 Rx folic acid 1 mg tablet 1 mg PO QAM #30 tab 03/02/22 05/07/22 Rx multivitamin with folic acid 400 1 tab PO QAM #30 tab 03/02/22 05/07/22 Rx mcg tablet (Daily-Ludivina (with folic acid)) polyethylene glycol 3350 17 17 gm PO DAILY #1 gm 03/02/22 05/07/22 Rx gram/dose oral powder thiamine HCl (vitamin B1) 100 mg 100 mg PO QAM #30 tab 03/02/22 05/07/22 Rx tablet duloxetine 30 mg capsule,delayed 30 mg PO DAILY #30 cap 03/14/22 05/07/22 Rx release nystatin 100,000 unit/gram topical 1 applic TOPICAL BID #30 g 03/14/22 05/07/22 Rx cream triamcinolone acetonide 0.1 % 1 applic TOPICAL BID #30 g 03/14/22 05/07/22 Rx topical cream oxycodone 30 mg tablet,crush 30 mg PO Q12H 30 Days #60 tab 04/10/22 05/07/22 Rx resistant,extended release 12 hr (OxyContin) ondansetron 4 mg disintegrating 4 mg PO Q8H PRN #30 tab 04/11/22 05/07/22 Rx tablet ipratropium bromide 21 mcg (0.03 2 spray INTRANASAL BID PRN 04/23/22 05/07/22 History %) nasal spray misoprostol 100 mcg tablet 100 mcg PO QID 04/23/22 05/07/22 History sucralfate 1 gram tablet 1 g PO QID 04/23/22 05/07/22 History oxycodone 15 mg tablet 15 mg PO BID PRN #60 tab 05/03/22 05/07/22 Rx mupirocin 2 % topical ointment 1 applic TOPICAL BID PRN 05/07/22 05/07/22 History Patient History Medical History B12 deficiency BPH (benign prostatic hyperplasia) Chronic, continuous use of opioids Coronary atherosclerosis of [place] coronary vessel Depression DM2 (diabetes mellitus, type 2) prior to gastric bypass--no meds now Gastroparesis GERD without esophagitis Gouty arthropathy Hearing deficit Hyperlipidemia LDL goal <100 Hypertension Internal hernia OA (osteoarthritis) of hip Other psoriasis Poor historian Restless legs Severe aortic stenosis Severe protein-calorie malnutrition Sleep apnea hx of prior to gastric bypass sx--no device Surgical History Bariatric surgery status 2007 [place] [facility] [place] of bilateral cataract extraction History of cardiac cath x2 ? prior to bypass--pt does not believe any stents placed History of carpal tunnel surgery of right wrist History of colonoscopy History of esophagogastroduodenoscopy (EGD) History of tooth extraction all teeth removed S/P triple vessel bypass 1996 Status post panniculectomy Family History Mother Diabetes Other No family history of adverse response to anesthesia Denies family history of Ovarian cancer Prostate cancer Myocardial infarction Breast cancer Colorectal cancer Social History Smoking Status: Former smoker Tobacco Type: Cigarettes Age Started Using Tobacco: 20; Age Quit Using Tobacco: 63; packs per day: 1; Second Hand Exposure: No; Hx Alcohol Use: No Hx Substance Use: No Preferred Language: Iraqi Communication Ability: Effective Visual Impairment: No Limitations Hearing Ability: Use of Hearing Aid Talent Manager Required: No Beliefs That Will Affect Care: None marital status: / Current Living Situation: Alone Current Living Situation Comment: lives home alone, states grandson is there often 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al status: retired 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 He is alert and oriented x3. No acute distress. Pleasant and cooperative. He is having some mild pain in the right hip at this time. He states he has chronic pain most of the time and is currently having some right chest wall pain. On examination of his right lower extremity, it is shortened and externally rotated compared to the left. No attempts were made to do range of motion of the right hip and knee secondary to right hip fracture. He has mild discomfort on palpation of the lateral hip at this time. There is no overt ecchymosis or abrasions. His right knee is nontender on palpation. Right ankle is nontender and has good range of motion. Left lower extremity is benign at this time and is nontender at the hip, knee, ankle. Range of motion intact. Upper extremities are without discomfort at this time. He is nontender at the shoulders, elbows, and wrists. Range of motion is within normal limits. Distal pulses are equal bilaterally of the upper and lower extremities. There is no gross motor or sensory loss at this time. Results & Data ([facility]) Vital Signs (Past 12 Hours) Vital Signs Temp Pulse Resp BP Pulse Ox 05/08/22 07:46 36.7 C 77 16 96/61 L 95 05/08/22 04:16 36.7 C 75 18 104/61 94 05/08/22 00:10 36.7 C 76 18 122/65 95 05/07/22 21:25 36.8 C 84 18 112/71 98 Laboratory Results Laboratory Results WBC 5.73 K/uL (4.8-10.8) 05/08/22 07:11 RBC 3.63 M/uL (4.7-6.1) L 05/08/22 07:11 Hgb 10.2 g/dL (14.0-18.0) L 05/08/22 07:11 Hct 32.5 % (42-52) L 05/08/22 07:11 MCV 89.5 fL (80-100) 05/08/22 07:11 MCH 28.1 pg (25-34) 05/08/22 07:11 MCHC 31.4 g/dL (32-36) L 05/08/22 07:11 RDW Std Deviation 50.2 fL (36.4-46.3) H 05/08/22 07:11 RDW Coeff of Yoanna 15.6 % (11.5-14.5) H 05/08/22 07:11 Plt Count 398 K/uL (130-400) 05/08/22 07:11 MPV 9.3 fL (7.4-10.4) 05/08/22 07:11 Immature Gran % (Auto) 0.2 % 05/08/22 07:11 Neut % (Auto) 56.6 % 05/08/22 07:11 Lymph % (Auto) 28.1 % 05/08/22 07:11 Chase % (Auto) 13.4 % 05/08/22 07:11 Eos % (Auto) 1.0 % 05/08/22 07:11 Baso % (Auto) 0.7 % 05/08/22 07:11 Neut # (Auto) 3.24 K/uL (1.4-6.5) 05/08/22 07:11 Lymph # (Auto) 1.61 K/uL (1.2-3.4) 05/08/22 07:11 Chase # (Auto) 0.77 K/uL (0.11-0.59) H 05/08/22 07:11 Eos # (Auto) 0.06 K/uL (0-0.5) 05/08/22 07:11 Baso # (Auto) 0.04 K/uL (0-0.2) 05/08/22 07:11 Immature Gran # (Auto) 0.01 K/uL (0.00-0.02) 05/08/22 07:11 ESR 50 mm/hr (0-20) H 05/07/22 15:45 PT 11.2 Seconds (9.0-12.0) 05/07/22 15:25 INR 1.1 (0.9-1.1) 05/07/22 15:25 APTT 27.9 Seconds (21.0-31.0) 05/07/22 15:25 PTT Ratio 1.0 05/07/22 15:25 Sodium 133 mmol/L (136-145) L 05/07/22 15:25 Potassium 4.5 mmol/L (3.5-5.1) 05/07/22 15:25 Chloride 96 mmol/L (98-107) L 05/07/22 15:25 Carbon Dioxide 30 mmol/L (21-32) 05/07/22 15:25 Anion Gap 7 (3-11) 05/07/22 15:25 BUN 18 mg/dl (6-23) 05/07/22 15:25 Creatinine 0.59 mg/dl (0.6-1.4) L 05/07/22 15:25 Est Cr Clr Drug Dosing 64.9 ml/min 05/07/22 15:25 Est GFR ( Amer) 108.5 ml/min 05/07/22 15:25 Est GFR (Non-Af Amer) 93.6 ml/min 05/07/22 15:25 BUN/Creatinine Ratio 30.5 (10-20) H 05/07/22 15:25 Glucose 113 mg/dl (70-99(Fasting)) H 05/07/22 15:25 Calcium 9.0 mg/dl (8.5-10.1) 05/07/22 15:25 Total Bilirubin 0.3 mg/dl (0.2-1.0) 05/07/22 15:25 AST 20 U/L (13-39) 05/07/22 15:25 ALT 16 U/L (7-52) 05/07/22 15:25 Alkaline Phosphatase 80 U/L (34-104) 05/07/22 15:25 Total Creatine Kinase 35 U/L (30-223) 05/07/22 17:25 Troponin I High Sens 7.3 pg/ml (0-20) 05/07/22 15:25 Total Protein 7.0 gm/dl (6.0-8.3) 05/07/22 15:25 Albumin 3.3 gm/dl (3.4-5.0) L 05/07/22 15:25 Globulin 3.7 gm/dl (2.5-4.0) 05/07/22 15:25 Albumin/Globulin Ratio 0.9 (0.9-2) 05/07/22 15:25 Lipase 34 U/L (11-82) 05/07/22 15:25 Nasal Screen MRSA (PCR) Negative (Negative) 05/07/22 19:40 SARS-CoV-2, RNA, NAAT NEGATIVE (NEGATIVE) 05/07/22 15:25 Blood Type O Positive 05/07/22 17:25 Antibody Screen NEGATIVE 05/07/22 17:25 Impressions Chest X-Ray 05/07/22 15:19 XR chest 1V portable CLINICAL HISTORY: Chest Pain. COMPARISON STUDY: 04/23/2022 TECHNIQUE: 1 view of the chest FINDINGS: Single frontal view of the chest demonstrates the heart size to be within normal limits status post previous cardiothoracic surgery. There is again asymmetric elevation of left hemidiaphragm. The lungs are clear of alveolar opacities. There is no evidence for pleural effusion. There is no evidence for vascular congestion. There is no acute osseous pathology. IMPRESSION: 1. No acute cardiopulmonary disease. ACT 112: Negative or not required by law. Electronically signed by: Esau Goodrich M.D. 05/07/2022 4:25 PM Hip/Pelvis X-Ray 05/07/22 15:19 SINGLE VIEW PELVIS; 2 VIEWS RIGHT HIP CLINICAL HISTORY: Fall with right hip injury. FINDINGS: An AP view of the pelvis with AP and crosstable lateral views of the right hip are compared to study dated 05/02/2021. The skeletal structures are osteopenic. There is a comminuted intertrochanteric fracture of the right proximal femur. The fragments are mildly displaced and angulated. Overlying soft tissue edema is noted. No additional fracture is seen involving the left hip or the bony pelvis. Moderate arthritic change and joint space narrowing is seen in the hips. Mild degenerative change is also seen in the sacroiliac joints. Phleboliths are noted in the pelvis. There is advanced atherosclerotic calcification of the femoral arteries. IMPRESSION: Intertrochanteric fracture of the right proximal femur as above. Electronically signed by: Yeison Jennings M.D. 05/07/2022 4:15 PM (1) Fracture of hip, right, closed Encounter type: initial encounter Qualified Code(s): S72.001A - Fracture of unspecified part of neck of right femur, initial encounter for closed fracture
[2022-05-08] MEDS: oxyCODONE HCL 15 MG TABCR (OxyCONTIN) PO SCH ×2 (07:57→20:11)
[2022-05-08] MEDS: predniSONE 5 MG TAB PO SCH (07:58)
[2022-05-08] MEDS: POLYETHYLENE (MIRALAX) 17 GM PACK PO SCH (07:58)
[2022-05-08] MEDS: LINACLOTIDE 145 MCG CAPSULE PO SCH (07:59)
[2022-05-08 08:00] LABS: Calcium 8.6 mg/dl (8.5-10.1); Creatinine Clr Calc Pharmacy 73.8 ml/min; Est GFR (African American) 116.2 ml/min; Est GFR (Non-African American) 100.2 ml/min; Magnesium 1.7 mg/dl (1.7-2.4); Potassium 4.4 mmol/L (3.5-5.1)
[2022-05-08] MEDS: SUCRALFATE 1 GM TAB PO SCH ×4 (08:00→20:12)
[2022-05-08] MEDS: DULoxetine HCL 30 MG CAP PO SCH (08:00)
[2022-05-08] MEDS ORDERED: MAGNESIUM SULFATE / D5W 1 GM/100 ML BAG IV ONE (08:50)
[2022-05-08] MEDS ORDERED: HYDROCORTISONE SOD 25 MG in SYRINGE 0 ML IV SCH (09:00)
--- NOTE | 2022-05-08 09:41 | Pre Anesthesia Assessment ---
Date of Service May 08, 2022 Pre Sedation Assessment Vital Signs Temp Pulse Pulse Resp BP BP Pulse Ox 05/08/22 07:46 36.7 C 77 16 96/61 L 95 05/08/22 04:16 36.7 C 75 18 104/61 94 05/08/22 00:10 36.7 C 76 18 122/65 95 05/07/22 21:25 36.8 C 84 18 112/71 98 05/07/22 19:15 36.5 C 78 20 125/72 94 05/07/22 18:30 84 18 112/71 05/07/22 18:00 87 19 117/84 98 05/07/22 17:30 88 16 97 05/07/22 17:00 86 19 127/65 05/07/22 16:45 83 15 94 05/07/22 16:30 82 15 94 05/07/22 16:23 82 22 101/70 91 05/07/22 16:15 80 15 91 05/07/22 16:00 93 H 15 96 05/07/22 15:45 86 15 05/07/22 15:30 84 18 95 05/07/22 15:27 94 05/07/22 15:26 84 14 05/07/22 15:17 36.5 C 87 16 127/71 94 Cardiovascular RRR, no murmur, no edema Respiratory normal respiratory effort, lungs clear to auscultation Pre-Sedation Airway Assessment Smoking Status: Former smoker Mallampati Class: III ASA: ASA3 NPO Status Date of Last Intake of Fluids: 05/07/22 Date of Last Intake of Solid Food: 05/07/22 Procedure Planning Contraindications for Sedation: none Current Medications Reviewed: Yes Notes The planned sedation has been discussed with the patient. Informed Consent was obtained. I have identified the patient, determined the appropriateness of sedation and have assessed the patient immediately prior to the procedure. All medicine(s) and interventions are by my order.
[2022-05-08] MEDS: HYDROCORTISONE SOD 25 MG in SYRINGE 0 ML IV SCH ×3 (09:45→20:12)
[2022-05-08] MEDS ORDERED: ERGOCALCIFEROL 50,000 UNITS 1250 MCG CAP PO SCH (13:30)
--- NOTE | 2022-05-08 13:54 | Anesthesiology Consultation ---
Date of Service May 08, 2022 Assessment & Plan (1) Encounter for pre-operative examination: Chart Review Chart Review: Acceptable Risk for Surgery (elevated risk but necessary surgery) and Patient NOT seen in Pre Admission Testing Consults Requested none cardiology and medicine are following the patient History Surgery Operation Date: 05/08/22 07:00 Proposed Procedures p Right Troch Nail - Adolph Bowie MD Height/Weight Height: 5 ft 4 in Weight: 46.6 kg Allergies Allergy/AdvReac Type Severity Reaction Status Date / Time No Known Allergies Allergy Verified 05/07/22 17:20 Medications Home Medications Medication Instructions Recorded Confirmed Last Taken clobetasol 0.05 % topical cream 1 appln TOPICAL BID PRN #1 gm 07/01/19 05/07/22 07/17/21 nitroglycerin 0.4 mg sublingual 0.4 mg SL Q5M PRN #25 tab 07/01/19 05/07/22 Unknown tablet guaifenesin 600 mg tablet, 600 mg PO Q12H PRN #60 tab 12/18/20 05/07/22 Unknown extended release 12 hr (Mucinex) allopurinol 300 mg tablet 300 mg PO QAM 07/13/21 05/07/22 05/07/22 food supplemt, lactose-reduced 1 ea PO 6XD 07/13/21 05/07/22 07/17/21 0.06 gram-1 kcal/mL oral liquid (Boost High Protein) linaclotide 290 mcg capsule 290 mcg PO QAM 07/13/21 05/07/22 07/17/21 (Linzess) omeprazole 40 mg capsule,delayed 40 mg PO BID #60 cap 07/24/21 05/07/22 Unknown release loratadine 10 mg tablet (Claritin) 10 mg PO HS #90 tab 08/02/21 05/07/22 Unknown tamsulosin 0.4 mg capsule 0.4 mg PO HS #90 cap 08/02/21 05/07/22 Unknown prednisone 5 mg tablet 5 mg PO QAM #30 tab 02/04/22 05/07/22 Unknown folic acid 1 mg tablet 1 mg PO QAM #30 tab 03/02/22 05/07/22 Unknown multivitamin with folic acid 400 1 tab PO QAM #30 tab 03/02/22 05/07/22 Unknown mcg tablet (Daily-Ludivina (with folic acid)) polyethylene glycol 3350 17 17 gm PO DAILY #1 gm 03/02/22 05/07/22 07/16/21 gram/dose oral powder thiamine HCl (vitamin B1) 100 mg 100 mg PO QAM #30 tab 03/02/22 05/07/22 Unknown tablet duloxetine 30 mg capsule,delayed 30 mg PO DAILY #30 cap 03/14/22 05/07/22 Unknown release nystatin 100,000 unit/gram topical 1 applic TOPICAL BID #30 g 03/14/22 05/07/22 Unknown cream triamcinolone acetonide 0.1 % 1 applic TOPICAL BID #30 g 03/14/22 05/07/22 Unknown topical cream oxycodone 30 mg tablet,crush 30 mg PO Q12H 30 Days #60 tab 04/10/22 05/07/22 05/07/22 resistant,extended release 12 hr (OxyContin) ondansetron 4 mg disintegrating 4 mg PO Q8H PRN #30 tab 04/11/22 05/07/22 Un known tablet ipratropium bromide 21 mcg (0.03 2 spray INTRANASAL BID PRN 04/23/22 05/07/22 Un known %) nasal spray misoprostol 100 mcg tablet 100 mcg PO QID 04/23/22 05/07/22 Unknown sucralfate 1 gram tablet 1 g PO QID 04/23/22 05/07/22 Unknown oxycodone 15 mg tablet 15 mg PO BID PRN #60 tab 05/03/22 05/07/22 05/07/22 mupirocin 2 % topical ointment 1 applic TOPICAL BID PRN 05/07/22 05/07/22 Unknown Active Medications Generic Name Dose Route Start Last Admin Trade Name Freq PRN Reason Stop Dose Admin Clotrimazole 1 appln 05/07/22 21:00 05/07/22 23:49 Clotrimazole 1% Cr 15 Gm Tube EXT 06/06/22 20:59 1 appln BID KARUNA Administration Duloxetine HCl 30 mg 05/08/22 09:00 05/08/22 08:00 Duloxetine Hcl 30 Mg Cap PO 06/07/22 08:59 30 mg DAILY KARUNA Administration Hydrocortisone Sodium 0.5 mls @ 4 mls/min 05/08/22 08:00 05/08/22 09:45 Succinate 25 mg/ Syringe IV 06/07/22 07:59 4 mls/min Q6H KARUNA Administration Linaclotide 290 mcg 05/08/22 09:00 05/08/22 07:59 Linaclotide 145 Mcg Capsule PO 06/07/22 08:59 290 mcg QAM KARUNA Administration Loratadine 10 mg 05/07/22 23:15 05/07/22 23:49 Loratadine 10 Mg Tab PO 06/06/22 23:14 10 mg HS KARUNA Administration Melatonin 3 mg 05/07/22 23:58 05/08/22 00:06 Melatonin 3 Mg Tab PO 06/06/22 23:57 3 mg HS PRN Administration Sleep Morphine Sulfate 4 mg 05/08/22 09:04 05/08/22 12:16 Morphine Sulfate 4 Mg/Ml 1 Ml Carp\Vial IV 05/21/22 19:32 4 mg Q2H PRN Administration Pain (6,7,8,9,10) Oxycodone HCl 30 mg 05/07/22 23:15 05/08/22 07:57 Oxycodone Hcl 15 Mg Tabcr (Oxycontin) PO 05/21/22 23:14 30 mg BID KARUNA Administration Pantoprazole Sodium 40 mg 05/07/22 23:15 05/07/22 23:49 Pantoprazole 40 Mg Tab PO 06/06/22 23:14 40 mg BID KARUNA Administration Polyethylene Glycol 17 gm 05/08/22 09:00 05/08/22 07:58 Polyethylene (Miralax) 17 Gm Pack PO 06/07/22 08:59 17 gm DAILY KARUNA Administration Prednisone 5 mg 05/08/22 09:00 05/08/22 07:58 Prednisone 5 Mg Tab PO 06/07/22 08:59 5 mg QAM KARUNA Administration Senna/Docusate Sodium 2 tab 05/07/22 21:00 05/07/22 23:02 Docusate Sodium/Senna 50/8.6mg Tab PO 06/06/22 20:59 Not Given HS KARUNA Sucralfate 1 gm 05/08/22 07:30 05/08/22 08:00 Sucralfate 1 Gm Tab PO 06/07/22 07:29 1 gm ACHS KARUNA Administration Tamsulosin HCl 0.4 mg 05/07/22 23:15 05/07/22 23:48 Tamsulosin Hcl 0.4 Mg Cap PO 06/06/22 23:14 0.4 mg HS KARUNA Administration Past Medical History Medical History B12 deficiency BPH (benign prostatic hyperplasia) Chronic, continuous use of opioids Coronary atherosclerosis of [place] coronary vessel Depression DM2 (diabetes mellitus, type 2) prior to gastric bypass--no meds now Gastroparesis GERD without esophagitis Gouty arthropathy Hearing deficit Hyperlipidemia LDL goal <100 Hypertension Internal hernia OA (osteoarthritis) of hip Other psoriasis Poor historian Restless legs Severe aortic stenosis Severe protein-calorie malnutrition Sleep apnea hx of prior to gastric bypass sx--no device Past Family History Family History Mother Diabetes Other No family history of adverse response to anesthesia Denies family history of Ovarian cancer Prostate cancer Myocardial infarction Breast cancer Colorectal cancer Past Surgical History Surgical History Bariatric surgery status 2007 @ [facility] [place] History of bilateral cataract extraction History of cardiac cath x2 ? prior to bypass--pt does not believe any stents placed History of carpal tunnel surgery of right wrist History of colonoscopy History of esophagogastroduodenoscopy (EGD) History of tooth extraction all teeth removed S/P triple vessel bypass 1996 Status post panniculectomy Social History Smoking Status: Former smoker tobacco type: cigarettes Hx Alcohol Use: No Alcohol type: beer Hx Substance Use: No substance use type: does not use Physical Exam Vital Signs Last Vital Signs Temp 36.7 C 05/08/22 07:46 Pulse 77 05/08/22 07:46 Resp 16 05/08/22 07:46 BP 96/61 L 05/08/22 07:46 Pulse Ox 95 05/08/22 07:46 Testing Laboratory Results 05/08/22 07:11 05/08/22 07:11 PT 11.2 Seconds (9.0-12.0) 05/07/22 15:25 INR 1.1 (0.9-1.1) 05/07/22 15:25 APTT 27.9 Seconds (21.0-31.0) 05/07/22 15:25 Blood Type O Positive 05/07/22 17:25 Antibody Screen NEGATIVE 05/07/22 17:25 05/07/22 17:55 Gram Stain - Final Catheter Site Wound Culture - Preliminary Gram negative bacilli Electrocardiogram Date: 05/07/22 Findings: + NSR @ (85) and + NSST changes low voltage QRS Chest X-Ray Date: 05/07/22 XR chest 1V portable CLINICAL HISTORY: Chest Pain. COMPARISON STUDY: 04/23/2022 TECHNIQUE: 1 view of the chest FINDINGS: Single frontal view of the chest demonstrates the heart size to be within normal limits status post previous cardiothoracic surgery. There is again asymmetric elevation of left hemidiaphragm. The lungs are clear of alveolar opacities. The re is no evidence for pleural effusion. There is no evidence for vascular congestion. There is no acute osseous pathology. IMPRESSION: 1. No acute cardiopulmonary disease. ACT 112: Negative or not required by law. Electronically signed by: Esau Goodrich M.D. 05/07/2022 4:25 PM Dictated:05/07/22 1623 Transcribed: 05/07/22 1623 Echocardiogram Date: 03/01/22 EF: 65-70 LV Function: normal Other Findings: + atrial enlargement (mild left atrial dilation) and + diastolic dysfunction (grade 1) Valvular Disease: + (severe ) and + MS (mild)
[2022-05-08] MEDS ORDERED: fentaNYL citrate 100 MCG/2 ML VIAL ONE (14:58)
[2022-05-08] MEDS ORDERED: PROPOFOL IV EMULSION 10 MG/ML 20 ML VIAL IV ONE (14:59)
[2022-05-08] MEDS ORDERED: LIDOCAINE 2% 2 ML VIAL/AMP(20MG/ML) INFIL ONE (14:59)
[2022-05-08] MEDS ORDERED: ROCURONIUM BROMIDE 10 MG/ML 5 ML VIAL IV ONE (14:59)
[2022-05-08] MEDS ORDERED: PHENYLEPHRINE HCL 10 MG/ML VIAL ONE (15:40)
[2022-05-08] MEDS ORDERED: ceFAZolin 1000MG 1,000 MG/7.5 ML SYR IV ONE (16:23)
--- NOTE | 2022-05-08 16:23 | History & Physical Bridge Note ---
Date of Service May 08, 2022 History & Physical Bridge Note I have examined the patient, reviewed the History & Physical and in the interval since the performance of the History & Physical I have noted the following changes of clinical significance: no changes noted
[2022-05-08] MEDS ORDERED: ATROPINE SULFATE 0.1 MG/ML 10ML SYR IV PRN (16:37)
[2022-05-08] MEDS ORDERED: ePHEDrine sulfate 50 MG/ML AMP IV PRN (16:37)
[2022-05-08] MEDS ORDERED: ONDANSETRON INJ 2 MG/ML 2 ML VIAL IV PRN (16:37)
[2022-05-08] MEDS ORDERED: ONDANSETRON INJ 2 MG/ML 2 ML VIAL ONE (16:57)
[2022-05-08] MEDS ORDERED: DEXAMETHASONE SOD INJ 4 MG/ML VIAL ONE (16:57)
[2022-05-08] MEDS ORDERED: SUGAMMADEX SODIUM 200 MG/2 ML VIAL IV ONE (16:58)
[2022-05-08] MEDS: FOLIC ACID 1 MG TAB PO SCH (17:09)
[2022-05-08] MEDS: allopurinoL 300 MG TAB PO SCH (17:09)
[2022-05-08] MEDS: PANTOprazole 40 MG TAB PO SCH ×2 (17:09→20:12)
[2022-05-08] MEDS: CLOTRIMAZOLE 1% CR 15 GM TUBE EXT SCH ×2 (17:09→20:34)
[2022-05-08] MEDS: THIAMINE HCL 100 MG TAB PO SCH (17:09)
[2022-05-08] MEDS ORDERED: BUPIVACAINE/EPINEPHRINE 0.25% 1:200,000 30 ML VIAL ONE (17:51)
--- NOTE | 2022-05-08 18:03 | Fluoroscopy Report ---
FL hip RT 2-3V CLINICAL HISTORY: RT TROCH NAIL COMPARISON STUDY: Pelvis and right hip radiographs May 07, 2020 2P FLUOROSCOPY TIME: 99.9 seconds. FLUOROSCOPIC IMAGES: 4 FINDINGS: Fluoroscopy was provided during internal fixation of the intertrochanteric fracture of the right femur with trochanteric nail. Alignment of the fracture has significantly improved and appears near anatomic. Hardware is intact. IMPRESSION: Fluoroscopy provided during internal fixation of the intertrochanteric fracture of the r ight femur. ACT 112: Negative or not required by law. Electronically signed by: Joshua Hernandez M.D. 05/08/2022 6:01 PM
[2022-05-08] MEDS ORDERED: BUPIVACAINE/EPINEPHRINE 0.25% 1:200,000 30 ML VIAL INFIL ONE (18:06)
--- NOTE | 2022-05-08 18:09 | Operative Report ---
Post Operative Report Pre & Post Diagnosis Operation Date: 05/08/22 07:00 Pre-Op Diagnosis: RIGHT HIP FRACTURE, angulated mildly displaced basicervical intertrochanteric femoral fracture Post-Op Diagnosis: RIGHT HIP FRACTURE, angulated mild displaced basicervical intertrochanteric femoral fracture I identified the patient and participated in the time-out.: Yes Procedure Operation Date: 05/08/22 07:00 Actual Procedures p Open Reduction Internal Fixation Right hip fracture with trochanteric femoral nail with spiral blade - Adolph Bowie MD Surgeon Adolph Bowie MD Heating Unit Mechanic Gordon ROB and Zoltan ROB Estimated Blood Loss 15 Findings Consistent with Post-Op Diagnosis Specimens None Drains None Anesthesia Type General Complications none Disposition Disposition: Recovery Room Indications 81-year-old male multiple medical issues suffered a fall tripping over a dog when he lost his balance. Sustained right mildly displaced angulated basicervical intertrochanteric fracture Description of Procedure Patient was taken to the operating room and anesthetized under general anesthesia. The patient was placed supine on a fracture table. The leg was placed into boot traction and the well leg was placed into a well-padded leg holding device in flexion and internal rotation. The reduction was performed by abducting the hip placing longitudinal traction in the external rotated position then internally rotation after traction was placed to neutral position on the and then adducting the hip. An anatomic reduction was obtained. Zoltan ROB performed the set up of the well leg in boot traction and positioning on the fracture table. I made minor adjustments at the completion getting an anatomic reduction. The hip was sterilely prepped and draped in usual fashion using ChloraPrep. Fluoroscopy was used throughout the case to assist in the procedure. A lateral incision was made over the hip. The skin was incised sharply. The subcutaneous fat was divided down to the fascia. The fascia was divided longitudinally and the gluteus medius was split with a Alejandre elevator enough to identify the tip of the greater trochanter. A guidewire was placed under fluoroscopic guidance and then the drill was used to open up the canal. We chose a Synthes short titanium trochanteric femoral nail 12 x 170 Millimeter shad. The insertion device was used to insert the shad and seated at the appropriate depth and then the second incision was made for the helical blade. The guide was placed and the guidewire was advanced under fluoroscopic guidance into the femoral neck and head. The guidewire placement just inferior to the midline on AP view and in the midline on the lateral view The reamers were used and then the 95 millimeter helical blade was impacted into the neck and head fragment. With the drilling performed the bone was quite solid and this was not consistent with an osteoporosis related fracture more consistent with a traumatic fracture. The proximal locking screw was tightened. Another small incision was made and the guide for the distal locking screw was advanced to the bone and the drill used and the measurement taken. A 40 x 5.0 millimeter locking screw wasthen placed with good fixation. Fluoroscopy views were obtained to document reduction AP and lateral views. All wounds were irrigated. The fascia was closed with interrupted #1 Vicryl sutures. The subcutaneous tissues were closed with 2-0 Vicryl sutures. The skin was closed with josé and sterile dressings were applied. The patient tolerated the procedure well. My physician child life assistant Gordon ROB participated as construction administrative assistant and was integral part in all aspects of the procedure throughout the procedure including prepping and draping, soft tissue retraction and wound closure and will participate in the postoperative care of the patient. I attest to the content of the Intraoperative Record and any orders documented therein. Any exceptions are noted below.
[2022-05-08] MEDS: fentaNYL citrate 100 MCG/2 ML VIAL IV PRN ×3 (18:49→19:25)
[2022-05-08] MEDS ORDERED: METOPROLOL TARTRATE 1 MG/ML VIAL IV ONE (19:09)
[2022-05-08] MEDS ORDERED: METOPROLOL TARTRATE 1 MG/ML VIAL IV STA (19:13)
--- NOTE | 2022-05-08 20:03 | Anesthesiology Progress Note ---
Date of Service May 08, 2022 Anesthesia Post Procedure Vital Signs Vital Signs: Temp Pulse Pulse Pulse Resp BP BP 05/08/22 19:56 97.7 F 95 H 18 117/72 05/08/22 19:35 89 12 120/58 L 05/08/22 19:25 98.1 F 90 17 108/53 L 05/08/22 19:15 93 H 16 110/54 L 05/08/22 19:11 105 H 112/55 L 05/08/22 19:05 105 H 20 124/58 L 05/08/22 18:55 101 H 17 108/88 05/08/22 18:45 108 H 24 104/89 05/08/22 18:36 97.3 F L 112 H 16 116/89 05/08/22 15:35 97.7 F 88 18 104/62 05/08/22 07:46 98.1 F 77 16 96/61 L 05/08/22 04:16 98.1 F 75 18 104/61 05/08/22 00:10 98.1 F 76 18 122/65 05/07/22 21:25 98.2 F 84 18 112/71 Pulse Ox 05/08/22 19:56 96 05/08/22 19:35 96 05/08/22 19:25 97 05/08/22 19:15 95 05/08/22 19:11 05/08/22 19:05 96 05/08/22 18:55 100 05/08/22 18:45 100 05/08/22 18:36 100 05/08/22 15:35 98 05/08/22 07:46 95 05/08/22 04:16 94 05/08/22 00:10 95 05/07/22 21:25 98 Pain Intensity Right Hip: Pain Intensity: 8 Transfer of Care Handoff Completed per policy Notes Mental Status: alert / awake / arousable and participated in evaluation Patient Amnestic to Procedure: Yes Nausea / Vomiting: adequately controlled Pain: adequately controlled Airway Patency, RR, SpO2: stable & adequate BP & HR: stable & adequate Hydration State: stable & adequate Anesthetic Complications: no major complications apparent and Pt Satisfied with anesthetic care
[2022-05-08] MEDS ORDERED: SODIUM CHLORIDE 0.9% 1000ML 1,000 ML IV SCH (20:09)
[2022-05-08] MEDS ORDERED: NALOXONE HCL 0.4 MG/1 ML VIAL/CARP IV PRN (20:09)
[2022-05-08] MEDS: TAMSULOSIN HCL 0.4 MG CAP PO SCH (20:12)
[2022-05-08] MEDS: DOCUSATE SODIUM/SENNA 50/8.6MG TAB PO SCH (20:35)
[2022-05-08] MEDS: LORATADINE 10 MG TAB PO SCH (20:35)
[2022-05-08] MEDS: LACTULOSE SYRUP 20 GM/30 ML UDC PO SCH (22:14)
[2022-05-09] MEDS: ceFAZolin 1000MG 1,000 MG/7.5 ML SYR IV SCH ×2 (00:18→06:24)
[2022-05-09] MEDS: HYDROCORTISONE SOD 25 MG in SYRINGE 0 ML IV SCH ×4 (01:03→20:47)
[2022-05-09] MEDS: MoRPHine SULFATE 2 MG/ML CARP IV PRN ×2 (05:51→08:27)
[2022-05-09 06:25] LABS: Basophils # (auto) 0.01 K/uL (0-0.2); Basophils % (auto) 0.1 %; Hematocrit (blood only) 30.2 % (42-52); Hemoglobin 9.6 g/dL (14.0-18.0); Immature Granulocytes # (auto) 0.03 K/uL (0.00-0.02); Immature Granulocytes % (auto) 0.4 %; Lymphocytes # (auto) 0.94 K/uL (1.2-3.4); Mean Corpuscular Hemoglobin 28.2 pg (25-34); Mean Corpuscular Hgb Conc 31.8 g/dL (32-36); Mean Corpuscular Volume 88.6 fL (80-100); Mean Platelet Volume 9.3 fL (7.4-10.4); Monocytes # (auto) 0.68 K/uL (0.11-0.59); Monocytes % (auto) 8.7 %; Neutrophils % (auto) 78.8 %; Platelet Count 367 K/uL (130-400); RDW Coefficient of Variation 15.8 % (11.5-14.5); RDW Standard Deviation 50.2 fL (36.4-46.3); Red Blood Count 3.41 M/uL (4.7-6.1); White Blood Count 7.86 K/uL (4.8-10.8)
[2022-05-09 06:48] LABS: BUN Creatinine Ratio 28.6 (10-20); Calcium 8.5 mg/dl (8.5-10.1); Creatinine Clr Calc Pharmacy 75.3 ml/min; Est GFR (African American) 117.1 ml/min; Est GFR (Non-African American) 101.1 ml/min; Magnesium 1.8 mg/dl (1.7-2.4); Phosphorus 3.7 mg/dl (2.5-4.9); Potassium 4.3 mmol/L (3.5-5.1)
[2022-05-09] MEDS: oxyCODONE HCL 15 MG TABCR (OxyCONTIN) PO SCH ×2 (08:18→20:55)
[2022-05-09] MEDS: LINACLOTIDE 145 MCG CAPSULE PO SCH (08:19)
[2022-05-09] MEDS: FOLIC ACID 1 MG TAB PO SCH (08:19)
[2022-05-09] MEDS: SUCRALFATE 1 GM TAB PO SCH ×4 (08:19→20:48)
[2022-05-09] MEDS: PANTOprazole 40 MG TAB PO SCH ×2 (08:19→20:48)
[2022-05-09] MEDS: DULoxetine HCL 30 MG CAP PO SCH (08:20)
[2022-05-09] MEDS: allopurinoL 300 MG TAB PO SCH (08:20)
[2022-05-09] MEDS: CYANOCOBALAMIN (B-12) 500 MCG TABLET PO SCH (08:21)
[2022-05-09] MEDS: MULTIVITAMIN TAB PO SCH (08:21)
[2022-05-09] MEDS: THIAMINE HCL 100 MG TAB PO SCH (08:21)
[2022-05-09] MEDS: POLYETHYLENE (MIRALAX) 17 GM PACK PO SCH (08:22)
[2022-05-09] MEDS: LACTULOSE SYRUP 20 GM/30 ML UDC PO SCH (08:22)
--- NOTE | 2022-05-09 08:29 | Hospitalist Progress Note ---
Date of Service May 09, 2022 Assessment & Plan (1) Intertrochanteric fracture of right hip: Plan: Fell when walking dog, fell and sustained intertroch hip fx Of note, patient in ER 04/23, +COVID. Complaints of not eating well/lesions to groin/groin discomfort (RPR nonreactive) 97% on RA. CXR clear on admission Ortho consulted, cardiology consulted for pre-op clearance POD#1 s/p Open Reduction Internal Fixation Right hip fracture with trochanteric femoral nail with spiral blade - Adolph Bowie MD. EBL 15cc Hgb 10.2--> 9.6, acute blood loss from surgery but also got some fluids with magnesium/operative as well Given mag 1gm prior to surgery in elderly male with severe to prevent afib Pain control, antiemetics -- of note, typically on oxycontin BID at home, chronic opioid use Bowel regimen Resumed lactulose BID for bowels as instructed last admission. Passing gas, no BM yet Vit D low 22 started 50,000 weekly x 1-2 months, then maintenance dose Informatics Pharmacist consulted, multivitamins, boost supplements 24 hr stress steroids, will d/c after today and resume usual prednisone for AM (held this morning) PT/OT consulted -- rec rehab. patient agreeable CM to follow (2) Balanitis: Plan: Clotrimazole 1% cream BID Barrett catheter inserted Keep clean Wound culture to r/o bacterial infection RPR with AM labs to assess for syphilis although lesion is more consistent with balanitis --> NONREACTIVE Improving Consider urology consult if not improving during admission (3) Severe aortic stenosis: Plan: Recently referred for TAVR. Exercise tolerance of 20 steps on flat or 6 stairs with chest pain/SOB/fatigue. Cards consulted, cleared for surgery outpt f/u once healed from current fracture for consideration for TAVR (4) History of gastric bypass: Plan: Noted history of this B12 500, but placed on oral replacement given gastric bypass (5) Generalized weakness: Plan: PT/OT post operatively -- rec rehab. CM to follow (6) Severe protein-calorie malnutrition: Plan: Boost drinks and seasonal warehouse associate consult hx gastric bypass also will need bowel regimen following surgery (7) Vitamin D deficiency: Plan: History of this but not on supplementation. Repeat level with AM labs --LOW --started supplementation 50,000 weekly per recs seasonal warehouse associate, continue 1-2 months then 2000 IU daily recommended (8) GERD without esophagitis: Plan: Switch omeprazole for pantoprazole per hospital formulary (9) BPH (benign prostatic hyperplasia): Plan: Continue tamsulosin 0.4mg PO HS Barrett catheter placed on admission, continue for now, d/c possibly tomorrow or later today (10) Osteoarthritis, generalized: Plan: Reportedly on prednisone 5mg PO daily for this although most recent PCP note mentions on this for pruritus scroti was on prednisone last admit, stress dosing, possible dx PMR but not documented (ESR 50) stress steroids as above for today plans to resume usual dose tomorrow (11) COVID: Plan: prior hx last month, no tx needed stable on RA, >14 days since testing monitor (12) Coronary atherosclerosis of [place] coronary vessel: Plan: hx CABG, continue home medications cards consulted as above (13) DM2 (diabetes mellitus, type 2): Plan: prior hx of such but not needing any meds since gastric bypass BSG on am labs 140 BSGs acceptable and will monitor monitor on hydrocortisone, stable --> plan to resume usual prednisone in AM vs taper like last admission Plan: VTE Prophylaxis - SCDs initially discussed with ortho, avoiding asa bid given gastric bypass and scheduled lovenox but recs to not begin until this evening PT/OT rec rehab, CM to follow/referrals Admission and Anticipated Discharge Date Admission Date: May 07, 2022 Subjective evaluated this morning. initially sitting up at side of bed to work with therapy but tearful in pain and asked RN to administer additional 2mg dose morphine. was able to stand without much assistance but will need some rehab. pain improved after morphine, passing gas, but worried about what to do when he needs to move his bowels. will plan to start anticoagulation this evening per discussion with orthopedics currently opened and drinking boost, encouraged keeping up to ensure nutrition/healing. no fever/chills, chest pain, shortness of breath or dysuria at this time. questions/concerns addressed. Review of Systems Review of Systems: All systems reviewed & are unremarkable except as noted in HPI & below Physical Exam Physical Exam: General: thin, cachectic elderly male sitting up at side of bed, tears in eyes from pain to hip reported, alert/oriented x 3, cooperative HEENT: pupils equal, reactive, sclerae anicteric, trachea midline without deviation, mmm Resp: CTAB, diminished inspiratory effort, no w/c, on room air CV: RRR, 3-4/6 systolic murmur radiation to carotids, no edema/calf tenderness GI: +BS, thin/scaphoid, non-tender MSK/Neuro: NVI, RLE with dressing c/d/i, tender to palpation appropriately, NVI, pulses palpable : barrett draining clear urine, penis with balanitis appearance Psych: AOx3, pleasant Skin: thin, dry, chronic prednisone use Results & Data Results & Data ([facility]) Vital Signs (Past 12 Hours) Vital Signs Temp Pulse Resp BP Pulse Ox 05/09/22 03:25 36.5 C 78 16 108/63 95 05/08/22 23:53 36.5 C 77 16 103/63 93 05/08/22 22:00 36.5 C 86 18 92/54 L 95 05/08/22 21:00 36.5 C 88 18 105/55 L 97 05/08/22 20:30 36.5 C 16 119/71 95 Laboratory Results 05/09/22 05/09/22 05/08/22 Range/Units 06:04 06:04 19:45 WBC 7.86 (4.8-10.8) K/uL RBC 3.41 L (4.7-6.1) M/uL Hgb 9.6 L (14.0-18.0) g/dL Hct 30.2 L (42-52) % MCV 88.6 (80-100) fL MCH 28.2 (25-34) pg MCHC 31.8 L (32-36) g/dL RDW Std Deviation 50.2 H (36.4-46.3) fL RDW Coeff of Yoanna 15.8 H (11.5-14.5) % Plt Count 367 (130-400) K/uL MPV 9.3 (7.4-10.4) fL Immature Gran % (Auto) 0.4 % Neut % (Auto) 78.8 % Lymph % (Auto) 12.0 % Meagher % (Auto) 8.7 % Eos % (Auto) 0.0 % Baso % (Auto) 0.1 % Neut # (Auto) 6.20 (1.4-6.5) K/uL Lymph # (Auto) 0.94 L (1.2-3.4) K/uL Meagher # (Auto) 0.68 H (0.11-0.59) K/uL Eos # (Auto) 0.00 (0-0.5) K/uL Baso # (Auto) 0.01 (0-0.2) K/uL Immature Gran # (Auto) 0.03 H (0.00-0.02) K/uL Sodium 133 L (136-145) mmol/L Potassium 4.3 (3.5-5.1) mmol/L Chloride 101 (98-107) mmol/L Carbon Dioxide 27 (21-32) mmol/L Anion Gap 5 (3-11) BUN 14 (6-23) mg/dl Creatinine 0.49 L (0.6-1.4) mg/dl Est Cr Clr Drug Dosing 75.3 ml/min Est GFR ( Amer) 117.1 ml/min Est GFR (Non-Af Amer) 101.1 ml/min BUN/Creatinine Ratio 28.6 H (10-20) Glucose 140 H (70-99(Fasting)) mg/dl POC Glucose 196 H (70-99) mg/dl Calcium 8.5 (8.5-10.1) mg/dl Phosphorus 3.7 (2.5-4.9) mg/dl Magnesium 1.8 (1.7-2.4) mg/dl RPR (Nonreactive) 05/08/22 05/08/22 Range/Units 15:40 07:11 WBC (4.8-10.8) K/uL RBC (4.7-6.1) M/uL Hgb (14.0-18.0) g/dL Hct (42-52) % MCV (80-100) fL MCH (25-34) pg MCHC (32-36) g/dL RDW Std Deviation (36.4-46.3) fL RDW Coeff of Yoanna (11.5-14.5) % Plt Count (130-400) K/uL MPV (7.4-10.4) fL Immature Gran % (Auto) % Neut % (Auto) % Lymph % (Auto) % Meagher % (Auto) % Eos % (Auto) % Baso % (Auto) % Neut # (Auto) (1.4-6.5) K/uL Lymph # (Auto) (1.2-3.4) K/uL Meagher # (Auto) (0.11-0.59) K/uL Eos # (Auto) (0-0.5) K/uL Baso # (Auto) (0-0.2) K/uL Immature Gran # (Auto) (0.00-0.02) K/uL Sodium (136-145) mmol/L Potassium (3.5-5.1) mmol/L Chloride (98-107) mmol/L Carbon Dioxide (21-32) mmol/L Anion Gap (3-11) BUN (6-23) mg/dl Creatinine (0.6-1.4) mg/dl Est Cr Clr Drug Dosing ml/min Est GFR ( Amer) ml/min Est GFR (Non-Af Amer) ml/min BUN/Creatinine Ratio (10-20) Glucose (70-99(Fasting)) mg/dl POC Glucose 147 H (70-99) mg/dl Calcium (8.5-10.1) mg/dl Phosphorus (2.5-4.9) mg/dl Magnesium (1.7-2.4) mg/dl RPR Nonreactive (Nonreactive) Diagnostic Findings Hip X-Ray 05/08/22 14:30 FL hip RT 2-3V CLINICAL HISTORY: RT TROCH NAIL COMPARISON STUDY: Pelvis and right hip radiographs May 07, 2020 2P FLUOROSCOPY TIME: 99.9 seconds. FLUOROSCOPIC IMAGES: 4 FINDINGS: Fluoroscopy was provided during internal fixation of the intertrochanteric fracture of the right femur with trochanteric nail. Alignment of the fracture has significantly improved and appears near anatomic. Hardware is intact. IMPRESSION: Fluoroscopy provided during internal fixation of the intertrochanteric fracture of the right femur. ACT 112: Negative or not required by law. Electronically signed by: Joshua Hernandez M.D. 05/08/2022 6:01 PM PG Care Time/CCT Total # of Minutes Spent Total Time Spent with Patient: Total time spent is greater than 50% in coordination of care (as documented) at patient's floor/unit and/or counseling patient: Coding Level of Care Code 40492 Subseq Hosp Care Lvl 2 Diagnoses Intertrochanteric fracture of right hip S72.141A Balanitis N48.1 Severe aortic stenosis I35.0 History of gastric bypass Z98.84 Generalized weakness R53.1 Severe protein-calorie malnutrition E43 Vitamin D deficiency E55.9 GERD without esophagitis K21.9 BPH (benign prostatic hyperplasia) N40.0 Osteoarthritis, generalized M15.9 COVID U07.1 Coronary atherosclerosis of [place] coronary vessel I25.10 DM2 (diabetes mellitus, type 2) E11.9
[2022-05-09] MEDS ORDERED: CHOLECALCIFEROL 1,000 UNITS 25 MCG TAB PO SCH (09:00)
[2022-05-09] MEDS: CLOTRIMAZOLE 1% CR 15 GM TUBE EXT SCH ×2 (10:05→20:50)
[2022-05-09] MEDS: predniSONE 5 MG TAB PO SCH (10:05)
--- NOTE | 2022-05-09 10:19 | Orthopedic Progress Note ---
Date of Service May 09, 2022 Assessment & Plan (1) Fracture of hip, right, closed: Plan: Postop day 1 that is post right TFN PT/OT protocols. Toe-touch weightbearing right lower extremity. DVT prophylaxis- will continue to discuss with hospitalist service. Portion of using Lovenox versus heparin subcu at this time. Not to start until before this evening. Pain management as written. DC planning-patient will likely require a rehab versus senior care facility prior to returning to home. Admission and Anticipated Discharge Date Admission Date: May 07, 2022 Supervising Physician Co-Signing Physician Notes Patient seen and examined. Agree with LIANE Ruffin's note as above. Patient reports pain in his right hip with standing, and this makes it very difficult for him to get up. Continue working with therapy. Toe-touch weightbearing right leg. Subjective Postop day 1 Patient undergoing therapy at this time. Sitting at the edge of the bed. Therapy states that the patient is very motivated and got out of bed by himself however is having difficulty getting back into bed secondary to pain in the right hip. Patient states that he has been having pain off and on. Discussed medications for pain of which patient understands. Other complaints. Physical Exam Physical Exam: Dressings are clean, dry, and intact. Calves are soft and nontender. Neurovascular is intact. Toes are mobile. Results & Data ([facility]) Vital Signs (Past 12 Hours) Vital Signs Temp Pulse Resp BP BP Pulse Ox 05/09/22 08:22 36.6 C 70 16 104/51 L 96 05/09/22 03:25 36.5 C 78 16 108/63 95 05/08/22 23:53 36.5 C 77 16 103/63 93 Laboratory Results Laboratory Results WBC 7.86 K/uL (4.8-10.8) 05/09/22 06:04 RBC 3.41 M/uL (4.7-6.1) L 05/09/22 06:04 Hgb 9.6 g/dL (14.0-18.0) L 05/09/22 06:04 Hct 30.2 % (42-52) L 05/09/22 06:04 MCV 88.6 fL (80-100) 05/09/22 06:04 MCH 28.2 pg (25-34) 05/09/22 06:04 MCHC 31.8 g/dL (32-36) L 05/09/22 06:04 RDW Std Deviation 50.2 fL (36.4-46.3) H 05/09/22 06:04 RDW Coeff of Yoanna 15.8 % (11.5-14.5) H 05/09/22 06:04 Plt Count 367 K/uL (130-400) 05/09/22 06:04 MPV 9.3 fL (7.4-10.4) 05/09/22 06:04 Immature Gran % (Auto) 0.4 % 05/09/22 06:04 Neut % (Auto) 78.8 % 05/09/22 06:04 Lymph % (Auto) 12.0 % 05/09/22 06:04 Schley % (Auto) 8.7 % 05/09/22 06:04 Eos % (Auto) 0.0 % 05/09/22 06:04 Baso % (Auto) 0.1 % 05/09/22 06:04 Neut # (Auto) 6.20 K/uL (1.4-6.5) 05/09/22 06:04 Lymph # (Auto) 0.94 K/uL (1.2-3.4) L 05/09/22 06:04 Schley # (Auto) 0.68 K/uL (0.11-0.59) H 05/09/22 06:04 Eos # (Auto) 0.00 K/uL (0-0.5) 05/09/22 06:04 Baso # (Auto) 0.01 K/uL (0-0.2) 05/09/22 06:04 Immature Gran # (Auto) 0.03 K/uL (0.00-0.02) H 05/09/22 06:04 ESR 50 mm/hr (0-20) H 05/07/22 15:45 PT 11.2 Seconds (9.0-12.0) 05/07/22 15:25 INR 1.1 (0.9-1.1) 05/07/22 15:25 APTT 27.9 Seconds (21.0-31.0) 05/07/22 15:25 PTT Ratio 1.0 05/07/22 15:25 Sodium 133 mmol/L (136-145) L 05/09/22 06:04 Potassium 4.3 mmol/L (3.5-5.1) 05/09/22 06:04 Chloride 101 mmol/L (98-107) 05/09/22 06:04 Carbon Dioxide 27 mmol/L (21-32) 05/09/22 06:04 Anion Gap 5 (3-11) 05/09/22 06:04 BUN 14 mg/dl (6-23) 05/09/22 06:04 Creatinine 0.49 mg/dl (0.6-1.4) L 05/09/22 06:04 Est Cr Clr Drug Dosing 75.3 ml/min 05/09/22 06:04 Est GFR ( Amer) 117.1 ml/min 05/09/22 06:04 Est GFR (Non-Af Amer) 101.1 ml/min 05/09/22 06:04 BUN/Creatinine Ratio 28.6 (10-20) H 05/09/22 06:04 Glucose 140 mg/dl (70-99(Fasting)) H 05/09/22 06:04 POC Glucose 196 mg/dl (70-99) H 05/08/22 19:45 Calcium 8.5 mg/dl (8.5-10.1) 05/09/22 06:04 Phosphorus 3.7 mg/dl (2.5-4.9) 05/09/22 06:04 Magnesium 1.8 mg/dl (1.7-2.4) 05/09/22 06:04 Total Bilirubin 0.3 mg/dl (0.2-1.0) 05/07/22 15:25 AST 20 U/L (13-39) 05/07/22 15:25 ALT 16 U/L (7-52) 05/07/22 15:25 Alkaline Phosphatase 80 U/L (34-104) 05/07/22 15:25 Total Creatine Kinase 35 U/L (30-223) 05/07/22 17:25 Troponin I High Sens 7.3 pg/ml (0-20) 05/07/22 15:25 Total Protein 7.0 gm/dl (6.0-8.3) 05/07/22 15:25 Albumin 3.3 gm/dl (3.4-5.0) L 05/07/22 15:25 Globulin 3.7 gm/dl (2.5-4.0) 05/07/22 15:25 Albumin/Globulin Ratio 0.9 (0.9-2) 05/07/22 15:25 Lipase 34 U/L (11-82) 05/07/22 15:25 25-OH Vitamin D Total 22.9 ng/ml (30-100) L 05/08/22 07:11 Cortisol AM Sample 23.11 mcg/dl (6.2-22.6) H 05/08/22 07:11 Nasal Screen MRSA (PCR) Negative (Negative) 05/07/22 19:40 RPR Nonreactive (Nonreactive) 05/08/22 07:11 SARS-CoV-2, RNA, NAAT NEGATIVE (NEGATIVE) 05/07/22 15:25 Blood Type O Positive 05/07/22 17:25 Antibody Screen NEGATIVE 05/07/22 17:25 Impressions Hip X-Ray 05/08/22 14:30 FL hip RT 2-3V CLINICAL HISTORY: RT TROCH NAIL COMPARISON STUDY: Pelvis and right hip radiographs May 07, 2020 2P FLUOROSCOPY TIME: 99.9 seconds. FLUOROSCOPIC IMAGES: 4 FINDINGS: Fluoroscopy was provided during internal fixation of the intertrochanteric fracture of the right femur with trochanteric nail. Alignment of the fracture has significantly improved and appears near anatomic. Hardware is intact. IMPRESSION: Fluoroscopy provided during internal fixation of the intertrochanteric fracture of the right femur. ACT 112: Negative or not required by law. Electronically signed by: Joshua Hernandez M.D. 05/08/2022 6:01 PM (1) Fracture of hip, right, closed Encounter type: initial encounter Qualified Code(s): S72.001A - Fracture of unspecified part of neck of right femur, initial encounter for closed fracture
--- NOTE | 2022-05-09 13:25 | Cardiology Progress Note ---
Date of Service May 09, 2022 Assessment & Plan (1) Severe aortic stenosis: (2) Intertrochanteric fracture of right hip: (3) Coronary atherosclerosis of [place] coronary vessel: (4) S/P triple vessel bypass: Plan: Patient recovering first day postoperatively, hemodynamically stable Continue current therapies Cardiology will follow as outpatient urgent need for physical therapy and nutritional with patient Admission and Anticipated Discharge Date Admission Date: May 07, 2022 Subjective Patient seen and examined, chart reviewed. Patient tolerated surgical procedure well yesterday. Beginning physical therapy this morning with only limitation secondary to hip pain. No chest pains or shortness of breath No dizziness or lightheadedness. Hemodynamically stable. Physical Exam Constitutional: + thin; no acute distress Eyes: PERRL, conjunctivae normal, anicteric sclerae ENMT: external ear and nose normal, oropharynx normal Neck: trachea midline, no thyromegaly Respiratory: normal respiratory effort, lungs clear to auscultation Cardiovascular: Rate/Rhythm: regular rate and regular rhythm Heart Sounds: + murmur (Harsh grade 3/6 systolic murmur) Extremities: no edema Gastrointestinal (Abdomen): Inspection/Auscultation: + scaphoid Results & Data ([facility]) Vital Signs (Past 12 Hours) Vital Signs Temp Pulse Resp BP BP Pulse Ox 05/09/22 11:19 36.6 C 73 16 109/62 97 05/09/22 08:22 36.6 C 70 16 104/51 L 96 05/09/22 03:25 36.5 C 78 16 108/63 95
[2022-05-09] MEDS: MoRPHine SULFATE 4 MG/ML 1 ML CARP\\VIAL IV PRN ×3 (14:03→21:15)
[2022-05-09] MEDS: cephALEXin 500 MG CAP PO SCH ×2 (17:04→20:49)
[2022-05-09] MEDS: TAMSULOSIN HCL 0.4 MG CAP PO SCH (20:48)
[2022-05-09] MEDS: DOCUSATE SODIUM/SENNA 50/8.6MG TAB PO SCH (20:49)
[2022-05-09] MEDS: ENOXAPARIN INJ 30 MG/0.3 ML SYR SQ SCH ×2 (20:49→21:15)
[2022-05-09] MEDS: LORATADINE 10 MG TAB PO SCH (20:49)
[2022-05-09] MEDS: MELATONIN 3 MG TAB PO PRN (21:11)
[2022-05-10] MEDS: HYDROCORTISONE SOD 25 MG in SYRINGE 0 ML IV SCH ×2 (01:07→07:26)
[2022-05-10] MEDS: MoRPHine SULFATE 4 MG/ML 1 ML CARP\\VIAL IV PRN ×6 (01:11→22:22)
[2022-05-10] MEDS: CYANOCOBALAMIN (B-12) 500 MCG TABLET PO SCH (07:26)
[2022-05-10] MEDS: POLYETHYLENE (MIRALAX) 17 GM PACK PO SCH (07:26)
[2022-05-10] MEDS: MULTIVITAMIN TAB PO SCH (07:27)
[2022-05-10] MEDS: FOLIC ACID 1 MG TAB PO SCH (07:27)
[2022-05-10] MEDS: DULoxetine HCL 30 MG CAP PO SCH (07:27)
[2022-05-10] MEDS: THIAMINE HCL 100 MG TAB PO SCH (07:27)
[2022-05-10] MEDS: SUCRALFATE 1 GM TAB PO SCH ×4 (07:28→21:06)
[2022-05-10] MEDS: allopurinoL 300 MG TAB PO SCH (07:28)
[2022-05-10] MEDS: LINACLOTIDE 145 MCG CAPSULE PO SCH (07:28)
[2022-05-10] MEDS: PANTOprazole 40 MG TAB PO SCH ×2 (07:28→21:06)
[2022-05-10] MEDS: cephALEXin 500 MG CAP PO SCH ×4 (07:28→21:06)
[2022-05-10] MEDS: LACTULOSE SYRUP 20 GM/30 ML UDC PO SCH ×3 (07:29→21:07)
[2022-05-10] MEDS: oxyCODONE HCL 15 MG TABCR (OxyCONTIN) PO SCH ×2 (07:35→21:06)
[2022-05-10] MEDS: CLOTRIMAZOLE 1% CR 15 GM TUBE EXT SCH ×2 (07:38→21:08)
--- NOTE | 2022-05-10 07:43 | Orthopedic Progress Note ---
Date of Service May 10, 2022 Assessment & Plan (1) Fracture of hip, right, closed: Plan: Postop day 2 s/p post right TFN New calf pain right calf - will order US to r/o dvt PT/OT protocols. Toe-touch weightbearing right lower extremity. DVT prophylaxis- will continue to discuss with hospitalist service. Portion of using Lovenox versus heparin subcu at this time. Not to start until before this evening. Pain management as written. DC planning-patient will likely require a rehab versus fdc facility prior to returning to home. Admission and Anticipated Discharge Date Admission Date: May 07, 2022 Subjective POD 2 Pt sitting up in bed. Awake, alert. States his hip feels a little bit better this AM. Still having moderate pain with getting OOB but tolerating well. c/o right calf pain this AM when asked. No other complaints this AM. Physical Exam Physical Exam: Dressings C/D/I. Thigh with minimal swelling. No erythema noted. Calves are soft. Right calf with tenderness on palpation proximally. Alexandro's exam mildly positive on the right. Left calf without pain. NV intact. No overt swelling of the right foot/ankle. Results & Data ([facility]) Vital Signs (Past 12 Hours) Vital Signs Temp Pulse Resp BP Pulse Ox 05/09/22 22:01 36.7 C 69 20 100/43 L 96 (1) Fracture of hip, right, closed Encounter type: initial encounter Qualified Code(s): S72.001A - Fracture of unspecified part of neck of right femur, initial encounter for closed fracture
[2022-05-10 08:13] LABS: Hematocrit (blood only) 29.1 % (42-52); Hemoglobin 9.2 g/dL (14.0-18.0); Mean Corpuscular Hemoglobin 28.3 pg (25-34); Mean Corpuscular Hgb Conc 31.6 g/dL (32-36); Mean Corpuscular Volume 89.5 fL (80-100); Mean Platelet Volume 9.2 fL (7.4-10.4); Platelet Count 333 K/uL (130-400); RDW Coefficient of Variation 15.9 % (11.5-14.5); RDW Standard Deviation 50.6 fL (36.4-46.3); Red Blood Count 3.25 M/uL (4.7-6.1); White Blood Count 5.93 K/uL (4.8-10.8)
--- NOTE | 2022-05-10 08:22 | Hospitalist Progress Note ---
Date of Service May 10, 2022 Assessment & Plan (1) Intertrochanteric fracture of right hip: Plan: Fell when walking dog, fell and sustained intertroch hip fx Of note, patient in ER 04/23, +COVID. Complaints of not eating well/lesions to groin/groin discomfort (RPR nonreactive) 97% on RA. CXR clear on admission Ortho consulted, cardiology consulted for pre-op clearance POD#2 s/p Open Reduction Internal Fixation Right hip fracture with trochanteric femoral nail with spiral blade - Adolph Bowie MD. EBL 15cc Hgb 10.2--> 9.6 --> 9.2 acute blood loss from surgery but also got some fluids with magnesium/operative as well and stable losses Mag 1gm prior to surgery in elderly male with severe to prevent afib, additional 1gm ordered for today given mag 1.7 Pain control -- usual OxyContin increased to 30bid, morphine available prn for breakthrough --> patient reporting increased pain control today and will order 10mg Q6H prn to see if can utilize po Bowel regimen -- lactulose daily, increased to TID, monitor response -- > +BM 05/10, likely opioid induced constipation PT/OT --> SNF, CM following. Patient would like [facility] if possible DVT proph -- Lovenox started evening 05/09 Venous doppler ordered by orthopedics given Alexandro sign on their exam, none during encounter and patient reported pain from hip "radiating to calf" but improved with meds --> NEGATIVE Vit D low 22 -- per supervisor aircraft cleaning, 50,000 weekly 1-2months, then daily supplementation after. Continues boost supplementation, multivitamin (2) Balanitis: Plan: complaints of such during ER visit for COVID end of last month. RPR negative Clotrimazole 1% cream BID, Cortez catheter inserted in ER but discontinued given cx + klebsiella and placed on keflex (got ancef seven-operative period) Improving, patient without discomfort since abx/tx Monitor (3) Severe aortic stenosis: Plan: Recently referred for TAVR. Exercise tolerance of 20 steps on flat or 6 stairs with chest pain/SOB/fatigue. Cards consulted, cleared for surgery, volume status acceptable outpt f/u once healed from current fracture for consideration for TAVR (4) History of gastric bypass: Plan: Noted history of this, used to be 409lb prior to surgery B12 500, but placed on oral replacement given gastric bypass per supervisor aircraft cleaning recs (5) Generalized weakness: Plan: PT/OT post operatively, plan for SNF (6) Severe protein-calorie malnutrition: Plan: Boost drinks and supervisor aircraft [employer] consult, multivitamin, B12, vitamin D supplementation hx gastric bypass also will need bowel regimen following surgery --> moving bowels this morning with above (7) Vitamin D deficiency: Plan: History of this but not on supplementation. Repeat level with AM labs --LOW --started supplementation 50,000 weekly per recs supervisor aircraft cleaning, continue 1-2 months then 2000 IU daily recommended (8) GERD without esophagitis: Plan: Switch omeprazole for pantoprazole per hospital formulary (9) BPH (benign prostatic hyperplasia): Plan: Continue tamsulosin 0.4mg PO HS Cortez catheter placed on admission --> d/c'd after infection, abx as above UOP acceptable (10) Osteoarthritis, generalized: Plan: Reportedly on prednisone 5mg PO daily for this although most recent PCP note mentions on this for pruritus scroti was on prednisone last admit, stress dosing, possible dx PMR but not documented (ESR 50) stress steroids as above post op, given 10mg today and plan to resume usual 5mg dose in Am (11) COVID: Plan: prior hx last month, no tx needed stable on RA 95%, >14 days since testing monitor (12) Coronary atherosclerosis of [place] coronary vessel: Plan: hx CABG, continue home medications cards consulted as above (13) DM2 (diabetes mellitus, type 2): Plan: prior hx of such but not needing any meds since gastric bypass BSG on am labs 130 BSGs acceptable and will monitor monitor on hydrocortisone, stable --> plan to resume usual prednisone in AM Plan: VTE Prophylaxis - SCDs initially, Lovenox started evening /16 PT/OT, CM following as plans for SNF Likely to remain inpatient through weekend unless bed available sooner Admission and Anticipated Discharge Date Admission Date: May 07, 2022 Supervising Physician Co-Signing Physician Notes PA Supervision Note: I did not personally see or examine the patient today, but I verified all knight points of LIANE Hughes's assessment and plan with the following exceptions/additions: None Subjective patient evaluated this morning. had a decent amount of pain this morning but improved currently had been having increased hip pain with referred pain to his calf/leg but no increased edema and pulses palpable however ortho checking venous Doppler for completeness. Started Lovenox last evening. No fever/chills, chest pain, shortness of breath above baseline, no abdominal pain/nausea. No BM but having increased gas and sitting on bedside commode. States takes liquid at home, confirmed lactulose. Had gotten this morning but will increase to TID until BM and then back down to BID. Recs for rehab -- he has family at [facility] and wanting to go there if possible. CM to follow. Review of Systems Review of Systems: All systems reviewed & are unremarkable except as noted in HPI & below Physical Exam Physical Exam: General: thin, cachectic elderly male sitting up on bedside commode attempting to have a bowel movement, reporting improvement in pain compared to this morning HEENT: pupils equal, reactive, sclerae anicteric, trachea midline without deviation, mmm Resp: CTAB, diminished inspiratory effort, no w/c, on room air CV: RRR, 3-4/6 systolic murmur radiation to carotids, no edema/calf tenderness GI: +BS, thin/scaphoid, non-tender MSK/Neuro: NVI, RLE with dressing c/d/i, tender to palpation appropriately, NVI, pulses palpable, calves non-tender non edematous : no further Cortez, improvement in balanitis appearance Psych: AOx3, pleasant and cooperative Skin: thin, dry, chronic prednisone use Results & Data Results & Data ([facility]) Vital Signs (Past 12 Hours) Vital Signs Temp Pulse Resp BP Pulse Ox 05/10/22 07:22 36.8 C 65 16 103/45 L 95 05/09/22 22:01 36.7 C 69 20 100/43 L 96 Laboratory Results 05/10/22 05/10/22 Range/Units 08:01 08:01 WBC 5.93 (4.8-10.8) K/uL RBC 3.25 L (4.7-6.1) M/uL Hgb 9.2 L (14.0-18.0) g/dL Hct 29.1 L (42-52) % MCV 89.5 (80-100) fL MCH 28.3 (25-34) pg MCHC 31.6 L (32-36) g/dL RDW Std Deviation 50.6 H (36.4-46.3) fL RDW Coeff of Yoanna 15.9 H (11.5-14.5) % Plt Count 333 (130-400) K/uL MPV 9.2 (7.4-10.4) fL Sodium 135 L (136-145) mmol/L Potassium 4.2 (3.5-5.1) mmol/L Chloride 102 (98-107) mmol/L Carbon Dioxide 31 (21-32) mmol/L Anion Gap 2 L (3-11) BUN 12 (6-23) mg/dl Creatinine 0.48 L (0.6-1.4) mg/dl Est Cr Clr Drug Dosing 76.9 ml/min Est GFR ( Amer) 118.1 ml/min Est GFR (Non-Af Amer) 101.9 ml/min BUN/Creatinine Ratio 25.0 H (10-20) Glucose 130 H (70-99(Fasting)) mg/dl Calcium 8.7 (8.5-10.1) mg/dl Magnesium 1.7 (1.7-2.4) mg/dl Iron 28 L (35-175) mcg/dl PG Care Time/CCT Total # of Minutes Spent Total Time Spent with Patient: Total time spent is greater than 50% in coordination of care (as documented) at patient's floor/unit and/or counseling patient: Coding Level of Care Code 66504 Subseq Hosp Care Lvl 2 Diagnoses Intertrochanteric fracture of right hip S72.141A Balanitis N48.1 Severe aortic stenosis I35.0 History of gastric bypass Z98.84 Generalized weakness R53.1 Severe protein-calorie malnutrition E43 Vitamin D deficiency E55.9 GERD without esophagitis K21.9 BPH (benign prostatic hyperplasia) N40.0 Osteoarthritis, generalized M15.9 COVID U07.1 Coronary atherosclerosis of [place] coronary vessel I25.10 DM2 (diabetes mellitus, type 2) E11.9
[2022-05-10 08:57] LABS: Calcium 8.7 mg/dl (8.5-10.1); Creatinine Clr Calc Pharmacy 76.9 ml/min; Est GFR (African American) 118.1 ml/min; Est GFR (Non-African American) 101.9 ml/min; Magnesium 1.7 mg/dl (1.7-2.4); Potassium 4.2 mmol/L (3.5-5.1)
--- NOTE | 2022-05-10 09:54 | Cardiology Progress Note ---
Date of Service May 10, 2022 Assessment & Plan (1) Severe aortic stenosis: (2) Intertrochanteric fracture of right hip: (3) Coronary atherosclerosis of [place] coronary vessel: (4) S/P triple vessel bypass: Plan: Patient recovering first day postoperatively, hemodynamically stable Continue current therapies Cardiology will follow as outpatient stressed need for physical therapy and nutritional with patient. Patient awaiting rehab Admission and Anticipated Discharge Date Admission Date: May 07, 2022 Subjective Patient seen and examined, chart reviewed. No overall complaints other than surgical incision discomfort. Has been in and out of bed and looks forward to further physical therapy today. No fevers or chills no shortness of breath no orthopnea. No dizziness lightness syncope. No chest pain Physical Exam Constitutional: + thin; no acute distress Eyes: PERRL, conjunctivae normal, anicteric sclerae ENMT: Mallampati Class: III Neck: trachea midline, no thyromegaly Respiratory: normal respiratory effort, lungs clear to auscultation Cardiovascular: RRR, no murmur, no edema Rate/Rhythm: regular rate and regular rhythm Heart Sounds: + murmur (Harsh grade 3/6 systolic murmur) Extremities: no edema Gastrointestinal (Abdomen): Inspection/Auscultation: + scaphoid Results & Data ([facility]) Vital Signs (Past 12 Hours) Vital Signs Temp Pulse Resp BP Pulse Ox 05/10/22 07:22 36.8 C 65 16 103/45 L 95 05/09/22 22:01 36.7 C 69 20 100/43 L 96
--- NOTE | 2022-05-10 10:55 | Ultrasound Report ---
RIGHT LOWER EXTREMITY VENOUS DOPPLER CLINICAL HISTORY: Right lower extremity pain. Swelling. COMPARISON STUDY: No previous studies for comparison. TECHNIQUE: Sonography of the deep venous system of the right lower extremity was performed. Compress ion and augmentation were evaluated. FINDINGS: The right common femoral, superficial femoral and popliteal veins were compressible. Augme ntation was normal. Flow was shown within the deep calf vessels. IMPRESSION: No evidence of deep venous thrombus within the right lower extremity. ACT 112: Negative or not required by law. Electronically signed by: Joshua Hernandez M.D. 05/10/2022 10:54 AM
[2022-05-10] MEDS: predniSONE 10 MG TABLET PO SCH (11:29)
[2022-05-10] MEDS ORDERED: oxyCODONE HCL 10 MG TABCR (OxyCONTIN) PO PRN (13:54)
[2022-05-10] MEDS ORDERED: MAGNESIUM SULFATE / D5W 1 GM/100 ML BAG IV ONE (14:00)
[2022-05-10] MEDS: FERROUS SULFATE 325 MG TAB PO SCH (16:39)
[2022-05-10] MEDS ORDERED: SOD PHOSPHATE/SOD BIPHOSPHATE ENEMA 132 ML BTL PR PRN (18:51)
[2022-05-10] MEDS: MELATONIN 3 MG TAB PO PRN (21:06)
[2022-05-10] MEDS: DOCUSATE SODIUM/SENNA 50/8.6MG TAB PO SCH (21:07)
[2022-05-10] MEDS: TAMSULOSIN HCL 0.4 MG CAP PO SCH (21:07)
[2022-05-10] MEDS: ENOXAPARIN INJ 30 MG/0.3 ML SYR SQ SCH (21:07)
[2022-05-10] MEDS: LORATADINE 10 MG TAB PO SCH (21:08)
[2022-05-11] MEDS: MoRPHine SULFATE 2 MG/ML CARP IV PRN (02:21)
[2022-05-11] MEDS: MoRPHine SULFATE 4 MG/ML 1 ML CARP\\VIAL IV PRN ×2 (05:02→19:54)
[2022-05-11] MEDS: DULoxetine HCL 30 MG CAP PO SCH (07:29)
[2022-05-11] MEDS: LACTULOSE SYRUP 20 GM/30 ML UDC PO SCH (07:29)
[2022-05-11] MEDS: predniSONE 10 MG TABLET PO SCH (07:29)
[2022-05-11] MEDS: MULTIVITAMIN TAB PO SCH (07:30)
[2022-05-11] MEDS: THIAMINE HCL 100 MG TAB PO SCH (07:30)
[2022-05-11] MEDS: CYANOCOBALAMIN (B-12) 500 MCG TABLET PO SCH (07:30)
[2022-05-11] MEDS: LINACLOTIDE 145 MCG CAPSULE PO SCH (07:30)
[2022-05-11] MEDS: POLYETHYLENE (MIRALAX) 17 GM PACK PO SCH (07:30)
[2022-05-11] MEDS: SUCRALFATE 1 GM TAB PO SCH ×4 (07:31→21:17)
[2022-05-11] MEDS: allopurinoL 300 MG TAB PO SCH (07:31)
[2022-05-11] MEDS: FOLIC ACID 1 MG TAB PO SCH (07:31)
[2022-05-11] MEDS: cephALEXin 500 MG CAP PO SCH ×4 (07:31→21:15)
[2022-05-11] MEDS: PANTOprazole 40 MG TAB PO SCH ×2 (07:32→21:17)
[2022-05-11] MEDS: oxyCODONE HCL 15 MG TABCR (OxyCONTIN) PO SCH ×2 (07:36→21:20)
[2022-05-11] MEDS: CLOTRIMAZOLE 1% CR 15 GM TUBE EXT SCH ×2 (07:40→21:20)
--- NOTE | 2022-05-11 08:22 | Hospitalist Progress Note ---
Date of Service May 11, 2022 Assessment & Plan (1) Intertrochanteric fracture of right hip: Plan: Fell when walking dog, fell and sustained intertroch hip fx Of note, patient in ER 04/23, +COVID. Complaints of not eating well/lesions to groin/groin discomfort (RPR nonreactive) 97% on RA. CXR clear on admission Ortho consulted, cardiology consulted for pre-op clearance POD#3 s/p Open Reduction Internal Fixation Right hip fracture with trochanteric femoral nail with spiral blade - Adolph Bowie MD. EBL 15cc Hgb 10.2--> 9.6 --> 9.2 --> 9.3 * acute blood loss from surgery but also got some fluids with magnesium/operative as well and stable losses WBC wnl, afebrile Pain control -- oxycontin BID, morphine IV last night but added prn oxycontin and patient would prefer the IR in place of IV Bowel regimen -- enema 05/10 with +large BM, backed down lactulose to BID and monitor Venous doppler ordered by orthopedics given Alexandro sign on their exam 05/10 --> NEGATIVE PT/OT --> SNF, CM following. Likely inpatient through weekend given bed search/transport DVT Proph -- Lovenox started evening 05/09 Vit D low 22 -- per change lead, 50,000 weekly 1-2months, then daily supplementation after. Continues boost supplementation, multivitamin Mag improved to 1.8, additional 1gm to keep closer to 2gm in pt w/ severe to prevent afib (2) Balanitis: Plan: complaints of such during ER visit for COVID end of last month. RPR negative Clotrimazole 1% cream BID, Cortez catheter inserted in ER but discontinued given cx + klebsiella and placed on keflex (got ancef seven-operative period) Improving, patient without discomfort since abx/tx Monitor (3) Severe aortic stenosis: Plan: Recently referred for TAVR. Exercise tolerance of 20 steps on flat or 6 stairs with chest pain/SOB/fatigue. Cards consulted, cleared for surgery, volume status acceptable outpt f/u once healed from current fracture for consideration for TAVR (4) History of gastric bypass: Plan: Noted history of this, used to be 409lb prior to surgery B12 500, but placed on oral replacement given gastric bypass per change lead recs (5) Generalized weakness: Plan: PT/OT post operatively, plan for SNF (6) Severe protein-calorie malnutrition: Plan: Boost drinks and change lead consult, multivitamin, B12, vitamin D supplementation hx gastric bypass bowel regimen -- moving bowels as above (7) Vitamin D deficiency: Plan: History of this but not on supplementation. Repeat level with AM labs --LOW --started supplementation 50,000 weekly per recs change lead, continue 1-2 months then 2000 IU daily recommended (8) GERD without esophagitis: Plan: Switch omeprazole for pantoprazole per hospital formulary (9) BPH (benign prostatic hyperplasia): Plan: Continue tamsulosin 0.4mg PO HS Cortez catheter placed on admission --> d/c'd after infection earlier in stay, abx as above UOP acceptable (10) Osteoarthritis, generalized: Plan: Reportedly on prednisone 5mg PO daily for this although most recent PCP note mentions on this for pruritus scroti was on prednisone last admit, stress dosing, possible dx PMR but not documented (ESR 50) stress steroids as above post op, given 10mg today and plan to resume usual 5mg dose in Am however not edited by pharmacy switched for 5mg for AM (11) COVID: Plan: prior hx last month, no tx needed stable on RA 95%, >14 days since testing monitor (12) Coronary atherosclerosis of [place] coronary vessel: Plan: hx CABG, continue home medications cards consulted as above (13) DM2 (diabetes mellitus, type 2): Plan: prior hx of such but not needing any meds since gastric bypass BSG on am labs 93 BSGs acceptable and will monitor Plan: VTE Prophylaxis - SCDs initially, Lovenox started evening 05/09 PT/OT, CM following as plans for SNF Likely to remain inpatient through weekend unless bed available sooner Admission and Anticipated Discharge Date Admission Date: May 07, 2022 Supervising Physician Co-Signing Physician Notes PA Supervision Note: I did not personally see or examine the patient today, but I verified all knight points of LIANE Hughes's assessment and plan with the following exceptions/additions: None Subjective patient evaluated this morning, eating breakfast granddaughter brought fixident and able to eat breakfast better provided replacement batteries for hearing aides to change states pain improved from yesterday, utilizing ice pack as well which is helping. difficulty moving bowels yesterday, relieved and good BM following enema last evening. Continues on lactulose but will back to BID and monitor/increase if needed. Patient endorsed some chills last evening while attempting to move his bowels but no fever. He does also have some L heel pain -- possible start pressure ulcer and RN to place optifoam/elevate. Questions/concerns addressed and awaiting bed for rehab. Review of Systems Review of Systems: All systems reviewed & are unremarkable except as noted in HPI & below Physical Exam Physical Exam: General: thin, cachectic elderly male , sitting up in bed eating breakfast, no acute distressg HEENT: pupils equal, reactive, sclerae anicteric, trachea midline without deviation, mmm Resp: CTAB, diminished inspiratory effort, no w/c, on room air CV: RRR, 3-4/6 systolic murmur radiation to carotids, no edema/calf tenderness GI: +BS, thin/scaphoid, non-tender MSK/Neuro: NVI, RLE with dressing c/d/i, tender to palpation appropriately (decreased), pulses palpable, calves non-tender non edematous : no further Cortez, improvement in balanitis appearance Psych: AOx3, pleasant and cooperative Skin: thin, dry, chronic prednisone use, L heel stage I pressure Results & Data Results & Data ([facility]) Vital Signs (Past 12 Hours) Vital Signs Temp Pulse Resp BP Pulse Ox 05/11/22 07:52 36.5 C 73 16 105/57 L 95 05/10/22 22:25 36.2 C L 94 H 20 111/74 94 Laboratory Results 05/11/22 05/11/22 Range/Units 07:55 07:55 WBC 6.02 (4.8-10.8) K/uL RBC 3.26 L (4.7-6.1) M/uL Hgb 9.3 L (14.0-18.0) g/dL Hct 29.3 L (42-52) % MCV 89.9 (80-100) fL MCH 28.5 (25-34) pg MCHC 31.7 L (32-36) g/dL RDW Std Deviation 51.3 H (36.4-46.3) fL RDW Coeff of Yoanna 15.8 H (11.5-14.5) % Plt Count 381 (130-400) K/uL MPV 9.7 (7.4-10.4) fL Sodium 135 L (136-145) mmol/L Potassium 3.9 (3.5-5.1) mmol/L Chloride 100 (98-107) mmol/L Carbon Dioxide 31 (21-32) mmol/L Anion Gap 4 (3-11) BUN 12 (6-23) mg/dl Creatinine 0.47 L (0.6-1.4) mg/dl Est Cr Clr Drug Dosing 78.5 ml/min Est GFR ( Amer) 119.1 ml/min Est GFR (Non-Af Amer) 102.8 ml/min BUN/Creatinine Ratio 25.5 H (10-20) Glucose 93 (70-99(Fasting)) mg/dl Calcium 8.6 (8.5-10.1) mg/dl Magnesium 1.8 (1.7-2.4) mg/dl PG Care Time/CCT Total # of Minutes Spent Total Time Spent with Patient: Total time spent is greater than 50% in coordination of care (as documented) at patient's floor/unit and/or counseling patient: Coding Level of Care Code 88866 Subseq Hosp Care Lvl 2 Diagnoses Intertrochanteric fracture of right hip S72.141A Balanitis N48.1 Severe aortic stenosis I35.0 History of gastric bypass Z98.84 Generalized weakness R53.1 Severe protein-calorie malnutrition E43 Vitamin D deficiency E55.9 GERD without esophagitis K21.9 BPH (benign prostatic hyperplasia) N40.0 Osteoarthritis, generalized M15.9 COVID U07.1 Coronary atherosclerosis of [place] coronary vessel I25.10 DM2 (diabetes mellitus, type 2) E11.9
--- NOTE | 2022-05-11 08:27 | Orthopedic Progress Note ---
Date of Service May 11, 2022 Assessment & Plan (1) Fracture of hip, right, closed: Plan: Postop day 3 s/p post right TFN New calf pain right calf - will order US to r/o dvt PT/OT protocols. Toe-touch weightbearing right lower extremity. DVT prophylaxis- Lovenox daily, SCD's Pain management as written. DC planning- [facility]; auth pending. Orthopedics will sign off at this time. Instructions placed in DC section. Please call with any questions. Admission and Anticipated Discharge Date Admission Date: May 07, 2022 Subjective POD 3 Pt sleeping upon entering the room. Easily awoken. No complaints today. Discussed his plans for [facility]. Waiting for auth per CM note. Physical Exam Physical Exam: Dressings C/D/I. Calves soft, minimal tenderness right calf compared to yesterday. (US neg for DVT). NV intact. Results & Data ([facility]) Vital Signs (Past 12 Hours) Vital Signs Temp Pulse Resp BP Pulse Ox 05/11/22 07:52 36.5 C 73 16 105/57 L 95 05/10/22 22:25 36.2 C L 94 H 20 111/74 94 (1) Fracture of hip, right, closed Encounter type: initial encounter Qualified Code(s): S72.001A - Fracture of unspecified part of neck of right femur, initial encounter for closed fracture
[2022-05-11 09:06] LABS: BUN Creatinine Ratio 25.5 (10-20); Calcium 8.6 mg/dl (8.5-10.1); Creatinine Clr Calc Pharmacy 78.5 ml/min; Est GFR (African American) 119.1 ml/min; Est GFR (Non-African American) 102.8 ml/min; Magnesium 1.8 mg/dl (1.7-2.4); Potassium 3.9 mmol/L (3.5-5.1)
[2022-05-11 09:10] LABS: Hematocrit (blood only) 29.3 % (42-52); Hemoglobin 9.3 g/dL (14.0-18.0); Mean Corpuscular Hemoglobin 28.5 pg (25-34); Mean Corpuscular Hgb Conc 31.7 g/dL (32-36); Mean Corpuscular Volume 89.9 fL (80-100); Mean Platelet Volume 9.7 fL (7.4-10.4); Platelet Count 381 K/uL (130-400); RDW Coefficient of Variation 15.8 % (11.5-14.5); RDW Standard Deviation 51.3 fL (36.4-46.3); Red Blood Count 3.26 M/uL (4.7-6.1); White Blood Count 6.02 K/uL (4.8-10.8)
[2022-05-11] MEDS: FERROUS SULFATE 325 MG TAB PO SCH (09:26)
[2022-05-11] MEDS ORDERED: MAGNESIUM SULFATE / D5W 1 GM/100 ML BAG IV ONE (09:35)
[2022-05-11] MEDS: oxyCODONE HCL IR 5 MG TAB (IMMEDIATE RELEASE) PO PRN ×2 (10:10→16:07)
[2022-05-11] MEDS ORDERED: LACTULOSE SYRUP 20 GM/30 ML UDC PO SCH (21:00)
[2022-05-11] MEDS: MELATONIN 3 MG TAB PO PRN (21:14)
[2022-05-11] MEDS: ENOXAPARIN INJ 30 MG/0.3 ML SYR SQ SCH (21:15)
[2022-05-11] MEDS: DOCUSATE SODIUM/SENNA 50/8.6MG TAB PO SCH (21:16)
[2022-05-11] MEDS: LORATADINE 10 MG TAB PO SCH (21:16)
[2022-05-11] MEDS: TAMSULOSIN HCL 0.4 MG CAP PO SCH (21:17)
[2022-05-12] MEDS: oxyCODONE HCL IR 5 MG TAB (IMMEDIATE RELEASE) PO PRN ×3 (04:35→18:48)
[2022-05-12 06:30] LABS: BUN Creatinine Ratio 27.5 (10-20); Calcium 8.2 mg/dl (8.5-10.1); Creatinine Clr Calc Pharmacy 92.2 ml/min; Est GFR (African American) 127.3 ml/min; Est GFR (Non-African American) 109.8 ml/min; Magnesium 1.7 mg/dl (1.7-2.4); Potassium 3.9 mmol/L (3.5-5.1)
[2022-05-12] MEDS: MoRPHine SULFATE 4 MG/ML 1 ML CARP\\VIAL IV PRN ×2 (07:46→16:10)
[2022-05-12] MEDS: SUCRALFATE 1 GM TAB PO SCH ×4 (07:50→20:21)
--- NOTE | 2022-05-12 07:58 | Hospitalist Progress Note ---
Date of Service May 12, 2022 Assessment & Plan (1) Intertrochanteric fracture of right hip: Plan: Fell when walking dog, fell and sustained intertroch hip fx Of note, patient in ER 04/23, +COVID. Complaints of not eating well/lesions to groin/groin discomfort (RPR nonreactive) 97% on RA. CXR clear on admission Ortho consulted, cardiology consulted for pre-op clearance POD#4 s/p Open Reduction Internal Fixation Right hip fracture with trochanteric femoral nail with spiral blade - Adolph Bowei MD. EBL 15cc Hgb 10.2--> 9.6 --> 9.2 --> 9.3 * acute blood loss from surgery but also got some fluids with magnesium/operative as well and stable losses WBC wnl, afebrile Pain control -- oxycontin BID, IR prn/morphine IV if needed for breakthrough Bowel regimen --> multiple BM yesterday, holding lactulose for today (had BM this morning per patient), resume in AM vs as needed to assist with bowels Venous doppler 05/10 --> NEGATIVE PT/OT --> SNF, CM following. Likely inpatient through weekend given bed search/transport DVT Proph -- Lovenox started evening 05/09 Vit D low 22 -- per bell valet, 50,000 weekly 1-2months, then daily supplementation after. Continues boost supplementation, multivitamin (2) Balanitis: Plan: complaints of such during ER visit for COVID end of last month. RPR negative Clotrimazole 1% cream BID, Cortez catheter inserted in ER but discontinued given cx + klebsiella and placed on keflex evening 05/09 (got ancef seven-operative period) Improving, patient without discomfort since abx/tx and complete course PO at d/c if not finished while inpatient Monitor (3) Severe aortic stenosis: Plan: Recently referred for TAVR. Exercise tolerance of 20 steps on flat or 6 stairs with chest pain/SOB/fatigue. Cards consulted, cleared for surgery, volume status acceptable outpt f/u once healed from current fracture for consideration for TAVR (4) History of gastric bypass: Plan: Noted history of this, used to be 409lb prior to surgery B12 500, but placed on oral replacement given gastric bypass per bell valet recs (5) Generalized weakness: Plan: PT/OT post operatively, plan for SNF (6) Severe protein-calorie malnutrition: Plan: Boost drinks and bell valet consult, multivitamin, B12, vitamin D supplementation hx gastric bypass bowel regimen -- moving bowels as above (7) Vitamin D deficiency: Plan: History of this but not on supplementation. Repeat level with AM labs --LOW --started supplementation 50,000 weekly per recs bell valet, continue 1-2 months then 2000 IU daily recommended (8) GERD without esophagitis: Plan: Switch omeprazole for pantoprazole per hospital formulary (9) BPH (benign prostatic hyperplasia): Plan: Continue tamsulosin 0.4mg PO HS Cortez catheter placed on admission --> d/c'd after infection earlier in stay, abx as above UOP acceptable (10) Osteoarthritis, generalized: Plan: Reportedly on prednisone 5mg PO daily for this although most recent PCP note mentions on this for pruritus scroti was on prednisone last admit, stress dosing, possible dx PMR but not documented (ESR 50) stress steroids post op, then transitioned to 10mg x 2 days and planned on going to 5mg today, however BP low and will give extra 5mg with scheduled 5mg today and plan usual 5mg moving forward 05/13 (11) COVID: Plan: prior hx last month, no tx needed stable on RA 97%, >14 days since testing monitor (12) Coronary atherosclerosis of [place] coronary vessel: Plan: hx CABG Not on antiplatelet therapy-has history of gastric bypass so would avoid aspirin Not on Plavix possibly due to history of epistaxis? Not on beta-carolann due to history of hypotension, not on statin drug (13) DM2 (diabetes mellitus, type 2): Plan: prior hx of such but not needing any meds since gastric bypass BSG on am labs 92 BSGs acceptable and will monitor Plan: VTE Prophylaxis - SCDs initially, Lovenox started evening / PT/OT, CM following as plans for SNF when bed available this upcoming week Admission and Anticipated Discharge Date Admission Date: May 07, 2022 Supervising Physician Co-Signing Physician Notes PA Supervision Note: I did not personally see or examine the patient today, but I verified all knight points of LIANE Hughes's assessment and plan with the following exceptions/additions: None Subjective patient evaluated this morning, increased pain this morning, RN to administer medication shortly No fever/chills, chest pain, shortness of breath. Moved his bowels this morning. Awaiting placement and monitoring pain level. Review of Systems Review of Systems: All systems reviewed & are unremarkable except as noted in HPI & below Physical Exam Physical Exam: General: thin, cachectic elderly male , laying in bed, mildly uncomfortable reporting hip pain, no acute distress HEENT: pupils equal, reactive, sclerae anicteric, trachea midline without deviation, mmm Resp: CTAB, diminished inspiratory effort, no w/c, on room air CV: RRR, 3-4/6 systolic murmur radiation to carotids, no edema/calf tenderness GI: +BS, thin/scaphoid, non-tender MSK/Neuro: NVI, RLE with dressing c/d/i, moderately tender to palpation , pulses palpable, calves non-tender non edematous : no further Cortez, improvement in balanitis Psych: AOx3, pleasant and cooperative Skin: thin, dry, chronic prednisone use, L heel stage I pressure Results & Data Results & Data ([facility]) Vital Signs (Past 12 Hours) Vital Signs Temp Pulse Resp BP Pulse Ox 05/12/22 07:38 36.6 C 82 18 108/63 97 05/11/22 20:50 36.2 C L 67 18 106/58 L 96 Laboratory Results 05/12/22 05/11/22 05/11/22 Range/Units 05:27 07:55 07:55 WBC 6.02 (4.8-10.8) K/uL RBC 3.26 L (4.7-6.1) M/uL Hgb 9.3 L (14.0-18.0) g/dL Hct 29.3 L (42-52) % MCV 89.9 (80-100) fL MCH 28.5 (25-34) pg MCHC 31.7 L (32-36) g/dL RDW Std Deviation 51.3 H (36.4-46.3) fL RDW Coeff of Yoanna 15.8 H (11.5-14.5) % Plt Count 381 (130-400) K/uL MPV 9.7 (7.4-10.4) fL Sodium 133 L 135 L (136-145) mmol/L Potassium 3.9 3.9 (3.5-5.1) mmol/L Chloride 98 100 (98-107) mmol/L Carbon Dioxide 33 H 31 (21-32) mmol/L Anion Gap 2 L 4 (3-11) BUN 11 12 (6-23) mg/dl Creatinine 0.40 L 0.47 L (0.6-1.4) mg/dl Est Cr Clr Drug Dosing 92.2 78.5 ml/min Est GFR ( Amer) 127.3 119.1 ml/min Est GFR (Non-Af Amer) 109.8 102.8 ml/min BUN/Creatinine Ratio 27.5 H 25.5 H (10-20) Glucose 92 93 (70-99(Fasting)) mg/dl Calcium 8.2 L 8.6 (8.5-10.1) mg/dl Magnesium 1.7 1.8 (1.7-2.4) mg/dl PG Care Time/CCT Total # of Minutes Spent Total Time Spent with Patient: Total time spent is greater than 50% in coordination of care (as documented) at patient's floor/unit and/or counseling patient: Coding Level of Care Code 68752 Subseq Hosp Care Lvl 2 Diagnoses Intertrochanteric fracture of right hip S72.141A Balanitis N48.1 Severe aortic stenosis I35.0 History of gastric bypass Z98.84 Generalized weakness R53.1 Severe protein-calorie malnutrition E43 Vitamin D deficiency E55.9 GERD without esophagitis K21.9 BPH (benign prostatic hyperplasia) N40.0 Osteoarthritis, generalized M15.9 COVID U07.1 Coronary atherosclerosis of [place] coronary vessel I25.10 DM2 (diabetes mellitus, type 2) E11.9
[2022-05-12] MEDS ORDERED: MAGNESIUM SULFATE / D5W 1 GM/100 ML BAG IV ONE (08:15)
[2022-05-12] MEDS ORDERED: predniSONE 5 MG TAB PO ONE (09:58)
[2022-05-12] MEDS: allopurinoL 300 MG TAB PO SCH (10:02)
[2022-05-12] MEDS: oxyCODONE HCL 15 MG TABCR (OxyCONTIN) PO SCH ×2 (10:02→20:24)
[2022-05-12] MEDS: FOLIC ACID 1 MG TAB PO SCH (10:03)
[2022-05-12] MEDS: CYANOCOBALAMIN (B-12) 500 MCG TABLET PO SCH (10:03)
[2022-05-12] MEDS: LINACLOTIDE 145 MCG CAPSULE PO SCH (10:03)
[2022-05-12] MEDS: CLOTRIMAZOLE 1% CR 15 GM TUBE EXT SCH ×2 (10:04→20:22)
[2022-05-12] MEDS: cephALEXin 500 MG CAP PO SCH ×4 (10:04→20:20)
[2022-05-12] MEDS: DULoxetine HCL 30 MG CAP PO SCH (10:05)
[2022-05-12] MEDS: MULTIVITAMIN TAB PO SCH (10:05)
[2022-05-12] MEDS: FERROUS SULFATE 325 MG TAB PO SCH (10:05)
[2022-05-12] MEDS: PANTOprazole 40 MG TAB PO SCH ×2 (10:06→20:21)
[2022-05-12] MEDS: predniSONE 5 MG TAB PO SCH (10:06)
[2022-05-12] MEDS: THIAMINE HCL 100 MG TAB PO SCH (10:06)
[2022-05-12] MEDS: TAMSULOSIN HCL 0.4 MG CAP PO SCH (20:21)
[2022-05-12] MEDS: ENOXAPARIN INJ 30 MG/0.3 ML SYR SQ SCH (20:22)
[2022-05-12] MEDS: LORATADINE 10 MG TAB PO SCH (20:22)
[2022-05-12] MEDS: DOCUSATE SODIUM/SENNA 50/8.6MG TAB PO SCH (20:22)
[2022-05-12] MEDS: MELATONIN 3 MG TAB PO PRN (20:24)
[2022-05-13] MEDS: MoRPHine SULFATE 4 MG/ML 1 ML CARP\\VIAL IV PRN ×3 (02:35→12:48)
[2022-05-13] MEDS: oxyCODONE HCL IR 5 MG TAB (IMMEDIATE RELEASE) PO PRN ×2 (04:12→12:13)
[2022-05-13 06:55] LABS: BUN Creatinine Ratio 28.2 (10-20); Calcium 8.2 mg/dl (8.5-10.1); Creatinine Clr Calc Pharmacy 94.6 ml/min; Est GFR (African American) 128.6 ml/min; Magnesium 1.7 mg/dl (1.7-2.4)
[2022-05-13] MEDS: oxyCODONE HCL 15 MG TABCR (OxyCONTIN) PO SCH (08:36)
[2022-05-13] MEDS: cephALEXin 500 MG CAP PO SCH ×2 (08:43→12:14)
[2022-05-13] MEDS: SUCRALFATE 1 GM TAB PO SCH ×2 (08:44→12:14)
[2022-05-13] MEDS: predniSONE 5 MG TAB PO SCH (08:44)
[2022-05-13] MEDS: THIAMINE HCL 100 MG TAB PO SCH (08:45)
[2022-05-13] MEDS: CYANOCOBALAMIN (B-12) 500 MCG TABLET PO SCH (08:45)
[2022-05-13] MEDS: DULoxetine HCL 30 MG CAP PO SCH (08:45)
[2022-05-13] MEDS: LINACLOTIDE 145 MCG CAPSULE PO SCH (08:45)
[2022-05-13] MEDS: allopurinoL 300 MG TAB PO SCH (08:47)
[2022-05-13] MEDS: MULTIVITAMIN TAB PO SCH (08:47)
[2022-05-13] MEDS: PANTOprazole 40 MG TAB PO SCH (08:48)
[2022-05-13] MEDS: FERROUS SULFATE 325 MG TAB PO SCH (08:48)
[2022-05-13] MEDS: FOLIC ACID 1 MG TAB PO SCH (08:48)
[2022-05-13] MEDS: CLOTRIMAZOLE 1% CR 15 GM TUBE EXT SCH (08:51)
--- NOTE | 2022-05-13 11:50 | Discharge Summary ---
Date of Service May 13, 2022 Admission HPI Per Admitting Provider Krzysztof Briones is an 81 year old male who presents to the ER after a fall earlier today after he stepped backwards from his dog running in front of him. Right groin pain following the fall. He did not hit his head or loose consciousness. He was recently in the ER for Asymptomatic with COVID on April 23. SARS-COV-2 PCR negative in the ER on this occasion. He has a significant cardiac history with CAD s/p CABG in 1996 and severe calcific aortic stenosis - recently referred for TAVR. S/p gastric bypass surgery in 2003. Reportedly on chronic prednisone for arthritis in his neck although he describes more proximal muscle pain but has no known diagnosis of polymyalgia rheumatica. In the ER hip XR confirmed intertrochanteric hip fracture of the right proximal femur. He was referred to medicine for admission and ongoing management of this. Principal Diagnosis Right hip fracture Discharge Exam General: thin, cachectic elderly male , laying in bed, no acute distress HEENT: sclerae anicteric, trachea midline without deviation, mmm Resp: CTAB, diminished inspiratory effort, no w/c, on room air CV: RRR, 3/6 systolic murmur at RUSB, no edema/calf tenderness GI: +BS, thin/scaphoid, non-tender MSK/Neuro: NVI, RLE with dressing c/d/i, moderately tender to palpation , pulses palpable, calves non-tender non edematous Psych: AOx3, pleasant and cooperative Skin: thin, dry, L heel stage I pressure Discharge Data Allergies Allergy/AdvReac Type Severity Reaction Status Date / Time No Known Allergies Allergy Verified 05/07/22 17:20 Consultations 05/07/22 16:14 ED Decision to Admit Stat 05/07/22 16:21 Consult Cardiology Routine 05/07/22 16:22 Consult Orthopedic Surgery Routine 05/07/22 16:24 Consult Orthopedic Surgery Stat Procedures Performed Operation Date: 05/08/22 07:00 Actual Procedures p Open Reduction Internal Fixation Right hip fracture with trochanteric nail(Right) - Adolph Bowie MD Ordered Studies 05/08/22 14:30 FL hip RT 2-3V Routine 05/10/22 07:48 US venous doppler LE RT Routine Hospital Course (1) Intertrochanteric fracture of right hip: Fell when walking dog, fell and sustained intertroch hip fx Of note, patient in ER 04/23, +COVID. Complaints of not eating well/lesions to groin/groin discomfort (RPR nonreactive) 97% on RA. CXR clear on admission Ortho consulted, cardiology consulted for pre-op clearance POD#5 s/p Open Reduction Internal Fixation Right hip fracture with trochanteric femoral nail with spiral blade - Adolph Bowie MD. EBL 15cc Hgb 10.2--> 9.6 --> 9.2 --> 9.3 * acute blood loss from surgery but also some hemodilutional WBC wnl, afebrile Pain control -- oxycontin BID, IR prn breakthrough Bowel regimen --> has long history fo severe constipation which is opioid rel ated-continue lactulose bid, senna/docusate Venous doppler 05/10 performed for swelling calf --> NEGATIVE for DVT PT/OT --> plan for rehab today DVT Proph -- Lovenox x 4 weeks, ROSALIA hose -f/u Ortho as planned Vit D low 22 -- 50,000 units once weekly 1-2months, then daily supplementation after. Continues boost supplementation, multivitamin (2) Balanitis: complaints of such during ER visit for COVID end of last month Clotrimazole 1% cream BID, Cortez catheter inserted in ER but discontinued given cx + klebsiella and placed on keflex evening 05/09 (got anc seven-operative period) Improving, patient without discomfort since abx/tx and complete course PO at d/c with 3 more days of keflex Monitor (3) Severe aortic stenosis: Recently referred for TAVR. Exercise tolerance of 20 steps on flat or 6 stairs with chest pain/SOB/fatigue. Cards consulted, cleared for surgery, volume status acceptable outpt f/u once healed from current fracture for consideration for TAVR Follows with [facility] (4) History of gastric bypass: Noted history of this, used to be 409lb prior to surgery B12 500, but placed on oral replacement given gastric bypass per corn detasseler recs (5) Generalized weakness: PT/OT post operatively, plan for rehab (6) Severe protein-calorie malnutrition: Boost drinks and corn detasseler consult, multivitamin, B12, vitamin D supplementation hx gastric bypass bowel regimen -- moving bowels as above (7) Vitamin D deficiency: History of this but not on supplementation. Repeat level with AM labs --LOW --started supplementation 50,000 weekly, continue 1-2 months then 2000 IU daily recommended (8) GERD without esophagitis: continue ppi (9) BPH (benign prostatic hyperplasia): Continue tamsulosin 0.4mg PO HS Cortez catheter placed on admission --> d/c'd after infection earlier in stay, abx as above UOP acceptable (10) Osteoarthritis, generalized: Reportedly on prednisone 5mg PO daily for this although most recent PCP note mentions on this for pruritus scroti continue misoprostol on home med rec for GI protection due to gastric bypass and chronic prednisone use stress steroids post op nad then tapered back to usual dose on discharge (11) COVID: prior hx last month, no tx needed stable on RA 97%, >14 days since testing (12) Coronary atherosclerosis of [place] coronary vessel: hx CABG Not on antiplatelet therapy-has history of gastric bypass so would avoid aspirin Not on Plavix possibly due to history of epistaxis? Not on beta-carolann due to history of hypotension, not on statin drug defer to Cardiology as to whether he should be on Plavix, statin (13) DM2 (diabetes mellitus, type 2): prior hx of such but not needing any meds since gastric bypass VTE Prophylaxis - SCDs , ROSALIA subramanian, Lovenox started evening 6/16 and should continue x 28 days Dispo-dc to [facility] today Total Time Total Time Spent Total Time Spent (In Minutes): 40 min Discharge Plan Discharge Items Patient Disposition: Transfer Inpatient Rehab Fac Reason For Visit: RIGHT HIP FRACTURE Discharge Diagnosis: Right Hip Fracture Condition on Discharge: Fair Activity: Per Instructions section Weightbearing: Right toe touch Non-emergency contact: Primary Care Provider and Surgeon Call non-emergency contact if: you have any medication questions, your pain is not controlled, your temperature is above 101.5, your wound has increased redness and your wound has increased drainage Follow-up/Referrals: Luisa Velasquez MD [Primary Care Provider] - Adolph Bowie MD [Surgeon] - (Follow up with Dr. Bowie in 14 days from the day of surgery for your first post operative visit and staple removal. ) Diet: Heart Healthy Addtl Attending Provider Instructions: Please finish out the course of keflex for your balanitis for 3 more days. Addtl Eap Consultant Provider Instructions: [facility] DISCHARGE INSTRUCTIONS: HIP FRACTURE SELF CARE INSTRUCTIONS: A. You are to ambulate with a walker or crutches for approximately 6 weeks. B. You are TOE TOUCH WEIGHT BEARING on your operative lower extremity for at least 6 weeks. C. Wear low heeled shoes with non-slip soles D. Be sure that your floors are free of things that could trip you throw rugs, electrical cords, and small objects. Avoid wet and waxed floors, especially with crutches/walker/cane. E. Try to walk several times a day with rest periods between. F. You may shower 48 hours after surgery and get the incision area wet, but DO NOT soak or submerge incision area in water. (No baths, swimming pools, hot tubs) G. You may have a large, band-aid like dressing over your incision (Aquacel). This will remain on your incision for 7 days, and then can be removed. You CAN shower with this on. If incision is leaking through the dressing, please call the office . H. Do NOT apply soap or any ointment/lotions directly over incision. I. You may use ice as needed to operative site. SPECIAL CARE INSTRUCTIONS: VERY IMPORTANT TO READ AND REVIEW A. You may be at risk for phlebitis or blood clots. a. Wear surgical stockings (RSOALIA hose) for 2 weeks after surgery to improve circulation and reduce swelling. b. Take LOVENOX 30mg SQ Daily for 4 weeks or as directed. This is your blood thinner. B. There are a few signs you need to watch for after you are home. Call [facility] at [phone] if you experience any of the following: a. If you have a temperature of 101 degrees or higher. b. Sudden increase in pain in your hip not relieved by rest or pain medication. c. Any fluid or drainage from the incision; redness of the incision. d. Shortness of breath or chest pain. C. Call your physician if: a. Temperature is greater than 101 degrees (F). b. Pain is not relieved by prescribed pain medications. c. Increase drainage or redness from incision. d. Unanswered questions or concerns. D. Pain Medication: a. You will be prescribed pain medication upon discharge that should last till your first post-operative appointment. b. If you experience nausea and/or skin rash, discontinue this medication and contact our office for an alternative medication. c. Caution- narcotic pain medication can cause constipation. FOLLOW UP VISIT: Please call [facility] at [phone] to schedule a follow up appointment 10-14 days from the date of your surgery date. Pending Studies at Discharge: No Stand-Alone Forms: My [facility] Skilled Items Patient informed of condition?: Yes DNR: No Discharge Level of Care: Acute rehab Communicable Disease: No Discharge Prognosis: Improving Lines: None Urinary Catheter: No Medications and DC Order Prescriptions: New ergocalciferol (vitamin D2) 1,250 mcg (50,000 unit) Capsule 50,000 unit PO Q7D@0900 Qty: 7 RF: 0 cephalexin 500 mg Capsule 500 mg PO QID 3 Days Qty: 12 RF: 0 enoxaparin [Lovenox] 30 mg/0.3 mL Syringe 30 mg subcut QPM 23 Days Qty: 6.9 RF: 0 ferrous sulfate 325 mg (65 mg iron) Tablet,Delayed Release (Dr/Ec) 325 mg PO QAM Qty: 30 RF: 0 lactulose 20 gram/30 mL Solution 20 g PO BID Qty: 1200 RF: 0 sennosides-docusate sodium [Senokot-S] 8.6-50 mg Tablet 2 tab PO HS Qty: 60 RF: 0 clotrimazole 1 % Cream 1 applic EXT BID 7 Days Qty: 15 RF: 0 cyanocobalamin (vitamin B-12) 500 mcg Tablet 1,000 mcg PO QAM Qty: 60 RF: 0 Continued omeprazole 40 mg capsule,delayed release(DR/EC) 40 mg PO BID Qty: 60 RF: 5 prednisone 5 mg tablet 5 mg PO QAM Qty: 30 RF: 5 oxycodone [OxyContin] 30 mg tablet,oral only,ext.rel.12 hr 30 mg PO Q12H 30 Days Qty: 60 RF: 0 ondansetron 4 mg tablet,disintegrating 4 mg PO Q8H PRN (Reason: nausea and vomiting) Qty: 30 RF: 0 oxycodone 15 mg tablet 15 mg PO BID PRN (Reason: breakthrough pain) Qty: 60 RF: 0 nitroglycerin 0.4 mg tablet, sublingual 0.4 mg SL Q5M PRN (Reason: chest pain) Qty: 25 RF: 0 guaifenesin [Mucinex] 600 mg tablet extended release 12hr 600 mg PO Q12H PRN (Reason: congestion) Qty: 60 RF: 0 loratadine [Claritin] 10 mg tablet 10 mg PO HS Qty: 90 RF: 1 tamsulosin 0.4 mg capsule 0.4 mg PO HS Qty: 90 RF: 3 duloxetine 30 mg capsule,delayed release(DR/EC) 30 mg PO DAILY Qty: 30 RF: 5 allopurinol 300 mg tablet 300 mg PO QAM RF: 0 Linzess 290 mcg capsule 290 mcg PO QAM RF: 0 Boost High Protein 0.06 gram- 1 kcal/mL liquid 1 ea PO 6XD RF: 0 sucralfate 1 gram Tablet 1 g PO QID RF: 0 misoprostol 100 mcg tablet 100 mcg PO QID RF: 0 ipratropium bromide 21 mcg (0.03 %) [place],Non-Aerosol 2 spray INTRANASAL BID PRN (Reason: rhinitis) RF: 0 folic acid 1 mg Tablet 1 mg PO QAM Qty: 30 RF: 0 multivitamin with folic acid [Daily-Ludivina (with folic acid)] 400 mcg Tablet 1 tab PO QAM Qty: 30 RF: 0 thiamine HCl (vitamin B1) 100 mg Tablet 100 mg PO QAM Qty: 30 RF: 0 polyethylene glycol 3350 17 gram/dose powder 17 gm PO DAILY Qty: 1 RF: 0 Discontinued clobetasol 0.05 % cream 1 appln topical BID PRN (Reason: flare ups) Qty: 1 RF: 0 nystatin 100,000 unit/gram cream 1 applic topical BID Qty: 30 RF: 3 triamcinolone acetonide 0.1 % cream 1 applic topical BID Qty: 30 RF: 3 mupirocin 2 % ointment 1 applic topical BID PRN (Reason: ..) RF: 0 Discharge Orders: Discharge Order (Routine); Ordered 05/13/22 Ordered By: Mayra Nicole Admission Data Admit Date/Time: 05/07/22 17:08 Attending Provider: Mayra Nicole Admit Provider: Ravinder Hannah Primary Care Provider: Luisa Velasquez Other Providers: Luke Scott ; Teddy Soares ; [facility] ; Ravinder Hannah ; Charlie Rowley Coding Level of Care Code D/C DAY MANAGEMENT >30 MINS Diagnoses Intertrochanteric fracture of right hip S72.141A Balanitis N48.1 Severe aortic stenosis I35.0 History of gastric bypass Z98.84 Generalized weakness R53.1 Severe protein-calorie malnutrition E43 Vitamin D deficiency E55.9 GERD without esophagitis K21.9 BPH (benign prostatic hyperplasia) N40.0 Osteoarthritis, generalized M15.9 COVID U07.1 Coronary atherosclerosis of [place] coronary vessel I25.10 DM2 (diabetes mellitus, type 2) E11.9
== END 2022-05-13 12:50 | DRG 480 ==
LOC: ED 15:13 → SUATTDRO 17:08 → 3N 17:08

== ENCOUNTER 2022-09-22 19:13 | Inpatient (IN) ==
[2022-09-22] MEDS ORDERED: SODIUM CHLORIDE 0.9% 1000ML 1,000 ML IV STA (19:46)
[2022-09-22 20:09] LABS: Hematocrit (blood only) 36.5 % (40.1-51.0); White Blood Count 9.58 K/ul (4.8-10.8)
[2022-09-22 20:09] LABS: Appearance Urine Cloudy (Clear); Bacteria Urine Automated 4+ (Negative); Bilirubin Urine Negative (Negative); Blood Urine 3+ (Negative); Color Urine Dark Yellow; Epithelial Cell Urine Auto >30 /lpf (0-5); Glucose Urine UA Negative (Negative); Ketones Urine 1+ (Negative); Leukocyte Esterase Urine 1+ (Negative); Nitrite Urine Positive (Negative); Protein Urine 2+ (Negative); Urobilinogen Urine Negative (Negative); pH Urine 6.5 (4.5-7.5)
[2022-09-22 20:23] LABS: Albumin Globulin Ratio 0.8 (0.9-2); Albumin Level 2.8 gm/dl (3.4-5.0); BUN Creatinine Ratio 49.1 (10-20); Basophils # (auto) 0.03 K/uL (0-0.2); Basophils % (auto) 0.3 %; Bilirubin,Total 0.9 mg/dl (0.2-1.0); Calcium 9.3 mg/dl (8.5-10.1); Creatinine Clr Calc Pharmacy 63.9 ml/min; Echinocytes 1+; Eosinophils # (auto) 0.07 K/uL (0-0.50); Eosinophils % (auto) 0.7 %; Est GFR (African American) 111.7 ml/min; Est GFR (Non-African American) 96.4 ml/min; Globulin 3.7 gm/dl (2.5-4.0); Immature Granulocytes # (auto) 0.04 K/uL (0.00-0.02); Immature Granulocytes % (auto) 0.4 %; Lymphocytes # (auto) 0.21 K/uL (1.2-3.4); Lymphocytes % (auto) 2.2 %; Magnesium 1.7 mg/dl (1.7-2.4); Mean Corpuscular Hemoglobin 29.3 pg (25.0-34.0); Mean Corpuscular Hgb Conc 32.9 g/dL (32.0-36.0); Mean Platelet Volume 10.3 fL (9.4-12.4); Monocytes % (auto) 2.1 %; Neutrophils # (auto) 9.03 K/uL (1.4-6.5); Neutrophils % (auto) 94.3 %; Platelet Count 135 K/uL (130-400); Platelet Estimate Normal (Normal); Potassium 3.1 mmol/L (3.5-5.1); RDW Coefficient of Variation 15.9 % (11.5-14.5); RDW Standard Deviation 52.1 fL (36.4-46.3); Total Protein 6.5 gm/dl (6.0-8.3)
[2022-09-22 20:32] LABS: Troponin I High Sensitivity 2894.3 pg/ml (0-20)
[2022-09-22] MEDS ORDERED: SODIUM CHLORIDE 0.9% 1000ML 500 ML IV ONE (20:35)
[2022-09-22] MEDS ORDERED: POTASSIUM CHLORIDE / WTR 10 MEQ/100 ML PLCT IV ONE (20:35)
[2022-09-22] MEDS ORDERED: cefTRIAXone SODIUM 2,000 MG/70 ML BAG IV STA (20:35)
--- NOTE | 2022-09-22 22:21 | History & Physical Report ---
Date of Service September 22, 2022 Assessment & Plan (1) Urinary tract infection: Plan: Patient is an 81 yo male with PMHx of BASHIR, hemorrhoids, chronic cholecystitis, hx gastric bypass, BPH, COVID, depression, DM2, gastroparesis, GERD, DVT, HLD, HTN, OA, severe , sleep apnea, and severe protein calorie malnutrition admitted 09/22/22 due to UTI and significant change in mental status/generalized weakness. Sepsis secondary to urinary tract infection with change in mental status and generalized weakness - Thorough chart review and based on PCP note 09/16, patient's presentation tonight is drastically different from presentation 6 days ago - Recommend clinical coordination between inpatient team and outpatient PCP - Consult case management - UA on admission is contaminated with > 30 epithelial cells but appears to be i nfected with 1+ ketones, 3+ blood, positive nitrite, 1+ leuk esterase, 5-10 WBC, and 4+ bacteria - Patient meets sepsis criteria with tachycardia, tachypnea, and source of infection - Patient received IV ceftriaxone in ER; will continue with IV ceftriaxone q12h on admission - Patient with recent diagnosis of candidal esophagitis on EGD treated with fluconazole po x3 days; will start antifungal coverage with 200mg IV fluconazole daily on admission - Continue IVF - CK wnl - Head CT 09/22 with no evidence of acute large vessel infarct or intracranial hemorrhage - Brain MRI ordered - Urine cx pending - Blood cx pending Cachexia with severe protein calorie malnutrition - Per family report, at baseline patient eats full regular diet - Hx of gastric bypass surgery, ? malabsorption syndrome - Decreased po intake over the past several days - Albumin 2.8 - 7 lb weight loss since PCP visit 6 days ago - Will consult nutrition Hypokalemia - Received 10 mEq via K-rider in ED - Additional 40 mEq K-rider ordered - Monitor BMP Dysphagia - Patient failed bedside swallow; coughing with mouth swabs as well - ST eval placed - NPO until ST eval completed - Recent EGD d/t dysphagia and weight loss with findings of candidal esophagitis (see above) Elevated Troponin - Troponin elevated at 2894.3; trend troponin - ? demand ischemia secondary to sepsis Chronic Pain secondary to OA - Per PDMP, patient with 165 MME/day oxycodone - ? compliance with medication - Held on admission - Monitor for withdrawal Hx DVT - Will start Lovenox 30mg sq q24h (weight adjusted) BASHIR - Continue ferrous sulfate 325mg daily; hold while NPO BPH - Continue flomax; hold while NPO FENGI: NPO DVT ppx: Lovenox 30mg sq q24h Dispo: Admit to medsurg/tele Code status: Conditional code -- no CPR or defibrillation (2) Sepsis: (3) Cachexia: (4) Iron deficiency: (5) Low back pain: History of Present Illness Primary Care Provider: Luisa Velasquez MD Patient is an 81 yo male with PMHx of BASHIR, hemorrhoids, chronic cholecystitis, hx gastric bypass, BPH, COVID, depression, DM2, gastroparesis, GERD, DVT, HLD, HTN, OA, severe , sleep apnea, and severe protein calorie malnutrition who presented to the ER on 09/22/22 due to generalized weakness and change in mental status. History unable to be obtained by patient due to clinical condition. I personally obtained following information from patient's daughter, Maritza Rich ([phone]), by phone. At baseline, patient is reportedly fairly in dependent with ADLs and can ambulate with a walker, hold full conversations appropriately, interact appropriately, and he eats a full regular diet. Patient had a PCP appointment on Friday for his AWV during which time he received the flu vaccine; patient and patient's daughter went shopping after the appointment. Daughter states that patient was doing well until Friday evening (4 days ago) when a family member found patient confused and "shaking." Patient does take 165 MME/day of oxycodone for hx of OA of the neck and family had difficulty getting refill on Friday after the PCP appointment, so family presumed that patient was in withdrawal. The following day, patient's grandson woke up in the morning and noticed that the patient had urinary and fecal incontinence all over the bed, himself, and his bedroom meng; incontinence is reportedly not baseline for patient. Patient was then noted to have increased fatigue, decreased responsiveness/alertness, recurrent "shaking" episodes, recurrent urinary and stool incontinence, and a fever with Tmax 102 F. Patient continued to have progressive weakness and was eventually unable to get out of bed at the later part of this week. Daughter does note that since Friday, patient has been "ignoring and not responding" to family members but he has continued to complain of arm and body aches. Patient is closely followed by his PCP, Dr. Velasquez, as well as the [facility] ER course: 1 L NSS bolus, currently receiving an additional 1 L NSS at 125 cc/hr, 2 g ceftriaxone, and 10 mEq K+ Labs significant for normocytic anemia Hgb 12.0, normal WBC 9.58, hypokalemia 3.1, LFTs wnl, TSH 1.7, Hs-troponin elevated at 2894.3 UA contaminated with > 30 epithelial cells but significant for 1+ ketones, 3+ blood, positive nitrite, 1+ LE, 5-10 WBC, 10-30 RBC, and 4+ bacteria COVID negative Allergies Allergy/AdvReac Type Severity Reaction Status Date / Time No Known Allergies Allergy Verified 09/22/22 21:03 Home Medications Medication Instructions Recorded Confirmed Type nitroglycerin 0.4 mg sublingual 0.4 mg sublingual Q5M PRN chest 07/01/19 09/22/22 History tablet pain #25 tabs allopurinol 300 mg tablet 300 mg PO QAM 07/13/21 09/22/22 History linaclotide 290 mcg capsule 290 mcg PO QAM 07/13/21 09/22/22 History (Linzess) tamsulosin 0.4 mg capsule 0.4 mg PO HS #90 caps 08/02/21 09/22/22 Rx prednisone 5 mg tablet 5 mg PO QAM #30 tabs 02/04/22 09/22/22 Rx folic acid 1 mg tablet 1 mg PO QAM #30 tabs 03/02/22 09/22/22 Rx multivitamin with folic acid 400 1 tab PO QAM #30 tabs 03/02/22 09/22/22 Rx mcg tablet (Daily-Ludivina (with folic acid)) thiamine HCl (vitamin B1) 100 mg 100 mg PO QAM #30 tabs 03/02/22 09/22/22 Rx tablet ipratropium bromide 21 mcg (0.03 2 spray intranasal BID PRN rhinitis 04/23/22 09/22/22 History %) nasal spray ferrous sulfate 325 mg (65 mg 325 mg PO QAM #30 tabs 05/13/22 09/22/22 Rx iron) tablet,delayed release sennosides 8.6 mg-docusate sodium 2 tab PO HS #60 tabs 05/13/22 09/22/22 Rx 50 mg tablet (Senokot-S) miscellaneous medical supply #30 grams 08/01/22 09/16/22 Rx cholecalciferol (vitamin D3) 25 25 mcg PO QAM 08/12/22 09/22/22 History mcg (1,000 unit) tablet (Vitamin D3) docusate sodium 100 mg capsule 100 mg PO QAM 08/12/22 09/22/22 History (Colace) guaifenesin 600 mg tablet, 600 mg PO UD PRN congestion 08/12/22 09/22/22 History extended release 12 hr (Mucinex) loratadine 10 mg tablet (Claritin) 10 mg PO DAILY PRN ALLERGIES 08/12/22 09/22/22 History omeprazole 40 mg capsule,delayed 40 mg PO BID #60 caps 08/21/22 09/22/22 Rx release food supplemt, lactose-reduced 1 ea PO 6XD 09/16/22 09/22/22 History 0.06 gram-1 kcal/mL oral liquid (Boost High Protein) lactulose 20 gram/30 mL oral 20 g (30 mL) PO BID PRN 09/16/22 09/22/22 Rx solution Constipation #3,000 mL nystatin 100,000 unit/gram topical 1 applic topical BID #30 grams 09/16/22 09/22/22 Rx ointment oxycodone 15 mg tablet 15 mg PO BID PRN breakthrough pain 09/16/22 09/22/22 Rx #60 tabs oxycodone 40 mg tablet,crush 40 mg PO BID #60 tabs 09/16/22 09/22/22 Rx resistant,extended release 12 hr Past Med/Surg History Medical History (Updated 09/23/22 @ 15:53 by Charlie Rowley MD) B12 deficiency ? BPH (benign prostatic hyperplasia) Chest pain EPISODE LAST WEEK...USED NITRO X 1 DOSE AND RESOLVED PT REPORTS HE BELIEVES IT WAS HEARTBURN AND THIS IS WHY HE IS HAVING HIS PROCEDURE DONE Chronic, continuous use of opioids Coronary atherosclerosis of [place] coronary vessel COVID 4-5 MON AGO Depression Discharged to rehabilitation facility RIGHT HIP FX , SURGICAL INTERVENTION MAY 2022 ...[facility]...DISCHARGED FROM REHAB 2 WEEKS AGO DM2 (diabetes mellitus, type 2) prior to gastric bypass--no meds now Fracture of hip, right, closed Gastroparesis GERD without esophagitis Gouty arthropathy Hearing deficit History of anemia History of DVT (deep vein thrombosis) 20 YR AGO Hyperlipidemia LDL goal <100 Hypertension Internal hernia OA (osteoarthritis) of hip Other psoriasis Poor historian Pruritus scroti Restless legs Severe aortic stenosis PT REPORTS HEART VALVE PROBLEM AND THAT A BALLOON NEEDS TO BE PUT IN THERE BECAUSE IT'S CLOSING. FOLOWS DR ROWLEY. Severe protein-calorie malnutrition Sleep apnea hx of prior to gastric bypass sx--no device Trouble swallowing SOMETIMES HURTS, FEELS LIKE A GAS BUBBLE - REASON FOR UPCOMING PROCEDURE Surgical History Bariatric surgery status 2007 @ [facility] [place] History of bilateral cataract extraction History of cardiac cath x2 ? prior to bypass--pt does not believe any stents placed History of carpal tunnel surgery of right wrist History of colonoscopy History of esophagogastroduodenoscopy (EGD) History of tooth extraction all teeth removed S/P hip replacement PT DENIES HIP REPLACEMENT, REPORTS HAD PIN IN MY HIP - S/P JUNE 01 ? 2021 ([place]) RIGHT HIP D/C FROM [facility] 2 WEEKS AGO S/P triple vessel bypass [place]...1996 Status post panniculectomy Family History Mother Diabetes Other No family history of adverse response to anesthesia Denies family history of Ovarian cancer Prostate cancer Myocardial infarction Breast cancer Colorectal cancer Social History Smoking Status: Unknown if ever smoked Tobacco Type: Cigarettes Age Started Using Tobacco: 20; Age Quit Using Tobacco: 63; packs per day: 1; Second Hand Exposure: No; Hx Alcohol Use: No Hx Substance Use: No Preferred Language: Colombian Communication Ability: Impaired Visual Impairment: No Limitations Hearing Ability: Use of Hearing Aid Ventilation Equipment Tender Required: No Beliefs That Will Affect Care: Jew Jew Beliefs: RESTORATIONIST marital status: / Current Living Situation: Family Current Living Situation Comment: [facility] WITH NOW TO HELP RECOVER 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al status: retired 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 Awake. No apparent distress. EYES: PERRL. Anicteric sclerae. HENT: Edentulous. Dry mucous membranes. RESPIRATORY: Anterior and lateral lung ludwig auscultated and are clear to auscultation bilaterally without wheezing, rales, or rhonchi. CARDIOVASCULAR: Tachycardic. + murmur. No JVD. ABDOMEN: Thin abdomen with protrusion of anterior ribs. Abd is soft. Non- distended. No obvious tenderness to palpation. No guarding or rebound. EXTREMITIES: Very thin. No obvious tenderness to palpation. No edema. SKIN: Warm, dry. Multiple sacral ulcers / bed sores. NEUROLOGIC: Patient is alert. Difficulty following commands but does open eyes to command. Speech is garbled with 1 word responses that are difficult to make out. 4/5 strength with hand clinical trial coordinator bilaterally but otherwise no active movement of arms or legs. PSYCHIATRIC: Unable to evaluate. Results & Data Results & Data ([facility]) Vital Signs (Past 12 Hours) Vital Signs Temp Pulse Pulse Resp BP BP Pulse Ox 09/22/22 19:54 115 H 25 H 95 09/22/22 19:38 36.8 C 118 H 24 98/68 L 96 09/22/22 19:38 09/22/22 19:38 36.8 C 118 H 24 100/65 96 O2 Del Method O2 Flow Rate 09/22/22 19:54 Nasal Cannula 09/22/22 19:38 Nasal Cannula 4 09/22/22 19:38 Nasal Cannula 4 09/22/22 19:38 Nasal Cannula 4 Laboratory Results 09/22/22 09/22/22 09/22/22 Range/Units 19:57 19:50 19:35 WBC (4.8-10.8) K/ul RBC (4.63-6.08) M/uL Hgb (14.0-18.0) g/dl Hct (40.1-51.0) % MCV (80.0-100.0) fL MCH (25.0-34.0) pg MCHC (32.0-36.0) g/dL RDW Std Deviation (36.4-46.3) fL RDW Coeff of Yoanna (11.5-14.5) % Plt Count (130-400) K/uL MPV (9.4-12.4) fL Immature Gran % (Auto) % Neut % (Auto) % Lymph % (Auto) % [place] % (Auto) % Eos % (Auto) % Baso % (Auto) % Neut # (Auto) (1.4-6.5) K/uL Lymph # (Auto) (1.2-3.4) K/uL [place] # (Auto) (0.24-0.82) K/uL Eos # (Auto) (0-0.50) K/uL Baso # (Auto) (0-0.2) K/uL Immature Gran # (Auto) (0.00-0.02) K/uL Hypersegmented Neuts Platelet Estimate (Normal) Echinocytes Sodium (136-145) mmol/L Potassium (3.5-5.1) mmol/L Chloride (98-107) mmol/L Carbon Dioxide (21-32) mmol/L Anion Gap (3-11) BUN (6-23) mg/dl Creatinine (0.6-1.4) mg/dl Est Cr Clr Drug Dosing ml/min Est GFR ( Amer) ml/min Est GFR (Non-Af Amer) ml/min BUN/Creatinine Ratio (10-20) Glucose (70-99(Fasting)) mg/dl Calcium (8.5-10.1) mg/dl Magnesium (1.7-2.4) mg/dl Total Bilirubin (0.2-1.0) mg/dl AST (13-39) U/L ALT (7-52) U/L Alkaline Phosphatase (34-104) U/L Total Creatine Kinase (30-223) U/L Troponin I High Sens (0-20) pg/ml Total Protein (6.0-8.3) gm/dl Albumin (3.4-5.0) gm/dl Globulin (2.5-4.0) gm/dl Albumin/Globulin Ratio (0.9-2) TSH 1.715 (0.300-4.500) uIu/ml Urine Color Dark Yellow Urine Appearance Cloudy A (Clear) Urine pH 6.5 (4.5-7.5) Ur Specific [place] 1.020 (1.000-1.030) Urine Protein 2+ H (Negative) Urine Glucose (UA) Negative (Negative) Urine Ketones 1+ H (Negative) Urine Blood 3+ H (Negative) Urine Nitrite Positive A (Negative) Urine Bilirubin Negative (Negative) Urine Urobilinogen Negative (Negative) Ur Leukocyte Esterase 1+ H (Negative) Urine WBC (Auto) 5-10 H (0-5) /hpf Urine RBC (Auto) 10-30 H (0-4) /hpf U Hyaline Cast (Auto) 5-10 H (0-5) /lpf U Epithel Cells (Auto) >30 H (0-5) /lpf Urine Bacteria (Auto) 4+ H (Negative) Ur Renal Epithelial Cell Not Reportable Urine Yeast Not Reportable SARS-CoV-2, RNA, NAAT NEGATIVE (NEGATIVE) 09/22/22 09/22/22 Range/Units 19:35 19:35 WBC 9.58 (4.8-10.8) K/ul RBC 4.10 L (4.63-6.08) M/uL Hgb 12.0 L (14.0-18.0) g/dl Hct 36.5 L (40.1-51.0) % MCV 89.0 (80.0-100.0) fL MCH 29.3 (25.0-34.0) pg MCHC 32.9 (32.0-36.0) g/dL RDW Std Deviation 52.1 H (36.4-46.3) fL RDW Coeff of Yoanna 15.9 H (11.5-14.5) % Plt Count 135 (130-400) K/uL MPV 10.3 (9.4-12.4) fL Immature Gran % (Auto) 0.4 % Neut % (Auto) 94.3 % Lymph % (Auto) 2.2 % [place] % (Auto) 2.1 % Eos % (Auto) 0.7 % Baso % (Auto) 0.3 % Neut # (Auto) 9.03 H (1.4-6.5) K/uL Lymph # (Auto) 0.21 L (1.2-3.4) K/uL [place] # (Auto) 0.20 L (0.24-0.82) K/uL Eos # (Auto) 0.07 (0-0.50) K/uL Baso # (Auto) 0.03 (0-0.2) K/uL Immature Gran # (Auto) 0.04 H (0.00-0.02) K/uL Hypersegmented Neuts 1+ Platelet Estimate Normal (Normal) Echinocytes 1+ Sodium 141 (136-145) mmol/L Potassium 3.1 L (3.5-5.1) mmol/L Chloride 103 (98-107) mmol/L Carbon Dioxide 29 (21-32) mmol/L Anion Gap 9 (3-11) BUN 27 H (6-23) mg/dl Creatinine 0.55 L (0.6-1.4) mg/dl Est Cr Clr Drug Dosing 63.9 ml/min Est GFR ( Amer) 111.7 ml/min Est GFR (Non-Af Amer) 96.4 ml/min BUN/Creatinine Ratio 49.1 H (10-20) Glucose 193 H (70-99(Fasting)) mg/dl Calcium 9.3 (8.5-10.1) mg/dl Magnesium 1.7 (1.7-2.4) mg/dl Total Bilirubin 0.9 (0.2-1.0) mg/dl AST 33 (13-39) U/L ALT 20 (7-52) U/L Alkaline Phosphatase 104 (34-104) U/L Total Creatine Kinase 58 (30-223) U/L Troponin I High Sens 2894.3 H* D (0-20) pg/ml Total Protein 6.5 (6.0-8.3) gm/dl Albumin 2.8 L (3.4-5.0) gm/dl Globulin 3.7 (2.5-4.0) gm/dl Albumin/Globulin Ratio 0.8 L (0.9-2) TSH (0.300-4.500) uIu/ml Urine Color Urine Appearance (Clear) Urine pH (4.5-7.5) Ur Specific [place] (1.000-1.030) Urine Protein (Negative) Urine Glucose (UA) (Negative) Urine Ketones (Negative) Urine Blood (Negative) Urine Nitrite (Negative) Urine Bilirubin (Negative) Urine Urobilinogen (Negative) Ur Leukocyte Esterase (Negative) Urine WBC (Auto) (0-5) /hpf Urine RBC (Auto) (0-4) /hpf U Hyaline Cast (Auto) (0-5) /lpf U Epithel Cells (Auto) (0-5) /lpf Urine Bacteria (Auto) (Negative) Ur Renal Epithelial Cell Urine Yeast SARS-CoV-2, RNA, NAAT (NEGATIVE) Diagnostic Findings [facility] Patient: TULIO RUIZ JR (Male) : 36 Status: ER Date: 09/22/22 20:10 Room #: History: AMS/ GENERALIZED PAIN POOR HISTORIAN, UNKNOWN APPENDIX PT UNABLE TO RAISE ARMS FOR EXAM BEST IMAGES POSSIBLE FOR PT CONDITION EK/AD Slices: 742 Priors: Tech: Yeison Coon @ [id number] Exams: CT ABDOMEN & PELVIS Without Contrast Contrast: Accession Numbers: [id number] Referring Physician: REFERRED SELF Preliminary Findings Only See Final Report For Complete Findings CT ABDOMEN & PELVIS Without Contrast: Comparison to February 28, 2022. Bilateral simple cysts in the kidneys with the largest in the lower pole on the right measuring 7 cm, similar to previous. No hydronephrosis or ureterolithiasis is seen. Bowel loops are nondilated. No pneumoperitoneum, free fluid, or acute inflammatory changes are identified involving the bowel. Surgical josé is previous gastric bypass surgery. The patient is very thin and cachectic which limits soft tissue contrast. The liver, spleen, pancreas, and adrenal glands are grossly unremarkable. The gallbladder has been removed. The abdominal aorta is mildly calcified and slightly ectatic measuring 3.1 cm. The urinary bladder is decompressed with a Cortez catheter and unremarkable. Metallic artifact from a right hip screw tends to a hip screw. There are mild degenerative changes in the spine. No acute fracture or subluxation is identified. Radiologist: Michael Lockett MD Study ready at 21:07 and initial results transmitted at 21:12 *This report constitutes a preliminary interpretation only. Non-acute findings felt to be unrelated to the clinical presentation may not be discussed in this report. The study will be interpreted and a final report will be generated by the local Radiologist the following shift. To reach the [facility] radiology department call [phone]. If a discrepancy is found between the preliminary and final interpretations of this study, please notify us via our Client Portal at [email or web address], under QA Exams. You can also fax this report with a description of the discrepancy, or include the final report, to our daytime fax number [phone]. If faxing, please indicate the severity of discrepancy using one of the following categories: [ ] 1 - Agree/Informational [ ] 2 - Unlikely to Affect Management [ ] 3 - Possible Eventual Change of Management [ ] 4 - Probable Immediate Change of Management For all other patient related information, please fax us at [phone]. [id number] [facility] Patient: TULIO RUIZ JR (Male) : 36 Status: ER Date: 09/22/22 20:10 Room #: History: AMS/ GENERALIZED PAIN POOR HISTORIAN, UNKNOWN APPENDIX PT UNABLE TO RAISE ARMS FOR EXAM BEST IMAGES POSSIBLE FOR PT CONDITION EK/AD Slices: 68 Priors: Tech: Yeison Coon @ [phone] Exams: CT HEAD Contrast: Accession Numbers: [id number] Referring Physician: REFERRED SELF Preliminary Findings Only See Final Report For Complete Findings CT HEAD: Comparison to May 02, 2021. Mild cerebral atrophy and periventricular white matter low density consistent with chronic small ulcer disease and/or senescent changes, unchanged. There is no evidence of acute large vessel infarct or intracranial hemorrhage. The paranasal sinuses and mastoid air cells are normal. No skull fracture or significant scalp hematoma is identified. Radiologist: Michael Lockett MD Study ready at 21:07 and initial results transmitted at 21:09 *This report constitutes a preliminary interpretation only. Non-acute findings felt to be unrelated to the clinical presentation may not be discussed in this report. The study will be interpreted and a final report will be generated by the local Radiologist the following shift. To reach the hospital radiology department call [phone]. If a discrepancy is found between the preliminary and final interpretations of this study, please notify us via our Client Portal at [email or web address], under [email or web address]. You can also fax this report with a description of the discrepancy, or include the final report, to our daytime fax number [phone]. If faxing, please indicate the severity of discrepancy using one of the following categories: [ ] 1 - Agree/Informational [ ] 2 - Unlikely to Affect Management [ ] 3 - Possible Eventual Change of Management [ ] 4 - Probable Immediate Change of Management For all other patient related information, please fax us at [phone]. [id number] Supervising Physician Co-Signing Physician Notes Attending addendum: I have physically seen this patient, have supervised the medical residents activities, and agree with the H&P unless as otherwise noted. Assessment and Plan: Sepsis due to urinary tract infection/altered mentation/generalized weakness- Follow urine culture and sensitivity Follow blood culture and sensitivity Empiric ceftriaxone 2 g IV daily IV fluids per septic protocol Deann esophagitis- Noted on EGD status post 3 days of oral fluconazole Start more intensive treatment with IV fluconazole 200 mg daily Altered mental status- Differential including but not limited to: Urinary tract infection, progression of underlying general weakness, assess further for central neurologic process with brain MRI Cachexia/severe protein calorie malnutrition- History of gastric bypass surgery, likely contributing to significant malabsorption Consult nutrition Elevated troponin- Troponin 2894.3 on admission Consult his digital commentator Remaining orders and notations as noted Resident Activity Tracking Resident Involvement: Resident Care Provided Care Provided: Adult Hospital Medicine
--- NOTE | 2022-09-22 23:08 | Emergency Department Note ---
Impression & Plan AMS (altered mental status), Acute UTI (urinary tract infection), Acute dehydration, Elevated troponin ED Provider Note INFORMANT: Patient, EMS, family ED PROVIDER(S): Krzysztof Randall MD CHIEF COMPLAINT: Change mental status, weakness PLAN: Disposition: Admitted Condition: Guarded but stable patient presented because of the Outpatient prescription management: none Referral: None MEDICAL DECISION MAKING: Situation noted below. He blood work obtained. He was hydrated. Patient's u rinalysis was concerning for infection. His CBC showed a mild anemia. He was mildly hypokalemic and this was repleted. The patient had the significant elevation of cardiac troponin. Chest x-ray revealed a elevated left hemidiaphragm without obvious infiltrate or other acute pathology. Patient was treated with IV Rocephin. He is exceptionally weak and head CT was performed. No acute findings were noted. CT scan of the abdomen pelvis was also performed and negative for acute process per radiology. Further management in the hospital will be necessary. Family updated. I gave my usual and customary discussion regarding this issue. Consultation was made with Dr. Adam Hdz of the [facility] service. Patient was evaluated in the ER for further management. Triage Nursing notes reviewed and agree them. Vital Signs: reviewed and remarkable for tachycardia Differential diagnosis: Infection, hypoglycemia, electrolyte abnormalities, overdose, toxicologic, cardiac sources, intracerebral event, neurologic, trauma, as well as other pathologies. Diagnostics interpreted by me: ECG: Twelve-lead ECG reveals sinus tachycardia with a Fritcher supraventricular contractions at [address] Poor baseline data. Cardiac Monitoring: Cardiac monitoring ordered by me: The patient was placed on continuous cardiac monitoring and observed. It revealed a sinus tachycardic rhythm at 115 Imaging studies: Head CT: A noncontrast CT scan of the head was performed and was negative for tumor, fracture, intracranial hemorrhage, or other acute pathology. CT scan of the abdomen pelvis is negative for pathology. HPI: The patient is a 81year old male who presents to the Emergency Room with complaints of weakness change in mental status. This started prior to arrival and is persisting. EMS stated that the patient became more lethargic about 30 minutes after he took his chronic pain medications. The patient also notes the following associated symptoms, abdominal pain, feeling weak. The patient has been given no medication for relieving factors. Patient unable to qualify current pain. Patient was reportedly incontinent of urine and feces. History is limited secondary patient's change mental status. ROS: See above HPI for pertinent positives & negatives. Limited secondary to mental status. PAST MEDICAL HISTORY:See Below , chronic back pain PAST SURGICAL HISTORY:See Below, FAMILY HISTORY:See Below SOCIAL HISTORY:See Below, lives with family HOME MEDICATIONS:See Below ALLERGIES:See Below VITALS:See Below PHYSICAL EXAMINATION: GENERAL: Awake, alert, cachectic-appearing, in no distress HENT: Normocephalic, atraumatic. Oropharynx with dry mucous membranes. EYES: Normal conjunctiva. Sclera non-icteric. NECK: Inspection normal. Non-tender. Supple. No nuchal rigidity. FROM. No masses. RESPIRATORY: Clear to auscultation. No wheezes. No rales. Normal respiratory effort. CARDIAC: Borderline tachycardic rate. Normal rhythm. No murmurs. No rubs. Extremities warm and well perfused. Pulses equal. No JVD. GI: Soft, non-distended. Mild lower quadrants tenderness to palpation. No rebound or guarding. No masses. RECTAL: Deferred. MUSCULOSKELETAL: Atraumatic. Chest examination reveals no tenderness. The back is symmetrical on inspection without obvious abnormality. There is no CVA tenderness to palpation. No joint edema. LOWER EXTREMITIES: Calves are equal size bilaterally and non-tender. No edema. No discoloration. NEURO: Altered sensorium. Speech soft. Generally weak. Having difficulty foll owing commands. Moving arms and legs. SKIN: No rash or jaundice noted. Krzysztof Randall MD Past Med/Surg History Medical History (Updated 09/22/22 @ 22:49 by Nikky Khalil DO) B12 deficiency ? BPH (benign prostatic hyperplasia) Chest pain EPISODE LAST WEEK...USED NITRO X 1 DOSE AND RESOLVED PT REPORTS HE BELIEVES IT WAS HEARTBURN AND THIS IS WHY HE IS HAVING HIS PROCEDURE DONE Chronic, continuous use of opioids Coronary atherosclerosis of [place] coronary vessel COVID 4-5 MON AGO Depression Discharged to rehabilitation facility RIGHT HIP FX , SURGICAL INTERVENTION MAY 2022 ...[facility]...DISCHARGED FROM REHAB 2 WEEKS AGO DM2 (diabetes mellitus, type 2) prior to gastric bypass--no meds now Fracture of hip, right, closed Gastroparesis GERD without esophagitis Gouty arthropathy Hearing deficit History of anemia History of DVT (deep vein thrombosis) 20 YR AGO Hyperlipidemia LDL goal <100 Hypertension Internal hernia OA (osteoarthritis) of hip Other psoriasis Poor historian Pruritus scroti Restless legs Severe aortic stenosis PT REPORTS HEART VALVE PROBLEM AND THAT A BALLOON NEEDS TO BE PUT IN THERE BECAUSE IT'S CLOSING. FOLOWS DR ERNANDEZ. Severe protein-calorie malnutrition Sleep apnea hx of prior to gastric bypass sx--no device Trouble swallowing SOMETIMES HURTS, FEELS LIKE A GAS BUBBLE - REASON FOR UPCOMING PROCEDURE Surgical History Bariatric surgery status 2007 @ [facility] [place] History of bilateral cataract extraction History of cardiac cath x2 ? prior to bypass--pt does not believe any stents placed History of carpal tunnel surgery of right wrist History of colonoscopy History of esophagogastroduodenoscopy (EGD) History of tooth extraction all teeth removed S/P hip replacement PT DENIES HIP REPLACEMENT, REPORTS HAD PIN IN MY HIP - S/P JUNE 01 ? 2021 ([place]) RIGHT HIP D/C FROM [facility] [employer] 2 WEEKS AGO S/P triple vessel bypass [place]...1996 Status post panniculectomy Family History Mother Diabetes Other No family history of adverse response to anesthesia Denies family history of Ovarian cancer Prostate cancer Myocardial infarction Breast cancer Colorectal cancer Social History Smoking Status: Former smoker Tobacco Type: Cigarettes Age Started Using Tobacco: 20; Age Quit Using Tobacco: 63; packs per day: 1; Second Hand Exposure: No; Hx Alcohol Use: No Hx Substance Use: No Preferred Language: Northern Irish Communication Ability: Effective Visual Impairment: No Limitations Hearing Ability: Use of Hearing Aid Home Service Advisor Required: No Beliefs That Will Affect Care: None and Gnosticism Gnosticism Beliefs: CHURCH marital status: / Current Living Situation: Alone Current Living Situation Comment: [facility] NOW TO HELP RECOVER 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al status: retired 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: 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 Feels Safe at Home: Yes Childhood Exposure to Second-Hand Smoke: No Dental Care, Regularly: No Physical Activity Frequency: Does not Exercise Seatbelt Use: sometimes Sunscreen Use: No Assistive Devices: Denture - Upper, Denture - Lower, Glasses, Hearing Aid - Bilateral, Walker and Wheelchair Allergies Allergies Allergy/AdvReac Type Severity Reaction Status Date / Time No Known Allergies Allergy Verified 09/22/22 21:03 Home Meds Home Medications Medication Instructions Recorded Confirmed nitroglycerin 0.4 mg sublingual 0.4 mg sublingual Q5M PRN chest 07/01/19 09/22/22 tablet pain #25 tabs allopurinol 300 mg tablet 300 mg PO QAM 07/13/21 09/22/22 linaclotide 290 mcg capsule 290 mcg PO QAM 07/13/21 09/22/22 (Linzess) ipratropium bromide 21 mcg (0.03 2 spray intranasal BID PRN rhinitis 04/23/22 09/22/22 %) nasal spray cholecalciferol (vitamin D3) 25 25 mcg PO QAM 08/12/22 09/22/22 mcg (1,000 unit) tablet (Vitamin D3) docusate sodium 100 mg capsule 100 mg PO QAM 08/12/22 09/22/22 (Colace) guaifenesin 600 mg tablet, 600 mg PO UD PRN congestion 08/12/22 09/22/22 extended release 12 hr (Mucinex) loratadine 10 mg tablet (Claritin) 10 mg PO DAILY PRN ALLERGIES 08/12/22 09/22/22 food supplemt, lactose-reduced 1 ea PO 6XD 09/16/22 09/22/22 0.06 gram-1 kcal/mL oral liquid (Boost High Protein) Previous Rx's Medication Instructions Recorded tamsulosin 0.4 mg capsule 0.4 mg PO HS #90 caps 08/02/21 prednisone 5 mg tablet 5 mg PO QAM #30 tabs 02/04/22 folic acid 1 mg tablet 1 mg PO QAM #30 tabs 03/02/22 multivitamin with folic acid 400 1 tab PO QAM #30 tabs 03/02/22 mcg tablet (Daily-Ludivina (with folic acid)) thiamine HCl (vitamin B1) 100 mg 100 mg PO QAM #30 tabs 03/02/22 tablet ferrous sulfate 325 mg (65 mg 325 mg PO QAM #30 tabs 05/13/22 iron) tablet,delayed release sennosides 8.6 mg-docusate sodium 2 tab PO HS #60 tabs 05/13/22 50 mg tablet (Senokot-S) miscellaneous medical supply #30 grams 08/01/22 omeprazole 40 mg capsule,delayed 40 mg PO BID #60 caps 08/21/22 release lactulose 20 gram/30 mL oral 20 g (30 mL) PO BID PRN 09/16/22 solution Constipation #3,000 mL nystatin 100,000 unit/gram topical 1 applic topical BID #30 grams 09/16/22 ointment oxycodone 15 mg tablet 15 mg PO BID PRN breakthrough pain 09/16/22 #60 tabs oxycodone 40 mg tablet,crush 40 mg PO BID #60 tabs 09/16/22 resistant,extended release 12 hr Results & Data (ED) Vital Signs Vital Signs - 24 hr 09/22/22 19:38 09/22/22 19:38 09/22/22 19:38 Temperature 36.8 C 36.8 C Temperature Source Oral Oral Pulse Rate 118 H Pulse Rate [Apical] 118 H Pulse Rhythm Regular Pulse Rhythm [Apical] Regular Pulse Strength Normal Pulse Strength [Apical] Normal Respiratory Rate 24 24 Respiratory Effort / Characteristics Labored Labored Respiratory Depth Shallow Respiratory Pattern Tachypnea Tachypnea Blood Pressure 100/65 Blood Pressure [Right Arm] 98/68 L Blood Pressure Mean 76 Blood Pressure Mean [Right Arm] 78 Blood Pressure Position Lying Blood Pressure Position [Right Arm] Lying Pulse Oximetry 96 96 Oxygen Delivery Method Nasal Cannula Nasal Cannula Nasal Cannula Oxygen Flow Rate 4 4 4 Sepsis Recent Fever Within 48 Hours No Sepsis New/Unexplained Change in Mental Status No Sepsis Action Taken by Nursing Physician Notified 09/22/22 19:54 09/22/22 21:38 Temperature Temperature Source Pulse Rate 115 H Pulse Rate [Apical] 108 H Pulse Rhythm Regular Pulse Rhythm [Apical] Regular Pulse Strength Pulse Strength [Apical] Normal Respiratory Rate 25 H 26 H Respiratory Effort / Characteristics Labored Respiratory Depth Shallow Respiratory Pattern Tachypnea Blood Pressure Blood Pressure [Right Arm] 115/64 Blood Pressure Mean Blood Pressure Mean [Right Arm] 81 Blood Pressure Position Blood Pressure Position [Right Arm] Lying Pulse Oximetry 95 94 Oxygen Delivery Method Nasal Cannula Nasal Cannula Oxygen Flow Rate 4 Sepsis Recent Fever Within 48 Hours Sepsis New/Unexplained Change in Mental Status Sepsis Action Taken by Nursing Laboratory Data Result diagrams: 09/22/22 19:35 09/22/22 19:35 Lab Results 09/22/22 09/22/22 09/22/22 Range/Units 19:35 19:35 19:35 WBC 9.58 (4.8-10.8) K/ul RBC 4.10 L (4.63-6.08) M/uL Hgb 12.0 L (14.0-18.0) g/dl Hct 36.5 L (40.1-51.0) % MCV 89.0 (80.0-100.0) fL MCH 29.3 (25.0-34.0) pg MCHC 32.9 (32.0-36.0) g/dL RDW Std Deviation 52.1 H (36.4-46.3) fL RDW Coeff of Yoanna 15.9 H (11.5-14.5) % Plt Count 135 (130-400) K/uL MPV 10.3 (9.4-12.4) fL Immature Gran % (Auto) 0.4 % Neut % (Auto) 94.3 % Lymph % (Auto) 2.2 % [place] % (Auto) 2.1 % Eos % (Auto) 0.7 % Baso % (Auto) 0.3 % Neut # (Auto) 9.03 H (1.4-6.5) K/uL Lymph # (Auto) 0.21 L (1.2-3.4) K/uL [place] # (Auto) 0.20 L (0.24-0.82) K/uL Eos # (Auto) 0.07 (0-0.50) K/uL Baso # (Auto) 0.03 (0-0.2) K/uL Immature Gran # (Auto) 0.04 H (0.00-0.02) K/uL Hypersegmented Neuts 1+ Platelet Estimate Normal (Normal) Echinocytes 1+ Sodium 141 (136-145) mmol/L Potassium 3.1 L (3.5-5.1) mmol/L Chloride 103 (98-107) mmol/L Carbon Dioxide 29 (21-32) mmol/L Anion Gap 9 (3-11) BUN 27 H (6-23) mg/dl Creatinine 0.55 L (0.6-1.4) mg/dl Est Cr Clr Drug Dosing 63.9 ml/min Est GFR ( Amer) 111.7 ml/min Est GFR (Non-Af Amer) 96.4 ml/min BUN/Creatinine Ratio 49.1 H (10-20) Glucose 193 H (70-99(Fasting)) mg/dl Calcium 9.3 (8.5-10.1) mg/dl Magnesium 1.7 (1.7-2.4) mg/dl Total Bilirubin 0.9 (0.2-1.0) mg/dl AST 33 (13-39) U/L ALT 20 (7-52) U/L Alkaline Phosphatase 104 (34-104) U/L Total Creatine Kinase 58 (30-223) U/L Troponin I High Sens 2894.3 H* D (0-20) pg/ml Total Protein 6.5 (6.0-8.3) gm/dl Albumin 2.8 L (3.4-5.0) gm/dl Globulin 3.7 (2.5-4.0) gm/dl Albumin/Globulin Ratio 0.8 L (0.9-2) TSH 1.715 (0.300-4.500) uIu/ml Urine Color Urine Appearance (Clear) Urine pH (4.5-7.5) Ur Specific [place] (1.000-1.030) Urine Protein (Negative) Urine Glucose (UA) (Negative) Urine Ketones (Negative) Urine Blood (Negative) Urine Nitrite (Negative) Urine Bilirubin (Negative) Urine Urobilinogen (Negative) Ur Leukocyte Esterase (Negative) Urine WBC (Auto) (0-5) /hpf Urine RBC (Auto) (0-4) /hpf U Hyaline Cast (Auto) (0-5) /lpf U Epithel Cells (Auto) (0-5) /lpf Urine Bacteria (Auto) (Negative) Ur Renal Epithelial Cell Urine Yeast SARS-CoV-2, RNA, NAAT (NEGATIVE) 09/22/22 09/22/22 Range/Units 19:50 19:57 WBC (4.8-10.8) K/ul RBC (4.63-6.08) M/uL Hgb (14.0-18.0) g/dl Hct (40.1-51.0) % MCV (80.0-100.0) fL MCH (25.0-34.0) pg MCHC (32.0-36.0) g/dL RDW Std Deviation (36.4-46.3) fL RDW Coeff of Yoanna (11.5-14.5) % Plt Count (130-400) K/uL MPV (9.4-12.4) fL Immature Gran % (Auto) % Neut % (Auto) % Lymph % (Auto) % [place] % (Auto) % Eos % (Auto) % Baso % (Auto) % Neut # (Auto) (1.4-6.5) K/uL Lymph # (Auto) (1.2-3.4) K/uL [place] # (Auto) (0.24-0.82) K/uL Eos # (Auto) (0-0.50) K/uL Baso # (Auto) (0-0.2) K/uL Immature Gran # (Auto) (0.00-0.02) K/uL Hypersegmented Neuts Platelet Estimate (Normal) Echinocytes Sodium (136-145) mmol/L Potassium (3.5-5.1) mmol/L Chloride (98-107) mmol/L Carbon Dioxide (21-32) mmol/L Anion Gap (3-11) BUN (6-23) mg/dl Creatinine (0.6-1.4) mg/dl Est Cr Clr Drug Dosing ml/min Est GFR ( Amer) ml/min Est GFR (Non-Af Amer) ml/min BUN/Creatinine Ratio (10-20) Glucose (70-99(Fasting)) mg/dl Calcium (8.5-10.1) mg/dl Magnesium (1.7-2.4) mg/dl Total Bilirubin (0.2-1.0) mg/dl AST (13-39) U/L ALT (7-52) U/L Alkaline Phosphatase (34-104) U/L Total Creatine Kinase (30-223) U/L Troponin I High Sens (0-20) pg/ml Total Protein (6.0-8.3) gm/dl Albumin (3.4-5.0) gm/dl Globulin (2.5-4.0) gm/dl Albumin/Globulin Ratio (0.9-2) TSH (0.300-4.500) uIu/ml Urine Color Dark Yellow Urine Appearance Cloudy A (Clear) Urine pH 6.5 (4.5-7.5) Ur Specific [place] 1.020 (1.000-1.030) Urine Protein 2+ H (Negative) Urine Glucose (UA) Negative (Negative) Urine Ketones 1+ H (Negative) Urine Blood 3+ H (Negative) Urine Nitrite Positive A (Negative) Urine Bilirubin Negative (Negative) Urine Urobilinogen Negative (Negative) Ur Leukocyte Esterase 1+ H (Negative) Urine WBC (Auto) 5-10 H (0-5) /hpf Urine RBC (Auto) 10-30 H (0-4) /hpf U Hyaline Cast (Auto) 5-10 H (0-5) /lpf U Epithel Cells (Auto) >30 H (0-5) /lpf Urine Bacteria (Auto) 4+ H (Negative) Ur Renal Epithelial Cell Not Reportable Urine Yeast Not Reportable SARS-CoV-2, RNA, NAAT NEGATIVE (NEGATIVE) Administered Medications Sodium Chloride (Nss 1000ml) 1,000 mls @ 125 mls/hr IV .Q8H STA Stop: 09/23/22 03:45 Last Admin: 09/22/22 20:20 Dose: 125 mls/hr Documented By: AM Discontinued Medications Sodium Chloride (Nss 1000ml) 500 mls @ 999 mls/hr IV .Q31M ONE Stop: 09/22/22 21:05 Last Infusion: 09/22/22 21:42 Dose: 0 mls/hr Documented By: Admin: 09/22/22 21:15 Dose: 999 mls/hr Documented By: HEATH Ceftriaxone Sodium (Rocephin) 2,000 mg in 70 mls @ 140 mls/hr IV NOW STA Stop: 09/22/22 21:04 Last Infusion: 09/22/22 21:41 Dose: 0 mls/hr Documented By: Admin: 09/22/22 21:15 Dose: 140 mls/hr Documented By: HEATH Potassium Chloride (K Tyrell / Wtr) 10 meq in 100 mls @ 100 mls/hr IV ONE ONE; Protocol Stop: 09/22/22 21:34 Last Infusion: 09/22/22 22:14 Dose: 0 mls/hr Documented By: RSMiguel Admin: 09/22/22 21:15 Dose: 100 mls/hr Documented By: HEATH Discharge Plan Visit Data Chief Complaint: Weakness Stated Complaint: WEAKNESS/LETHARGY ED Provider: Krzysztof Randall Discharge Problem: AMS (altered mental status), Acute UTI (urinary tract infection), Acute dehydration, Elevated troponin Forms Stand Alone Forms: My [facility] Prescriptions Prescriptions: No Action prednisone 5 mg tablet 5 mg PO QAM Qty: 30 5RF (DME) miscellaneous medical supply Misc See Rx Instructions .ROUTE .MEDSUPPLY Qty: 30 1RF Rx Instructions: Zinc oxide, Econazole, desonide and Silvadene-1:1 ratios. Apply 2 times a day x 3 wks and then only on weekends for maintenance. omeprazole 40 mg capsule,delayed release(DR/EC) 40 mg PO BID Qty: 60 5RF nitroglycerin 0.4 mg tablet, sublingual 0.4 mg SL Q5M PRN (Reason: chest pain) Qty: 25 Label Comments: LAST WEEK ONE DAY X1 DOSE AND RESOLVED WITHIN AN HOUR, I THINK IT WAS HEARTBURN Rx Instructions: NEEDED FOR CHEST PAIN : ONE TABLET UNDER THE TONGUE EVERY 5 MINUTES UP TO THREE DOSES. tamsulosin 0.4 mg capsule 0.4 mg PO HS Qty: 90 3RF oxycodone 15 mg tablet 15 mg PO BID PRN (Reason: breakthrough pain) Qty: 60 0RF oxycodone 40 mg tablet,oral only,ext.rel.12 hr 40 mg PO BID Qty: 60 0RF lactulose 20 gram/30 mL solution 20 g PO BID PRN (Reason: Constipation) Qty: 3000 1RF nystatin 100,000 unit/gram ointment 1 applic topical BID Qty: 30 3RF allopurinol 300 mg tablet 300 mg PO QAM Linzess 290 mcg capsule 290 mcg PO QAM Boost High Protein 0.06 gram- 1 kcal/mL liquid 1 ea PO 6XD Label Comments: pt states he drinks 7-8 X PER DAY ipratropium bromide 21 mcg (0.03 %) [place],Non-Aerosol 2 spray INTRANASAL BID PRN (Reason: rhinitis) ferrous sulfate 325 mg (65 mg iron) Tablet,Delayed Release (Dr/Ec) 325 mg PO QAM Qty: 30 0RF Label Comments: I AM SUPPOSED TO BE TAKING IT...HAVEN'T HAD IT FOR ABOUT A WEEK NOW sennosides-docusate sodium [Senokot-S] 8.6-50 mg Tablet 2 tab PO HS Qty: 60 0RF cholecalciferol (vitamin D3) [Vitamin D3] 25 mcg (1,000 unit) Tablet 25 mcg PO QAM Label Comments: I TAKE IT EVERY DAY loratadine [Claritin] 10 mg tablet 10 mg PO DAILY PRN (Reason: ALLERGIES) guaifenesin [Mucinex] 600 mg tablet extended release 12hr 600 mg PO UD PRN (Reason: congestion) docusate sodium [Colace] 100 mg Capsule 100 mg PO QAM folic acid 1 mg Tablet 1 mg PO QAM Qty: 30 0RF Label Comments: I DON'T THINK I DO NOW, THEY TOOK ME OFF SOME OF THEM BECAUSE THEY WERE MAKING ME SICK IN THE STOMACH Rx Instructions: OTC multivitamin with folic acid [Daily-Ludivina (with folic acid)] 400 mcg Tablet 1 tab PO QAM Qty: 30 0RF Rx Instructions: OTC thiamine HCl (vitamin B1) 100 mg Tablet 100 mg PO QAM Qty: 30 0RF Rx Instructions: OTC Referrals Referrals: Luisa Velasquez MD [Primary Care Provider] -
[2022-09-23] MEDS ORDERED: [UNRECOGNIZED DRUG - OTHER] PO SCH (03:06)
[2022-09-23] MEDS ORDERED: IPRATROPIUM BROMIDE NASAL SPRAY 0.06% 15ML NAE PRN (04:34)
[2022-09-23] MEDS: POTASSIUM CHLORIDE / WTR 10 MEQ/100 ML PLCT IV SCH ×4 (05:48→11:04)
[2022-09-23 06:54] LABS: A calco-baum cmplx NotReported Not Detected (NotDetected); Bact fragilis Not Reported Not Detected (NotDetected); C auris Not Reported Not Detected (NotDetected); Calbicans Not Reported Not Detected (NotDetected); Candida glabrata Not Reported Not Detected (NotDetected); Candida krusei Not Reported Not Detected (NotDetected); Cneoformans/gatti Not Reported Not Detected (NotDetected); Cparapsilosis Not Reported Not Detected (NotDetected); Ctropicalis Not Reported Not Detected (NotDetected); E cloacae compx Not Reported Not Detected (NotDetected); Efaecalis Not Reported Not Detected (NotDetected); Efaecium Not Reported Not Detected (NotDetected); Enterobacterales Not Reported Not Detected (NotDetected); Escherichia coli Not Reported Not Detected (NotDetected); H influenzae Not Reported Not Detected (NotDetected); K aerogenes Not Reported Not Detected (NotDetected); Koxytoca Not Reported Not Detected (NotDetected); Kpneumoniae grp Not Reported Not Detected (NotDetected); Lmonocyt Not Reported Not Detected (NotDetected); N meningitidis Not Reported Not Detected (NotDetected); P aeruginosa Not Reported Not Detected (NotDetected); Proteus spp Not Reported Not Detected (NotDetected); Salmonella spp Not Reported Not Detected (NotDetected); Smarcescens Not Reported Not Detected (NotDetected); Staph lugdunensis Not Reported Not Detected (NotDetected); Staph spp. Not Reported DETECTED (NotDetected); Staphaureus Not Reported DETECTED (NotDetected); Staphepi Not Reported Not Detected (NotDetected); Staphylococcus spp. DETECTED (NotDetected); Stenmaltophilia Not Reported Not Detected (NotDetected); Strep agal(GrpB) Not Reported Not Detected (NotDetected); Strep pneum Not Reported Not Detected (NotDetected); Strep pyog (GrpA) Not Reported Not Detected (NotDetected); Strep spp Not Reported Not Detected (NotDetected); mecAC+MREJ Resistant Gene MRSA Not Detected (NotDetected)
[2022-09-23] MEDS ORDERED: INFLUENZA VACCINE HIGH DOSE PF 65+ 0.7 ML SYR IM ONE (06:54)
[2022-09-23] MEDS ORDERED: PNEUMOCOCCAL POLYSACCHARIDES 25 MCG/0.5 ML VIAL/SYR IM ONE (06:54)
--- NOTE | 2022-09-23 07:25 | Hospitalist Progress Note ---
Date of Service September 23, 2022 Assessment & Plan (1) Urinary tract infection: Plan: Patient is an 81 yo male with PMHx of BASHIR, hemorrhoids, chronic cholecystitis, hx gastric bypass, BPH, COVID, depression, DM2, gastroparesis, GERD, DVT, HLD, HTN, OA, severe , sleep apnea, and severe protein calorie malnutrition admitted 09/22/22 due to UTI and significant change in mental status/generalized weakness. Gram + Bacteremia w/ Sepsis, AMS, and Generalized Weakness - Patient presentation 09/22 drastically altered from 09/16 at PCP visit (6 days prior) - Sepsis noted on admission d/t tachycardia, tachypnea, and source of infection - Labs: WBC 14.39, Hgb 12.5, Na 143, K 4.2, BUN 34, Cr 0.63 - Likely a/w UTI * UA on admit: > 30 epithelial cells but appears to be infected with 1+ ketones, 3+ blood, positive nitrite, 1+ leuk esterase, 5-10 WBC, and 4+ bacteria * Urine cx: Staphylococcus species * Blood cx: Gram + cocci in clusters, biofire MSSA/no MRSA detected - Received IV Ceftriaxone in ER, continued q12h on admission, discontinued 09/23 - Known recent candidal esophagitis on EGD (received Fluconazole PO x 3 days), started IV Fluconazole 200 mg daily (anticipated 14 day course) - IVF started on admission 80 mL/hr - CK wnl - MRSA Nares + - CTA Chest: No pulmonary emboli identified. Mucous plugging with considerable left lower lobe mucoid impaction and mild left lower lobe pneumonia. 10 mm ovoid filling defect within the left lower lobe bronchus is also likely sales representative electric service of mucous plugging. An endobronchial mass considered less likely. - Started IV Daptomycin 09/23 AM, discontinued PM post ID consult - Consulted ID 09/23 * Started IV Nafcillin (UTI/bacteremia) and Levofloxacin (pneumonia) * Continued Fluconazole to complete 14 day course * Recommending SUBHASH Acute Embolic Stroke w/ AMS and Dysarthria - Patient presentation 09/22 drastically altered from 09/16 at PCP visit (6 days prior) - Known Urinary Infection w/ associated bacteremia - Head CT 09/22: Trace acute to subacute subarachnoid hemorrhage overlying the left parietal lobe. A short-term follow-up head CT in 24 to 48 hours is recommended. This finding will be called/faxed to the ordering provider at time of dictation. * Ordered f/u CT Urgent 09/23 - Brain MRI 09/23: Numerous acute infarcts, the largest which is a 2.4 cm right cerebellar infarct. Minimal mass effect. The findings suggest an embolic source. Findings discussed with Dr. Cohen at time of dictation. No change in trace subarachnoid hemorrhage overlying the left parietal lobe which is acute to subacute. - Consulted Neurology 09/23: * Acute embolic stroke, septic emboli in consideration, recommends SUBHASH with bubble study. If echocardiogram reveals evidence of valvular vegetations, we could more confidently diagnose septic cerebral emboli. * Recommend a CT angiogram of the head and neck * Recommends hold on antithrombotic or anticoagulant medication given uncertainty as to whether or not the observed embolic infarcts are truly septic emboli - Speech therapy eval order placed Elevated Troponin w/ EKG Changes - Troponin elevated at 2894.3 on admission; trend troponin * 1681 @ 0806 * 1733 @ 1057 * 1818 @ 1723 - Considered likely to be associated w/ demand ischemia a/w sepsis - Cardiac murmur present at RUSB 09/23 - Echo 09/23: EF 45-50%, borderline severe , small vegetation vs. mass on pulmonic valve, thickened mitral valves - Consulted Cardiology 09/23: * Chronic calcific aortic stenosis is present. * Small vegetation not completely excluded. There is a visualized small vegetation on the pulmonary valve suggesting probable multi valvular involvement. * LV systolic function low normal to mildly impaired and diffuse manner * Patient not a candidate for SUBHASH or surgical valve replacement * Trop are elevated w/o segmental abnormality on echo, possible myocardial shower w/o focality.Troponins may be also elevated due to acute stroke * As blood pressure improves will add in low-dose beta-carolann if tolerated Cachexia w/ Severe Protein Calorie Malnutrition - Per family report, at baseline patient eats full regular diet * Grandson noted 09/23 that patient has been requiring full assist w/ feeds over last few weeks and there has been concern for patient coughing and having difficulty swallowing meals - Hx of gastric bypass surgery, ? malabsorption syndrome - Family endorses decreased PO intake over the past several days - Patient has lost > 30 lbs in the last year, notably lost 7 lbs since PCP visit 6 days ago - Albumin 2.8 - Will consult nutrition Hypokalemia - Received 10 mEq via K-rider in ED - Additional 40 mEq K-rider ordered - Monitor Dysphagia - Patient failed bedside swallow; coughing with mouth swabs as well - ST eval placed - NPO until ST eval completed - Recent EGD d/t dysphagia and weight loss w/ findings of candidal esophagitis (see above) Chronic Pain secondary to OA - Per PDMP, patient with 165 MME/day oxycodone - ? compliance with medication - Held on admission - Monitor for withdrawal Hx DVT - Chemical DVT ppx held due to trace subarachnoid hemorrhage BASHIR - Continue ferrous sulfate 325mg daily; hold while NPO BPH - Continue flomax; hold while NPO FENGI: NPO DVT ppx: Chemical ppx held d/t subarachnoid hemorrhage on CT Dispo: Admit to [facility]tele Code status: Conditional code -- no CPR or defibrillation (2) Sepsis: (3) Cachexia: (4) Iron deficiency: (5) Low back pain: (6) Embolic stroke: (7) Endocarditis: (8) MSSA bacteremia: Admission and Anticipated Discharge Date Admission Date: September 23, 2022 Supervising Physician Co-Signing Physician Notes I also saw the patient and confirmed knight portions of the history and physical examination. I agree with the impression and plan as noted in resident documentation. Upon our midmorning exam, the patient is lying supine in bed. He is having difficulty with speech but does seem oriented as he appropriately answers questions by nodding his head. He denies chest pain, dyspnea, abdominal pain at present. As revision with the patient, his grandson comes into visit and is able to provide some supplemental information. He notes that at baseline, patient is able to speak without difficulty and is ambulatory. Gio notes that patient had an episode of l oose stool in bed on ; sounds as if he had not been quite himself through Friday but even as late as Friday p.m., he was ambulatory and had no difficulty with speech. When he woke Friday morning, there was a more significant change including inability to ambulate and speak. Exam 108/73, 74, 25, 36.5, 97% on nasal cannula 2 L/min Awake/alert. I can make out a few, whispered words. 2/6 systolic murmur heard best at the right upper sternal border Respirations are nonlabored, lungs are clear Slight erythema on the glans of the penis consistent with a very mild balanitis Data WBC 14.39, hemoglobin 12.5 Sodium 143, potassium 4.2, BUN 34, creatinine 0.63 Troponin I 2894, 1733 Albumin 2.8 TSH 1.75 Urine culture shows staph species 1 of 2 blood cultures from 09/22/2022 demonstrate gram-positive cocci in clusters Imaging CT scan of the head dated 09/22/2022 demonstrates trace acute to subacute subarachnoid hemorrhage overlying the left parietal lobe. MRI of the brain dated 09/23/2022 demonstrates numerous acute infarcts, the largest of which is 2.4 cm, right cerebellar infarct. No changes noted in the trace subarachnoid hemorrhage described in the CT scan from 09/22/2022 Impression and Plan Acute embolic stroke Gram-positive bacteremia Elevated troponin with EKG changes Sepsis Mental status change, secondary to sepsis and acute embolic stroke Cachexia with severe protein calorie malnutrition Plan Will hold off on anticoagulation given presence of the subarachnoid bleed Change antibiotics to daptomycin pending further discussion with ID CT chest to exclude PE, evaluate for pulmonary infection Consult neurology Consult cardiology Consult infectious disease Family (gio) updated at bedside given patient's condition Additional as per resident documentation Subjective Patient is an 81 yo male with PMHx of BASHIR, hemorrhoids, chronic cholecystitis, hx gastric bypass, BPH, COVID, depression, DM2, gastroparesis, GERD, DVT, HLD, HTN, OA, severe , sleep apnea, and severe protein calorie malnutrition who presented to the ER on 09/22/22 due to generalized weakness and change in mental status. 09/23: Patient notes he is very thirsty, asking for water. Notes no dyspnea or pleuritic pain. Notes chest pain on the right side that radiates to his back, unknown when this started. No abdominal pain or dysuria noted. Spoke with patient's grandson at bedside this morning. Grandson noted that on Friday, patient was noted to have an infection on his penis and was prescribed an antibiotic for this (but it was not yet started). An episode of diarrhea/incontinence was noted . Grandson noted that he began to notice changes in his grandfather's mental status on Friday, but by Friday patient's daughters noticed that he was having difficulty speaking/ambulating and brought him into the hospital. Gio notes that at baseline patient converses normally, but patient has required assistance with feedings over the last few weeks. Grandmarilia notes that he was feeding the patient small amounts of soup on Friday, but that there was concern for difficulty swallowing and coughing w/ feeds. Review of Systems Review of Systems: As per HPI Physical Exam Physical Exam: Gen: cachectic, NAD, communicates w/ nods and few words, AO x ? HEENT: Supple, no LAD, no thyromegaly, no JVD Resp:Tachypneic (0830), no wheezing/rhonchi/rales, CTAB CV:RRR, normal S1/S2, systolic murmur present at RUSB Abd: Soft, non-distended, no TTP, normoactive bowels, no masses Extr: 2+ dp bilaterally, no edema, bilateral pressure sores on heels, UE strength 4/5 symmetric, LE strength 2/5 symmetric : Urinary catheter in place, evidence of balanitis surrounding urethral meatus/glans Skin: No additional rashes lesions or erythema Results & Data Results & Data ([facility]) Vital Signs (Past 12 Hours) Vital Signs Temp Pulse Pulse Resp BP BP Pulse Ox 09/22/22 20:37 110 H 09/23/22 01:00 107 H 16 108/73 90 09/22/22 23:18 111 H 20 115/64 92 09/22/22 21:38 108 H 26 H 115/64 94 09/22/22 19:54 115 H 25 H 95 09/22/22 19:38 36.8 C 118 H 24 98/68 L 96 09/22/22 19:38 09/22/22 19:38 36.8 C 118 H 24 100/65 96 O2 Del Method O2 Flow Rate 09/22/22 20:37 09/23/22 01:00 Nasal Cannula 4 09/22/22 23:18 Nasal Cannula 4 09/22/22 21:38 Nasal Cannula 4 09/22/22 19:54 Nasal Cannula 09/22/22 19:38 Nasal Cannula 4 09/22/22 19:38 Nasal Cannula 4 09/22/22 19:38 Nasal Cannula 4 Diagnostic Findings Laboratory Results WBC 14.39 K/ul (4.8-10.8) H 09/23/22 08:06 RBC 4.36 M/uL (4.63-6.08) L 09/23/22 08:06 Hgb 12.5 g/dl (14.0-18.0) L 09/23/22 08:06 Hct 39.6 % (40.1-51.0) L 09/23/22 08:06 MCV 90.8 fL (80.0-100.0) 09/23/22 08:06 MCH 28.7 pg (25.0-34.0) 09/23/22 08:06 MCHC 31.6 g/dL (32.0-36.0) L 09/23/22 08:06 RDW Std Deviation 53.8 fL (36.4-46.3) H 09/23/22 08:06 RDW Coeff of Yoanna 16.1 % (11.5-14.5) H 09/23/22 08:06 Plt Count 95 K/uL (130-400) L 09/23/22 08:06 MPV 11.5 fL (9.4-12.4) 09/23/22 08:06 Immature Gran % (Auto) 1.0 % 09/23/22 08:06 Neut % (Auto) 89.8 % 09/23/22 08:06 Lymph % (Auto) 3.5 % 09/23/22 08:06 Mcdowell % (Auto) 5.4 % 09/23/22 08:06 Eos % (Auto) 0.0 % 09/23/22 08:06 Baso % (Auto) 0.3 % 09/23/22 08:06 Neut # (Auto) 12.92 K/uL (1.4-6.5) H 09/23/22 08:06 Lymph # (Auto) 0.51 K/uL (1.2-3.4) L 09/23/22 08:06 Mcdowell # (Auto) 0.77 K/uL (0.24-0.82) 09/23/22 08:06 Eos # (Auto) 0.00 K/uL (0-0.50) 09/23/22 08:06 Baso # (Auto) 0.04 K/uL (0-0.2) 09/23/22 08:06 Immature Gran # (Auto) 0.15 K/uL (0.00-0.02) H 09/23/22 08:06 Hypersegmented Neuts 1+ 09/22/22 19:35 Toxic Vacuolation 1+ 09/23/22 08:06 Platelet Estimate Normal (Normal) 09/22/22 19:35 Echinocytes 1+ 09/22/22 19:35 Sodium 143 mmol/L (136-145) 09/23/22 08:06 Potassium 4.2 mmol/L (3.5-5.1) D 09/23/22 08:06 Chloride 106 mmol/L (98-107) 09/23/22 08:06 Carbon Dioxide 29 mmol/L (21-32) 09/23/22 08:06 Anion Gap 8 (3-11) 09/23/22 08:06 BUN 34 mg/dl (6-23) H 09/23/22 08:06 Creatinine 0.63 mg/dl (0.6-1.4) 09/23/22 08:06 Est Cr Clr Drug Dosing 55.8 ml/min 09/23/22 08:06 Est GFR ( Amer) 105.6 ml/min 09/23/22 08:06 Est GFR (Non-Af Amer) 91.1 ml/min 09/23/22 08:06 BUN/Creatinine Ratio 54.0 (10-20) H 09/23/22 08:06 Glucose 192 mg/dl (70-99(Fasting)) H 09/23/22 08:06 Calcium 9.6 mg/dl (8.5-10.1) 09/23/22 08:06 Magnesium 1.7 mg/dl (1.7-2.4) 09/22/22 19:35 Total Bilirubin 0.9 mg/dl (0.2-1.0) 09/22/22 19:35 AST 33 U/L (13-39) 09/22/22 19:35 ALT 20 U/L (7-52) 09/22/22 19:35 Alkaline Phosphatase 104 U/L (34-104) 09/22/22 19:35 Total Creatine Kinase 45 U/L (30-223) 09/23/22 03:34 Troponin I High Sens 1818.0 pg/ml (0-20) H* 09/23/22 17:23 Total Protein 6.5 gm/dl (6.0-8.3) 09/22/22 19:35 Albumin 2.8 gm/dl (3.4-5.0) L 09/22/22 19:35 Globulin 3.7 gm/dl (2.5-4.0) 09/22/22 19:35 Albumin/Globulin Ratio 0.8 (0.9-2) L 09/22/22 19:35 TSH 1.715 uIu/ml (0.300-4.500) 09/22/22 19:35 Urine Color Dark Yellow 09/22/22 19:50 Urine Appearance Cloudy (Clear) A 09/22/22 19:50 Urine pH 6.5 (4.5-7.5) 09/22/22 19:50 Ur Specific [place] 1.020 (1.000-1.030) 09/22/22 19:50 Urine Protein 2+ (Negative) H 09/22/22 19:50 Urine Glucose (UA) Negative (Negative) 09/22/22 19:50 Urine Ketones 1+ (Negative) H 09/22/22 19:50 Urine Blood 3+ (Negative) H 09/22/22 19:50 Urine Nitrite Positive (Negative) A 09/22/22 19:50 Urine Bilirubin Negative (Negative) 09/22/22 19:50 Urine Urobilinogen Negative (Negative) 09/22/22 19:50 Ur Leukocyte Esterase 1+ (Negative) H 09/22/22 19:50 Urine WBC (Auto) 5-10 /hpf (0-5) H 09/22/22 19:50 Urine RBC (Auto) 10-30 /hpf (0-4) H 09/22/22 19:50 U Hyaline Cast (Auto) 5-10 /lpf (0-5) H 09/22/22 19:50 U Epithel Cells (Auto) >30 /lpf (0-5) H 09/22/22 19:50 Urine Bacteria (Auto) 4+ (Negative) H 09/22/22 19:50 Ur Renal Epithelial Cell Not Reportable 09/22/22 19:50 Urine Yeast Not Reportable 09/22/22 19:50 Nasal Screen MRSA (PCR) Positive (Negative) A 09/23/22 13:00 SARS-CoV-2, RNA, NAAT NEGATIVE (NEGATIVE) 09/22/22 19:57 Staphylococcus sp PCR DETECTED (NotDetected) A 09/22/22 19:35 Staph aureus (PCR) DETECTED (NotDetected) A 09/22/22 19:35 mecA/C & MREJ Resist Gene MRSA Not Detected (NotDetected) 09/22/22 19:35 Bld Cult ID Panel PCR See PCR Comment (NotDetected) 09/22/22 19:35 Impressions Abdomen/Pelvis CT 09/22/22 19:45 IMPRESSION: 1. Exam significantly compromised given paucity of intra-abdominal fat and lack of contrast. 2. No bowel obstruction. No pneumatosis, free air or portal venous gas. 3. No hydronephrosis. Chest X-Ray 09/22/22 19:45 IMPRESSION: No acute cardiopulmonary findings. No significant change in appearance of the chest. Head CT 09/22/22 19:45 IMPRESSION: Trace acute to subacute subarachnoid hemorrhage overlying the left parietal lobe. A short-term follow-up head CT in 24 to 48 hours is recommended. This finding will be called/faxed to the ordering provider at time of dictation. Brain MRI 09/23/22 00:46 IMPRESSION: 1. Numerous acute infarcts, the largest which is a 2.4 cm right cerebellar infarct. Minimal mass effect. The findings suggest an embolic source. Findings discussed with Dr. Cohen at time of dictation. 2. No change in trace subarachnoid hemorrhage overlying the left parietal lobe which is acute to subacute. Chest CTA 09/23/22 10:29 IMPRESSION: 1. No pulmonary emboli identified. 2. Mucous plugging with considerable left lower lobe mucoid impaction and mild left lower lobe pneumonia. 3. 10 mm ovoid filling defect within the left lower lobe bronchus is also likely sales representative electric service of mucous plugging. An endobronchial mass considered less likely. 4. Chronic left hemidiaphragmatic elevation. 5. No lymphadenopathy. 6. Body wall edema with small volume of upper abdominal ascites.
[2022-09-23 08:49] LABS: Hematocrit (blood only) 39.6 % (40.1-51.0); Hemoglobin 12.5 g/dl (14.0-18.0); Mean Corpuscular Hemoglobin 28.7 pg (25.0-34.0); Mean Corpuscular Hgb Conc 31.6 g/dL (32.0-36.0); Mean Corpuscular Volume 90.8 fL (80.0-100.0); Mean Platelet Volume 11.5 fL (9.4-12.4); Platelet Count 95 K/uL (130-400); RDW Coefficient of Variation 16.1 % (11.5-14.5); RDW Standard Deviation 53.8 fL (36.4-46.3); Red Blood Count 4.36 M/uL (4.63-6.08); White Blood Count 14.39 K/ul (4.8-10.8)
[2022-09-23] MEDS ORDERED: MULTIVITAMIN TAB PO SCH (09:00)
[2022-09-23] MEDS ORDERED: ENOXAPARIN INJ 30 MG/0.3 ML SYR SQ SCH (09:00)
[2022-09-23] MEDS ORDERED: cefTRIAXone SODIUM 1,000 MG in DEXTROSE 5% 50 ML IV SCH (09:00)
[2022-09-23] MEDS ORDERED: FERROUS SULFATE 325 MG TAB PO SCH (09:00)
[2022-09-23] MEDS ORDERED: predniSONE 5 MG TAB PO SCH (09:00)
[2022-09-23] MEDS ORDERED: FOLIC ACID 1 MG TAB PO SCH (09:00)
[2022-09-23] MEDS ORDERED: allopurinoL 300 MG TAB PO SCH (09:00)
[2022-09-23] MEDS ORDERED: THIAMINE HCL 100 MG TAB PO SCH (09:00)
[2022-09-23 09:18] LABS: Calcium 9.6 mg/dl (8.5-10.1); Creatinine Clr Calc Pharmacy 55.8 ml/min; Est GFR (African American) 105.6 ml/min; Est GFR (Non-African American) 91.1 ml/min; Potassium 4.2 mmol/L (3.5-5.1); Troponin I High Sensitivity 1681.3 pg/ml (0-20)
[2022-09-23 09:30] LABS: Basophils # (auto) 0.04 K/uL (0-0.2); Basophils % (auto) 0.3 %; Immature Granulocytes # (auto) 0.15 K/uL (0.00-0.02); Lymphocytes # (auto) 0.51 K/uL (1.2-3.4); Lymphocytes % (auto) 3.5 %; Monocytes # (auto) 0.77 K/uL (0.24-0.82); Monocytes % (auto) 5.4 %; Neutrophils # (auto) 12.92 K/uL (1.4-6.5); Neutrophils % (auto) 89.8 %; Toxic Vacuolation 1+
--- NOTE | 2022-09-23 09:57 | CT Scan Report ---
CT OF THE HEAD WITHOUT CONTRAST CLINICAL HISTORY: Altered mental status. COMPARISON STUDY: Head CT May 02, 2021. TECHNIQUE: Helical axial images of the head were obtained without IV contrast. Automated exposure con trol was utilized for the study. A dose lowering technique was utilized adhering to the principles o f ALARA. FINDINGS: There is trace subarachnoid hemorrhage overlying the left parietal lobe on axial image 26 o f 32. This is acute to subacute. There is no mass effect. No additional sites of hemorrhage are prese nt. Ventricular system is unremarkable. White matter hypodensity suggests small vessel disease. There are no findings to suggest acute dural sinus thrombosis or acute territorial infarct. No acute gene rial fracture is identified. IMPRESSION: Trace acute to subacute subarachnoid hemorrhage overlying the left parietal lobe. A shor t-term follow-up head CT in 24 to 48 hours is recommended. This finding will be called/faxed to the [facility] provider at time of dictation. ACT 112: Negative or not required by law. Electronically signed by: Joshua Hernandez M.D. 09/23/2022 9:55 AM
[2022-09-23] MEDS ORDERED: DAPTOmycin 350 MG in SYRINGE 0 ML IV SCH (10:15)
[2022-09-23] MEDS ORDERED: DAPTOmycin 275 MG in SYRINGE 0 ML IV SCH (10:30)
--- NOTE | 2022-09-23 10:31 | Magnetic Resonance Report ---
MRI OF THE BRAIN WITHOUT CONTRAST CLINICAL HISTORY: Altered mental status. COMPARISON STUDY: Head CT 05/22/2021 and September 22, 2022. TECHNIQUE: Utilizing a 1.5 Elizabeth magnet and dedicated coil, multiplanar, multiecho imaging of the bra in was performed without IV contrast. FINDINGS: There are numerous supratentorial and infratentorial foci of restricted diffusion consisten t with acute infarcts. The largest measures 2.4 cm within the anterior right cerebellar hemisphere. T here is minimal mass effect. These include a small infarct within the splenium of the corpus callosum . Basal cisterns are patent. Trace subarachnoid hemorrhage overlying the left parietal lobe is unchan ged since prior head CT. This is best shown on coronal FLAIR sequence. No additional sites of intracr anial hemorrhage are present. Minor T2 hyperintense foci suggest small vessel disease. No intracrania l masses identified on this unenhanced exam. IMPRESSION: 1. Numerous acute infarcts, the largest which is a 2.4 cm right cerebellar infarct. Minimal mass effe ct. The findings suggest an embolic source. Findings discussed with Dr. Cohen at time of dictation. 2. No change in trace subarachnoid hemorrhage overlying the left parietal lobe which is acute to suba cute. ACT 112: Negative or not required by law. Electronically signed by: Joshua Hernandez M.D. 09/23/2022 10:28 AM
--- NOTE | 2022-09-23 10:46 | XRay Report ---
XR chest 1V portable CLINICAL HISTORY: weakness COMPARISON STUDY: Chest CT July 26, 2020. Chest radiograph 05/07/2022 FINDINGS: Elevation of the left hemidiaphragm is noted. There are median sternotomy wires. There is n o pneumothorax or pleural effusion. No consolidation is identified. Mild interstitial thickening is u nchanged. There has been no significant change in appearance of the chest. IMPRESSION: No acute cardiopulmonary findings. No significant change in appearance of the chest. ACT 112: Negative or not required by law. Electronically signed by: Joshua Hernandez M.D. 09/23/2022 10:43 AM
--- NOTE | 2022-09-23 10:49 | Electrocardiogram Report ---
Test Reason : Blood Pressure : / mmHG Vent. Rate : 120 BPM Atrial Rate : 120 BPM P-R Int : 200 ms QRS Dur : 076 ms QT Int : 332 ms P-R-T Axes : 082 018 076 degrees QTc Int : 469 ms Sinus tachycardia with Premature supraventricular complexes some consecutive Low voltage QRS Nonspecific T wave abnormality Abnormal ECG When compared with ECG of 07-MAY-2022 15:23, Premature supraventricular complexes are now Present Confirmed by Crow Post ([id number]) on 09/23/2022 10:49:20 AM Referred By: REFERRED SELF Confirmed By:Manan Post
--- NOTE | 2022-09-23 10:53 | CT Scan Report ---
CT OF THE ABDOMEN AND PELVIS WITHOUT CONTRAST CLINICAL HISTORY: Altered mental status, generalized pain. COMPARISON STUDY: CT of the abdomen and pelvis February 28, 2022. TECHNIQUE: Axial images of the abdomen and pelvis were obtained without IV contrast. Images were revi ewed in the axial, sagittal, and coronal planes. Automated exposure control was utilized for the magen dy. A dose lowering technique was utilized adhering to the principles of ALARA. FINDINGS: Elevation of the left hemidiaphragm is noted. There are median sternotomy wires. Evaluation of the abdomen and pelvis is significantly compromised given lack of contrast and paucity of intra-a bdominal fat. A cyst within lower pole of the right kidney is noted. There is also a left renal cyst. There is no hydronephrosis. Possible small left renal calculus is present. Unenhanced images of the liver, spleen, adrenal glands and pancreas are grossly unremarkable. Abdominal aorta is ectatic. No f luid collection is identified. No evidence for a bowel obstruction. Cortez balloon within the bladder is present. Healing intertrochanteric fracture of the right femur is noted status post internal fixat ion. No acute fractures are identified within the lumbar spine, pelvis or hips. There is extensive at herosclerotic plaque. IMPRESSION: 1. Exam significantly compromised given paucity of intra-abdominal fat and lack of contrast. 2. No bowel obstruction. No pneumatosis, free air or portal venous gas. 3. No hydronephrosis. ACT 112: Negative or not required by law. Electronically signed by: Joshua Hernandez M.D. 09/23/2022 10:50 AM
[2022-09-23] MEDS: LACTATED RINGER'S 1,000 ML IV SCH (11:01)
--- NOTE | 2022-09-23 11:01 | Electrocardiogram Report ---
Test Reason : Blood Pressure : / mmHG Vent. Rate : 102 BPM Atrial Rate : 102 BPM P-R Int : 180 ms QRS Dur : 070 ms QT Int : 346 ms P-R-T Axes : 074 013 084 degrees QTc Int : 450 ms Sinus tachycardia with frequent Premature ventricular complexes Low voltage QRS Nonspecific ST abnormality Abnormal ECG When compared with ECG of 22-SEP-2022 19:21, (unconfirmed) Premature ventricular complexes are now Present Premature supraventricular complexes are no longer Present Confirmed by Crow Post ([id number]) on 09/23/2022 11:01:22 AM Referred By: REFERRED SELF Confirmed By:Manan Post
[2022-09-23] MEDS: FLUCONAZOLE 100 MG/50 ML BAG IV SCH (11:03)
--- NOTE | 2022-09-23 11:23 | Neurology Consultation ---
Date of Consultation September 23, 2022 Assessment & Plan (1) Embolic stroke: Plan Acute embolic stroke, right greater than left cerebellar hemisphere, right greater than left occipital lobe, right greater than left parietal lobe, bilateral frontal lobe, and splenium of the corpus callosum occurring in the context of suspected urosepsis. Septic emboli in consideration, would recommend transthoracic echocardiogram with bubble study. If echocardiogram reveals evidence of valvular vegetations, we could more confidently diagnose septic cerebral emboli. Patient's MRI also discussed with radiology, Dr. Hernandez. Again, his MRI findings are not highly specific for septic emboli. He did suggest obtaining a follow-up gadolinium-enhanced MRI in 1 week which may be helpful to confirm septic emboli if still strongly suspected. In addition to the above echocardiogram, I would also recommend a CT angiogram of the head and neck. Would hold off on antithrombotic or anticoagulant medication given uncertainty as to whether or not the observed embolic infarcts are truly septic emboli. Follow-up with cardiology consultation. Continue antimicrobial treatment. History of Present Illness Reason for Consultation: Stroke, concern for septic emboli Requesting Physician: Dr. Luna Attending Physician: Rajeev Cohen, History of Present Illness The patient is an 81-year-old male who presented to the emergency department yesterday with a chief complaint of altered mental status and weakness. He was noted to be more lethargic than usual after taking his pain medication. Urinalysis was concerning for infection, CBC showed a mild anemia, he was mildly hypokalemic as well. He had elevation in cardiac troponin. A CT of the head completed yesterday revealed an acute to subacute trace subarachnoid hemorrhage overlying the left parietal lobe. There is evidence of chronic small vessel ischemic disease. A follow-up brain MRI revealed numerous acute infarcts, largest of which is 2.4 cm in the right cerebellar hemisphere with minimal mass-effect. Findings suggest an embolic source. No change in the previously identified trace subarachnoid hemorrhage overlying the left parietal lobe which is acute to subacute. I did independently review the images. There are bilateral cerebellar infarcts and bilateral, right greater than left occipital lobe infarcts there is an infarct within the splenium of the corpus callosum there are bilateral parietal and frontal lobe embolic appearing infarcts as well, right parietal greater than left. The trace subarachnoid hemorrhage overlying the left parietal lobe is unchanged. Patient has been diagnosed with a urinary tract infection. Urine cultures grew staph species, blood cultures revealed gram-positive cocci in clusters. Patient's grandson is at bedside this morning. Patient is encephalopathic and unable to provide any details pertaining to his history of present illness or past medical history at this time. According to his grandson, he is ambulatory at baseline and able to speak. He does have several chronic health conditions as indicated in the admission history including severe protein calorie malnutrition, type 2 diabetes mellitus, DVT, hyperlipidemia, hypertension, chronic pain related to osteoarthritis, and sleep apnea. Allergies Allergy/AdvReac Type Severity Reaction Status Date / Time No Known Allergies Allergy Verified 09/22/22 21:03 Home Medications Medication Instructions Recorded Confirmed Type nitroglycerin 0.4 mg sublingual 0.4 mg sublingual Q5M PRN chest 07/01/19 09/22/22 History tablet pain #25 tabs allopurinol 300 mg tablet 300 mg PO QAM 07/13/21 09/22/22 History linaclotide 290 mcg capsule 290 mcg PO QAM 07/13/21 09/22/22 History (Linzess) tamsulosin 0.4 mg capsule 0.4 mg PO HS #90 caps 08/02/21 09/22/22 Rx prednisone 5 mg tablet 5 mg PO QAM #30 tabs 02/04/22 09/22/22 Rx folic acid 1 mg tablet 1 mg PO QAM #30 tabs 03/02/22 09/22/22 Rx multivitamin with folic acid 400 1 tab PO QAM #30 tabs 03/02/22 09/22/22 Rx mcg tablet (Daily-Ludivina (with folic acid)) thiamine HCl (vitamin B1) 100 mg 100 mg PO QAM #30 tabs 03/02/22 09/22/22 Rx tablet ipratropium bromide 21 mcg (0.03 2 spray intranasal BID PRN rhinitis 04/23/22 09/22/22 History %) nasal spray ferrous sulfate 325 mg (65 mg 325 mg PO QAM #30 tabs 05/13/22 09/22/22 Rx iron) tablet,delayed release sennosides 8.6 mg-docusate sodium 2 tab PO HS #60 tabs 05/13/22 09/22/22 Rx 50 mg tablet (Senokot-S) miscellaneous medical supply #30 grams 08/01/22 09/16/22 Rx cholecalciferol (vitamin D3) 25 25 mcg PO QAM 08/12/22 09/22/22 History mcg (1,000 unit) tablet (Vitamin D3) docusate sodium 100 mg capsule 100 mg PO QAM 08/12/22 09/22/22 History (Colace) guaifenesin 600 mg tablet, 600 mg PO UD PRN congestion 08/12/22 09/22/22 History extended release 12 hr (Mucinex) loratadine 10 mg tablet (Claritin) 10 mg PO DAILY PRN ALLERGIES 08/12/22 09/22/22 History omeprazole 40 mg capsule,delayed 40 mg PO BID #60 caps 08/21/22 09/22/22 Rx release food supplemt, lactose-reduced 1 ea PO 6XD 09/16/22 09/22/22 History 0.06 gram-1 kcal/mL oral liquid (Boost High Protein) lactulose 20 gram/30 mL oral 20 g (30 mL) PO BID PRN 09/16/22 09/22/22 Rx solution Constipation #3,000 mL nystatin 100,000 unit/gram topical 1 applic topical BID #30 grams 09/16/22 09/22/22 Rx ointment oxycodone 15 mg tablet 15 mg PO BID PRN breakthrough pain 09/16/22 09/22/22 Rx #60 tabs oxycodone 40 mg tablet,crush 40 mg PO BID #60 tabs 09/16/22 09/22/22 Rx resistant,extended release 12 hr Patient History Medical History (Updated 09/23/22 @ 11:36 by Sin Patel MD) B12 deficiency ? BPH (benign prostatic hyperplasia) Chest pain EPISODE LAST WEEK...USED NITRO X 1 DOSE AND RESOLVED PT REPORTS HE BELIEVES IT WAS HEARTBURN AND THIS IS WHY HE IS HAVING HIS PROCEDURE DONE Chronic, continuous use of opioids Coronary atherosclerosis of [place] coronary vessel COVID 4-5 MON AGO Depression Discharged to rehabilitation facility RIGHT HIP FX , SURGICAL INTERVENTION MAY 2022 ...[facility]...DISCHARGED FROM REHAB 2 WEEKS AGO DM2 (diabetes mellitus, type 2) prior to gastric bypass--no meds now Fracture of hip, right, closed Gastroparesis GERD without esophagitis Gouty arthropathy Hearing deficit History of anemia History of DVT (deep vein thrombosis) 20 YR AGO Hyperlipidemia LDL goal <100 Hypertension Internal hernia OA (osteoarthritis) of hip Other psoriasis Poor historian Pruritus scroti Restless legs Severe aortic stenosis PT REPORTS HEART VALVE PROBLEM AND THAT A BALLOON NEEDS TO BE PUT IN THERE BECAUSE IT'S CLOSING. FOLOWS DR ERNANDEZ. Severe protein-calorie malnutrition Sleep apnea hx of prior to gastric bypass sx--no device Trouble swallowing SOMETIMES HURTS, FEELS LIKE A GAS BUBBLE - REASON FOR UPCOMING PROCEDURE Surgical History Bariatric surgery status 2007 @ [facility] [place] History of bilateral cataract extraction History of cardiac cath x2 ? prior to bypass--pt does not believe any stents placed History of carpal tunnel surgery of right wrist History of colonoscopy History of esophagogastroduodenoscopy (EGD) History of tooth extraction all teeth removed S/P hip replacement PT DENIES HIP REPLACEMENT, REPORTS HAD PIN IN MY HIP - S/P JUNE 01 ? 2021 ([place]) RIGHT HIP D/C FROM [employer] 2 WEEKS AGO S/P triple vessel bypass [place] Status post panniculectomy Family History Mother Diabetes Other No family history of adverse response to anesthesia Denies family history of Ovarian cancer Prostate cancer Myocardial infarction Breast cancer Colorectal cancer Social History Smoking Status: Unknown if ever smoked Tobacco Type: Cigarettes Age Started Using Tobacco: 20; Age Quit Using Tobacco: 63; packs per day: 1; Second Hand Exposure: No; Hx Alcohol Use: No Hx Substance Use: No Preferred Language: Japanese Communication Ability: Effective Visual Impairment: No Limitations Hearing Ability: Use of Hearing Aid 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: No Beliefs That Will Affect Care: None marital status: / Current Living Situation: Family Current Living Situation Comment: [facility] NOW TO HELP RECOVER 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al status: retired 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: 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 Feels Safe at Home: Yes Safety Concerns: Feels Safe At This Time Childhood Exposure to Second-Hand Smoke: No Dental Care, Regularly: No Physical Activity Frequency: Does not Exercise Seatbelt Use: sometimes Sunscreen Use: No Assistive Devices: Denture - Upper, Denture - Lower, Glasses, Hearing Aid - Bilateral, Walker and Wheelchair Assistive Devices Comment: unknown not able to understand pt when asked question, no one w/ pt to answ Review of Systems Review of Systems: Unobtainable due to cognitive status Exam (Neuro) Constitutional: + cachectic and + altered mental status Eyes: PERRL and EOM intact bilaterally Cardiovascular: Vessels: normal carotid upstroke; no carotid bruit Neurologic: Oriented to:: negative Person, Place or Time Memory: negative Short Term Intact or Remote Intact Attention: negative Span Intact or Concentration Intact Speech Fluency: Other (No spontaneous speech, inaudible utterances, is able to follow simple commands) Fund of Knowledge: Vocabulary (Able to follow simple commands, otherwise unable to assess fund of knowledge.) Cranial Nerves: Normal II, III, IV, , V, VII, VIII, IX, X, XI and XII Motor Strength: negative Normal Lower Extremities or Normal Upper Extremities Muscle Bulk/Involuntary Movements: No Involuntary Movements and Muscle Atrophy Coordination: Finger-Nose Abnormal and Heel-[place] Abnormal Deep Tendon Reflexes: Rt Triceps: 1+, Lt Triceps: 1+, Rt Biceps: 1+, Lt Biceps: 1+, Rt Brachioradialis: 1+, Lt Brachioradialis: 1+, Rt Patellar: 1+, Lt Patellar: 1+, Rt Ankle: 1+ and Lt Ankle: 1+ Details: Unable to reliably assess sensation. Unable to assess gait in the context of patient's current medical status. Results & Data ([facility]) Vital Signs (Past 12 Hours) Vital Signs Temp Pulse Pulse Resp BP Pulse Ox O2 Del Method 09/23/22 08:00 Nasal Cannula 09/23/22 08:33 Nasal Cannula 09/23/22 08:10 36.5 C 74 25 H 108/73 97 Nasal Cannula 09/23/22 07:59 108 H 09/23/22 01:00 107 H 16 108/73 90 Nasal Cannula 09/22/22 23:18 111 H 20 115/64 92 Nasal Cannula O2 Flow Rate 09/23/22 08:00 2 09/23/22 08:33 09/23/22 08:10 09/23/22 07:59 09/23/22 01:00 4 09/22/22 23:18 4 Laboratory Results WBC 14.39, hemoglobin 12.5, hematocrit 39.6, platelet count 95, sodium 143, potassium 4.2, BUN 34, creatinine 0.63, glucose 192, calcium 9.6, AST 33, ALT 20, high-sensitivity troponin elevated, TSH 1.715 urinalysis positive Diagnostic Findings CT of the head and brain MRI results reviewed independently and with radiology, Dr. Hernandez. Patient does have a trace subarachnoid hemorrhage overlying the left parietal lobe seen on both CT and MRI. He has numerous embolic appearing infarcts on brain MRI as described in the history of present illness. The imaging characteristics are not necessarily specific or suggestive of septic emboli. Electrocardiogram reveals sinus tachycardia with frequent premature ventricular complexes. Coding Level of Care Code 33872 Initial In Care Lvl 3 Diagnoses Embolic stroke I63.9
[2022-09-23] MEDS ORDERED: OPTIRAY 320 500ml IV ONE (11:50)
--- NOTE | 2022-09-23 12:21 | CT Scan Report ---
CT angio chest PE protocol CT DOSE: 241.78 mGy.cm HISTORY: 81 years-old Male with PE. Acute shortness of breath TECHNIQUE: Multiple CTA images of the chest were obtained after the intravenous administration of 111 ml Optiray. Coronal and sagittal MIPS were obtained from the axial data set and were submitted for review. All measurements were obtained according to NASCET criteria. A dose lowering technique was u tilized adhering to the principles of ALARA. COMPARISON: Chest radiograph 09/22/2022, CTA chest 07/26/2020. FINDINGS: CTA: The heart is normal in size. Extensive coronary artery calcifications. Prior median sternotomy with f indings suggestive of CABG. Atherosclerosis of the aorta without aneurysm or dissection. There is pat ency of the imaged great vessels. Subsegmental filling defect noted within the left main pulmonary ar anahi, image 182 may be artifactual. No definite pulmonary emboli are identified. CT CHEST: No thyroid nodule identified. No lymphadenopathy. Chronic left hemidiaphragmatic elevation. Trace lef t pleural effusion. Respiratory motion artifact limits evaluation of the lungs. No pneumothorax. Subs egmental right basilar atelectasis. 3 mm solid nodule of the right middle lobe on image 36 is favored to be benign. Mucous plugging of the left lower lobe with considerable mucoid impaction. There is an endobronchial 10 mm ovoid filling defects noted within the left lower lobar bronchus, image 159. Mil d bilateral cylindrical bronchiectasis. Patchy consolidative opacities of the left lower lobe. Probable cyst of the superior pole right kidney, 7 mm. Small volume of upper abdominal ascites with b hali wall edema. Degenerative changes of the shoulders and spine. IMPRESSION: 1. No pulmonary emboli identified. 2. Mucous plugging with considerable left lower lobe mucoid impaction and mild left lower lobe pneumo noé. 3. 10 mm ovoid filling defect within the left lower lobe bronchus is also likely outside medical sales representative of mu cous plugging. An endobronchial mass considered less likely. 4. Chronic left hemidiaphragmatic elevation. 5. No lymphadenopathy. 6. Body wall edema with small volume of upper abdominal ascites. ACT 112: Negative or not required by law. The above report was generated using voice recognition software. It may contain grammatical, syntax o r spelling errors. Electronically signed by: Javon Erwin M.D. 09/23/2022 12:20 PM
--- NOTE | 2022-09-23 12:23 | Infectious Disease Consult ---
Date of Consultation September 23, 2022 Assessment & Plan (1) MSSA bacteremia: (2) Embolic stroke: (3) Urinary tract infection: Plan 81 yo M with a history of CAD, DM2, HTN, HLD, severe aortic stenosis, osteoarthritis on chronic opioids who presented on 09/22 with generalized weakness, AMS, urinary/fecal incontinence, fever, now found to have MSSA bacteremia of unknown etiology, with concern for endocarditis. Urine sample is likely contaminated (UA with >30 epis), and urine culture is now growing Staph species, awaiting further identification. Imaging shows CT head with trace acute to subacute SAH overlying the parietal lobe, MRI brain with numerous acute infarcts concerning for embolic source, CT A/P without contrast without acute findings, and CTA chest without PE but showing LLL mucous plugging and mild pneumonia. Source of MSSA bacteremia is unclear at this time--no IVDU, no concerns for infected wounds, no long-term catheters. The only hardware he has is a trochanteric femoral nail in the R hip after a fracture in 04/2022, and his R hip is unremarkable on exam. The Staph species in the UCx may speciate to MSSA--which could be explained by MSSA bacteremia seeding the urinary tract, vs MSSA UTI entering the bloodstream. Could also consider a primary MSSA pneumonia seeding the bloodstream, given the possible LLL pneumonia on CTA chest. No other clear sites of seeding other than possible brain as noted on MRI--no focal joint pains/swelling, and his chronic back pain is at its baseline. Per Neurology consult note, the brain MRI findings are not highly specific for septic emboli. Problems: #MSSA bacteremia #Urine culture with Staph species #Multiple acute brain infarcts: concerning for possible embolic source, but not highly specific #Possible LLL pneumonia Recommendations: -Ordered repeat set of blood cultures today. Please obtain daily blood cultures until confirmed clearance x 48 hours -Agree with TTE to evaluate for endocarditis -If pt is able to produce sputum, would send for respiratory culture (ordered) -Follow-up urine culture for identification of Staph -Stopped daptomycin -Started nafcillin 2 g IV q4h for improved MSSA coverage and lung penetration over daptomycin. Has better PACKING MACHINE TENDER penetration over cefazolin. -Will continue to follow A total of 100 minutes was spent on this visit including interviewing and examining the patient, reviewing previous notes, ordering tests, adjusting medications, and documenting the findings in the note. Consultation Information Consultation was provided via telemedicine using two-way real-time interactive telecommunication between the patient and the telemedicine provider. For the duration of the visit, the provider was performing the assessment from a different facility than the patient. This includesuse of bluetooth stethoscope forauscultationperformed by the telepresenter that the telemedicine provider can hear if described in the physical exam. Computer Repair Technician contact information: Please call [facility] [phone]. (Phone Number For Physician Use Only) After establishing a telemedicine visit, patient was: Patient was verified with two unique identifiers, Patient/authorized rep acknowledged consent and understanding and Gave permission to continue telehealth session Time Spent w Inpatient: 20 minutes History of Present Illness Reason for Consultation: GPC bacteremia Attending Physician: Rajeev Cohen DO History of Present Illness 81 yo M with a history of CAD, DM2, HTN, HLD, severe aortic stenosis, osteoarthritis on chronic opioids who presented on 09/22 with generalized weakness, AMS. Per his daughter, the patient is fairly independent at baseline with his ADLs, can ambulate with a walker. The pt was doing well until 4 days prior to presentation when he was found confused and shaking. The following day, the pt was found to be incontinent of urine and stool, with increased fatigue, decreased alertness, recurrent "shaking" episodes, and fever with Tmax 102, with progressive weakness. On presentation, he was afebrile, tachycardic to 118, BP 100/65, requiring 4 L NC. Labs demonstrated WBC 9.58. UA showed >30 epithelial cells, ketones, 3+ blood, positive nitrite, 1+ LE, 5-10 WBC. COVID-19 was negative. A CXR showed no acute findings. A CT head showed trace acute to subacute SAH overlying the L parietal lobe. A CT A/P without contrast was significantly compromised given paucity of intra-abd fat and lack of contrast, but showed no bowel obstruction, no free air, no hydronephrosis. He was given IVF, ceftriaxone 2 g IV. Blood cultures from 09/22 are now growing GPCs in clusters in 2/4 vials. BCID2 panel is positive for Staph aureus, negative for MRSA. UCx is growing >100K cfu/ml Staphylococcus species, susceptibilities to follow. On evaluation today, his daughters are at bedside. History from the pt is difficult to obtain as he remains somewhat altered. His daughters deny known dysuria prior to admission, but report that he was incontinent of urine, which is not his baseline. They also report he was having diarrhea. Pt believes he is still having diarrhea now. Pt denies dyspnea or odynophagia. Daughters state he is spitting up a lot of phlegm. He has chronic back pain around his shoulders and lower back, which is unchanged from baseline. His daughters report that his R hip was recently shattered, now s/p pin placement in late May 2022. Also report a small wound on his penis, which appears improved from prior. Using nystatin ointment on it. No IVDU. He lives with his adult grandson and has a pet dog. No sick contacts. An MRI brain overnight showed numerous acute infarcts, suggesting embolic source. WBC has now increased to 14.4 today. In the setting of MSSA bacteremia and embolic infarct seen on brain MRI, Cardiology has been consulted and TTE is ordered. Pt is currently on daptomycin 275 mg IV q24h. A CTA chest today showed no PE, mucous plugging with considerable LLL mucoid impaction and mild LLL pneumonia. Allergies Allergy/AdvReac Type Severity Reaction Status Date / Time No Known Allergies Allergy Verified 09/22/22 21:03 Home Medications Medication Instructions Recorded Confirmed Type nitroglycerin 0.4 mg sublingual 0.4 mg sublingual Q5M PRN chest 07/01/19 09/22/22 History tablet pain #25 tabs allopurinol 300 mg tablet 300 mg PO QAM 07/13/21 09/22/22 History linaclotide 290 mcg capsule 290 mcg PO QAM 07/13/21 09/22/22 History (Linzess) tamsulosin 0.4 mg capsule 0.4 mg PO HS #90 caps 08/02/21 09/22/22 Rx prednisone 5 mg tablet 5 mg PO QAM #30 tabs 02/04/22 09/22/22 Rx folic acid 1 mg tablet 1 mg PO QAM #30 tabs 03/02/22 09/22/22 Rx multivitamin with folic acid 400 1 tab PO QAM #30 tabs 03/02/22 09/22/22 Rx mcg tablet (Daily-Ludivina (with folic acid)) thiamine HCl (vitamin B1) 100 mg 100 mg PO QAM #30 tabs 03/02/22 09/22/22 Rx tablet ipratropium bromide 21 mcg (0.03 2 spray intranasal BID PRN rhinitis 04/23/22 09/22/22 History %) nasal spray ferrous sulfate 325 mg (65 mg 325 mg PO QAM #30 tabs 05/13/22 09/22/22 Rx iron) tablet,delayed release sennosides 8.6 mg-docusate sodium 2 tab PO HS #60 tabs 05/13/22 09/22/22 Rx 50 mg tablet (Senokot-S) miscellaneous medical supply #30 grams 08/01/22 09/16/22 Rx cholecalciferol (vitamin D3) 25 25 mcg PO QAM 08/12/22 09/22/22 History mcg (1,000 unit) tablet (Vitamin D3) docusate sodium 100 mg capsule 100 mg PO QAM 08/12/22 09/22/22 History (Colace) guaifenesin 600 mg tablet, 600 mg PO UD PRN congestion 08/12/22 09/22/22 History extended release 12 hr (Mucinex) loratadine 10 mg tablet (Claritin) 10 mg PO DAILY PRN ALLERGIES 08/12/22 09/22/22 History omeprazole 40 mg capsule,delayed 40 mg PO BID #60 caps 08/21/22 09/22/22 Rx release food supplemt, lactose-reduced 1 ea PO 6XD 09/16/22 09/22/22 History 0.06 gram-1 kcal/mL oral liquid (Boost High Protein) lactulose 20 gram/30 mL oral 20 g (30 mL) PO BID PRN 09/16/22 09/22/22 Rx solution Constipation #3,000 mL nystatin 100,000 unit/gram topical 1 applic topical BID #30 grams 09/16/22 09/22/22 Rx ointment oxycodone 15 mg tablet 15 mg PO BID PRN breakthrough pain 09/16/22 09/22/22 Rx #60 tabs oxycodone 40 mg tablet,crush 40 mg PO BID #60 tabs 09/16/22 09/22/22 Rx resistant,extended release 12 hr Patient History Medical History (Updated 09/23/22 @ 13:52 by Anna Avalos MD) B12 deficiency ? BPH (benign prostatic hyperplasia) Chest pain EPISODE LAST WEEK...USED NITRO X 1 DOSE AND RESOLVED PT REPORTS HE BELIEVES IT WAS HEARTBURN AND THIS IS WHY HE IS HAVING HIS PROCEDURE DONE Chronic, continuous use of opioids Coronary atherosclerosis of [place] coronary vessel COVID 4-5 MON AGO Depression Discharged to rehabilitation facility RIGHT HIP FX , SURGICAL INTERVENTION MAY 2022 ...[facility]...DISCHARGED FROM REHAB 2 WEEKS AGO DM2 (diabetes mellitus, type 2) prior to gastric bypass--no meds now Fracture of hip, right, closed Gastroparesis GERD without esophagitis Gouty arthropathy Hearing deficit History of anemia History of DVT (deep vein thrombosis) 20 YR AGO Hyperlipidemia LDL goal <100 Hypertension Internal hernia OA (osteoarthritis) of hip Other psoriasis Poor historian Pruritus scroti Restless legs Severe aortic stenosis PT REPORTS HEART VALVE PROBLEM AND THAT A BALLOON NEEDS TO BE PUT IN THERE BECAUSE IT'S CLOSING. FOLOWS DR ERNANDEZ. Severe protein-calorie malnutrition Sleep apnea hx of prior to gastric bypass sx--no device Trouble swallowing SOMETIMES HURTS, FEELS LIKE A GAS BUBBLE - REASON FOR UPCOMING PROCEDURE Surgical History Bariatric surgery status 2007 @ [facility] [place] History of bilateral cataract extraction History of cardiac cath x2 ? prior to bypass--pt does not believe any stents placed History of carpal tunnel surgery of right wrist History of colonoscopy History of esophagogastroduodenoscopy (EGD) History of tooth extraction all teeth removed S/P hip replacement PT DENIES HIP REPLACEMENT, REPORTS HAD PIN IN MY HIP - S/P JUNE [id number] ([place]) RIGHT HIP D/C FROM [facility] 2 WEEKS AGO S/P triple vessel bypass [place]...1996 Status post panniculectomy Family History Mother Diabetes Other No family history of adverse response to anesthesia Denies family history of Ovarian cancer Prostate cancer Myocardial infarction Breast cancer Colorectal cancer Social History Smoking Status: Unknown if ever smoked Tobacco Type: Cigarettes Age Started Using Tobacco: 20; Age Quit Using Tobacco: 63; packs per day: 1; Second Hand Exposure: No; Hx Alcohol Use: No Hx Substance Use: No Preferred Language: Divehi Communication Ability: Effective Visual Impairment: No Limitations Hearing Ability: Use of Hearing Aid Elementary School Tutor Required: No Beliefs That Will Affect Care: None marital status: / Current Living Situation: Family Current Living Situation Comment: [facility] WITH NOW TO HELP RECOVER 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al status: retired 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: 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 Physical Exam Physical Exam: GEN: ill-appearing, elderly man HEENT: MMM CV: distant heart sounds RESP: decreased work of breathing ABD: Soft, non-distended. Non-tender to palpation. : small erythematous area around urethra. Cortez in place MSK: no edema. No focal joint erythema, swelling, or warmth. Good ROM of shoulders, elbows, knees. R hip without erythema or tenderness. SKIN: Excoriations on LUE. NEURO:Answering simple questions PSYCH: unable to evaluate LINES: PIV Results & Data ([facility]) Vital Signs (Past 12 Hours) Vital Signs Temp Pulse Pulse Resp BP Pulse Ox O2 Del Method 09/23/22 08:00 Nasal Cannula 09/23/22 08:33 Nasal Cannula 09/23/22 08:10 36.5 C 74 25 H 108/73 97 Nasal Cannula 09/23/22 07:59 108 H 09/23/22 01:00 107 H 16 108/73 90 Nasal Cannula O2 Flow Rate 09/23/22 08:00 2 09/23/22 08:33 09/23/22 08:10 09/23/22 07:59 09/23/22 01:00 4 Laboratory Results Laboratory Results - last 48 hr 09/22/22 09/22/22 09/22/22 19:35 19:35 19:35 WBC 9.58 RBC 4.10 L Hgb 12.0 L Hct 36.5 L MCV 89.0 MCH 29.3 MCHC 32.9 RDW Std Deviation 52.1 H RDW Coeff of Yoanna 15.9 H Plt Count 135 MPV 10.3 Immature Gran % (Auto) 0.4 Neut % (Auto) 94.3 Lymph % (Auto) 2.2 [place] % (Auto) 2.1 Eos % (Auto) 0.7 Baso % (Auto) 0.3 Neut # (Auto) 9.03 H Lymph # (Auto) 0.21 L [place] # (Auto) 0.20 L Eos # (Auto) 0.07 Baso # (Auto) 0.03 Immature Gran # (Auto) 0.04 H Hypersegmented Neuts 1+ Toxic Vacuolation Platelet Estimate Normal Echinocytes 1+ Sodium 141 Potassium 3.1 L Chloride 103 Carbon Dioxide 29 Anion Gap 9 BUN 27 H Creatinine 0.55 L Est Cr Clr Drug Dosing 63.9 Est GFR ( Amer) 111.7 Est GFR (Non-Af Amer) 96.4 BUN/Creatinine Ratio 49.1 H Glucose 193 H Calcium 9.3 Magnesium 1.7 Total Bilirubin 0.9 AST 33 ALT 20 Alkaline Phosphatase 104 Total Creatine Kinase 58 Troponin I High Sens 2894.3 H* D Total Protein 6.5 Albumin 2.8 L Globulin 3.7 Albumin/Globulin Ratio 0.8 L TSH 1.715 Urine Color Urine Appearance Urine pH Ur Specific [place] Urine Protein Urine Glucose (UA) Urine Ketones Urine Blood Urine Nitrite Urine Bilirubin Urine Urobilinogen Ur Leukocyte Esterase Urine WBC (Auto) Urine RBC (Auto) U Hyaline Cast (Auto) U Epithel Cells (Auto) Urine Bacteria (Auto) Ur Renal Epithelial Cell Urine Yeast SARS-CoV-2, RNA, NAAT Staphylococcus sp PCR Staph aureus (PCR) mecA/C & MREJ Resist Gene Bld Cult ID Panel PCR 09/22/22 09/22/22 09/22/22 19:35 19:50 19:57 WBC RBC Hgb Hct MCV MCH MCHC RDW Std Deviation RDW Coeff of Yoanna Plt Count MPV Immature Gran % (Auto) Neut % (Auto) Lymph % (Auto) [place] % (Auto) Eos % (Auto) Baso % (Auto) Neut # (Auto) Lymph # (Auto) [place] # (Auto) Eos # (Auto) Baso # (Auto) Immature Gran # (Auto) Hypersegmented Neuts Toxic Vacuolation Platelet Estimate Echinocytes Sodium Potassium Chloride Carbon Dioxide Anion Gap BUN Creatinine Est Cr Clr Drug Dosing Est GFR ( Amer) Est GFR (Non-Af Amer) BUN/Creatinine Ratio Glucose Calcium Magnesium Total Bilirubin AST ALT Alkaline Phosphatase Total Creatine Kinase Troponin I High Sens Total Protein Albumin Globulin Albumin/Globulin Ratio TSH Urine Color Dark Yellow Urine Appearance Cloudy A Urine pH 6.5 Ur Specific [place] 1.020 Urine Protein 2+ H Urine Glucose (UA) Negative Urine Ketones 1+ H Urine Blood 3+ H Urine Nitrite Positive A Urine Bilirubin Negative Urine Urobilinogen Negative Ur Leukocyte Esterase 1+ H Urine WBC (Auto) 5-10 H Urine RBC (Auto) 10-30 H U Hyaline Cast (Auto) 5-10 H U Epithel Cells (Auto) >30 H Urine Bacteria (Auto) 4+ H Ur Renal Epithelial Cell Not Reportable Urine Yeast Not Reportable SARS-CoV-2, RNA, NAAT NEGATIVE Staphylococcus sp PCR DETECTED A Staph aureus (PCR) DETECTED A mecA/C & MREJ Resist Gene MRSA Not Detected Bld Cult ID Panel PCR See PCR Comment 09/23/22 09/23/22 09/23/22 03:34 08:06 08:06 WBC 14.39 H RBC 4.36 L Hgb 12.5 L Hct 39.6 L MCV 90.8 MCH 28.7 MCHC 31.6 L RDW Std Deviation 53.8 H RDW Coeff of Yoanna 16.1 H Plt Count 95 L MPV 11.5 Immature Gran % (Auto) 1.0 Neut % (Auto) 89.8 Lymph % (Auto) 3.5 [place] % (Auto) 5.4 Eos % (Auto) 0.0 Baso % (Auto) 0.3 Neut # (Auto) 12.92 H Lymph # (Auto) 0.51 L [place] # (Auto) 0.77 Eos # (Auto) 0.00 Baso # (Auto) 0.04 Immature Gran # (Auto) 0.15 H Hypersegmented Neuts Toxic Vacuolation 1+ Platelet Estimate Echinocytes Sodium 143 Potassium 4.2 D Chloride 106 Carbon Dioxide 29 Anion Gap 8 BUN 34 H Creatinine 0.63 Est Cr Clr Drug Dosing 55.8 Est GFR ( Amer) 105.6 Est GFR (Non-Af Amer) 91.1 BUN/Creatinine Ratio 54.0 H Glucose 192 H Calcium 9.6 Magnesium Total Bilirubin AST ALT Alkaline Phosphatase Total Creatine Kinase 45 Troponin I High Sens 1681.3 H* D Total Protein Albumin Globulin Albumin/Globulin Ratio TSH Urine Color Urine Appearance Urine pH Ur Specific [place] Urine Protein Urine Glucose (UA) Urine Ketones Urine Blood Urine Nitrite Urine Bilirubin Urine Urobilinogen Ur Leukocyte Esterase Urine WBC (Auto) Urine RBC (Auto) U Hyaline Cast (Auto) U Epithel Cells (Auto) Urine Bacteria (Auto) Ur Renal Epithelial Cell Urine Yeast SARS-CoV-2, RNA, NAAT Staphylococcus sp PCR Staph aureus (PCR) mecA/C & MREJ Resist Gene Bld Cult ID Panel PCR 09/23/22 10:57 WBC RBC Hgb Hct MCV MCH MCHC RDW Std Deviation RDW Coeff of Yoanna Plt Count MPV Immature Gran % (Auto) Neut % (Auto) Lymph % (Auto) [place] % (Auto) Eos % (Auto) Baso % (Auto) Neut # (Auto) Lymph # (Auto) [place] # (Auto) Eos # (Auto) Baso # (Auto) Immature Gran # (Auto) Hypersegmented Neuts Toxic Vacuolation Platelet Estimate Echinocytes Sodium Potassium Chloride Carbon Dioxide Anion Gap BUN Creatinine Est Cr Clr Drug Dosing Est GFR ( Amer) Est GFR (Non-Af Amer) BUN/Creatinine Ratio Glucose Calcium Magnesium Total Bilirubin AST ALT Alkaline Phosphatase Total Creatine Kinase Troponin I High Sens 1733.5 H* Total Protein Albumin Globulin Albumin/Globulin Ratio TSH Urine Color Urine Appearance Urine pH Ur Specific [place] Urine Protein Urine Glucose (UA) Urine Ketones Urine Blood Urine Nitrite Urine Bilirubin Urine Urobilinogen Ur Leukocyte Esterase Urine WBC (Auto) Urine RBC (Auto) U Hyaline Cast (Auto) U Epithel Cells (Auto) Urine Bacteria (Auto) Ur Renal Epithelial Cell Urine Yeast SARS-CoV-2, RNA, NAAT Staphylococcus sp PCR Staph aureus (PCR) mecA/C & MREJ Resist Gene Bld Cult ID Panel PCR Diagnostic Findings Microbiology 09/22/22 19:50 Urine,Clean Catch Urine Culture - Preliminary Staphylococcus species 09/22/22 19:35 Blood Aerobic Blood Culture - Preliminary Gram positive cocci clusters 09/22/22 19:35 Blood Anaerobic Blood Culture - Preliminary Gram positive cocci clusters Radiology Abdomen/Pelvis CT 09/22/22 19:45 CT OF THE ABDOMEN AND PELVIS WITHOUT CONTRAST CLINICAL HISTORY: Altered mental status, generalized pain. COMPARISON STUDY: CT of the abdomen and pelvis February 28, 2022. TECHNIQUE: Axial images of the abdomen and pelvis were obtained without IV contrast. Images were reviewed in the axial, sagittal, and coronal planes. Automated exposure control was utilized for the study. A dose lowering technique was utilized adhering to the principles of ALARA. FINDINGS: Elevation of the left hemidiaphragm is noted. There are median sternotomy wires. Evaluation of the abdomen and pelvis is significantly compromised given lack of contrast and paucity of intra-abdominal fat. A cyst within lower pole of the right kidney is noted. There is also a left renal cyst. There is no hydronephrosis. Possible small left renal calculus is present. Unenhanced images of the liver, spleen, adrenal glands and pancreas are grossly unremarkable. Abdominal aorta is ectatic. No fluid collection is identified. No evidence for a bowel obstruction. Cortez balloon within the bladder is present. Healing intertrochanteric fracture of the right femur is noted status post internal fixation. No acute fractures are identified within the lumbar spine, pelvis or hips. There is extensive atherosclerotic plaque. IMPRESSION: 1. Exam significantly compromised given paucity of intra-abdominal fat and lack of contrast. 2. No bowel obstruction. No pneumatosis, free air or portal venous gas. 3. No hydronephrosis. ACT 112: Negative or not required by law. Electronically signed by: Joshua Hernandez M.D. 09/23/2022 10:50 AM Chest X-Ray 09/22/22 19:45 XR chest 1V portable CLINICAL HISTORY: weakness COMPARISON STUDY: Chest CT July 26, 2020. Chest radiograph 05/07/2022 FINDINGS: Elevation of the left hemidiaphragm is noted. There are median sternotomy wires. There is no pneumothorax or pleural effusion. No consolidation is identified. Mild interstitial thickening is unchanged. There has been no significant change in appearance of the chest. IMPRESSION: No acute cardiopulmonary findings. No significant change in appearance of the chest. ACT 112: Negative or not required by law. Electronically signed by: Joshua Hernandez M.D. 09/23/2022 10:[address] 09/22/22 19:45 CT OF THE HEAD WITHOUT CONTRAST CLINICAL HISTORY: Altered mental status. COMPARISON STUDY: Head CT May 02, 2021. TECHNIQUE: Helical axial images of the head were obtained without IV contrast. Automated exposure control was utilized for the study. A dose lowering technique was utilized adhering to the principles of ALARA. FINDINGS: There is trace subarachnoid hemorrhage overlying the left parietal lobe on axial image 26 of 32. This is acute to subacute. There is no mass effect. No additional sites of hemorrhage are present. Ventricular system is unremarkable. White matter hypodensity suggests small vessel disease. There are no findings to suggest acute dural sinus thrombosis or acute territorial infarct. No acute calvarial fracture is identified. IMPRESSION: Trace acute to subacute subarachnoid hemorrhage overlying the left parietal lobe. A short-term follow-up head CT in 24 to 48 hours is recommended. This finding will be called/faxed to the ordering provider at time of dictation. ACT 112: Negative or not required by law. Electronically signed by: Joshua Henrandez M.D. 09/23/2022 9:55 AM Brain MRI 09/23/22 00:46 MRI OF THE BRAIN WITHOUT CONTRAST CLINICAL HISTORY: Altered mental status. COMPARISON STUDY: Head CT 05/22/2021 and September 22, 2022. TECHNIQUE: Utilizing a 1.5 Elizabeth magnet and dedicated coil, multiplanar, multiecho imaging of the brain was performed without IV contrast. FINDINGS: There are numerous supratentorial and infratentorial foci of restricted diffusion consistent with acute infarcts. The largest measures 2.4 cm within the anterior right cerebellar hemisphere. There is minimal mass effect. These include a small infarct within the splenium of the corpus callosum. Basal cisterns are patent. Trace subarachnoid hemorrhage overlying the left parietal lobe is unchanged since prior head CT. This is best shown on coronal FLAIR sequence. No additional sites of intracranial hemorrhage are present. Minor T2 hyperintense foci suggest small vessel disease. No intracranial masses identified on this unenhanced exam. IMPRESSION: 1. Numerous acute infarcts, the largest which is a 2.4 cm right cerebellar infarct. Minimal mass effect. The findings suggest an embolic source. Findings discussed with Dr. Cohen at time of dictation. 2. No change in trace subarachnoid hemorrhage overlying the left parietal lobe which is acute to subacute. ACT 112: Negative or not required by law. Electronically signed by: Joshua Hernandez M.D. 09/23/2022 10:28 AM Chest CTA 09/23/22 10:29 CT angio chest PE protocol CT DOSE: 241.78 mGy.cm HISTORY: 81 years-old Male with PE. Acute shortness of breath TECHNIQUE: Multiple CTA images of the chest were obtained after the intravenous administration of 111 ml Optiray. Coronal and sagittal MIPS were obtained from the axial data set and were submitted for review. All measurements were obtained according to NASCET criteria. A dose lowering technique was utilized adhering to the principles of ALARA. COMPARISON: Chest radiograph 09/22/2022, CTA chest 07/26/2020. FINDINGS: CTA: The heart is normal in size. Extensive coronary artery calcifications. Prior median sternotomy with findings suggestive of CABG. Atherosclerosis of the aorta without aneurysm or dissection. There is patency of the imaged great vessels. Subsegmental filling defect noted within the left main pulmonary artery, image 182 may be artifactual. No definite pulmonary emboli are identified. CT CHEST: No thyroid nodule identified. No lymphadenopathy. Chronic left hemidiaphragmatic elevation. Trace left pleural effusion. Respiratory motion artifact limits evaluation of the lungs. No pneumothorax. Subsegmental right basilar atelectasis. 3 mm solid nodule of the right middle lobe on image 36 is favored to be benign. Mucous plugging of the left lower lobe with considerable mucoid impaction. There is an endobronchial 10 mm ovoid filling defects noted within the left lower lobar bronchus, image 159. Mild bilateral cylindrical bronchiectasis. Patchy consolidative opacities of the left lower lobe. Probable cyst of the superior pole right kidney, 7 mm. Small volume of upper abdominal ascites with body wall edema. Degenerative changes of the shoulders and spine. IMPRESSION: 1. No pulmonary emboli identified. 2. Mucous plugging with considerable left lower lobe mucoid impaction and mild left lower lobe pneumonia. 3. 10 mm ovoid filling defect within the left lower lobe bronchus is also likely paper sales representative of mucous plugging. An endobronchial mass considered less likely. 4. Chronic left hemidiaphragmatic elevation. 5. No lymphadenopathy. 6. Body wall edema with small volume of upper abdominal ascites. ACT 112: Negative or not required by law. The above report was generated using voice recognition software. It may contain grammatical, syntax or spelling errors. Electronically signed by: Javon Erwin M.D. 09/23/2022 12:20 PM Medications Administered Current Inpatient Medications Allopurinol (Allopurinol 300 Mg Tab) [facility] [place] 10/23/22 08:59 Last Admin: 09/23/22 08:32 Dose: Not Given Ferrous Sulfate (Ferrous Sulfate 325 Mg Tab) 325 mg PO QAM [facility] Stop: 10/23/22 08:59 Last Admin: 09/23/22 08:32 Dose: Not Given Folic Acid (Folic Acid 1 Mg Tab) 1 mg PO QAM [facility] Stop: 10/23/22 08:59 Last Admin: 09/23/22 08:32 Dose: Not Given Fluconazole (Diflucan) 100 mg in 50 mls @ 100 mls/hr IV DAILY [facility]; Protocol Stop: 10/03/22 08:59 Last Admin: 09/23/22 11:03 Dose: 100 mls/hr Lactated Ringer's (Lr) 1,000 mls @ 80 mls/hr IV .[id number] [facility] Stop: 10/23/22 10:14 Last Admin: 09/23/22 11:01 Dose: 80 mls/hr Daptomycin 275 mg/ Syringe 5.5 mls @ 2.75 mls/min IV Q24H [facility]; Protocol Stop: 10/07/22 10:29 Last Admin: 09/23/22 11:04 Dose: 2.75 mls/min Ipratropium Ceiba (Ipratropium Ceiba Nasal [place] 0.06% 15ml) 1 sprays JOE BID PRN PRN Reason: rhinitis Stop: 10/23/22 04:33 Multivitamins (Multivitamin Tab) 1 tab [facility] [place]: 10/23/22 08:59 Last Admin: 09/23/22 08:32 Dose: Not Given Prednisone (Prednisone 5 Mg Tab) 5 mg PO QAM [facility] Stop: 10/23/22 08:59 Last Admin: 09/23/22 08:32 Dose: Not Given Tamsulosin HCl (Tamsulosin Hcl 0.4 Mg Cap) 0.4 mg PO HS [facility] Stop: 10/23/22 20:59 Thiamine HCl (Thiamine Hcl 100 Mg Tab) 100 mg PO QAM [facility] Stop: 10/23/22 08:59 Last Admin: 09/23/22 08:32 Dose: Not Given
--- NOTE | 2022-09-23 13:16 | Cardiology Consultation ---
Date of Consultation September 23, 2022 Assessment & Plan (1) MSSA bacteremia: (2) Embolic stroke: (3) Endocarditis: Plan Patient is an 81-year-old male with prior history of coronary bypass grafting for diffuse coronary disease, hypertension, recent difficulties with progressive weight loss and cachexia. Diagnosis of esophageal candidiasis by EGD in the last month Presents now with probable embolic stroke. Staff aureus bacteremia Echocardiogram personally reviewed. Chronic calcific aortic stenosis is present. Small vegetation not completely excluded. There is a visualized small vegetation on the pulmonary valve suggesting probable multi valvular involvement LV systolic function low normal to mildly impaired and diffuse manner Patient not a candidate for SUBHASH or surgical valve replacement Discussed with patient and family Goals will be directed antibiotic therapy for presumed endocarditis probable embolic stroke Troponins are elevated though without segmental abnormality on echocardiogram question possible myocardial shower without focality. Troponins may be also elevated due to acute stroke As blood pressure improves will add in low-dose beta-carolann if tolerated Overall prognosis limited History of Present Illness Reason for Consultation: Bacteremia, valvular disease Requesting Physician: Dr. Cohen Attending Physician: Rajeev Cohen, History of Present Illness Patient is an 81-year-old male with ongoing issues 1. Atherosclerotic coronary artery disease status post CABG x 3 in 1996 2. Chronic stable class II angina pectoris 3. Right ventricular heart failure felt to be secondary to chronic obstructive sleep apnea and morbid obesity status post gastric bypass surgery x 2, 2003, 2011 with significant weight loss 4. Hypertension 5. Hyperlipidemia 6. Moderate to borderline severe calcific aortic stenosis 7. Marked anorexia with cachexia with progressive weight loss with candidal esophagitis by EGD 08/21/2022 Patient examined with family, grandson in room. Minimally able to converse but does nod head appropriately to questioning. Review of records notes acute on chronic decline in functional capacity over 4-day. With increasing weakness confusion and febrile illness followed by focal neurologic complaints. Neurologic assessment since admission suggest embolic stroke complicated by hemorrhage Urine cultures growing staph aureus, blood cultures gram-positive cocci Allergies Allergy/AdvReac Type Severity Reaction Status Date / Time No Known Allergies Allergy Verified 09/22/22 21:03 Home Medications Medication Instructions Recorded Confirmed Type nitroglycerin 0.4 mg sublingual 0.4 mg sublingual Q5M PRN chest 07/01/19 09/22/22 History tablet pain #25 tabs allopurinol 300 mg tablet 300 mg PO QAM 07/13/21 09/22/22 History linaclotide 290 mcg capsule 290 mcg PO QAM 07/13/21 09/22/22 History (Linzess) tamsulosin 0.4 mg capsule 0.4 mg PO HS #90 caps 08/02/21 09/22/22 Rx prednisone 5 mg tablet 5 mg PO QAM #30 tabs 02/04/22 09/22/22 Rx folic acid 1 mg tablet 1 mg PO QAM #30 tabs 03/02/22 09/22/22 Rx multivitamin with folic acid 400 1 tab PO QAM #30 tabs 03/02/22 09/22/22 Rx mcg tablet (Daily-Ludivina (with folic acid)) thiamine HCl (vitamin B1) 100 mg 100 mg PO QAM #30 tabs 03/02/22 09/22/22 Rx tablet ipratropium bromide 21 mcg (0.03 2 spray intranasal BID PRN rhinitis 04/23/22 09/22/22 History %) nasal spray ferrous sulfate 325 mg (65 mg 325 mg PO QAM #30 tabs 05/13/22 09/22/22 Rx iron) tablet,delayed release sennosides 8.6 mg-docusate sodium 2 tab PO HS #60 tabs 05/13/22 09/22/22 Rx 50 mg tablet (Senokot-S) miscellaneous medical supply #30 grams 08/01/22 09/16/22 Rx cholecalciferol (vitamin D3) 25 25 mcg PO QAM 08/12/22 09/22/22 History mcg (1,000 unit) tablet (Vitamin D3) docusate sodium 100 mg capsule 100 mg PO QAM 08/12/22 09/22/22 History (Colace) guaifenesin 600 mg tablet, 600 mg PO UD PRN congestion 08/12/22 09/22/22 History extended release 12 hr (Mucinex) loratadine 10 mg tablet (Claritin) 10 mg PO DAILY PRN ALLERGIES 08/12/22 1 History omeprazole 40 mg capsule,delayed 40 mg PO BID #60 caps 08/21/22 09/22/22 Rx release food supplemt, lactose-reduced 1 ea PO 6XD 09/16/22 09/22/22 History 0.06 gram-1 kcal/mL oral liquid (Boost High Protein) lactulose 20 gram/30 mL oral 20 g (30 mL) PO BID PRN 09/16/22 09/22/22 Rx solution Constipation #3,000 mL nystatin 100,000 unit/gram topical 1 applic topical BID #30 grams 09/16/22 09/22/22 Rx ointment oxycodone 15 mg tablet 15 mg PO BID PRN breakthrough pain 09/16/22 09/22/22 Rx #60 tabs oxycodone 40 mg tablet,crush 40 mg PO BID #60 tabs 09/16/22 09/22/22 Rx resistant,extended release 12 hr Patient History Medical History (Updated 09/23/22 @ 15:53 by Charlie Rowley MD) B12 deficiency ? BPH (benign prostatic hyperplasia) Chest pain EPISODE LAST WEEK...USED NITRO X 1 DOSE AND RESOLVED PT REPORTS HE BELIEVES IT WAS HEARTBURN AND THIS IS WHY HE IS HAVING HIS PROCEDURE DONE Chronic, continuous use of opioids Coronary atherosclerosis of [place] coronary vessel COVID 4-5 MON AGO Depression Discharged to rehabilitation facility RIGHT HIP FX , SURGICAL INTERVENTION MAY 2022 ...[facility]...DISCHARGED FROM REHAB 2 WEEKS AGO DM2 (diabetes mellitus, type 2) prior to gastric bypass--no meds now Fracture of hip, right, closed Gastroparesis GERD without esophagitis Gouty arthropathy Hearing deficit History of anemia History of DVT (deep vein thrombosis) 20 YR AGO Hyperlipidemia LDL goal <100 Hypertension Internal hernia OA (osteoarthritis) of hip Other psoriasis Poor historian Pruritus scroti Restless legs Severe aortic stenosis PT REPORTS HEART VALVE PROBLEM AND THAT A BALLOON NEEDS TO BE PUT IN THERE BECAUSE IT'S CLOSING. FOLOWS DR ROWLEY. Severe protein-calorie malnutrition Sleep apnea hx of prior to gastric bypass sx--no device Trouble swallowing SOMETIMES HURTS, FEELS LIKE A GAS BUBBLE - REASON FOR UPCOMING PROCEDURE Surgical History Bariatric [place] [facility] [place] of bilateral cataract extraction History of cardiac cath x2 ? prior to bypass--pt does not believe any stents placed History of carpal tunnel surgery of right wrist History of colonoscopy History of esophagogastroduodenoscopy (EGD) History of tooth extraction all teeth removed S/P hip replacement PT DENIES HIP REPLACEMENT, REPORTS HAD PIN IN MY HIP - S/P JUNE 01 ? 2021 ([place]) RIGHT HIP D/C FROM [facility] 2 WEEKS AGO S/P triple vessel bypass [place]...1996 Status post panniculectomy Family History Mother Diabetes Other No family history of adverse response to anesthesia Denies family history of Ovarian cancer Prostate cancer Myocardial infarction Breast cancer Colorectal cancer Social History Smoking Status: Unknown if ever smoked Tobacco Type: Cigarettes Age Started Using Tobacco: 20; Age Quit Using Tobacco: 63; packs per day: 1; Second Hand Exposure: No; Hx Alcohol Use: No Hx Substance Use: No Preferred Language: Bulgarian Communication Ability: Effective Visual Impairment: No Limitations Hearing Ability: Use of Hearing Aid Insurance Agency Owner Required: No Beliefs That Will Affect Care: None marital status: / Current Living Situation: Family Current Living Situation Comment: [facility] NOW TO HELP RECOVER 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al status: retired 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: 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 Feels Safe at Home: Yes Safety Concerns: Feels Safe At This Time Childhood Exposure to Second-Hand Smoke: No Dental Care, Regularly: No Physical Activity Frequency: Does not Exercise Seatbelt Use: sometimes Sunscreen Use: No Assistive Devices: Denture - Upper, Denture - Lower, Glasses, Hearing Aid - Bilateral, Walker and Wheelchair Assistive Devices Comment: unknown not able to understand pt when asked question, no one w/ pt to answ Review of Systems Review of Systems: Unobtainable due to reduced consciousness Physical Exam Constitutional: + ill appearing and + cachectic Eyes: PERRL, conjunctivae normal, anicteric sclerae ENMT: external ear and nose normal, oropharynx normal Neck: trachea midline, no thyromegaly Respiratory: Auscultation: + diminished lung sounds (Left base) Cardiovascular: Rate/Rhythm: regular rate and regular rhythm Heart Sounds: + murmur (Grade 2 over 6 systolic no diastolic) Vessels: no JVD Extremities: no edema Chest (Breasts): Additional Comments: Well-healed midline incision Gastrointestinal (Abdomen): normal bowel sounds, soft, nontender, no hepatosplenomegaly Musculoskeletal: Diffuse muscle wasting Skin: No thromboembolic phenomena hands nails or feet Results & Data ([facility]) Vital Signs (Past 12 Hours) Vital Signs Temp Pulse Pulse Resp BP Pulse Ox O2 Del Method 09/23/22 08:00 Nasal Cannula 09/23/22 08:33 Nasal Cannula 09/23/22 08:10 36.5 C 74 25 H 108/73 97 Nasal Cannula 09/23/22 07:59 108 H O2 Flow Rate 09/23/22 08:00 2 09/23/22 08:33 09/23/22 08:10 09/23/22 07:59 Laboratory Results Laboratory Results - last 24 hr 09/22/22 09/22/22 09/22/22 19:35 19:35 19:35 WBC 9.58 RBC 4.10 L Hgb 12.0 L Hct 36.5 L MCV 89.0 MCH 29.3 MCHC 32.9 RDW Std Deviation 52.1 H RDW Coeff of Yoanna 15.9 H Plt Count 135 MPV 10.3 Immature Gran % (Auto) 0.4 Neut % (Auto) 94.3 Lymph % (Auto) 2.2 [place] % (Auto) 2.1 Eos % (Auto) 0.7 Baso % (Auto) 0.3 Neut # (Auto) 9.03 H Lymph # (Auto) 0.21 L [place] # (Auto) 0.20 L Eos # (Auto) 0.07 Baso # (Auto) 0.03 Immature Gran # (Auto) 0.04 H Hypersegmented Neuts 1+ Toxic Vacuolation Platelet Estimate Normal Echinocytes 1+ Sodium 141 Potassium 3.1 L Chloride 103 Carbon Dioxide 29 Anion Gap 9 BUN 27 H Creatinine 0.55 L Est Cr Clr Drug Dosing 63.9 Est GFR ( Amer) 111.7 Est GFR (Non-Af Amer) 96.4 BUN/Creatinine Ratio 49.1 H Glucose 193 H Calcium 9.3 Magnesium 1.7 Total Bilirubin 0.9 AST 33 ALT 20 Alkaline Phosphatase 104 Total Creatine Kinase 58 Troponin I High Sens 2894.3 H* D Total Protein 6.5 Albumin 2.8 L Globulin 3.7 Albumin/Globulin Ratio 0.8 L TSH 1.715 Urine Color Urine Appearance Urine pH Ur Specific [place] Urine Protein Urine Glucose (UA) Urine Ketones Urine Blood Urine Nitrite Urine Bilirubin Urine Urobilinogen Ur Leukocyte Esterase Urine WBC (Auto) Urine RBC (Auto) U Hyaline Cast (Auto) U Epithel Cells (Auto) Urine Bacteria (Auto) Ur Renal Epithelial Cell Urine Yeast Nasal Screen MRSA (PCR) SARS-CoV-2, RNA, NAAT Staphylococcus sp PCR Staph aureus (PCR) mecA/C & MREJ Resist Gene Bld Cult ID Panel PCR 09/22/22 09/22/22 09/22/22 19:35 19:50 19:57 WBC RBC Hgb Hct MCV MCH MCHC RDW Std Deviation RDW Coeff of Yoanna Plt Count MPV Immature Gran % (Auto) Neut % (Auto) Lymph % (Auto) [place] % (Auto) Eos % (Auto) Baso % (Auto) Neut # (Auto) Lymph # (Auto) [place] # (Auto) Eos # (Auto) Baso # (Auto) Immature Gran # (Auto) Hypersegmented Neuts Toxic Vacuolation Platelet Estimate Echinocytes Sodium Potassium Chloride Carbon Dioxide Anion Gap BUN Creatinine Est Cr Clr Drug Dosing Est GFR ( Amer) Est GFR (Non-Af Amer) BUN/Creatinine Ratio Glucose Calcium Magnesium Total Bilirubin AST ALT Alkaline Phosphatase Total Creatine Kinase Troponin I High Sens Total Protein Albumin Globulin Albumin/Globulin Ratio TSH Urine Color Dark Yellow Urine Appearance Cloudy A Urine pH 6.5 Ur Specific [place] 1.020 Urine Protein 2+ H Urine Glucose (UA) Negative Urine Ketones 1+ H Urine Blood 3+ H Urine Nitrite Positive A Urine Bilirubin Negative Urine Urobilinogen Negative Ur Leukocyte Esterase 1+ H Urine WBC (Auto) 5-10 H Urine RBC (Auto) 10-30 H U Hyaline Cast (Auto) 5-10 H U Epithel Cells (Auto) >30 H Urine Bacteria (Auto) 4+ H Ur Renal Epithelial Cell Not Reportable Urine Yeast Not Reportable Nasal Screen MRSA (PCR) SARS-CoV-2, RNA, NAAT NEGATIVE Staphylococcus sp PCR DETECTED A Staph aureus (PCR) DETECTED A mecA/C & MREJ Resist Gene MRSA Not Detected Bld Cult ID Panel PCR See PCR Comment 09/23/22 09/23/22 09/23/22 03:34 08:06 08:06 WBC 14.39 H RBC 4.36 L Hgb 12.5 L Hct 39.6 L MCV 90.8 MCH 28.7 MCHC 31.6 L RDW Std Deviation 53.8 H RDW Coeff of Yoanna 16.1 H Plt Count 95 L MPV 11.5 Immature Gran % (Auto) 1.0 Neut % (Auto) 89.8 Lymph % (Auto) 3.5 [place] % (Auto) 5.4 Eos % (Auto) 0.0 Baso % (Auto) 0.3 Neut # (Auto) 12.92 H Lymph # (Auto) 0.51 L [place] # (Auto) 0.77 Eos # (Auto) 0.00 Baso # (Auto) 0.04 Immature Gran # (Auto) 0.15 H Hypersegmented Neuts Toxic Vacuolation 1+ Platelet Estimate Echinocytes Sodium 143 Potassium 4.2 D Chloride 106 Carbon Dioxide 29 Anion Gap 8 BUN 34 H Creatinine 0.63 Est Cr Clr Drug Dosing 55.8 Est GFR ( Amer) 105.6 Est GFR (Non-Af Amer) 91.1 BUN/Creatinine Ratio 54.0 H Glucose 192 H Calcium 9.6 Magnesium Total Bilirubin AST ALT Alkaline Phosphatase Total Creatine Kinase 45 Troponin I High Sens 1681.3 H* D Total Protein Albumin Globulin Albumin/Globulin Ratio TSH Urine Color Urine Appearance Urine pH Ur Specific [place] Urine Protein Urine Glucose (UA) Urine Ketones Urine Blood Urine Nitrite Urine Bilirubin Urine Urobilinogen Ur Leukocyte Esterase Urine WBC (Auto) Urine RBC (Auto) U Hyaline Cast (Auto) U Epithel Cells (Auto) Urine Bacteria (Auto) Ur Renal Epithelial Cell Urine Yeast Nasal Screen MRSA (PCR) SARS-CoV-2, RNA, NAAT Staphylococcus sp PCR Staph aureus (PCR) mecA/C & MREJ Resist Gene Bld Cult ID Panel PCR 09/23/22 09/23/22 10:57 13:00 WBC RBC Hgb Hct MCV MCH MCHC RDW Std Deviation RDW Coeff of Yoanna Plt Count MPV Immature Gran % (Auto) Neut % (Auto) Lymph % (Auto) [place] % (Auto) Eos % (Auto) Baso % (Auto) Neut # (Auto) Lymph # (Auto) [place] # (Auto) Eos # (Auto) Baso # (Auto) Immature Gran # (Auto) Hypersegmented Neuts Toxic Vacuolation Platelet Estimate Echinocytes Sodium Potassium Chloride Carbon Dioxide Anion Gap BUN Creatinine Est Cr Clr Drug Dosing Est GFR ( Amer) Est GFR (Non-Af Amer) BUN/Creatinine Ratio Glucose Calcium Magnesium Total Bilirubin AST ALT Alkaline Phosphatase Total Creatine Kinase Troponin I High Sens 1733.5 H* Total Protein Albumin Globulin Albumin/Globulin Ratio TSH Urine Color Urine Appearance Urine pH Ur Specific [place] Urine Protein Urine Glucose (UA) Urine Ketones Urine Blood Urine Nitrite Urine Bilirubin Urine Urobilinogen Ur Leukocyte Esterase Urine WBC (Auto) Urine RBC (Auto) U Hyaline Cast (Auto) U Epithel Cells (Auto) Urine Bacteria (Auto) Ur Renal Epithelial Cell Urine Yeast Nasal Screen MRSA (PCR) Pending SARS-CoV-2, RNA, NAAT Staphylococcus sp PCR Staph aureus (PCR) mecA/C & MREJ Resist Gene Bld Cult ID Panel PCR Diagnostic Findings Echocardiogram 09/23/2022 Mildly reduced overall systolic function EF 45 to 50%. The aortic valve is calcified and restricted in mobility. Moderate to borderline severe aortic stenosis present. A small vegetation not excluded. Mitral valve leaflets are mildly to moderately thickened no distinct vegetation seen There is a small vegetation or mass on the pulmonary valve ECG Additional Comments: EKG 09/23/2022 sinus tachycardia with frequent Premature ventricular complexes Low voltage QRS Nonspecific ST abnormality Abnormal ECG When compared with ECG of 22-SEP-2022 19:21, (unconfirmed) Premature ventricular complexes are now Present
[2022-09-23] MEDS: NAFCILLIN SODIUM 2,000 MG in DEXTROSE 5% 100 ML IV SCH ×3 (15:09→22:07)
[2022-09-23] MEDS ORDERED: ACETAMINOPHEN 10MG/ML Custom 1,000 MG in EMPTY BAG 0 ML IV PRN (15:19)
[2022-09-23] MEDS ORDERED: ACETAMINOPHEN 1,000 MG/100 ML VIAL IV PRN (15:28)
[2022-09-23] MEDS: levoFLOXacin/D5W 750 MG/150 ML BAG IV SCH (16:45)
--- NOTE | 2022-09-23 20:02 | CT Scan Report ---
CT head/brain wo con CLINICAL HISTORY: Subarachnoid bleed noted last evening, follow up Technique: Contiguous axial CT images of the head were acquired from the base of the skull to the linette surya without intravenous contrast administration. Images were viewed [facility] Automated dose lowering techniques and/or adjustment according to patient size were utilized for this exam. Comparison: Comparison is made to CT head 09/22/2022 Findings: Areas of decreased attenuation are present in the periventricular and subcortical white matter bilate rally consistent with small vessel ischemic disease. Generalized cerebral volume loss with commensura te enlargement of the ventricles, sulci, and cisterns is also present. Previously noted subarachnoid hemorrhage in the left parietal lobe is less conspicuous in this late acute/early subacute exam. No n ew subarachnoid hemorrhage is seen. Imaged portions of the paranasal sinuses and mastoid air cells are clear. The orbits appear normal. There are no acute fractures of the calvaria or scalp swelling. Impression: No evidence of new subarachnoid hemorrhage. Previously noted left parietal subarachnoid hemorrhage [place] s demonstrated expected evolution and is now less conspicuous. ACT 112: Negative or not required by law. Electronically signed by: Jose M Mccall M.D. 09/23/2022 8:01 PM
[2022-09-23] MEDS ORDERED: TAMSULOSIN HCL 0.4 MG CAP PO SCH (21:00)
[2022-09-24] MEDS: NAFCILLIN SODIUM 2,000 MG in DEXTROSE 5% 100 ML IV SCH ×7 (02:26→22:09)
--- NOTE | 2022-09-24 07:12 | Hospitalist Progress Note ---
Date of Service September 24, 2022 Assessment & Plan (1) Urinary tract infection: Plan: Patient is an 81 yo male with PMHx of BASHIR, hemorrhoids, chronic cholecystitis, hx gastric bypass, BPH, COVID, depression, DM2, gastroparesis, GERD, DVT, HLD, HTN, OA, severe , sleep apnea, and severe protein calorie malnutrition admitted 09/22/22 due to UTI and significant change in mental status/generalized weakness. Gram + Bacteremia w/ Sepsis, AMS, and Generalized Weakness - Patient presentation 09/22 drastically altered from 09/16 at PCP visit (6 days prior) - Sepsis noted on admission d/t tachycardia, tachypnea, and source of infection - Labs: WBC 14.39, Hgb 12.5, Na 143, K 4.2, BUN 34, Cr 0.63 - Likely a/w UTI * UA on admit: > 30 epithelial cells but appears to be infected with 1+ ketones, 3+ blood, positive nitrite, 1+ leuk esterase, 5-10 WBC, and 4+ bacteria * Urine cx: Staphylococcus species * Blood cx: Gram + cocci in clusters, biofire MSSA/no MRSA detected - Received IV Ceftriaxone in ER, continued q12h on admission, discontinued 09/23 - Known recent candidal esophagitis on EGD (received Fluconazole PO x 3 days), started IV Fluconazole 200 mg daily (anticipated 14 day course) - IVF started on admission 80 mL/hr, increased to 125 mL/hr 09/24 (patient appears dry) - CK wnl - MRSA Nares + - CTA Chest: No pulmonary emboli identified. Mucous plugging with considerable left lower lobe mucoid impaction and mild left lower lobe pneumonia. 10 mm ovoid filling defect within the left lower lobe bronchus is also likely medical field representative of mucous plugging. An endobronchial mass considered less likely. - Started IV Daptomycin 09/23 AM, discontinued PM post ID consult - Consulted ID 09/23 * Recommended daily blood cultures until confirmed clearance x 48 hours * Respiratory culture if sputum possible * Continue nafcillin 2 g IV q4h for MSSA bacteremia. Has better CAR DRIVER penetration than cefazolin * Continue levofloxacin 750 mg daily for possible pneumonia. Anticipate treatment duration 5-7 days from 09/22 * Continue fluconazole for treatment of esophageal candidiasis. Anticipate treatment duration 14 days Acute Embolic Stroke w/ AMS and Dysarthria - Patient presentation 09/22 drastically altered from 09/16 at PCP visit (6 days prior) - Known Urinary Infection w/ associated bacteremia - Head CT 09/22: Trace acute to subacute subarachnoid hemorrhage overlying the left parietal lobe. A short-term follow-up head CT in 24 to 48 hours is recommended. This finding will be called/faxed to the ordering provider at time of dictation. * Ordered f/u CT Urgent 19009/23 * CT 09/23: No evidence of new subarachnoid hemorrhage. Previously noted left parietal subarachnoid hemorrhage has demonstrated expected evolution and is now less conspicuous. - Brain MRI 09/23: Numerous acute infarcts, the largest which is a 2.4 cm right cerebellar infarct. Minimal mass effect. The findings suggest an embolic source. Findings discussed with Dr. Cohen at time of dictation. No change in trace subarachnoid hemorrhage overlying the left parietal lobe which is acute to subacute. - Consulted Neurology 09/23: * Patient will continue with antimicrobial therapy for endocarditis and probable associated embolic stroke. * The previously seen small subarachnoid hemorrhage is improved. * Would avoid antiplatelet medication or an oral anticoagulant at this time. - Speech therapy eval order placed - recommending NPO - Diminished mentation 09/24 --- Will assess B12 level 09/24 --- Poor prognosis Elevated Troponin w/ EKG Changes - Troponin elevated at 2894.3 on admission; trend troponin * 1681 @ 0806 * 1733 @ 1057 * 1818 @ 1723 - Considered likely to be associated w/ demand ischemia a/w sepsis - Cardiac murmur present at RUSB 09/23 - Echo 09/23: EF 45-50%, borderline severe , small vegetation vs. mass on pulmonic valve, thickened mitral valves - Consulted Cardiology 09/23: * Recommendations repeat EKG in a.m. follow-up for conduction change * Treat as doing for bacteremia with presumed endocarditis Cachexia w/ Severe Protein Calorie Malnutrition - Per family report, at baseline patient eats full regular diet * Grandson noted 09/23 that patient has been requiring full assist w/ feeds over last few weeks and there has been concern for patient coughing and having difficulty swallowing meals - Hx of gastric bypass surgery, ? malabsorption syndrome - Family endorses decreased PO intake over the past several days - Patient has lost > 30 lbs in the last year, notably lost 7 lbs since PCP visit 6 days ago - Albumin 2.8 - Will consult nutrition Hypokalemia - Received 10 mEq via K-rider in ED - Additional 40 mEq K-rider ordered - Monitor Dysphagia - Patient failed bedside swallow; coughing with mouth swabs as well - ST eval placed - NPO until ST eval completed - Recent EGD d/t dysphagia and weight loss w/ findings of candidal esophagitis (see above) Chronic Pain secondary to OA - Per PDMP, patient with 165 MME/day oxycodone - Held on admission --- 09/24 Started Dilaudid 3 mg q3h IV KARUNA --- 09/24 Started Dilaudid .5 mg q6h IV PRN --- Added stress dose steroids as patient is taking prednisone 5 mg daily at home Hx DVT - Chemical DVT ppx held due to trace subarachnoid hemorrhage BASHIR - Continue ferrous sulfate 325mg daily; hold while NPO BPH - Continue flomax; hold while NPO FENGI: NPO DVT ppx: Chemical ppx held d/t subarachnoid hemorrhage on CT, neuro recommending against additional anticoagulation 09/24 Dispo: Admit to medsurg/righTune Code status: Conditional code -- no CPR or defibrillation (2) Sepsis: (3) Cachexia: (4) Iron deficiency: (5) Low back pain: (6) Embolic stroke: (7) Endocarditis: (8) MSSA bacteremia: Admission and Anticipated Discharge Date Admission Date: September 23, 2022 Supervising Physician Co-Signing Physician Notes I also saw the patient and confirmed knight portions of the history and physical examination. I agree with the impression and plan as noted in resident documentation. Upon our afternoon exam, the patient is lying supine in bed. He is awake, alert. He really has difficulty with speech; he speech is difficult understand/barely audible. Exam 85/53, 86, 18, 36.2, 90% on nasal cannula as per minute Awake/alert. I can make out a few, whispered words. 2/6 systolic murmur heard best at the right upper sternal border Respirations are nonlabored, lungs are clear Slight erythema on the glans of the penis consistent with a very mild balanitis Data WBC 11.57, hemoglobin 11.8 Sodium 145, potassium 4.2, BUN 34, creatinine 0.58 Troponin I 2894, 1733, 1568.7 Albumin 2.5 TSH 1.75 MRSA nasal screen positive Urine culture shows staph species 2 of 2 blood cultures from 09/22/2022 demonstrate staph species, final speciation and sensitivities pending 2 of 2 blood cultures from 09/23/2022 demonstrate gram-positive cocci clusters Imaging CT scan of the head dated 09/22/2022 demonstrates trace acute to subacute subarachnoid hemorrhage overlying the left parietal lobe. MRI of the brain dated 09/23/2022 demonstrates numerous acute infarcts, the largest of which is 2.4 cm, right cerebellar infarct. No changes noted in the trace subarachnoid hemorrhage described in the CT scan from 09/22/2022 CTA of the chest dated 09/23/2022 is negative for pulmonary emboli, demonstrates mucous plugging with considerable left lower lobe mucoid impaction with and mild left lower lobe pneumonia. CT scan of the head dated 09/23/2022 shows no evidence of new subarachnoid hemorrhage. The previously noted left parietal subarachnoid hemorrhage is now less conspicuous. Echocardiogram dated 09/23/2022 shows small vegetation or mass on the pulmonic valve, cannot exclude vegetation on the aortic valve. The aortic valve leaflets are calcified with moderate to borderline severe aortic stenosis. Ejection fraction 45-50% with mild global hypokinesis of the left ventricle. 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 Elevated troponin with EKG changes Sepsis Mental status change, secondary to sepsis and acute embolic stroke Cachexia with severe protein calorie malnutrition Plan Appreciate recommendations from infectious disease, neurology, and cardiology Add stress dose steroids (patient had been chronically on prednisone 5 mg daily, and reviewing outpatient notes for osteoarthritis) Add Protonix 40 mg IV every 24 for GI prophylaxis (history of gastric bypass, acute illness, now on higher dose steroids) Evaluated patient's home pain medication regimen; calculated equivalent MME and reduced by 50% (reduced by 20% for incomplete cross tolerance, additional reduction given decreased mentation); will titrate based on pain assessment. Continue thiamine and folate supplementation; check serum B12 Overall prognosis is poor Additional as per resident documentation Subjective Patient is an 81 yo male with PMHx of BASHIR, hemorrhoids, chronic cholecystitis, hx gastric bypass, BPH, COVID, depression, DM2, gastroparesis, GERD, DVT, HLD, HTN, OA, severe , sleep apnea, and severe protein calorie malnutrition who presented to the ER on 09/22/22 due to generalized weakness and change in mental status. 09/24: Patient continues to be minimally verbal. Answers questions with nods and occasional mouthed words. Endorsed right chest pain (ongoing) and suprapubic pain (new). Denied dyspnea or pleuritic pain. Denies urinary discomfort. No headache. 1400 Long discussion with patient's daughter Maritza about diagnosis, plan, and prognosis. Discussed goals of care and family's understanding of diagnosis. Discussed receptiveness to palliative care and hospice if need arises. Discussed patient's wishes regarding supplemental nutrition if need arises. Daughter expressed appropriate understanding and verbalized questions. Daughter notes that patient has struggled with malnourishment since gastric bypass in 2002, he had a revision in 2009 which was unsuccessful in helping w/ the malnutrition. Daughter is unaware as to why patient was on daily prednisone, but notes that he has been on it 'for a while'. 09/23: Patient notes he is very thirsty, asking for water. Notes no dyspnea or pleuritic pain. Notes chest pain on the right side that radiates to his back, unknown when this started. No abdominal pain or dysuria noted. Review of Systems Review of Systems: As per HPI Physical Exam Physical Exam: Gen: cachectic, NAD, communicates w/ nods and few words, AO x ? Resp:non-labored, no wheezing/rhonchi/rales, CTAB CV:RRR, normal S1/S2, systolic murmur present at RUSB Abd: Soft, non-distended, suprapubic TTP, normoactive bowels, no masses Extr: 2+ dp bilaterally, no edema, bilateral pressure sores on heels, UE strength 3/5 symmetric, LE strength 2/5 symmetric : Urinary catheter in place, evidence of balanitis surrounding urethral meatus/glans Skin: No additional rashes lesions or erythema Results & Data Results & Data ([facility]) Vital Signs (Past 12 Hours) Vital Signs Temp Pulse Pulse Resp BP Pulse Ox O2 Del Method 09/23/22 22:05 110 H 09/24/22 02:49 36.5 C 104 H 16 100/63 96 Nasal Cannula 09/23/22 23:16 36.6 C 103 H 18 99/64 L 97 Nasal Cannula 09/23/22 19:14 36.6 C 95 H 20 109/70 97 Nasal Cannula O2 Flow Rate 09/23/22 22:05 09/24/22 02:49 09/23/22 23:16 2 09/23/22 19:14 2 Resident Activity Tracking Resident Involvement: Resident Care Provided Care Provided: Adult [facility]
[2022-09-24] MEDS: FLUCONAZOLE 100 MG/50 ML BAG IV SCH (09:43)
--- NOTE | 2022-09-24 10:11 | Infectious Disease Progress Nt ---
Date of Service September 24, 2022 Assessment & Plan (1) MSSA bacteremia: (2) Embolic stroke: (3) Urinary tract infection: Plan 81 yo M with a history of CAD, DM2, HTN, HLD, severe aortic stenosis, osteoarthritis on chronic opioids who presented on 09/22 with generalized weakness, AMS, urinary/fecal incontinence, fever, now found to have MSSA endocarditis. He has positive blood cultures from 09/22 and 09/23, prior to changing his antibiotics from daptomycin to nafcillin. UCx is also growing MSSA. TTE shows a small vegetation or mass on the pulmonic valve, and chronic calcific aortic stenosis, unable to exclude small vegetation, suggesting probable multivalvular involvement per cardiology. He is not a candidate for SUBHASH or surgical valve replacement. Imaging also shows CT head with trace acute to subacute SAH overlying the parietal lobe, MRI brain with numerous acute infarcts concerning for embolic source, CT A/P without contrast without acute findings, and CTA chest without PE but showing LLL mucous plugging and mild pneumonia. Source of MSSA bacteremia is unclear at this time--no IVDU, no concerns for infected wounds, no long-term catheters. The only hardware he has is a trochanteric femoral nail in the R hip after a fracture in 04/2022, and his R hip is unremarkable on exam. The MSSA in the urine culture can likely be explained by MSSA bacteremia seeding the urinary tract. Could consider a primary MSSA pneumonia seeding the bloodstream, given the possible LLL pneumonia on CTA chest. No other clear sites of seeding other than possible brain as noted on MRI--no focal joint pains/swelling, and his chronic back pain is at its baseline. 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 Please obtain daily blood cultures until confirmed clearance x 48 hours -If pt is able to produce sputum, would send for respiratory culture (ordered) -Continue nafcillin 2 g IV q4h for MSSA bacteremia. 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 Anticipate treatment duration 5-7 days from 09/22 -Continue fluconazole for treatment of esophageal candidiasis. Anticipate treatment duration 14 days -Will continue to follow Admission and Anticipated Discharge Date Admission Date: September 23, 2022 Subjective Subsequent visit was provided via telemedicine using two-way real-time interactive telecommunication between the patient and the telemedicine provider. For the duration of the visit, the provider was performing the assessment from a different facility than the patient. This includesuse of bluetooth stethoscope forauscultationperformed by the telepresenter that the telemedicine provider can hear if described in the physical exam. Sales And Service Consultant contact information: Please call [facility] . (Phone Number For Physician Use Only) After establishing a telemedicine visit, patient was: Patient was verified with two unique identifiers, Patient/authorized rep acknowledged consent and understanding and Gave permission to continue telehealth session Subsequent Time Spent w Inpatient: 15 minutes Pt denies pain BCx from yesterday remain positive for GPCs in clusters Daptomycin changed to nafcillin yesterday Review of System A complete ROS was performed and is negative except as mentioned in the HPI. Physical Exam Physical Exam: GEN: elderly, thin, frail man laying in bed, ill-appearing RESP: mildly increased work of breathing ABD: Soft, non-distended. EXT: No LE edema. SKIN: Excoriated areas on LUE, no rashes or open wounds NEURO: Alert, shakes head in response to questions PSYCH: unable to evaluate Results & Data ([facility]) Vital Signs (Past 12 Hours) Vital Signs Temp Pulse Pulse Resp BP Pulse Ox O2 Del Method 09/24/22 07:49 36.7 C 106 H 18 95/59 L 97 Nasal Cannula 09/23/22 22:05 110 H 09/24/22 02:49 36.5 C 104 H 16 100/63 96 Nasal Cannula 09/23/22 23:16 36.6 C 103 H 18 99/64 L 97 Nasal Cannula O2 Flow Rate 09/24/22 07:49 2 09/23/22 22:05 09/24/22 02:49 09/23/22 23:16 2 Laboratory Results Laboratory Results - last 48 hr 09/22/22 09/22/22 09/22/22 19:35 19:35 19:35 WBC 9.58 RBC 4.10 L Hgb 12.0 L Hct 36.5 L MCV 89.0 MCH 29.3 MCHC 32.9 RDW Std Deviation 52.1 H RDW Coeff of Yoanna 15.9 H Plt Count 135 MPV 10.3 Immature Gran % (Auto) 0.4 Neut % (Auto) 94.3 Lymph % (Auto) 2.2 [place] % (Auto) 2.1 Eos % (Auto) 0.7 Baso % (Auto) 0.3 Neut # (Auto) 9.03 H Lymph # (Auto) 0.21 L [place] # (Auto) 0.20 L Eos # (Auto) 0.07 Baso # (Auto) 0.03 Immature Gran # (Auto) 0.04 H Hypersegmented Neuts 1+ Toxic Vacuolation Platelet Estimate Normal Echinocytes 1+ Sodium 141 Potassium 3.1 L Chloride 103 Carbon Dioxide 29 Anion Gap 9 BUN 27 H Creatinine 0.55 L Est Cr Clr Drug Dosing 63.9 Est GFR ( Amer) 111.7 Est GFR (Non-Af Amer) 96.4 BUN/Creatinine Ratio 49.1 H Glucose 193 H Calcium 9.3 Magnesium 1.7 Total Bilirubin 0.9 AST 33 ALT 20 Alkaline Phosphatase 104 Total Creatine Kinase 58 Troponin I High Sens 2894.3 H* D Total Protein 6.5 Albumin 2.8 L Globulin 3.7 Albumin/Globulin Ratio 0.8 L TSH 1.715 Urine Color Urine Appearance Urine pH Ur Specific [place] Urine Protein Urine Glucose (UA) Urine Ketones Urine Blood Urine Nitrite Urine Bilirubin Urine Urobilinogen Ur Leukocyte Esterase Urine WBC (Auto) Urine RBC (Auto) U Hyaline Cast (Auto) U Epithel Cells (Auto) Urine Bacteria (Auto) Ur Renal Epithelial Cell Urine Yeast Nasal Screen MRSA (PCR) SARS-CoV-2, RNA, NAAT Staphylococcus sp PCR Staph aureus (PCR) mecA/C & MREJ Resist Gene Bld Cult ID Panel PCR 09/22/22 09/22/22 09/22/22 19:35 19:50 19:57 WBC RBC Hgb Hct MCV MCH MCHC RDW Std Deviation RDW Coeff of Yoanna Plt Count MPV Immature Gran % (Auto) Neut % (Auto) Lymph % (Auto) [place] % (Auto) Eos % (Auto) Baso % (Auto) Neut # (Auto) Lymph # (Auto) [place] # (Auto) Eos # (Auto) Baso # (Auto) Immature Gran # (Auto) Hypersegmented Neuts Toxic Vacuolation Platelet Estimate Echinocytes Sodium Potassium Chloride Carbon Dioxide Anion Gap BUN Creatinine Est Cr Clr Drug Dosing Est GFR ( Amer) Est GFR (Non-Af Amer) BUN/Creatinine Ratio Glucose Calcium Magnesium Total Bilirubin AST ALT Alkaline Phosphatase Total Creatine Kinase Troponin I High Sens Total Protein Albumin Globulin Albumin/Globulin Ratio TSH Urine Color Dark Yellow Urine Appearance Cloudy A Urine pH 6.5 Ur Specific [place] 1.020 Urine Protein 2+ H Urine Glucose (UA) Negative Urine Ketones 1+ H Urine Blood 3+ H Urine Nitrite Positive A Urine Bilirubin Negative Urine Urobilinogen Negative Ur Leukocyte Esterase 1+ H Urine WBC (Auto) 5-10 H Urine RBC (Auto) 10-30 H U Hyaline Cast (Auto) 5-10 H U Epithel Cells (Auto) >30 H Urine Bacteria (Auto) 4+ H Ur Renal Epithelial Cell Not Reportable Urine Yeast Not Reportable Nasal Screen MRSA (PCR) SARS-CoV-2, RNA, NAAT NEGATIVE Staphylococcus sp PCR DETECTED A Staph aureus (PCR) DETECTED A mecA/C & MREJ Resist Gene MRSA Not Detected Bld Cult ID Panel PCR See PCR Comment 09/23/22 09/23/22 09/23/22 03:34 08:06 08:06 WBC 14.39 H RBC 4.36 L Hgb 12.5 L Hct 39.6 L MCV 90.8 MCH 28.7 MCHC 31.6 L RDW Std Deviation 53.8 H RDW Coeff of Yoanna 16.1 H Plt Count 95 L MPV 11.5 Immature Gran % (Auto) 1.0 Neut % (Auto) 89.8 Lymph % (Auto) 3.5 [place] % (Auto) 5.4 Eos % (Auto) 0.0 Baso % (Auto) 0.3 Neut # (Auto) 12.92 H Lymph # (Auto) 0.51 L [place] # (Auto) 0.77 Eos # (Auto) 0.00 Baso # (Auto) 0.04 Immature Gran # (Auto) 0.15 H Hypersegmented Neuts Toxic Vacuolation 1+ Platelet Estimate Echinocytes Sodium 143 Potassium 4.2 D Chloride 106 Carbon Dioxide 29 Anion Gap 8 BUN 34 H Creatinine 0.63 Est Cr Clr Drug Dosing 55.8 Est GFR ( Amer) 105.6 Est GFR (Non-Af Amer) 91.1 BUN/Creatinine Ratio 54.0 H Glucose 192 H Calcium 9.6 Magnesium Total Bilirubin AST ALT Alkaline Phosphatase Total Creatine Kinase 45 Troponin I High Sens 1681.3 H* D Total Protein Albumin Globulin Albumin/Globulin Ratio TSH Urine Color Urine Appearance Urine pH Ur Specific [place] Urine Protein Urine Glucose (UA) Urine Ketones Urine Blood Urine Nitrite Urine Bilirubin Urine Urobilinogen Ur Leukocyte Esterase Urine WBC (Auto) Urine RBC (Auto) U Hyaline Cast (Auto) U Epithel Cells (Auto) Urine Bacteria (Auto) Ur Renal Epithelial Cell Urine Yeast Nasal Screen MRSA (PCR) SARS-CoV-2, RNA, NAAT Staphylococcus sp PCR Staph aureus (PCR) mecA/C & MREJ Resist Gene Bld Cult ID Panel PCR 09/23/22 09/23/22 09/23/22 10:57 13:00 17:23 WBC RBC Hgb Hct MCV MCH MCHC RDW Std Deviation RDW Coeff of Yoanna Plt Count MPV Immature Gran % (Auto) Neut % (Auto) Lymph % (Auto) [place] % (Auto) Eos % (Auto) Baso % (Auto) Neut # (Auto) Lymph # (Auto) [place] # (Auto) Eos # (Auto) Baso # (Auto) Immature Gran # (Auto) Hypersegmented Neuts Toxic Vacuolation Platelet Estimate Echinocytes Sodium Potassium Chloride Carbon Dioxide Anion Gap BUN Creatinine Est Cr Clr Drug Dosing Est GFR ( Amer) Est GFR (Non-Af Amer) BUN/Creatinine Ratio Glucose Calcium Magnesium Total Bilirubin AST ALT Alkaline Phosphatase Total Creatine Kinase Troponin I High Sens 1733.5 H* 1818.0 H* Total Protein Albumin Globulin Albumin/Globulin Ratio TSH Urine Color Urine Appearance Urine pH Ur Specific [place] Urine Protein Urine Glucose (UA) Urine Ketones Urine Blood Urine Nitrite Urine Bilirubin Urine Urobilinogen Ur Leukocyte Esterase Urine WBC (Auto) Urine RBC (Auto) U Hyaline Cast (Auto) U Epithel Cells (Auto) Urine Bacteria (Auto) Ur Renal Epithelial Cell Urine Yeast Nasal Screen MRSA (PCR) Positive A SARS-CoV-2, RNA, NAAT Staphylococcus sp PCR Staph aureus (PCR) mecA/C & MREJ Resist Gene Bld Cult ID Panel PCR Diagnostic Findings Radiology CT head 09/23 Impression: No evidence of new subarachnoid hemorrhage. Previously noted left parietal subarachnoid hemorrhage has demonstrated expected evolution and is now less conspicuous. Microbiology 09/24 BCx x2: pending 09/23 BCx x2: GPCs in clusters in 2/4 vials 09/22 BCx x2: Staph species in 3/4 vials. BCID2 panel positive for Staph aureus, negative for MRSA 09/22 UCx: MSSA S aureus RX M.I.C. --- --------- Daptomycin S <=0.5 Nitrofurantoin S <=32 Oxacillin S 1 Tetracycline S <=4 Trimeth/Sulfa S <=0.5/9.5 Vancomycin S 1 Medications Administered Current Inpatient Medications Allopurinol (Allopurinol 300 Mg Tab) 300 mg PO QAM KARUNA Stop: 10/23/22 08:59 Last Admin: 09/23/22 08:32 Dose: Not Given Ferrous Sulfate (Ferrous Sulfate 325 Mg Tab) 325 mg PO QAM KARUNA Stop: 10/23/22 08:59 Last Admin: 09/23/22 08:32 Dose: Not Given Folic Acid (Folic Acid 1 Mg Tab) 1 mg PO QAM KARUNA Stop: 10/23/22 08:59 Last Admin: 09/23/22 08:32 Dose: Not Given Fluconazole (Diflucan) 100 mg in 50 mls @ 100 mls/hr IV DAILY KARUNA; Protocol Stop: 10/03/22 08:59 Last Admin: 09/24/22 09:43 Dose: 100 mls/hr Lactated Ringer's (Lr) 1,000 mls @ 80 mls/hr IV .[id number] KARUNA Stop: 10/23/22 10:14 Last Admin: 09/24/22 00:00 Dose: 80 mls/hr Nafcillin Sodium 2,000 mg/ (Dextrose) 110 mls @ 100 mls/hr IV Q4H KARUNA Stop: 10/07/22 13:59 Last Admin: 09/24/22 09:43 Dose: 100 mls/hr Acetaminophen (Ofirmev) 1,000 mg in 100 mls @ 400 mls/hr IV Q8H PRN PRN Reason: Pain Stop: 09/26/22 15:27 Levofloxacin/Dextrose (Levaquin/D5w) 750 mg in 150 mls @ 100 mls/hr IV Q24H KARUNA; Protocol Stop: 09/30/22 16:44 Last Infusion: 09/23/22 19:19 Dose: Infused Ipratropium Andrews (Ipratropium Andrews Nasal [place] 0.06% 15ml) 1 sprays JOE BID PRN PRN Reason: rhinitis Stop: 10/23/22 04:33 Multivitamins (Multivitamin Tab) [facility] [place] Stop: 10/23/22 08:59 Last Admin: 09/23/22 08:32 Dose: Not Given Prednisone (Prednisone 5 Mg Tab) 5 [facility] [place] Stop: 10/23/22 08:59 Last Admin: 09/23/22 08:32 Dose: Not Given Tamsulosin HCl (Tamsulosin Hcl 0.4 Mg Cap) 0.4 mg PO [facility] Stop: 10/23/22 20:59 Last Admin: 09/23/22 21:55 Dose: Not Given Thiamine HCl (Thiamine Hcl 100 Mg Tab) 100 mg [facility] [place] Stop: 10/23/22 08:59 Last Admin: 09/23/22 08:32 Dose: Not Given
[2022-09-24 11:14] LABS: Hematocrit (blood only) 36.2 % (40.1-51.0); Hemoglobin 11.8 g/dl (14.0-18.0); Mean Corpuscular Hemoglobin 28.9 pg (25.0-34.0); Mean Corpuscular Hgb Conc 32.6 g/dL (32.0-36.0); Mean Corpuscular Volume 88.7 fL (80.0-100.0); Mean Platelet Volume 11.6 fL (9.4-12.4); Platelet Count 62 K/uL (130-400); RDW Coefficient of Variation 16.3 % (11.5-14.5); Red Blood Count 4.08 M/uL (4.63-6.08); White Blood Count 11.57 K/ul (4.8-10.8)
[2022-09-24 11:30] LABS: Basophils # (auto) 0.01 K/uL (0-0.2); Basophils % (auto) 0.1 %; Immature Granulocytes # (auto) 0.09 K/uL (0.00-0.02); Immature Granulocytes % (auto) 0.8 %; Lymphocytes # (auto) 1.03 K/uL (1.2-3.4); Lymphocytes % (auto) 8.9 %; Monocytes # (auto) 0.99 K/uL (0.24-0.82); Monocytes % (auto) 8.6 %; Neutrophils # (auto) 9.45 K/uL (1.4-6.5); Neutrophils % (auto) 81.6 %
[2022-09-24] MEDS ORDERED: LACTATED RINGER'S 500 ML IV ONE (11:41)
[2022-09-24 11:52] LABS: Albumin Globulin Ratio 0.7 (0.9-2); Albumin Level 2.5 gm/dl (3.4-5.0); BUN Creatinine Ratio 58.6 (10-20); Bilirubin,Total 1.2 mg/dl (0.2-1.0); Calcium 9.8 mg/dl (8.5-10.1); Creatinine Clr Calc Pharmacy 60.6 ml/min; Est GFR (African American) 109.3 ml/min; Est GFR (Non-African American) 94.3 ml/min; Globulin 3.6 gm/dl (2.5-4.0); Potassium 4.2 mmol/L (3.5-5.1); Total Protein 6.1 gm/dl (6.0-8.3)
[2022-09-24] MEDS ORDERED: HYDROmorphone INJ 0.5 MG/0.5 ML SYR IV PRN (12:28)
[2022-09-24] MEDS: LACTATED RINGER'S 1,000 ML IV SCH ×3 (13:03→19:34)
[2022-09-24] MEDS ORDERED: HYDROmorphone INJ 0.5 MG/0.5 ML SYR IV SCH (14:30)
[2022-09-24] MEDS ORDERED: HYDROmorphone INJ 1 MG/ML SYRINGE IV PRN (14:30)
--- NOTE | 2022-09-24 14:33 | Cardiology Progress Note ---
Date of Service September 24, 2022 Assessment & Plan (1) MSSA bacteremia: (2) Embolic stroke: (3) Endocarditis: Plan Patient is an 81-year-old male with prior history of coronary bypass grafting for diffuse coronary disease, hypertension, recent difficulties with progressive weight loss and cachexia. Diagnosis of esophageal candidiasis by EGD in the last month Presents now with probable embolic stroke. Staff aureus bacteremia Echocardiogram personally reviewed. Chronic calcific aortic stenosis is present. Small vegetation not completely excluded. There is a visualized small vegetation on the pulmonary valve suggesting probable multi valvular involvement LV systolic function low normal to mildly impaired and diffuse manner Patient not a candidate for SUBHASH or surgical valve replacement Discussed with patient and family Goals will be directed antibiotic therapy for presumed endocarditis probable embolic stroke Overall prognosis limited 09/24/2022 No acute cardiac changes no arrhythmias on telemetry Neuro status possibly slightly more impaired today Recommendations repeat EKG in a.m. follow-up for conduction change Treat as doing for bacteremia with presumed endocarditis Admission and Anticipated Discharge Date Admission Date: September 23, 2022 Subjective Patient seen and examined, chart and telemetry reviewed. Per family members patient less responsive today No acute change in physical exam no arrhythmias on Physical Exam Constitutional: + ill appearing and + cachectic Eyes: PERRL, conjunctivae normal, anicteric sclerae ENMT: external ear and nose normal, oropharynx normal Neck: trachea midline, no thyromegaly Respiratory: Auscultation: + diminished lung sounds (Left base) Cardiovascular: Rate/Rhythm: regular rate and regular rhythm Heart Sounds: + murmur (Grade 2 over 6 systolic no diastolic) Vessels: no JVD Extremities: no edema Gastrointestinal (Abdomen): normal bowel sounds, soft, nontender, no hepatosplenomegaly Results & Data ([facility]) Vital Signs (Past 12 Hours) Vital Signs Temp Pulse Resp BP BP Pulse Ox O2 Del Method 09/24/22 11:19 36.1 C L 101 H 18 84/63 L 96 Room Air 09/24/22 13:47 36.8 C 85 94/59 L 98/60 L 2 L Nasal Cannula 09/24/22 07:49 36.7 C 106 H 18 95/59 L 97 Nasal Cannula 09/24/22 02:49 36.5 C 104 H 16 100/63 96 Nasal Cannula O2 Flow Rate 09/24/22 11:19 09/24/22 13:47 09/24/22 07:49 2 09/24/22 02:49 Laboratory Results Laboratory Results - last 24 hr 09/23/22 09/23/22 09/24/22 13:00 17:23 10:42 WBC RBC Hgb Hct MCV MCH MCHC RDW Std Deviation RDW Coeff of Yoanna Plt Count MPV Immature Gran % (Auto) Neut % (Auto) Lymph % (Auto) Larue % (Auto) Eos % (Auto) Baso % (Auto) Neut # (Auto) Lymph # (Auto) Larue # (Auto) Eos # (Auto) Baso # (Auto) Immature Gran # (Auto) Sodium 145 Potassium 4.2 Chloride 107 Carbon Dioxide 32 Anion Gap 6 BUN 34 H Creatinine 0.58 L Est Cr Clr Drug Dosing 60.6 Est GFR ( Amer) 109.3 Est GFR (Non-Af Amer) 94.3 BUN/Creatinine Ratio 58.6 H Glucose 204 H Calcium 9.8 Total Bilirubin 1.2 H AST 15 ALT 14 Alkaline Phosphatase 79 Troponin I High Sens 1818.0 H* Total Protein 6.1 Albumin 2.5 L Globulin 3.6 Albumin/Globulin Ratio 0.7 L Nasal Screen MRSA (PCR) Positive A 09/24/22 09/24/22 10:42 10:48 WBC 11.57 H RBC 4.08 L Hgb 11.8 L Hct 36.2 L MCV 88.7 MCH 28.9 MCHC 32.6 RDW Std Deviation 53.0 H RDW Coeff of Yoanna 16.3 H Plt Count 62 L MPV 11.6 Immature Gran % (Auto) 0.8 Neut % (Auto) 81.6 Lymph % (Auto) 8.9 Larue % (Auto) 8.6 Eos % (Auto) 0.0 Baso % (Auto) 0.1 Neut # (Auto) 9.45 H Lymph # (Auto) 1.03 L Larue # (Auto) 0.99 H Eos # (Auto) 0.00 Baso # (Auto) 0.01 Immature Gran # (Auto) 0.09 H Sodium Potassium Chloride Carbon Dioxide Anion Gap BUN Creatinine Est Cr Clr Drug Dosing Est GFR ( Amer) Est GFR (Non-Af Amer) BUN/Creatinine Ratio Glucose Calcium Total Bilirubin AST ALT Alkaline Phosphatase Troponin I High Sens 1568.7 H* Total Protein Albumin Globulin Albumin/Globulin Ratio Nasal Screen MRSA (PCR)
[2022-09-24] MEDS: PANTOprazole 40 MG in SYRINGE 0 ML IV SCH (15:35)
[2022-09-24] MEDS: HYDROmorphone INJ 2 MG/ML SYR/VIAL IV SCH ×4 (15:35→23:10)
--- NOTE | 2022-09-24 16:30 | Neurology Progress Note ---
Date of Service September 24, 2022 Assessment & Plan (1) Embolic stroke: Plan Multifocal embolic stroke occurring in the context of suspected endocarditis with evidence of a small vegetation on the pulmonic valve potentially suggesting multi valvular involvement although other valvular involvement not definitively seen on echocardiogram. Patient will continue with antimicrobial therapy for endocarditis and probable associated embolic stroke. The previously seen small subarachnoid hemorrhage is improved. Would avoid antiplatelet medication or an oral anticoagulant at this time. Continue supportive medical care. Neurologic prognosis seems poor at this time given extent of multifocal embolic infarcts. Consider obtaining a follow-up CT of the head tomorrow if patient's clinical status significantly declines. Admission and Anticipated Discharge Date Admission Date: September 23, 2022 Subjective Follow-up for embolic stroke Not much change in patient's clinical status. He is awake, alert, essentially nonverbal, nonagitated, poor language comprehension, does not follow commands, poor vision. Patient does not have any specific complaints. Family at bedside. Brain MRI has revealed multifocal embolic appearing stroke. Concern for septic emboli, recent infectious disease and cardiology consultations noted. Echocardiogram revealed mild global hypokinesis of the left ventricle, EF 45 to 50%. There was a small vegetation or mass in the pulmonic valve. No vegetations on the mitral or aortic valve seen. The left atrium was mildly dilated. No ASD. Cardiology consultation noted which suggests possibility of Multi valvular involvement although not specifically seen on echocardiogram. Septic emboli occurring in the context of endocarditis cannot be excluded. Patient not considered an appropriate candidate for surgical valve replacement. Review of Systems Review of Systems: Unobtainable due to cognitive status and Unobtainable due to reduced consciousness Results & Data ([facility]) Vital Signs (Past 12 Hours) Vital Signs Temp Pulse Resp BP BP Pulse Ox O2 Del Method 09/24/22 15:23 36.2 C L 86 18 85/53 L 99 Nasal Cannula 09/24/22 08:00 Nasal Cannula 09/24/22 11:19 36.1 C L 101 H 18 84/63 L 96 Room Air 09/24/22 13:47 36.8 C 85 94/59 L 98/60 L 2 L Nasal Cannula 09/24/22 07:49 36.7 C 106 H 18 95/59 L 97 Nasal Cannula O2 Flow Rate 09/24/22 15:23 2 09/24/22 08:00 2 09/24/22 11:19 09/24/22 13:47 09/24/22 07:49 2 Exam (Neuro) Neurologic: Oriented to:: negative Person, Place or Time Attention: negative Span Intact or Concentration Intact Speech Fluency: Other (Patient essentially nonverbal, poor language comprehension, does not follow simple commands.) Cranial Nerves: Normal III, IV, and VII Motor Strength: negative Hemiparesis Motor Tone: Normal Lower Extremities and Normal Upper Extremities Coding Level of Care Code 95497 Subseq Hosp Care Lvl 2 Diagnoses Embolic stroke I63.9
[2022-09-24] MEDS: levoFLOXacin/D5W 750 MG/150 ML BAG IV SCH ×2 (17:31→20:43)
[2022-09-24] MEDS: HYDROCORTISONE SOD 10 MG in SYRINGE 0 ML IV SCH (19:31)
[2022-09-25] MEDS: HYDROCORTISONE SOD 10 MG in SYRINGE 0 ML IV SCH ×5 (00:18→23:40)
[2022-09-25] MEDS ORDERED: NALOXONE HCL 0.4 MG/1 ML VIAL/CARP IV PRN (01:06)
--- NOTE | 2022-09-25 01:14 | Communication Note ---
Date of Service: September 25, 2022 Messaged about pain regimen; nursing expressed concerns. Also, nursing and dayshift aid had noted patient seemed less alert since starting the dilaudid t musa. no respiratory rate concerns at this time. family also called in w/ concerns about withdrawal and home high dose regimen Per nurse, patient hasn't really complained of pain, though it is hard to tell. ordered prn narcan revisited home regimen. discussed w/ pharmacy: recommends dilaudid 1mg qh magdalena. prn 0.5mg q2h for 5-10 pain or visible discomfort IV tylenol (adjusted for weight) will be scheduled. HR 120s. ecg showing accelerated junctional rhythm. No p waves compared to previous ecg. otherwise, similar in appearance. checking electrolytes. bp 110/78. Lopressor IV 2.5x1 prior to administration, nurse repeated bp. 85/48. hold Lopressor. NSS bolus 500mL. holding narcotic pain medication orders repeat 90/46. HR 88. ordering another bag of 500mL NSS. 25gm albumin. repeat bp 105/65
[2022-09-25] MEDS ORDERED: HYDROmorphone INJ 0.5 MG/0.5 ML SYR IV PRN (01:44)
[2022-09-25] MEDS ORDERED: ACETAMINOPHEN 1,000 MG/100 ML VIAL IV SCH (01:45)
[2022-09-25] MEDS: NAFCILLIN SODIUM 2,000 MG in DEXTROSE 5% 100 ML IV SCH ×6 (01:45→22:12)
[2022-09-25] MEDS: ACETAMINOPHEN 10MG/ML Custom 650 MG in EMPTY BAG 0 ML IV SCH ×3 (02:57→20:49)
[2022-09-25] MEDS ORDERED: METOPROLOL TARTRATE 1 MG/ML VIAL IV STA (03:17)
[2022-09-25] MEDS ORDERED: SODIUM CHLORIDE 0.9% 1000ML 500 ML IV ONE ×2 (03:32→04:23)
[2022-09-25] MEDS: HYDROmorphone INJ 1 MG/ML SYRINGE IV SCH ×5 (03:50→23:38)
[2022-09-25] MEDS: LACTATED RINGER'S 1,000 ML IV SCH ×2 (04:15→16:57)
[2022-09-25 04:16] LABS: Basophils # (auto) 0.01 K/uL (0-0.2); Basophils % (auto) 0.1 %; Hematocrit (blood only) 33.6 % (40.1-51.0); Hemoglobin 10.7 g/dl (14.0-18.0); Immature Granulocytes # (auto) 0.06 K/uL (0.00-0.02); Immature Granulocytes % (auto) 0.7 %; Lymphocytes % (auto) 10.2 %; Mean Corpuscular Hemoglobin 29.3 pg (25.0-34.0); Mean Corpuscular Hgb Conc 31.8 g/dL (32.0-36.0); Mean Corpuscular Volume 92.1 fL (80.0-100.0); Mean Platelet Volume 10.6 fL (9.4-12.4); Monocytes # (auto) 0.79 K/uL (0.24-0.82); Monocytes % (auto) 8.9 %; Neutrophils # (auto) 7.08 K/uL (1.4-6.5); Neutrophils % (auto) 80.1 %; Platelet Count 42 K/uL (130-400); RDW Coefficient of Variation 16.4 % (11.5-14.5); RDW Standard Deviation 55.6 fL (36.4-46.3); Red Blood Count 3.65 M/uL (4.63-6.08); White Blood Count 8.84 K/ul (4.8-10.8)
[2022-09-25] MEDS ORDERED: ALBUMIN 25% 100 mL 25 GM/100 ML VIAL IV ONE (04:23)
[2022-09-25 04:40] LABS: Albumin Globulin Ratio 0.7 (0.9-2); Albumin Level 2.2 gm/dl (3.4-5.0); BUN Creatinine Ratio 52.5 (10-20); Bilirubin,Total 1.1 mg/dl (0.2-1.0); Calcium 9.2 mg/dl (8.5-10.1); Creatinine Clr Calc Pharmacy 56.6 ml/min; Est GFR (African American) 106.3 ml/min; Est GFR (Non-African American) 91.7 ml/min; Globulin 3.2 gm/dl (2.5-4.0); Magnesium 1.8 mg/dl (1.7-2.4); Potassium 3.8 mmol/L (3.5-5.1); Total Protein 5.4 gm/dl (6.0-8.3)
[2022-09-25 05:02] LABS: Vitamin B12 948 pg/ml (180-914)
--- NOTE | 2022-09-25 07:14 | Hospitalist Progress Note ---
Date of Service September 25, 2022 Assessment & Plan (1) Urinary tract infection: Plan: Patient is an 81 yo male with PMHx of BASHIR, hemorrhoids, chronic cholecystitis, hx gastric bypass, BPH, COVID, depression, DM2, gastroparesis, GERD, DVT, HLD, HTN, OA, severe , sleep apnea, and severe protein calorie malnutrition admitted 09/22/22 due to UTI and significant change in mental status/generalized weakness. Gram + Bacteremia w/ Sepsis, AMS, and Generalized Weakness - Patient presentation 09/22 drastically altered from 09/16 at PCP visit (6 days prior) - Sepsis noted on admission d/t tachycardia, tachypnea, and source of infection - Labs: WBC 14.39, Hgb 12.5, Na 143, K 4.2, BUN 34, Cr 0.63 - Likely a/w UTI * UA on admit: > 30 epithelial cells but appears to be infected with 1+ ketones, 3+ blood, positive nitrite, 1+ leuk esterase, 5-10 WBC, and 4+ bacteria * Urine cx: Staphylococcus species * Blood cx: Gram + cocci in clusters, biofire MSSA/no MRSA detected - Received IV Ceftriaxone in ER, continued q12h on admission, discontinued 09/23 - Known recent candidal esophagitis on EGD (received Fluconazole PO x 3 days), started IV Fluconazole 200 mg daily (anticipated 14 day course) - IVF started on admission 80 mL/hr, increased to 125 mL/hr 09/24 (patient appears dry) - CK wnl - MRSA Nares + - CTA Chest: No pulmonary emboli identified. Mucous plugging with considerable left lower lobe mucoid impaction and mild left lower lobe pneumonia. 10 mm ovoid filling defect within the left lower lobe bronchus is also likely lead generation representative of mucous plugging. An endobronchial mass considered less likely. - Started IV Daptomycin 09/23 AM, discontinued PM post ID consult - Consulted ID 09/23 * Recommended daily blood cultures until confirmed clearance x 48 hours * Respiratory culture if sputum possible * Continue nafcillin 2 g IV q4h for MSSA bacteremia. Has better ROBOTIC TECHNICIAN penetration than cefazolin * Continue levofloxacin 750 mg daily for possible pneumonia. Anticipate treatment duration 5-7 days from 09/22 * Continue fluconazole for treatment of esophageal candidiasis. Anticipate treatment duration 14 days --- 09/25 Worsening AMS in AM, patient remains able to communicate via nods, recognizes names of daughters, ordered CT Head w/o contrast and CXR --- 09/25 CT Head: Impression: No acute intracranial hemorrhage, no evidence of acute territorial infarction or other acute intracranial disease process. --- 09/25 CXR: Impression: No acute chest disease Tachycardia (overnight 09/24) - Presumed atrial tachycardia, rate 130s - Pain meds held d/t hypotension - Received 500 cc bolus x 2, maintenance fluids held --- 09/25 BP105/62, P92 --- 09/25 Maintenance fluids restarted AM, pain management reinstated Acute Embolic Stroke w/ AMS and Dysarthria - Patient presentation 09/22 drastically altered from 09/16 at PCP visit (6 days prior) - Known Urinary Infection w/ associated bacteremia - Head CT 09/22: Trace acute to subacute subarachnoid hemorrhage overlying the left parietal lobe. A short-term follow-up head CT in 24 to 48 hours is recommended. This finding will be called/faxed to the ordering provider at time of dictation. * Ordered f/u CT Urgent 09/23 * CT 09/23: No evidence of new subarachnoid hemorrhage. Previously noted left parietal subarachnoid hemorrhage has demonstrated expected evolution and is now less conspicuous. - Brain MRI 09/23: Numerous acute infarcts, the largest which is a 2.4 cm right cerebellar infarct. Minimal mass effect. The findings suggest an embolic source. Findings discussed with Dr. Cohen at time of dictation. No change in trace sub arachnoid hemorrhage overlying the left parietal lobe which is acute to subacute. - Consulted Neurology 09/23: * Patient will continue with antimicrobial therapy for endocarditis and probable associated embolic stroke. * The previously seen small subarachnoid hemorrhage is improved. * Would avoid antiplatelet medication or an oral anticoagulant at this time. - Speech therapy eval order placed - recommending NPO - 09/24 Diminished mentation (noted by Neurology, recommending low threshold for CT if mentation continus to change) - 09/24 assess B12 level --- 09/25 B12 Level elevated 948 --- Overall poor prognosis Elevated Troponin w/ EKG Changes - Troponin elevated at 2894.3 on admission; trend troponin * 1681 @ 0806 * 1733 @ 1057 * 1818 @ 1723 - Considered likely to be associated w/ demand ischemia a/w sepsis - [facility] - Echo 09/23: EF 45-50%, borderline severe , small vegetation vs. mass on pulmonic valve, thickened mitral valves - Consulted Cardiology 09/23: * Recommendations repeat EKG in a.m. follow-up for conduction change * Treat as doing for bacteremia with presumed endocarditis --- 09/25 Worsening chest pain, previously isolated to right chest, no spanning right and left chest. --- 09/25 EKG showing tachycardia, regular rhythm, T wave inversion in II/III/avF, ST depression in anterior leads (V2/V3) Cachexia w/ Severe Protein Calorie Malnutrition - Per family report, at baseline patient eats full regular diet * Grandson noted 09/23 that patient has been requiring full assist w/ feeds over last few weeks and there has been concern for patient coughing and having difficulty swallowing meals - Hx of gastric bypass surgery, ? malabsorption syndrome - Family endorses decreased PO intake over the past several days - Patient has lost > 30 lbs in the last year, notably lost 7 lbs since PCP visit 6 days ago - Albumin 2.8 - Will consult nutrition --- 09/25 Family elected to initiate NG feedings to supplement nutrition, started marinol and NG Tube feedings in PM Hypokalemia - Repleted, stable, following Dysphagia - Patient failed bedside swallow; coughing with mouth swabs as well - ST eval placed - NPO until ST eval completed - Recent EGD d/t dysphagia and weight loss w/ findings of candidal esophagitis (see above) --- Continue NPO Chronic Pain secondary to OA - Per PDMP, patient with 165 MME/day oxycodone - Held on admission - 09/24 Started Dilaudid 3 mg q3h IV KARUNA - 09/24 Started Dilaudid .5 mg q6h IV PRN - 09/24 Added stress dose steroids as patient is taking prednisone 5 mg daily at home --- 09/25 Hydromorphone 1 mg IV Q4H, additional stress dose steroids given Hx DVT - Chemical DVT ppx held due to trace subarachnoid hemorrhage BASHIR - Continue ferrous sulfate 325mg daily; hold while NPO BPH - Continue flomax; hold while NPO ANTWON: NPO, LR @ 125, NGT feedings DVT ppx: Neuro recommending against additional anticoagulation 09/24 Dispo: Med/surg/tele Code status: Conditional code -- no CPR or defibrillation (2) Sepsis: (3) Cachexia: (4) Iron deficiency: (5) Low back pain: (6) Embolic stroke: (7) Endocarditis: (8) MSSA bacteremia: Admission and Anticipated Discharge Date Admission Date: September 23, 2022 Supervising Physician Co-Signing Physician Notes I also saw the patient and confirmed knight portions of the history and physical examination. I agree with the impression and plan as noted in resident documentation. I also discussed the case with the infectious disease healthcare consultant via the telehealth station. He did have some decrease in sodium overnight. His pain medications were held. He did have a CT scan of his head which showed no change as well as a chest x- ray which showed no active disease. Patient's overall sensorium today is waxing and waning. He seems a little bit less alert/awake earlier this morning, but on second visit with his family at [facility], there is subtle increase in his level of alertness. This being said, as we work through an approximate 25-minute family meeting, he very quickly fell asleep. Exam 96/56, 89, 17, 36.4, 100% room air Awake/alert. I can make out a few, whispered words. 2/6 systolic murmur heard best at the right upper sternal border Respirations are nonlabored, lungs decreased in the bases, mildly tachypneic upon my exam (22) Data WBC 8.84, hemoglobin 10.7 Sodium 146, potassium 3.8, BUN 32, creatinine 0.61 Urine culture shows staph species 2 of 2 blood cultures from 09/22/2022 demonstrate staph species. 2 of 2 blood cultures from 09/23/2022 demonstrate Staph aureus. 2 of 2 blood cultures from 09/24/2022 shows gram-positive cocci in clusters Blood cultures from today are drawn/pending. Imaging CT scan of the head dated 09/22/2022 demonstrates trace acute to subacute subarachnoid hemorrhage overlying the left parietal lobe. MRI of the brain dated 09/23/2022 demonstrates numerous acute infarcts, the largest of which is 2.4 cm, right cerebellar infarct. No changes noted in the trace subarachnoid hemorrhage described in the CT scan from 09/22/2022 CTA of the chest dated 09/23/2022 is negative for pulmonary emboli, demonstrates mucous plugging with considerable left lower lobe mucoid impaction with and mild left lower lobe pneumonia. CT scan of the head dated 09/23/2022 shows no evidence of new subarachnoid hemorrhage. The previously noted left parietal subarachnoid hemorrhage is now less conspicuous. Echocardiogram dated 09/23/2022 shows small vegetation or mass on the pulmonic valve, cannot exclude vegetation on the aortic valve. The aortic valve leaflets are calcified with moderate to borderline severe aortic stenosis. Ejection fraction 45-50% with mild global hypokinesis of the left ventricle. CT scan of the head done 09/25/2022 showed no changes. Chest x-ray dated 09/25/2022 showed no acute disease 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 Elevated troponin with EKG changes Sepsis Mental status change, secondary to sepsis and acute embolic stroke Cachexia with severe protein calorie malnutrition Plan Appreciate recommendations from infectious disease, neurology, and cardiology. Continue current medications Serial blood cultures until cleared The persistence of positive blood cultures despite appropriate antibiotic coverage suggest deep-seated infection and perhaps had sites additional to the known endocarditis. Discussed with infectious disease utility of further surgery (MRI spine, CT abdomen pelvis), although even if we found something, patient not stable enough to tolerate procedures. Also discussed this aspect of the case with the family, and in general, the patient's poor prognosis overall. Family meeting with six family members today at the patient's bedside; reviewed patient's clinical course thus far and poor prognosis. Based on this discussion agreed on the following pathway: Trial of enteral feeding. Discussed the risk and difficulties of this, risk of aspiration, especially in setting of his history of gastric bypass surgery. If he would develop significant respiratory difficulty, family would opt for BiPAP. We would call them before intubation. If his hemodynamic status would worsen, discussed the potential use of pressor agents. We would reach out to them prior to initiating. In the event of cardiac arrest, we would not start compressions Will continue to monitor the patient's condition over the next several days; if no improvement, we did discuss a more palliative approach and we even discussed home hospice. Additional as per resident documentation Subjective Patient is an 81 yo male with PMHx of BASHIR, hemorrhoids, chronic cholecystitis, hx gastric bypass, BPH, COVID, depression, DM2, gastroparesis, GERD, DVT, HLD, HTN, OA, severe , sleep apnea, and severe protein calorie malnutrition who presented to the ER on 09/22/22 due to generalized weakness and change in mental status. 11: 0800 Patient appeared less verbal, only responding with nods, comfortable on exam. Patient endorsed right and left sided chest pain today adn ongoing suprapubic/abdominal pain. Patient endorses headache today. Denies dyspnea or pleuritic pain. 1100 Discussed diagnosis and goals of care with daughter Maritza and patient's grandchildren. Family expressed understanding. Elected to proceed with placement of NG tube for supplemental feedings at this time. Family requests that Maritza be first call in an emergency, followed by Maritza. Patient's grand-daughter is an RN and appreciates discussion on palliative and hospice care. 09/24: Patient continues to be minimally verbal. Answers questions with nods and occasional mouthed words. Endorsed right chest pain (ongoing) and suprapubic pain (new). Denied dyspnea or pleuritic pain. Denies urinary discomfort. No headache. 1400 Long discussion with patient's daughter Maritza about diagnosis, plan, and prognosis. Discussed goals of care and family's understanding of diagnosis. Discussed receptiveness to palliative care and hospice if need arises. Discussed patient's wishes regarding supplemental nutrition if need arises. Daughter expressed appropriate understanding and verbalized questions. Daughter notes that patient has struggled with malnourishment since gastric bypass in 2002, he had a revision in 2009 which was unsuccessful in helping w/ the malnutrition. Daughter is unaware as to why patient was on daily prednisone, but notes that he has been on it 'for a while'. Review of Systems Review of Systems: As per HPI Physical Exam Physical Exam: Gen: cachectic, acutely uncomfortable (wincing), communicates w/ nods, AO x ? Resp:non-labored, no wheezing/rhonchi/rales, CTAB CV:RRR, normal S1/S2, systolic murmur present at RUSB and LUSB Abd: Soft, non-distended, moderate suprapubic TTP, normoactive bowels, no masses Extr: 2+ dp bilaterally, no edema, bilateral pressure sores on heels, UE strength 2/5 symmetric, LE strength 2/5 symmetric : Urinary catheter in place, evidence of balanitis surrounding urethral meatus/glans Skin: No additional rashes lesions or erythema Results & Data Results & Data ([facility]) Vital Signs (Past 12 Hours) Vital Signs Temp Pulse Pulse Resp BP BP Pulse Ox 09/25/22 06:34 92 H 105/65 09/25/22 05:28 86 98/53 L 99 09/24/22 22:25 91 H 09/25/22 04:19 88 18 90/46 L 98 09/25/22 03:36 109 H 17 85/48 L 98 09/25/22 03:27 97 H 16 92/56 L 09/25/22 03:25 137 H 16 79/53 L 98 09/25/22 03:16 36.5 C 137 H 16 110/78 99 09/25/22 02:18 36.6 C 97 H 18 101/62 98 09/24/22 22:44 36.4 C L 100 H 16 104/62 98 09/24/22 20:00 O2 Del Method O2 Flow Rate 09/25/22 06:34 09/25/22 05:28 Nasal Cannula 09/24/22 22:25 09/25/22 04:19 Nasal Cannula 2 09/25/22 03:36 Nasal Cannula 2 09/25/22 03:27 09/25/22 03:25 Nasal Cannula 2 09/25/22 03:16 Nasal Cannula 2 09/25/22 02:18 Nasal Cannula 2 09/24/22 22:44 Nasal Cannula 2 09/24/22 20:00 Nasal Cannula 2 Resident Activity Tracking Resident Involvement: Resident Care Provided Care Provided: Adult [facility]
[2022-09-25] MEDS: FLUCONAZOLE 100 MG/50 ML BAG IV SCH (08:17)
--- NOTE | 2022-09-25 08:53 | CT Scan Report ---
CT head/brain wo con CLINICAL HISTORY: Worsening mental status Technique: Contiguous axial CT images of the head were acquired from the base of the skull to the linette surya without intravenous contrast administration. Images were viewed in brain, subdural and bone [facility]. Automated dose lowering techniques and/or adjustment according to patient size were utilized for this exam. Comparison: Comparison is made to CT head 09/23/2022 Findings: Areas of decreased attenuation are present in the periventricular and subcortical white matter bilate rally consistent with small vessel ischemic disease. Generalized cerebral atrophy with commensurate e nlargement of the ventricles, sulci, and cisterns is also present. There is no acute intracranial hem orrhage or evidence of acute territorial infarction. No shift of the midline structures, mass effect, or extra-axial abnormalities are shown. Atherosclerotic calcifications are present in the intracran ial segments of the internal carotid arteries. Imaged portions of the paranasal sinuses and mastoid air cells are clear. The orbits appear normal. There are no acute fractures of the calvaria or scalp swelling. Impression: No acute intracranial hemorrhage, no evidence of acute territorial infarction or other acute intracra nial disease process. ACT 112: Negative or not required by law. Electronically signed by: Jose M Mccall M.D. 09/25/2022 8:50 AM
[2022-09-25] MEDS ORDERED: ENOXAPARIN INJ 40 MG/0.4 ML SYR SQ SCH (09:00)
--- NOTE | 2022-09-25 09:27 | XRay Report ---
XR chest 2V PA/lateral CLINICAL HISTORY: f/u pneumo TECHNIQUE: 2 views of the chest were obtained. Comparison: Comparison is made to chest radiograph 09/22/2022 FINDINGS: Median sternotomy wires are unchanged. Calcified aortic knob is seen. Lungs are underinflated but melisa ar. Elevation of the left hemidiaphragm is again seen. Interstitial thickening is again noted. No odalis dence of pleural effusion or pneumothorax. IMPRESSION: No acute chest disease. ACT 112: Negative or not required by law. Electronically signed by: Jose M Mccall M.D. 09/25/2022 9:24 AM
--- NOTE | 2022-09-25 10:08 | Infectious Disease Progress Nt ---
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 He has persistent positive blood cultures from 09/22-09/24, and was started on nafcillin on 09/23. UCx is also growing MSSA. TTE shows a small vegetation or mass on the pulmonic valve, and chronic calcific aortic stenosis, unable to exclude small vegetation, suggesting probable multivalvular involvement per cardiology. He is not a candidate for SUBHASH or surgical valve replacement. Imaging also shows CT head with trace acute to subacute SAH overlying the parietal lobe, MRI brain with numerous acute infarcts concerning for embolic source, CT A/P without contrast without acute findings, and CTA chest without PE but showing LLL mucous plugging and mild pneumonia. Source of MSSA bacteremia is unclear at this time--no IVDU, no concerns for infected wounds, no long-term catheters. The only hardware he has is a trochanteric femoral nail in the R hip after a fracture in 04/2022, and his R hip is unremarkable on exam. Could consider a primary MSSA pneumonia seeding the bloodstream, given the possible LLL pneumonia on CTA chest, although it appears mild. The MSSA in the urine culture can likely be explained by MSSA bacteremia seeding the urinary tract. The persistent MSSA bacteremia despite appropriate therapy is concerning for lack of source control--this could be just due to multivalvular MSSA endocarditis and emboli to the brain, but could also consider perivalvular abscess, or other occult sites of seeding. The pt does have back pain, but it is difficult to distinguish whether this is different from his baseline chronic back pain. He has diffuse MSK pain, but no focal joint swelling/erythema on exam. Unclear the benefit of further imaging to assess for sites of seeding, as it is not clear that the pt would be a candidate for surgeries or other procedures. He remains altered, with likely poor prognosis. 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 QTc 430 on 09/25. Anticipate treatment duration 5-7 days from 09/22 -Continue fluconazole for treatment of esophageal candidiasis. Anticipate treatment duration 14 days -Will continue to follow Admission and Anticipated Discharge Date Admission Date: September 23, 2022 Subjective Subsequent visit was provided via telemedicine using two-way real-time interactive telecommunication between the patient and the telemedicine provider. For the duration of the visit, the provider was performing the assessment from a different facility than the patient. This includesuse of bluetooth stetho scope forauscultationperformed by the telepresenter that the telemedicine provider can hear if described in the physical exam. Household Assistant contact information: Please call [facility] . (Phone Number For Physician Use Only) After establishing a telemedicine visit, patient was: Patient was verified with two unique identifiers, Patient/authorized rep acknowledged consent and understanding and Gave permission to continue telehealth session Subsequent Time Spent w Inpatient: 15 minutes Pt complains of abdominal symptoms--unclear what symptoms he is experiencing. Denies diarrhea, dysuria Also reports pain in his back and bottom Afebrile, without leukocytosis Blood cultures from yesterday remain positive Worsened AMS this AM--repeat CT head without acute findings Review of System A complete ROS was performed and is negative except as mentioned in the HPI. Physical Exam Physical Exam: GEN: thin, frail elderly man, ill-appearing HEENT: Normocephalic, atraumatic. Dry MM RESP: mildly increased WOB ABD: Soft, non-distended EXT: mild LE edema SKIN: Erythema around urethra BACK: Mid-spinal tenderness to palpation NEURO: Answers simple questions PSYCH: unable to evaluate LINES: PIV, barrett Results & Data ([facility]) Vital Signs (Past 12 Hours) Vital Signs Temp Pulse Pulse Resp BP BP Pulse Ox 09/25/22 08:02 36.4 C L 89 17 96/56 L 100 09/25/22 06:34 92 H 105/65 09/25/22 05:28 86 98/53 L 99 09/24/22 22:25 91 H 09/25/22 04:19 88 18 90/46 L 98 09/25/22 03:36 109 H 17 85/48 L 98 09/25/22 03:27 97 H 16 92/56 L 09/25/22 03:25 137 H 16 79/53 L 98 09/25/22 03:16 36.5 C 137 H 16 110/78 99 09/25/22 02:18 36.6 C 97 H 18 101/62 98 09/24/22 22:44 36.4 C L 100 H 16 104/62 98 O2 Del Method O2 Flow Rate 09/25/22 08:02 Room Air 09/25/22 06:34 09/25/22 05:28 Nasal Cannula 09/24/22 22:25 09/25/22 04:19 Nasal Cannula 2 09/25/22 03:36 Nasal Cannula 2 09/25/22 03:27 09/25/22 03:25 Nasal Cannula 2 09/25/22 03:16 Nasal Cannula 2 09/25/22 02:18 Nasal Cannula 2 09/24/22 22:44 Nasal Cannula 2 Laboratory Results Short CBC 09/24/22 09/25/22 Range/Units 10:48 03:58 WBC 11.57 H 8.84 (4.8-10.8) K/ul Hgb 11.8 L 10.7 L (14.0-18.0) g/dl Hct 36.2 L 33.6 L (40.1-51.0) % Plt Count 62 L 42 L (130-400) K/uL BMP 09/24/22 09/25/22 10:42 03:58 Sodium 145 146 H Potassium 4.2 3.8 Chloride 107 110 H Carbon Dioxide 32 32 BUN 34 H 32 H Creatinine 0.58 L 0.61 Glucose 204 H 152 H Calcium 9.8 9.2 Liver Function 09/24/22 09/25/22 Range/Units 10:42 03:58 Total Bilirubin 1.2 H 1.1 H (0.2-1.0) mg/dl AST 15 12 L (13-39) U/L ALT 14 12 (7-52) U/L Alkaline Phosphatase 79 66 (34-104) U/L Albumin 2.5 L 2.2 L (3.4-5.0) gm/dl Diagnostic Findings Radiology: Chest X-Ray 09/25/22 06:00 IMPRESSION: No acute chest disease. Head CT 09/25/22 08:00 Impression: No acute intracranial hemorrhage, no evidence of acute territorial infarction or other acute intracranial disease process. Microbiology 09/25 BCx x2: pending 09/24 BCx x2: GPCs in clustersin 2/4 vials 09/23 BCx x2:MSSAin 2/4 vials 09/22 BCx x2:MSSAin 3/4 vials. BCID2 panel positive for Staph aureus, negative for MRSA 09/22 UCx:MSSA Medications Administered Current Inpatient Medications Allopurinol (Allopurinol 300 Mg Tab) 300 mg PO QAM [facility] Stop: 10/23/22 08:59 Last Admin: 09/23/22 08:32 Dose: Not Given Ferrous Sulfate (Ferrous Sulfate 325 Mg Tab) 325 mg PO QAM [facility] Stop: 10/23/22 08:59 Last Admin: 09/23/22 08:32 Dose: Not Given Folic Acid (Folic Acid 1 Mg Tab) 1 mg PO QAM [facility] Stop: 10/23/22 08:59 Last Admin: 09/23/22 08:32 Dose: Not Given Hydromorphone HCl (Hydromorphone Inj 1 Mg/Ml Syringe) 1 mg IV Q4H [facility] Stop: 10/09/22 03:29 Last Admin: 09/25/22 12:30 Dose: 1 mg Hydromorphone HCl (Hydromorphone Inj 0.5 Mg/0.5 Ml Syr) 0.5 mg IV Q2H PRN PRN Reason: Pain 5-10 or visiblediscomfort Stop: 10/08/22 14:29 Lactated Ringer's (Lr) 1,000 mls @ 125 mls/hr IV .Q8H KARUNA Stop: 10/23/22 10:14 Last Infusion: 09/25/22 08:11 Dose: 125 mls/hr Nafcillin Sodium 2,000 mg/ (Dextrose) 110 mls @ 100 mls/hr IV Q4H [facility] Stop: 10/07/22 13:59 Last Infusion: 09/25/22 11:46 Dose: Infused Levofloxacin/Dextrose (Levaquin/D5w) 750 mg in 150 mls @ 100 mls/hr IV Q24H [facility]; Protocol Stop: 09/30/22 16:44 Last Infusion: 09/24/22 22:13 Dose: Infused Hydrocortisone Sodium (Succinate 10 mg/ Syringe) 0.2 mls @ 4 mls/min IV Q6 [facility] Stop: 10/24/22 17:59 Last Admin: 09/25/22 12:26 Dose: 4 mls/min Pantoprazole Sodium 40 mg/ (Syringe) 10 mls @ 5 mls/min IV DAILY@1100 [facility] Stop: 10/24/22 14:24 Last Admin: 09/25/22 10:31 Dose: 5 mls/min Acetaminophen 650 mg/ EMPTY (BAG) 65 mls @ 260 mls/hr IV Q8H [facility]; Protocol Stop: 10/25/22 02:29 Last Infusion: 09/25/22 11:03 Dose: Infused Fluconazole (Diflucan) 200 mg in 100 mls @ 100 mls/hr IV Q24H [facility]; Protocol Stop: 10/07/22 08:59 Ipratropium Bastrop (Ipratropium Bastrop Nasal [place] 0.06% 15ml) 1 sprays JOE BID PRN PRN Reason: rhinitis Stop: 10/23/22 04:33 Multivitamins (Multivitamin Tab) [facility] Stop: 10/23/22 08:59 Last Admin: 09/23/22 08:32 Dose: Not Given Naloxone HCl (Naloxone Hcl 0.4 Mg/1 Ml Vial/Carp) 0.1 mg IV Q5M PRN; Protocol PRN Reason: Oversedation/Resp Depression Stop: 10/09/22 01:05 Prednisone (Prednisone 5 Mg Tab) 5 mg PO QAM [facility] Stop: 10/23/22 08:59 Last Admin: 09/23/22 08:32 Dose: Not Given Tamsulosin HCl (Tamsulosin Hcl 0.4 Mg Cap) 0.4 mg PO HS [facility] Stop: 10/23/22 20:59 Last Admin: 09/23/22 21:55 Dose: Not Given Thiamine HCl (Thiamine Hcl 100 Mg Tab) 100 mg PO [facility] Stop: 10/23/22 08:59 Last Admin: 09/23/22 08:32 Dose: Not Given
[2022-09-25] MEDS: PANTOprazole 40 MG in SYRINGE 0 ML IV SCH (10:31)
--- NOTE | 2022-09-25 14:04 | Electrocardiogram Report ---
Test Reason : Blood Pressure : / mmHG Vent. Rate : 126 BPM Atrial Rate : 047 BPM P-R Int : 000 ms QRS Dur : 068 ms QT Int : 330 ms P-R-T Axes : 000 -02 146 degrees QTc Int : 477 ms Accelerated Junctional rhythm with occasional Premature ventricular complexes Low voltage QRS Nonspecific ST and T wave abnormality Abnormal ECG When compared with ECG of 23-SEP-2022 09:14, Junctional rhythm has replaced Sinus rhythm Non-specific change in ST segment in Inferior leads ST more depressed Anterior leads Nonspecific T wave abnormality now evident in Inferior leads Confirmed by Crow Post ([id number]) on 09/25/2022 2:03:40 PM Referred By: REFERRED SELF Confirmed By:Manan Post
--- NOTE | 2022-09-25 14:10 | Electrocardiogram Report ---
Test Reason : Blood Pressure : / mmHG Vent. Rate : 089 BPM Atrial Rate : 083 BPM P-R Int : 000 ms QRS Dur : 078 ms QT Int : 354 ms P-R-T Axes : 000 017 -34 degrees QTc Int : 430 ms Sinus rhythm with mobitz 1 conduction Premature ventricular complexes Low voltage QRS Nonspecific T wave abnormality Abnormal ECG Confirmed by Crow Post ([id number]) on 09/25/2022 2:10:19 PM Referred By: REFERRED SELF Confirmed By:Manan Post
--- NOTE | 2022-09-25 14:20 | Cardiology Progress Note ---
Date of Service September 25, 2022 Assessment & Plan (1) MSSA bacteremia: (2) Embolic stroke: (3) Endocarditis: Plan Patient is an 81-year-old male with prior history of coronary bypass grafting for diffuse coronary disease, hypertension, recent difficulties with progressive weight loss and cachexia. Diagnosis of esophageal candidiasis by EGD in the last month Presents now with probable embolic stroke. Staff aureus bacteremia Echocardiogram personally reviewed. Chronic calcific aortic stenosis is present. Small vegetation not completely excluded. There is a visualized small vegetation on the pulmonary valve suggesting probable multi valvular involvement LV systolic function low normal to mildly impaired and diffuse manner Patient not a candidate for SUBHASH or surgical valve replacement Discussed with patient and family Goals will be directed antibiotic therapy for presumed endocarditis probable embolic stroke Overall prognosis limited 09/25/2022 Transient tachycardia last evening. EKG this morning with first-degree, intermittent second-degree AV block Mobitz 1 Recommendations: Continue treat empirically as endocarditis. Avoid any AV rebeca blocking medications. Including treatment of arrhythmias Patient remains at high clinical risk for further decline. Would recommend conservative therapy in that case Admission and Anticipated Discharge Date Admission Date: September 23, 2022 Subjective Patient seen and examined, chart, telemetry reviewed Patient's somnolent but family feels he has been slightly brighter today. Minimal activity Telemetry with transient tachycardia last night junctional versus sinus tachycardia with marked first-degree AV block Telemetry currently sinus with first-degree AV block transient second-degree AV block this morning Physical Exam Constitutional: + ill appearing and + cachectic Eyes: PERRL, conjunctivae normal, anicteric sclerae ENMT: external ear and nose normal, oropharynx normal Neck: trachea midline, no thyromegaly Respiratory: Auscultation: + diminished lung sounds (Left base) Cardiovascular: Rate/Rhythm: regular rate and regular rhythm Heart Sounds: + murmur (Grade 2 over 6 systolic no diastolic) Vessels: no JVD Extremities: no edema Gastrointestinal (Abdomen): normal bowel sounds, soft, nontender, no hepatosplenomegaly Results & Data ([facility]) Vital Signs (Past 12 Hours) Vital Signs Temp Pulse Pulse Resp BP BP Pulse Ox 09/25/22 10:56 36.4 C L 89 17 102/61 99 09/25/22 08:00 85 09/25/22 08:02 36.4 C L 89 17 96/56 L 100 09/25/22 06:34 92 H 105/65 09/25/22 05:28 86 98/53 L 99 09/25/22 04:19 88 18 90/46 L 98 09/25/22 03:36 109 H 17 85/48 L 98 09/25/22 03:27 97 H 16 92/56 L 09/25/22 03:25 137 H 16 79/53 L 98 09/25/22 03:16 36.5 C 137 H 16 110/78 99 09/25/22 02:18 36.6 C 97 H 18 101/62 98 O2 Del Method O2 Flow Rate 09/25/22 10:56 Nasal Cannula 2 09/25/22 08:00 09/25/22 08:02 Room Air 09/25/22 06:34 09/25/22 05:28 Nasal Cannula 09/25/22 04:19 Nasal Cannula 2 09/25/22 03:36 Nasal Cannula 2 09/25/22 03:27 09/25/22 03:25 Nasal Cannula 2 09/25/22 03:16 Nasal Cannula 2 09/25/22 02:18 Nasal Cannula 2 Laboratory Results Laboratory Results - last 24 hr 09/25/22 09/25/22 09/25/22 03:58 03:58 03:58 WBC 8.84 RBC 3.65 L Hgb 10.7 L Hct 33.6 L MCV 92.1 MCH 29.3 MCHC 31.8 L RDW Std Deviation 55.6 H RDW Coeff of Yoanna 16.4 H Plt Count 42 L MPV 10.6 Immature Gran % (Auto) 0.7 Neut % (Auto) 80.1 Lymph % (Auto) 10.2 Dale % (Auto) 8.9 Eos % (Auto) 0.0 Baso % (Auto) 0.1 Neut # (Auto) 7.08 H Lymph # (Auto) 0.90 L Dale # (Auto) 0.79 Eos # (Auto) 0.00 Baso # (Auto) 0.01 Immature Gran # (Auto) 0.06 H Sodium 146 H Potassium 3.8 Chloride 110 H Carbon Dioxide 32 Anion Gap 4 BUN 32 H Creatinine 0.61 Est Cr Clr Drug Dosing 56.6 Est GFR ( Amer) 106.3 Est GFR (Non-Af Amer) 91.7 BUN/Creatinine Ratio 52.5 H Glucose 152 H Calcium 9.2 Magnesium 1.8 Total Bilirubin 1.1 H AST 12 L ALT 12 Alkaline Phosphatase 66 Total Protein 5.4 L Albumin 2.2 L Globulin 3.2 Albumin/Globulin Ratio 0.7 L Vitamin B12 948 H Folate > 22.30 Random Cortisol 09/25/22 09:27 WBC RBC Hgb Hct MCV MCH MCHC RDW Std Deviation RDW Coeff of Yoanna Plt Count MPV Immature Gran % (Auto) Neut % (Auto) Lymph % (Auto) Dale % (Auto) Eos % (Auto) Baso % (Auto) Neut # (Auto) Lymph # (Auto) Dale # (Auto) Eos # (Auto) Baso # (Auto) Immature Gran # (Auto) Sodium Potassium Chloride Carbon Dioxide Anion Gap BUN Creatinine Est Cr Clr Drug Dosing Est GFR ( Amer) Est GFR (Non-Af Amer) BUN/Creatinine Ratio Glucose Calcium Magnesium Total Bilirubin AST ALT Alkaline Phosphatase Total Protein Albumin Globulin Albumin/Globulin Ratio Vitamin B12 Folate Random Cortisol 36.01
--- NOTE | 2022-09-25 15:07 | XRay Report ---
XR chest 1V portable CLINICAL HISTORY: s/p NG tube placement TECHNIQUE: Single frontal radiograph of the chest was obtained. Comparison: Comparison is made to chest radiograph FINDINGS: Enteric tube terminates in the stomach. Median sternotomy wires are seen. Calcified aortic knob is se en. Elevation of the left hemidiaphragm is seen with atelectasis at the left lung base.. No evidence of pleural effusion or pneumothorax. IMPRESSION: No acute chest disease. Redemonstration of atelectasis and elevation of the left hemidiaphragm. ACT 112: Negative or not required by law. Electronically signed by: Jose M Mccall M.D. 09/25/2022 3:06 PM
[2022-09-25] MEDS: TUBE FEEDING WATER FLUSH GT SCH ×6 (16:21→22:15)
[2022-09-25] MEDS: PEPTAMEN 1.5 CAL 1,000 ML BAG NG SCH (16:22)
[2022-09-25] MEDS: levoFLOXacin/D5W 750 MG/150 ML BAG IV SCH (16:23)
--- NOTE | 2022-09-25 18:33 | XRay Report ---
KUB HISTORY: Status post placement of a feeding tube Coresafe placement COMPARISON: Chest radiograph of same day FINDINGS: Lower abdomen is excluded from the [id number]. Cardiomegaly with prior median sternotomy . Atherosclerosis of the aorta. Left diaphragmatic hernia redemonstrated along with left basilar opac ities. Limited leads are coiled over the chest. A feeding tube is present which coils upon itself the distal tip projected superiorly within the distal esophagus. No urolith identified on this exam. No pneumoperitoneum or pneumatosis. No fracture. IMPRESSION: The feeding tube is folded upon itself in the distal esophagus. Repositioning with follow-up imaging is needed. ACT 112: Negative or not required by law. The above report was generated using voice recognition software. It may contain grammatical, syntax o r spelling errors. Electronically signed by: Javon Erwin M.D. 09/25/2022 6:31 PM
--- NOTE | 2022-09-25 19:42 | XRay Report ---
KUB HISTORY: Reposition feeding tube Coresafe placement - replaced COMPARISON: KUB of same day at 6:06 PM. FINDINGS: Repositioned feeding tube, now with distal tip projected inferiorly within the expected loc ation of the mid stomach. Prior median sternotomy. Cardiomediastinal and hilar silhouettes are unchan ged. Left diaphragmatic hernia again noted. Air-filled loops of bowel appear unchanged. No urolith or acute fracture identified. IMPRESSION: Repositioned feeding tube, now with the distal tip in the expected location of the mid stomach. ACT 112: Negative or not required by law. The above report was generated using voice recognition software. It may contain grammatical, syntax o r spelling errors. Electronically signed by: Javon Erwin M.D. 09/25/2022 7:39 PM
[2022-09-26] MEDS: TUBE FEEDING WATER FLUSH GT SCH ×12 (01:04→20:26)
[2022-09-26] MEDS: LACTATED RINGER'S 1,000 ML IV SCH ×5 (01:04→23:25)
[2022-09-26] MEDS: ACETAMINOPHEN 10MG/ML Custom 650 MG in EMPTY BAG 0 ML IV SCH ×3 (01:33→19:44)
[2022-09-26] MEDS: NAFCILLIN SODIUM 2,000 MG in DEXTROSE 5% 100 ML IV SCH ×6 (01:49→22:20)
[2022-09-26] MEDS: HYDROmorphone INJ 1 MG/ML SYRINGE IV SCH ×6 (03:44→23:27)
[2022-09-26] MEDS: HYDROCORTISONE SOD 10 MG in SYRINGE 0 ML IV SCH ×4 (05:17→23:27)
--- NOTE | 2022-09-26 06:45 | Hospitalist Progress Note ---
Date of Service September 26, 2022 Assessment & Plan (1) Urinary tract infection: Plan: Patient is an 81 yo male with PMHx of BASHIR, hemorrhoids, chronic cholecystitis, hx gastric bypass, BPH, COVID, depression, DM2, gastroparesis, GERD, DVT, HLD, HTN, OA, severe , sleep apnea, and severe protein calorie malnutrition admitted 09/22/22 due to UTI and significant change in mental status/generalized weakness. Gram + Bacteremia w/ Sepsis, AMS, and Generalized Weakness - Patient presentation 09/22 drastically altered from 09/16 at PCP visit (6 days prior) - Sepsis noted on admission d/t tachycardia, tachypnea, and source of infection - Labs: WBC 14.39, Hgb 12.5, Na 143, K 4.2, BUN 34, Cr 0.63 - Likely a/w UTI * UA on admit: > 30 epithelial cells but appears to be infected with 1+ ketones, 3+ blood, positive nitrite, 1+ leuk esterase, 5-10 WBC, and 4+ bacteria * Urine cx: Staphylococcus species * Blood cx: Gram + cocci in clusters, biofire MSSA/no MRSA detected - Received IV Ceftriaxone in ER, continued q12h on admission, discontinued 09/23 - Known recent candidal esophagitis on EGD (received Fluconazole PO x 3 days), started IV Fluconazole 200 mg daily (anticipated 14 day course) - IVF started on admission 80 mL/hr, increased to 125 mL/hr 09/24 (patient appears dry) - CK wnl - MRSA Nares + - CTA Chest: No pulmonary emboli identified. Mucous plugging with considerable left lower lobe mucoid impaction and mild left lower lobe pneumonia. 10 mm ovoid filling defect within the left lower lobe bronchus is also likely retail wireless sales representative of mucous plugging. An endobronchial mass considered less likely. - Started IV Daptomycin 09/23 AM, discontinued PM post ID consult - 09/23 Consulted ID, following * Recommended daily blood cultures until confirmed clearance x 48 hours * Respiratory culture if sputum possible * Continue nafcillin 2 g IV q4h for MSSA bacteremia. Has better EMERGENCY ROOM SPECIALIST penetration than cefazolin * Continue fluconazole for treatment of esophageal candidiasis. Anticipate treatment duration 14 days - 09/25 Worsening AMS in AM, patient remains able to communicate via nods, r ecognizes names of daughters, ordered CT Head w/o contrast and CXR - 09/25 CT Head: Impression: No acute intracranial hemorrhage, no evidence of acute territorial infarction or other acute intracranial disease process. - 09/25 CXR: Impression: No acute chest disease --- 09/26 Ongoing evidence of Staph Bacteremia despite antibiotic use --- 09/[address] AP (IV contrast) and CT spine (IV contrast) to evaluate for seeding sites vs abscess --- 09/26 Infectious disease added Ertapenem 1 g IV q24 and discontinued Levofloxacin d/t synergistic effect with Nafcillin for staph infections --- 09/26 Sputum culture pending Acute Embolic Stroke w/ AMS and Dysarthria - Patient presentation 09/22 drastically altered from 09/16 at PCP visit (6 days prior) - Known Urinary Infection w/ associated bacteremia - Head CT 09/22: Trace acute to subacute subarachnoid hemorrhage overlying the left parietal lobe. A short-term follow-up head CT in 24 to 48 hours is recommended. This finding will be called/faxed to the ordering provider at time of dictation. * Ordered f/u CT Urgent 09/23 * CT 09/23: No evidence of new subarachnoid hemorrhage. Previously noted left parietal subarachnoid hemorrhage has demonstrated expected evolution and is now less conspicuous. - Brain MRI 09/23: Numerous acute infarcts, the largest which is a 2.4 cm right cerebellar infarct. Minimal mass effect. The findings suggest an embolic source. Findings discussed with Dr. Cohen at time of dictation. No change in trace subarachnoid hemorrhage overlying the left parietal lobe which is acute to subacute. - Consulted Neurology 09/23: * Patient will continue with antimicrobial therapy for endocarditis and probable associated embolic stroke. * The previously seen small subarachnoid hemorrhage is improved. * Would avoid antiplatelet medication or an oral anticoagulant at this time. - Speech therapy eval order placed - recommending NPO - 09/24 Diminished mentation (noted by Neurology, recommending low threshold for CT if mentation continus to change) - 09/24 assess B12 level - 09/25 B12 Level elevated 948 - Overall poor prognosis --- Persistent dysarthria (unchanged) w/ weakness of upper and lower extremities Elevated Troponin w/ EKG Changes - Troponin elevated at 2894.3 on admission; trend troponin * 1681 @ 0806 * 1733 @ 1057 * 1818 @ 1723 - Considered likely to be associated w/ demand ischemia a/w sepsis - Cardiac murmur present at RUSB 09/23 - Echo 09/23: EF 45-50%, borderline severe , small vegetation vs. mass on pulmonic valve, thickened mitral valves - 09/23 Consulted Cardiology, following - 09/25 Worsening chest pain, previously isolated to right chest, no spanning right and left chest. - 09/25 EKG showing tachycardia, regular rhythm, T wave inversion in II/III/avF, ST depression in anterior leads (V2/V3) --- 09/26 EKG showering development of 1st degree AV block, Cardiology recommends avoidance of additional AV rebeca blocking agents Cachexia w/ Severe Protein Calorie Malnutrition - Per family report, at baseline patient eats full regular diet * Grandson noted 09/23 that patient has been requiring full assist w/ feeds over last few weeks and there has been concern for patient coughing and having difficulty swallowing meals - Hx of gastric bypass surgery, ? malabsorption syndrome - Family endorses decreased PO intake over the past several days - Patient has lost > 30 lbs in the last year, notably lost 7 lbs since PCP visit 6 days ago - Albumin 2.8 - Will consult nutrition - 09/25 Family elected to initiate NG feedings to supplement nutrition, started marinol and NG Tube feedings in PM --- 09/26 Ongoing NGT feeding Hypokalemia - Repleted, stable, following Dysphagia - Patient failed bedside swallow; coughing with mouth swabs as well - ST eval placed - NPO until ST eval completed - Recent EGD d/t dysphagia and weight loss w/ findings of candidal esophagitis (see above) --- Continue NPO Chronic Pain secondary to OA - Per PDMP, patient with 165 MME/day oxycodone - Held on admission - 09/24 Started Dilaudid 3 mg q3h IV KARUNA - 09/24 Started Dilaudid .5 mg q6h IV PRN - 09/24 Added stress dose steroids as patient is taking prednisone 5 mg daily at home - 09/25 Hydromorphone 1 mg IV Q4H, additional stress dose steroids given --- Continue hydromorphone Hx DVT - Chemical DVT ppx held due to trace subarachnoid hemorrhage BASHIR - Continue ferrous sulfate 325mg daily; hold while NPO BPH - Continue flomax; hold while NPO FENGI: NPO, LR @ 125, NGT feedings DVT ppx: Neuro recommending against additional anticoagulation 09/24 Dispo: Med/surg/tele Code status: DNR/DNI (family decision 09/26) (2) Sepsis: (3) Cachexia: (4) Iron deficiency: (5) Low back pain: (6) Embolic stroke: (7) Endocarditis: (8) MSSA bacteremia: Admission and Anticipated Discharge Date Admission Date: September 23, 2022 Supervising Physician Co-Signing Physician Notes I also saw the patient and confirmed knight portions of the history and physical examination. I agree with the impression and plan as noted in resident documentation. Family is again at bedside at the time of our exam. They report some periods of increased alertness/responsiveness, followed by periods of sleep. Dobbhoff tube has been placed and he seems to be tolerating enteral feedings. Exam 103/64, 75, 18, 36.8, 91% room air Awake/alert. 2/6 systolic murmur heard best at the right upper sternal border Respirations are nonlabored, lungs decreased in the bases. Data WBC 9.22, hemoglobin 10.6, platelet count 50 Sodium 145, potassium 3.3, BUN 29, creatinine 0.53 Total protein 5.3, albumin 2.2 Urine culture shows staph species 2 of 2 blood cultures from 09/22/2022 demonstrate staph species. 2 of 2 blood cultures from 09/23/2022 demonstrate staph aureus. 2 of 2 blood cultures from 09/24/2022 demonstrate staph aureus. 2 of 2 blood cultures dated 09/25/2022 shows gram-positive cocci in clusters. Blood cultures from today are drawn/pending. Expectorated sputum culture from today is pending. Imaging CT scan of the head dated 09/22/2022 demonstrates trace acute to subacute subarachnoid hemorrhage overlying the left parietal lobe. MRI of the brain dated 09/23/2022 demonstrates numerous acute infarcts, the largest of which is 2.4 cm, right cerebellar infarct. No changes noted in the trace subarachnoid hemorrhage described in the CT scan from 09/22/2022 CTA of the chest dated 09/23/2022 is negative for pulmonary emboli, demonstrates mucous plugging with considerable left lower lobe mucoid impaction with and mild left lower lobe pneumonia. CT scan of the head dated 09/23/2022 shows no evidence of new subarachnoid hemorrhage. The previously noted left parietal subarachnoid hemorrhage is now less conspicuous. Echocardiogram dated 09/23/2022 shows small vegetation or mass on the pulmonic valve, cannot exclude vegetation on the aortic valve. The aortic valve leaflets are calcified with moderate to borderline severe aortic stenosis. Ejection fra ction 45-50% with mild global hypokinesis of the left ventricle. CT scan of the head done 09/25/2022 showed no changes. 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 Serial blood cultures until cleared The persistence of positive blood cultures despite appropriate antibiotic coverage suggest deep-seated infection and perhaps at sites additional to the known endocarditis. Yesterday discussed with infectious disease utility of further surgery (MRI spine, CT abdomen pelvis), although even if we found something, patient not stable enough to tolerate procedures. Also discussed this aspect of the case again with the family, and in general, the patient's poor prognosis overall. We discussed both CT scan of the abdomen pelvis and MRI of the spine to evaluate for potential seeding/source to explain the persistently positive blood cultures despite antibiotic therapy. Logistically, the CT scan of the abdomen pelvis would be easier in terms of tolerability for the patient; MRI of the spine may be difficult; again, unsure if patient will be a surgical candidate in case there were positive findings, although the information may help with prognosis and also help family with goals of care. We will discuss with radiology if there would be utility to do a CT of the spine; this may be able to be done at the same time as the abdomen and pelvis. Yesterday, had a family meeting with six family members reviewed patient's clinical course thus far and poor prognosis. Based on this discussion we had agreed on the following pathway: Trial of enteral feeding. Discussed the risk and difficulties of this, risk of aspiration, especially in setting of his history of gastric bypass surgery. If he would develop significant respiratory difficulty, family would opt for BiPAP. We would call them before intubation. If his hemodynamic status would worsen, discussed the potential use of pressor agents. We would reach out to them prior to initiating. In the event of cardiac arrest, we would not start compressions Will continue to monitor the patient's condition over the next several days; if no improvement, we did discuss a more palliative approach and we even discussed home hospice. Today, reviewed what was discussed yesterday. Family also indicated that as a group they have decided to transition to a DO NOT RESUSCITATE status. Additional as per resident documentation Subjective Patient is an 81 yo male with PMHx of BASHIR, hemorrhoids, chronic cholecystitis, hx gastric bypass, BPH, COVID, depression, DM2, gastroparesis, GERD, DVT, HLD, HTN, OA, severe , sleep apnea, and severe protein calorie malnutrition who presented to the ER on 09/22/22 due to generalized weakness and change in mental status. 11/3: Nursing noted bloody mucous expectorant with attempts to NG feed overnight, going well this AM, occasionally requiring suctioning d/t secretions. Patient noted ongoing pain today, but that it was better than yesterday. Continued pain in his chest and abdomen w/ improvement of headache. Patient continues to communicate primarily with nods and mouthing words. Patient is not experiencing dyspnea. 1300: Family at bedside, discussed today's results, family relayed that they have collectively decided to change Krzysztof from conditional code to DNR/DNI, as patient has been verbalizing to them that he wants to pass and that he is in pain. 11: 0800 Patient appeared less verbal, only responding with nods, comfortable on exam. Patient endorsed right and left sided chest pain today adn ongoing suprapubic/abdominal pain. Patient endorses headache today. Denies dyspnea or pleuritic pain. 1100 Discussed diagnosis and goals of care with daughter Maritza and patient's grandchildren. Family expressed understanding. Elected to proceed with placement of NG tube for supplemental feedings at this time. Family requests that Maritza be first call in an emergency, followed by Maritza. Patient's grand-daughter is an RN and appreciates discussion on palliative and hospice care. Review of Systems Review of Systems: As per HPI Physical Exam Physical Exam: Gen: cachectic, acutely uncomfortable (wincing), communicates w/ nods, AO x ? Resp:non-labored, occasional expiratory wheeze in RUL, no rhonchi/rales, CTAB CV:RRR, normal S1/S2, systolic murmur present at RUSB and LUSB Abd: Soft, non-distended, moderate suprapubic TTP, normoactive bowels, no masses Extr: 2+ dp bilaterally, no edema, bilateral pressure sores on heels, UE strength 2/5 symmetric, LE strength 2/5 symmetric : Urinary catheter in place, evidence of balanitis surrounding urethral meatus/glans Skin: No additional rashes lesions or erythema Results & Data Results & Data ([facility]) Vital Signs (Past 12 Hours) Vital Signs Temp Pulse Pulse Resp BP Pulse Ox O2 Del Method 09/26/22 04:35 84 09/26/22 02:08 36.4 C L 113 H 16 107/65 95 Room Air 09/25/22 20:45 Room Air 09/25/22 22:40 36.4 C L 107 H 18 97/56 L 94 Room Air 09/25/22 19:51 36.4 C L 98 H 18 95/61 L 95 Room Air Resident Activity Tracking Resident Involvement: Resident Care Provided Care Provided: Adult Hospital Medicine
[2022-09-26 07:51] LABS: Basophils # (auto) 0.01 K/uL (0-0.2); Basophils % (auto) 0.1 %; Eosinophils # (auto) 0.02 K/uL (0-0.50); Eosinophils % (auto) 0.2 %; Hematocrit (blood only) 33.3 % (40.1-51.0); Hemoglobin 10.6 g/dl (14.0-18.0); Immature Granulocytes # (auto) 0.05 K/uL (0.00-0.02); Immature Granulocytes % (auto) 0.5 %; Lymphocytes # (auto) 1.07 K/uL (1.2-3.4); Lymphocytes % (auto) 11.6 %; Mean Corpuscular Hemoglobin 28.8 pg (25.0-34.0); Mean Corpuscular Hgb Conc 31.8 g/dL (32.0-36.0); Mean Corpuscular Volume 90.5 fL (80.0-100.0); Mean Platelet Volume 11.8 fL (9.4-12.4); Monocytes # (auto) 0.57 K/uL (0.24-0.82); Monocytes % (auto) 6.2 %; Neutrophils % (auto) 81.4 %; Platelet Count 50 K/uL (130-400); RDW Coefficient of Variation 17.2 % (11.5-14.5); RDW Standard Deviation 56.8 fL (36.4-46.3); Red Blood Count 3.68 M/uL (4.63-6.08); White Blood Count 9.22 K/ul (4.8-10.8)
[2022-09-26 08:10] LABS: Albumin Globulin Ratio 0.7 (0.9-2); Albumin Level 2.2 gm/dl (3.4-5.0); BUN Creatinine Ratio 54.7 (10-20); Calcium 8.8 mg/dl (8.5-10.1); Creatinine Clr Calc Pharmacy 71.2 ml/min; Est GFR (African American) 112.6 ml/min; Est GFR (Non-African American) 97.2 ml/min; Globulin 3.1 gm/dl (2.5-4.0); Potassium 3.3 mmol/L (3.5-5.1); Total Protein 5.3 gm/dl (6.0-8.3)
[2022-09-26] MEDS: MULTI VIT W/MINERALS LIQUID 15 ML UDP PO SCH (09:15)
[2022-09-26] MEDS: FLUCONAZOLE 200 MG/100 ML BAG IV SCH (09:16)
[2022-09-26] MEDS: POTASSIUM CHLORIDE / WTR 10 MEQ/100 ML PLCT IV SCH ×4 (09:29→13:40)
--- NOTE | 2022-09-26 10:41 | Cardiology Progress Note ---
Date of Service September 26, 2022 Assessment & Plan (1) MSSA bacteremia: (2) Embolic stroke: (3) Endocarditis: Plan Patient is an 81-year-old male with prior history of coronary bypass grafting for diffuse coronary disease, hypertension, recent difficulties with progressive weight loss and cachexia. Diagnosis of esophageal candidiasis by EGD in the last month Presents now with probable embolic stroke. Staff aureus bacteremia Echocardiogram personally reviewed. Chronic calcific aortic stenosis is present. Small vegetation not completely excluded. There is a visualized small vegetation on the pulmonary valve suggesting probable multi valvular involvement LV systolic function low normal to mildly impaired and diffuse manner Patient not a candidate for SUBHASH or surgical valve replacement Discussed with patient and family Goals will be directed antibiotic therapy for presumed endocarditis probable embolic stroke Overall prognosis limited 09/26/2022. No arrhythmias on telemetry. Neurologic status slightly improved. Feeding tube in place for nutrition, meds EKG with first-degree AV block marked but no further AV block. Treating underlying endocarditis (presumed) Will avoid AV rebeca blocking drugs Admission and Anticipated Discharge Date Admission Date: September 23, 2022 Subjective Patient seen and examined, chart, medications, telemetry reviewed. Prior today. Nods head on questioning. Wiggles feet on request Feeding tube in place No arrhythmias on telemetry other than first-degree AV block Review of Systems Review of Systems: All systems reviewed & are unremarkable except as noted in Subjective Results & Data ([facility]) Vital Signs (Past 12 Hours) Vital Signs Temp Pulse Pulse Resp BP Pulse Ox O2 Del Method 09/26/22 08:16 36.6 C 62 16 99/62 L 91 Room Air 09/26/22 04:35 84 09/26/22 02:08 36.4 C L 113 H 16 107/65 95 Room Air 09/25/22 22:40 36.4 C L 107 H 18 97/56 L 94 Room Air Laboratory Results Laboratory Results - last 24 hr 09/26/22 09/26/22 09/26/22 01:20 05:48 07:37 WBC RBC Hgb Hct MCV MCH MCHC RDW Std Deviation RDW Coeff of Yoanna Plt Count MPV Immature Gran % (Auto) Neut % (Auto) Lymph % (Auto) [place] % (Auto) Eos % (Auto) Baso % (Auto) Neut # (Auto) Lymph # (Auto) [place] # (Auto) Eos # (Auto) Baso # (Auto) Immature Gran # (Auto) Sodium 145 Potassium 3.3 L Chloride 111 H Carbon Dioxide 32 Anion Gap 2 L BUN 29 H Creatinine 0.53 L Est Cr Clr Drug Dosing 71.2 Est GFR ( Amer) 112.6 Est GFR (Non-Af Amer) 97.2 BUN/Creatinine Ratio 54.7 H Glucose 166 H POC Glucose 137 H 151 H Calcium 8.8 Total Bilirubin 1.0 AST 11 L ALT 10 Alkaline Phosphatase 70 Total Protein 5.3 L Albumin 2.2 L Globulin 3.1 Albumin/Globulin Ratio 0.7 L 09/26/22 07:37 WBC 9.22 RBC 3.68 L Hgb 10.6 L Hct 33.3 L MCV 90.5 MCH 28.8 MCHC 31.8 L RDW Std Deviation 56.8 H RDW Coeff of Yoanna 17.2 H Plt Count 50 L MPV 11.8 Immature Gran % (Auto) 0.5 Neut % (Auto) 81.4 Lymph % (Auto) 11.6 [place] % (Auto) 6.2 Eos % (Auto) 0.2 Baso % (Auto) 0.1 Neut # (Auto) 7.50 H Lymph # (Auto) 1.07 L [place] # (Auto) 0.57 Eos # (Auto) 0.02 Baso # (Auto) 0.01 Immature Gran # (Auto) 0.05 H Sodium Potassium Chloride Carbon Dioxide Anion Gap BUN Creatinine Est Cr Clr Drug Dosing Est GFR ( Amer) Est GFR (Non-Af Amer) BUN/Creatinine Ratio Glucose POC Glucose Calcium Total Bilirubin AST ALT Alkaline Phosphatase Total Protein Albumin Globulin Albumin/Globulin Ratio
--- NOTE | 2022-09-26 10:54 | Infectious Disease Progress Nt ---
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 He has persistent positive blood cultures from 09/22-09/24, and was started on nafcillin on 09/23. UCx is also growing MSSA. TTE shows a small vegetation or mass on the pulmonic valve, and chronic calcific aortic stenosis, unable to exclude small vegetation, suggesting probable multivalvular involvement per cardiology. He is not a candidate for SUBHASH or surgical valve replacement. Imaging also shows CT head with trace acute to subacute SAH overlying the parietal lobe, MRI brain with numerous acute infarcts concerning for embolic source, CT A/P without contrast without acute findings, and CTA chest without PE but showing LLL mucous plugging and mild pneumonia. Source of MSSA bacteremia is unclear at this time--no IVDU, no concerns for infected wounds, no long-term catheters. The only hardware he has is a trochanteric femoral nail in the R hip after a fracture in 04/2022, and his R hip is unremarkable on exam. Could consider a primary MSSA pneumonia seeding the bloodstream, given the possible LLL pneumonia on CTA chest, although it appears mild. The MSSA in the urine culture can likely be explained by MSSA bacteremia seeding the urinary tract. The persistent MSSA bacteremia despite appropriate therapy is concerning for lack of source control--this could be just due to multivalvular MSSA endocarditis and the extensive emboli to the brain, but could also consider perivalvular abscess, or other occult sites of seeding. The pt does have back pain, but it is difficult to distinguish whether this is different from his baseline chronic back pain. He has diffuse MSK pain, but no focal joint swelling/erythema on exam. Unclear the benefit of further imaging to assess for sites of seeding, as it is not clear that the pt would be a candidate for surgeries or other procedures. He remains altered, with likely poor prognosis. Microbiology 09/26 BCx x2: pending 09/25 BCx x2:GPCs in clusters in 2/4 vials 09/24 BCx x2:MSSA in 2/4 vials 09/23 BCx x2:MSSAin 2/4 vials 09/22 BCx x2:MSSAin 3/4 vials. 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 Has better SHRIMP CLEANER penetration than cefazolin -Will start ertapenem 1 g IV q24h for combination therapy. There has been some evidence of synergy in using an antistaphylococcal penicillin plus ertapenem in salvage therapy for persistent MSSA bacteremia. -Will stop levofloxacin since we are starting ertapenem -Continue fluconazole for treatment of esophageal candidiasis. Anticipate treatment duration 14 days -If pt is able to produce sputum, would send for respiratory culture (ordered) -Will continue to follow Admission and Anticipated Discharge Date Admission Date: September 23, 2022 Subjective This patient recommendation is based on a telemedicine consult request which was completed asynchronously through chart review and information provided by the primary physician. The patient was not seen or examined today. The evaluation is consultative in nature and all patient care and treatment decisions can either be accepted or rejected by the patient's primary hospital-based treating physician using their own independent medical judgment for their patient. Continues with positive blood cultures from 09/25 Afebrile without leukocytosis Plt 50, Cr and LFTs normal Review of System Pt not seen Physical Exam Physical Exam: Pt not seen Results & Data ([facility]) Vital Signs (Past 12 Hours) Vital Signs Temp Pulse Pulse Resp BP Pulse Ox O2 Del Method 09/26/22 08:16 36.6 C 62 16 99/62 L 91 Room Air 09/26/22 04:35 84 09/26/22 02:08 36.4 C L 113 H 16 107/65 95 Room Air Laboratory Results Short CBC 09/26/22 Range/Units 07:37 WBC 9.22 (4.8-10.8) K/ul Hgb 10.6 L (14.0-18.0) g/dl Hct 33.3 L (40.1-51.0) % Plt Count 50 L (130-400) K/uL BMP 09/26/22 07:37 Sodium 145 Potassium 3.3 L Chloride 111 H Carbon Dioxide 32 BUN 29 H Creatinine 0.53 L Glucose 166 H Calcium 8.8 Liver Function 09/26/22 Range/Units 07:37 Total Bilirubin 1.0 (0.2-1.0) mg/dl AST 11 L (13-39) U/L ALT 10 (7-52) U/L Alkaline Phosphatase 70 (34-104) U/L Albumin 2.2 L (3.4-5.0) gm/dl
[2022-09-26] MEDS: PANTOprazole 40 MG in SYRINGE 0 ML IV SCH (10:56)
--- NOTE | 2022-09-26 12:06 | Electrocardiogram Report ---
Test Reason : Blood Pressure : / mmHG Vent. Rate : 087 BPM Atrial Rate : 087 BPM P-R Int : 344 ms QRS Dur : 070 ms QT Int : 326 ms P-R-T Axes : 070 -01 249 degrees QTc Int : 392 ms Sinus rhythm with 1st degree A-V block with Premature supraventricular complexes Low voltage QRS Nonspecific T wave abnormality Abnormal ECG Confirmed by Crow Post ([id number] on 09/26/2022 12:05:40 PM Referred By: REFERRED SELF Confirmed By:Manan Post
[2022-09-26] MEDS: ERTAPENEM SODIUM 1,000 MG in SYRINGE 0 ML IV SCH (12:44)
[2022-09-26] MEDS ORDERED: OPTIRAY 350 100ml IV ONE (17:26)
[2022-09-26] MEDS ORDERED: Nursing to Pharmacy Communication SCH (17:45)
--- NOTE | 2022-09-26 17:50 | CT Scan Report ---
ABDOMEN AND PELVIS CT WITH IV CONTRAST CT DOSE: 350.52 mGy.cm HISTORY: Acute bacteremia and a patient with IV con/persistent bacteremia TECHNIQUE: Multiaxial CT images of the abdomen and pelvis and lumbar spine were performed following t he IV administration of 90 cc of Optiray, A dose lowering technique was utilized adhering to the meche Mendoza. COMPARISON STUDY: KUB 09/25/2022, CT abdomen and pelvis 09/22/2022, 02/28/2022 FINDINGS: CT ABDOMEN/PELVIS: Prior median sternotomy. Extensive coronary artery calcifications. Mild cardiomegaly. Increased size of the small pleural effusions. Dependent bibasilar opacities suggest atelectasis. Study is degraded by respiratory motion artifact and relative lack of intra-abdominal fat. No pneumatosis or pneumoperi toneum identified. Arterial phase of imaging limits evaluation of the solid abdominal organs. Wedge-shaped area of decre ased attenuation within the central spleen, 5.0 x 6.0 cm. Additionally decreased dilation of the ante rior-inferior spleen. Abnormality identified within the visualized pancreas and adrenal glands. Melvi l-appearing position of the gallbladder. Unremarkable appearance of the visualized liver. Cysts of th e kidneys measure up to a proximally 6.8 cm within the inferior pole right kidney. Punctate bilateral nephrolithiasis redemonstrated. No ureteral calculi identified. Urinary bladder wall thickening with Cortez catheter. Air is noted within the nondependent urinary bladder lumen. Atherosclerosis of aorta and branch vessels. Mild use warm aneurysm dilation of the infrarenal abdominal aorta, 3.2 x 2.7 cm. No dissection. No definite lymphadenopathy identified. Distal tip of feeding tube appears to terminate within the gastric body. Anasarca with mesenteric yi ma and small volume abdominal pelvic ascites. Fluid-filled loops of large and small bowel with air-fl uid levels. No definite obstruction identified. The appendix is not well visualized. Postoperative ch anges of the anterior abdominal wall redemonstrated. Degenerative changes of the spine, pelvis and hi ps. Fixated proximal right femoral fracture. CT LUMBAR SPINE: No acute fracture, subluxation, destructive bone lesion or endplate erosion. The mineralized appearan ce of the bones. Unchanged minimal compression deformities of the L4 and L5 vertebral bodies. Moderat e to severe multilevel facet arthrosis with mild intervertebral disc space narrowing and spondylitic spurring. Multilevel posterior disc osteophyte complex formations. Evaluation of the central canal an d neuroforamina is better assessed by MRI. There is however suggestion of multilevel central canal st enosis which is at least moderate at L4-L5. Additionally, there is at least moderate lateral neural f oraminal narrowing L3-L4 and L4-L5. IMPRESSION: 1. Limited CT of the abdomen and pelvis secondary to arterial phase of imaging and paucity of intra-a bdominal fat. 2. Distal tip of the feeding tube appears to terminate within the gastric body. 3. Fluid overload manifested by layering pleural effusions, anasarca with mesenteric edema and abdomi nal pelvic ascites. 4. Splenic infarcts. 5. No bowel obstruction identified. Air-fluid levels are noted throughout several loops of large and small bowel. This may represent an ileus versus nonspecific enteritis with diarrheal illness. 6. 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 7. Punctate bilateral nephrolithiasis. 8. No acute fracture, subluxation or endplate erosion. ACT 112: Negative or not required by law. The above report was generated using voice recognition software. It may contain grammatical, syntax o r spelling errors. Electronically signed by: Javon Erwin M.D. 09/26/2022 5:48 PM
[2022-09-26] MEDS ORDERED: ACETAMINOPHEN 1000 MG/100 ML IV IV ONE (18:27)
[2022-09-27] MEDS: TUBE FEEDING WATER FLUSH GT SCH ×12 (00:30→22:55)
[2022-09-27] MEDS: NAFCILLIN SODIUM 2,000 MG in DEXTROSE 5% 100 ML IV SCH ×6 (01:30→21:22)
[2022-09-27] MEDS: ACETAMINOPHEN 10MG/ML Custom 650 MG in EMPTY BAG 0 ML IV SCH ×3 (02:31→19:04)
[2022-09-27] MEDS: HYDROmorphone INJ 1 MG/ML SYRINGE IV SCH ×5 (03:53→21:22)
[2022-09-27] MEDS: LACTATED RINGER'S 1,000 ML IV SCH ×2 (03:54→08:27)
[2022-09-27] MEDS: HYDROCORTISONE SOD 10 MG in SYRINGE 0 ML IV SCH ×3 (05:24→17:51)
--- NOTE | 2022-09-27 07:44 | Hospitalist Progress Note ---
Date of Service September 27, 2022 Assessment & Plan (1) Urinary tract infection: Plan: Patient is an 81 yo male with PMHx of BASHIR, hemorrhoids, chronic cholecystitis, hx gastric bypass, BPH, COVID, depression, DM2, gastroparesis, GERD, DVT, HLD, HTN, OA, severe , sleep apnea, and severe protein calorie malnutrition admitted 09/22/22 due to UTI and significant change in mental status/generalized weakness. Gram + Bacteremia w/ Sepsis, AMS, and Generalized Weakness - Patient presentation 09/22 drastically altered from 09/16 at PCP visit (6 days prior) - Sepsis noted on admission d/t tachycardia, tachypnea, and source of infection - Received IV Ceftriaxone in ER, continued q12h on admission, discontinued 09/23 - Known recent candidal esophagitis on EGD (received Fluconazole PO x 3 days), started IV Fluconazole 200 mg daily (anticipated 14 day course) - IVF started on admission 80 mL/hr, increased to 125 mL/hr 09/24 (patient appears dry) - MRSA Nares + - CTA Chest: No pulmonary emboli identified. Mucous plugging with considerable left lower lobe mucoid impaction and mild left lower lobe pneumonia. 10 mm ovoid filling defect within the left lower lobe bronchus is also likely apprenticeship representative of mucous plugging. An endobronchial mass considered less likely. - Started IV Daptomycin 09/23 AM, discontinued PM post ID consult - 09/23 Consulted ID, following * Recommended daily blood cultures until confirmed clearance x 48 hours * Respiratory culture if sputum possible - 09/25 Worsening AMS in AM, patient remains able to communicate via nods, recognizes names of daughters, ordered CT Head w/o contrast and CXR - 09/25 CT Head: Impression: No acute intracranial hemorrhage, no evidence of acute territorial infarction or other acute intracranial disease process. - 09/25 CXR: Impression: No acute chest disease - 09/26 CTAP/Spine ordered to assess for evidence of infectious source vs abscess --- 09/27 Ongoing evidence of Staph Bacteremia despite antibiotic use + CTAP/Spine showing evidence of fluid overload (ascites, anasarca, pleural effusions) and splenic infarcts --- 09/27 Dependent edema present in UE and LE on PE, LR discontinued 0800, SCDs ordered, patient continues to oxygenate appropriately --- 09/27 Continue Ertapenem, Nafcillin, and Fluconazole per infectious disease recommendation --- 09/27 1700 500 cc bolus of LR given d/t hypotension 1830 Patient hypotensive, elevated HR, and respirations, now requiring 4L NC Acute Embolic Stroke w/ AMS and Dysarthria - Patient presentation 09/22 drastically altered from 09/16 at PCP visit (6 days prior) - Known Urinary Infection w/ associated bacteremia - Head CT 09/22: Trace acute to subacute subarachnoid hemorrhage overlying the left parietal lobe. A short-term follow-up head CT in 24 to 48 hours is recommended. This finding will be called/faxed to the ordering provider at time of dictation. * Ordered f/u CT Urgent 09/23 * CT 09/23: No evidence of new subarachnoid hemorrhage. Previously noted left parietal subarachnoid hemorrhage has demonstrated expected evolution and is now less conspicuous. - Brain MRI 09/23: Numerous acute infarcts, the largest which is a 2.4 cm right cerebellar infarct. Minimal mass effect. The findings suggest an embolic source. Findings discussed with Dr. Cohen at time of dictation. No change in trace subarachnoid hemorrhage overlying the left parietal lobe which is acute to subacute. - Consulted Neurology 09/23: * Patient will continue with antimicrobial therapy for endocarditis and probable associated embolic stroke. * The previously seen small subarachnoid hemorrhage is improved. * Would avoid antiplatelet medication or an oral anticoagulant at this time. - Speech therapy eval order placed - recommending NPO - 09/24 Diminished mentation (noted by Neurology, recommending low threshold for CT if mentation continus to change) - 09/24 assess B12 level - 09/25 B12 Level elevated 948 - Overall poor prognosis --- Persistent dysarthria (unchanged) w/ weakness of upper and lower extremities Elevated Troponin w/ EKG Changes - Troponin elevated at 2894.3 on admission; trend troponin * 1681 @ 0806 * 1733 @ 1057 * 1818 @ 1723 - Considered likely to be associated w/ demand ischemia a/w sepsis - Cardiac murmur present at RUSB 09/23 - Echo 09/23: EF 45-50%, borderline severe , small vegetation vs. mass on pulmonic valve, thickened mitral valves - 09/23 Consulted Cardiology, following - 09/25 Worsening chest pain, previously isolated to right chest, no spanning right and left chest. - 09/25 EKG showing tachycardia, regular rhythm, T wave inversion in II/III/avF, ST depression in anterior leads (V2/V3) - 09/26 EKG showering development of 1st degree AV block, Cardiology recommends avoidance of additional AV rebeca blocking agents Cachexia w/ Severe Protein Calorie Malnutrition - Per family report, at baseline patient eats full regular diet * Grandson noted 09/23 that patient has been requiring full assist w/ feeds over last few weeks and there has been concern for patient coughing and having difficulty swallowing meals - Hx of gastric bypass surgery, ? malabsorption syndrome - Family endorses decreased PO intake over the past several days - Patient has lost > 30 lbs in the last year, notably lost 7 lbs since PCP visit 6 days ago - Albumin 2.8 - Will consult nutrition - 09/25 Family elected to initiate NG feedings to supplement nutrition, started marinol and NG Tube feedings in PM --- 09/27 Ongoing NGT feeding, LR held at this time d/t edema Hypokalemia - Repleted, stable, following Dysphagia - Patient failed bedside swallow; coughing with mouth swabs as well - ST eval placed - NPO until ST eval completed - Recent EGD d/t dysphagia and weight loss w/ findings of candidal esophagitis (see above) --- Continue NPO Chronic Pain secondary to OA - Per PDMP, patient with 165 MME/day oxycodone - Held on admission - 09/24 Started Dilaudid 3 mg q3h IV KARUNA - 09/24 Started Dilaudid .5 mg q6h IV PRN - 09/24 Added stress dose steroids as patient is taking prednisone 5 mg daily at home - 09/25 Hydromorphone 1 mg IV Q4H, additional stress dose steroids given --- Continue hydromorphone Hx DVT - Chemical DVT ppx held due to trace subarachnoid hemorrhage BASHIR - Continue ferrous sulfate 325mg daily; hold while NPO BPH - Continue flomax; hold while NPO NURIAI: NPO, LR @ 125, NGT feedings DVT ppx: Neuro recommending against additional anticoagulation 09/24 Dispo: Med/surg/tele Code status: DNR/DNI (family decision 09/26) (2) Sepsis: (3) Cachexia: (4) Iron deficiency: (5) Low back pain: (6) Embolic stroke: (7) Endocarditis: (8) MSSA bacteremia: Admission and Anticipated Discharge Date Admission Date: September 23, 2022 Supervising Physician Co-Signing Physician Notes Patient seen and examined with PGY-1 Dr. Luna. Agree with history, exam findings, assessment and plan of care as outlined. 81 year old male with hx of BASHIR, chronic cholecystitis, BPH, DM, depression, GERD, DVT, prior gastric bypass, severe aortic stenosis, HTN and severe protein calorie malnutrition admitted with urinary tract infection and altered mental status. VS and nursing notes reviewed. Ill appearing. Tacky mucous membranes. Heart with regular rate and rhythm. Diminished breath sounds in the bases. Clubbing noted in several fingernails bilaterally with several fingers appearing a bit cyanotic. Dependent edema of the hands, forearms and lower legs. 1. 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 Blood cultures growing MSSA. Repeat culture from 09/26 with gram positive cocci. Nafcillin 2g IV q4h and ertapenem due to persistent bacteremia. Sputum culture pending. ID following. 2. Urinary tract infection. Urine culture grew out staph. Antibiotics as above. 3. Esophageal candidiasis. Continue fluconazole (14 day course) 4. Hypotension. Given a fluid bolus earlier in the day, but trying to be mindful of his already fluid-overloaded state/anasarca. Would be ok to give more fluids +/- albumin. ICU overnight clinician is aware of patient in the event that he would need to go to the ICU for pressor support. 5. Acute septic embolic stroke, dysarthria. Continue antibiotics as above. No anti-platelets for now with concomitant subarachnoid bled. Appreciate neurology recs. 6. Splenic infarcts. Secondary to septic emboli. 7. Anasarca. Secondary to immobility and third spacing due to severe protein calorie malnutrition (see below for details). Stopped IVFs now that he is getting tube feeds. 8. Severe protein calorie malnutrition. Started NG feeds and Marinol. 9. Chronic pain secondary to osteoarthritis. Hydromorphone 1mg Q4h. DNR/DNI, ok for pressors. Subjective Patient is an 81 yo male with PMHx of BASHIR, hemorrhoids, chronic cholecystitis, hx gastric bypass, BPH, COVID, depression, DM2, gastroparesis, GERD, DVT, HLD, HTN, OA, severe , sleep apnea, and severe protein calorie malnutrition who presented to the ER on 09/22/22 due to generalized weakness and change in mental status. 114: Patient continues to communicate via nods and head movements. Appearing more comfortable today upon arrival d/t neck pillow and arm pillow rests. Nursing noted increased extremity swelling overnight. Patient continues to endorse chest and abdominal discomfort. He denies shortness of breath. Ongoing headache present. 1300 Family at bedside. Answered questions and concerns at length. Family has decided that they want to provide medical assistance wherever possible for patient (including pressors in the event of hypotension), but that they do not wish to intervene with any resuscitation efforts (CPR/intubation). Diagnosis, additional information, and prognosis discussed in depth. Family expressed understanding. 11/3: Nursing noted bloody mucous expectorant with attempts to NG feed overnight, going well this AM, occasionally requiring suctioning d/t secretions. Patient noted ongoing pain today, but that it was better than yesterday. Continued pain in his chest and abdomen w/ improvement of headache. Patient continues to communicate primarily with nods and mouthing words. Patient is not experiencing dyspnea. 1300: Family at bedside, discussed today's results, family relayed that they have collectively decided to change Krzysztof from conditional code to DNR/DNI, as patient has been verbalizing to them that he wants to pass and that he is in pain. Review of Systems Review of Systems: As per HPI Physical Exam Physical Exam: Gen: cachectic, acutely uncomfortable (wincing), communicates w/ nods, AO x ? Patient cold to touch Resp: 0800non-labored, occasional expiratory wheeze, no rhonchi/rales, CTAB 1700 Patient's respiratory rate increase (non-tachypneic), breaths shallow CV:RRR, normal S1/S2, systolic murmur present at RUSB and LUSB Abd: Soft, non-distended, moderate suprapubic TTP, normoactive bowels, no masses Extr: Bilateral upper and lower extremity 2+ pitting edema (dependent), discoloration (darkening) of patient fingers bilaterally : Urinary catheter in place, evidence of balanitis surrounding urethral meatus/glans Skin: No additional rashes lesions or erythema Results & Data Results & Data ([facility]) Vital Signs (Past 12 Hours) Vital Signs Temp Pulse Pulse Resp BP Pulse Ox O2 Del Method 09/27/22 06:48 36.5 C 62 18 106/62 94 Room Air 09/27/22 04:05 36.4 C L 64 20 109/66 92 Room Air 09/26/22 23:53 79 09/26/22 23:11 36.6 C 89 18 111/66 94 Room Air Resident Activity Tracking Resident Involvement: Resident Care Provided Care Provided: Adult Hospital Medicine
[2022-09-27 08:10] LABS: Basophils # (auto) 0.01 K/uL (0-0.2); Basophils % (auto) 0.1 %; Eosinophils # (auto) 0.05 K/uL (0-0.50); Eosinophils % (auto) 0.5 %; Hematocrit (blood only) 37.3 % (40.1-51.0); Hemoglobin 11.9 g/dl (14.0-18.0); Immature Granulocytes # (auto) 0.08 K/uL (0.00-0.02); Immature Granulocytes % (auto) 0.8 %; Lymphocytes % (auto) 10.4 %; Mean Corpuscular Hemoglobin 28.7 pg (25.0-34.0); Mean Corpuscular Hgb Conc 31.9 g/dL (32.0-36.0); Mean Corpuscular Volume 90.1 fL (80.0-100.0); Mean Platelet Volume 12.4 fL (9.4-12.4); Monocytes # (auto) 0.59 K/uL (0.24-0.82); Monocytes % (auto) 5.6 %; Neutrophils # (auto) 8.78 K/uL (1.4-6.5); Neutrophils % (auto) 82.6 %; Platelet Count 47 K/uL (130-400); RDW Coefficient of Variation 17.5 % (11.5-14.5); RDW Standard Deviation 57.3 fL (36.4-46.3); Red Blood Count 4.14 M/uL (4.63-6.08); White Blood Count 10.61 K/ul (4.8-10.8)
[2022-09-27] MEDS: MULTI VIT W/MINERALS LIQUID 15 ML UDP PO SCH (08:26)
[2022-09-27] MEDS: FLUCONAZOLE 200 MG/100 ML BAG IV SCH (08:26)
[2022-09-27 08:29] LABS: Albumin Globulin Ratio 0.7 (0.9-2); Albumin Level 2.3 gm/dl (3.4-5.0); BUN Creatinine Ratio 45.6 (10-20); Bilirubin,Total 0.7 mg/dl (0.2-1.0); Calcium 8.8 mg/dl (8.5-10.1); Creatinine Clr Calc Pharmacy 67.1 ml/min; Est GFR (African American) 109.3 ml/min; Est GFR (Non-African American) 94.3 ml/min; Globulin 3.4 gm/dl (2.5-4.0); Potassium 3.4 mmol/L (3.5-5.1); Total Protein 5.7 gm/dl (6.0-8.3)
--- NOTE | 2022-09-27 09:02 | Infectious Disease Progress Nt ---
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 He now has persistent positive blood cultures from 09/22-09/26, and was started on nafcillin on 09/23. UCx is also growing MSSA. TTE shows a small vegetation or mass on the pulmonic valve, and chronic calcific aortic stenosis, unable to exclude small vegetation, suggesting probable multivalvular involvement per cardiology. He is not a candidate for SUBHASH or surgical valve replacement. Imaging also shows CT head with trace acute to subacute SAH overlying the parietal lobe, 09/23 MRI brain with numerous acute infarcts concer ramila for embolic source, 09/22 CT A/P without contrast without acute findings, and 09/23 CTA chest without PE but showing LLL mucous plugging and mild pneumonia. Initial source of MSSA bacteremia is unclear at this time--no IVDU, no concerns for infected wounds, no long-term catheters. The only hardware he has is a trochanteric femoral nail in the R hip after a fracture in 04/2022, and his R hip is unremarkable on exam. Could consider a primary MSSA pneumonia seeding the bloodstream, given the possible LLL pneumonia on CTA chest, although it appears mild. The MSSA in the urine culture can likely be explained by MSSA bacteremia seeding the urinary tract. The persistent MSSA bacteremia despite appropriate therapy is concerning for lack of source control--this could be just due to multivalvular MSSA endocarditis and the extensive emboli to the brain, but could also consider perivalvular abscess, or other occult sites of seeding. The pt does have back pain, but it is difficult to distinguish whether this is different from his baseline chronic back pain. He has diffuse MSK pain, but no focal joint swelling/erythema on exam. A CT A/P and lumbar spine with IV contrast performed on 09/26 to assess for sites of seeding showed splenic infarcts, no signs of vertebral osteomyelitis/discitis or abscess. Due to persistent bacteremia on appropriate standard of care therapy, ertapenem was added to the nafcillin on 11/3. There has been some data to suggest synergy between cefazolin and ertapenem, and antistaphylococcal penicillins and ertapenem in the treatment of persistent MSSA bacteremia. He remains altered, with likely poor prognosis. Per discussion with family, the patient's code status was changed to DNR/DNI. Microbiology 09/27 BCx x2: pending 09/26 Sputum cx: GPCs on gram stain 09/26 BCx x2: GPCs in clusters in 2/4 vials 09/25 BCx x2:MSSA in 2/4 vials 09/24 BCx x2:MSSA in 2/4 vials 09/23 BCx x2:MSSAin 2/ vials 09/22 BCx x2:MSSAin 3/4 vials. 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 Has better PLASTER LATHER penetration than cefazolin -Continue ertapenem 1 g IV q24h for salvage therapy -Continue fluconazole for treatment of esophageal candidiasis. Anticipate treatment duration 14 days -Will continue to follow Admission and Anticipated Discharge Date Admission Date: September 23, 2022 Subjective Subsequent visit was provided via telemedicine using two-way real-time interactive telecommunication between the patient and the telemedicine provider. For the duration of the visit, the provider was performing the assessment from a different facility than the patient. This includesuse of bluetooth stet hoscope forauscultationperformed by the telepresenter that the telemedicine provider can hear if described in the physical exam. Dispensary Attendant contact information: Please call [facility] . (Phone Number For Physician Use Only) After establishing a telemedicine visit, patient was: Patient was verified with two unique identifiers, Patient/authorized rep acknowledged consent and understanding and Gave permission to continue telehealth session Subsequent Time Spent w Inpatient: 15 minutes Afebrile, WBC 10.6 on room air BCx from 09/26 remain positive Ertapenem added yesterday (after 09/26 blood cultures collected) Sputum culture collected, shows GPCs on gram stain CT A/P and lumbar spine with contrast yesterday--shows splenic infarct Pt reports neck pain Family at bedside reports he has chronic neck pain due to arthritis Review of System A complete ROS was performed and is negative except as mentioned in the HPI. Physical Exam Physical Exam: GEN: thin elderly man laying in bed in NAD, ill-appearing, lethargic HEENT: Normocephalic, atraumatic. Dry MM. Neck pillow in place RESP: mildly increased work of breathing ABD: Soft, non-distended. Non-tender to palpation. EXT: edema of extremities SKIN: scattered ecchymosis NEURO: lethargic, shaking head in response to questions PSYCH: unable to evaluate. Results & Data ([facility]) Vital Signs (Past 12 Hours) Vital Signs Temp Pulse Pulse Resp BP Pulse Ox O2 Del Method 09/27/22 06:48 36.5 C 62 18 106/62 94 Room Air 09/27/22 04:05 36.4 C L 64 20 109/66 92 Room Air 09/26/22 23:53 79 09/26/22 23:11 36.6 C 89 18 111/66 94 Room Air Laboratory Results Short CBC 09/27/22 Range/Units 07:32 WBC 10.61 (4.8-10.8) K/ul Hgb 11.9 L (14.0-18.0) g/dl Hct 37.3 L (40.1-51.0) % Plt Count 47 L (130-400) K/uL BMP 09/27/22 07:32 Sodium 143 Potassium 3.4 L Chloride 109 H Carbon Dioxide 30 BUN 26 H Creatinine 0.57 L Glucose 241 H Calcium 8.8 Liver Function 09/27/22 Range/Units 07:32 Total Bilirubin 0.7 (0.2-1.0) mg/dl AST 10 L (13-39) U/L ALT 10 (7-52) U/L Alkaline Phosphatase 77 (34-104) U/L Albumin 2.3 L (3.4-5.0) gm/dl Diagnostic Findings RADIOLOGY CT A/P and lumbar spine with contrast FINDINGS: CT ABDOMEN/PELVIS: Prior median sternotomy. Extensive coronary artery calcifications. Mild cardiomegaly. Increased size of the small pleural effusions. Dependent bibasilar opacities suggest atelectasis. Study is degraded by respiratory motion artifact and relative lack of intra-abdominal fat. No pneumatosis or pneumoperitoneum identified. Arterial phase of imaging limits evaluation of the solid abdominal organs. Wedge-shaped area of decreased attenuation within the central spleen, 5.0 x 6.0 cm. Additionally decreased dilation of the anterior-inferior spleen. Abnormality identified within the visualized pancreas and adrenal glands. Normal-appearing position of the gallbladder. Unremarkable appearance of the visualized liver. Cysts of the kidneys measure up to a proximally 6.8 cm within the inferior pole right kidney. Punctate bilateral nephrolithiasis redemonstrated. No ureteral calculi identified. Urinary bladder wall thickening with Cortez catheter. Air is noted within the nondependent urinary bladder lumen. Atherosclerosis of aorta and branch vessels. Mild use warm aneurysm dilation of the infrarenal abdominal aorta, 3.2 x 2.7 cm. No dissection. No definite lymphadenopathy identified. Distal tip of feeding tube appears to terminate within the gastric body. Anasarca with mesenteric edema and small volume abdominal pelvic ascites. Fluid- filled loops of large and small bowel with air-fluid levels. No definite obstruction identified. The appendix is not well visualized. Postoperative changes of the anterior abdominal wall redemonstrated. Degenerative changes of the spine, pelvis and hips. Fixated proximal right femoral fracture. CT LUMBAR SPINE: No acute fracture, subluxation, destructive bone lesion or endplate erosion. The mineralized appearance of the bones. Unchanged minimal compression deformities of the L4 and L5 vertebral bodies. Moderate to severe multilevel facet arthrosis with mild intervertebral disc space narrowing and spondylitic spurring. Multilevel posterior disc osteophyte complex formations. Evaluation of the central canal and neuroforamina is better assessed by MRI. There is however suggestion of multilevel central canal stenosis which is at least moderate at L4-L5. Additionally, there is at least moderate lateral neural foraminal narrowing L3-L4 and L4-L5. IMPRESSION: 1. Limited CT of the abdomen and pelvis secondary to arterial phase of imaging and paucity of intra-abdominal fat. 2. Distal tip of the feeding tube appears to terminate within the gastric body. 3. Fluid overload manifested by layering pleural effusions, anasarca with mesenteric edema and abdominal pelvic ascites. 4. Splenic infarcts. 5. No bowel obstruction identified. Air-fluid levels are noted throughout several loops of large and small bowel. This may represent an ileus versus nonspecific enteritis with diarrheal illness. 6. 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 7. Punctate bilateral nephrolithiasis. 8. No acute fracture, subluxation or endplate erosion. Medications Administered Current Inpatient Medications Allopurinol (Allopurinol 300 Mg Tab) 300 mg PO [facility] Stop: 10/23/22 08:59 Last Admin: 09/23/22 08:32 Dose: Not Given Enteral Nutritional Formula (Peptamen 1.5 [place] 1,000 Ml Bag) 1,000 ml [place] [facility] [place] Protocol Stop: 10/25/22 14:29 Last Admin: 09/25/22 16:22 Dose: 1,000 ml Ferrous Sulfate (Ferrous Sulfate 325 Mg Tab) 325 mg PO [facility] Stop: 10/23/22 08:59 Last Admin: 09/23/22 08:32 Dose: Not Given Folic Acid (Folic Acid 1 Mg Tab) 1 mg PO [facility] Stop: 10/23/22 08:59 Last Admin: 09/23/22 08:32 Dose: Not Given Hydromorphone HCl (Hydromorphone Inj 1 Mg/Ml Syringe) 1 mg IV Q4H [facility] Stop: 10/09/22 03:29 Last Admin: 09/27/22 08:00 Dose: 1 mg Hydromorphone HCl (Hydromorphone Inj 0.5 Mg/0.5 Ml Syr) 0.5 mg IV Q2H PRN PRN Reason: Pain 5-10 or visiblediscomfort Stop: 10/08/22 14:29 Nafcillin Sodium 2,000 mg/ (Dextrose) 110 mls @ 100 mls/hr IV Q4H [facility] Stop: 10/07/22 13:59 Last Infusion: 09/27/22 06:34 Dose: Infused Hydrocortisone Sodium (Succinate 10 mg/ Syringe) 0.2 mls @ 4 mls/min IV Q6 [facility] Stop: 10/24/22 17:59 Last Admin: 09/27/22 05:24 Dose: 4 mls/min Pantoprazole Sodium 40 mg/ (Syringe) 10 mls @ 5 mls/min IV DAILY@1100 [facility] Stop: 10/24/22 14:24 Last Admin: 09/26/22 10:56 Dose: 5 mls/min Acetaminophen 650 mg/ EMPTY (BAG) 65 mls @ 260 mls/hr IV Q8H [facility]; Protocol Stop: 10/25/22 02:29 Last Infusion: 09/27/22 02:50 Dose: Infused Fluconazole (Diflucan) 200 mg in 100 mls @ 100 mls/hr IV Q24H [facility]; Protocol Stop: 10/07/22 08:59 Last Admin: 09/27/22 08:26 Dose: 100 mls/hr Ertapenem 1,000 mg/ Syringe 10 mls @ 2 mls/min IV Q24H [facility]; Protocol Stop: 10/10/22 11:59 Last Admin: 09/26/22 12:44 Dose: 2 mls/min Ipratropium [place] (Ipratropium [place] Nasal [place] 0.06% 15ml) 1 sprays JOE BID PRN PRN Reason: rhinitis Stop: 10/23/22 04:33 Multivitamins (Multivitamin Tab) 1 tab PO QAM [facility] Stop: 10/23/22 08:59 Last Admin: 09/23/22 08:32 Dose: Not Given Multivitamins/Minerals (Multi Vit W/Minerals Liquid 15 Ml Udp) 15 ml PO QAM [facility] Stop: 10/26/22 08:59 Last Admin: 09/27/22 08:26 Dose: 15 ml Naloxone HCl (Naloxone Hcl 0.4 Mg/1 Ml Vial/Carp) 0.1 mg IV Q5M PRN; Protocol PRN Reason: Oversedation/Resp Depression Stop: 10/09/22 01:05 Prednisone (Prednisone 5 Mg Tab) 5 mg PO QAM [facility] Stop: 10/23/22 08:59 Last Admin: 09/23/22 08:32 Dose: Not Given Sterile Water (Tube Feeding Water Flush) 75 ml GT Q2H [facility] Stop: 10/25/22 14:14 Last Admin: 09/27/22 08:26 Dose: 75 ml Tamsulosin HCl (Tamsulosin Hcl 0.4 Mg Cap) 0.4 mg PO HS [facility] Stop: 10/23/22 20:59 Last Admin: 09/23/22 21:55 Dose: Not Given Thiamine HCl (Thiamine Hcl 100 Mg Tab) 100 mg [facility] [place] Stop: 10/23/22 08:59 Last Admin: 09/23/22 08:32 Dose: Not Given
[2022-09-27] MEDS: PANTOprazole 40 MG in SYRINGE 0 ML IV SCH (11:28)
[2022-09-27] MEDS: POTASSIUM CHLORIDE / WTR 10 MEQ/100 ML PLCT IV SCH ×3 (13:10→16:10)
[2022-09-27] MEDS: ERTAPENEM SODIUM 1,000 MG in SYRINGE 0 ML IV SCH (13:19)
[2022-09-27] MEDS ORDERED: LACTATED RINGER'S 500 ML IV ONE (16:41)
[2022-09-27] MEDS: PEPTAMEN 1.5 CAL 1,000 ML BAG NG SCH (17:08)
[2022-09-28] MEDS: HYDROmorphone INJ 1 MG/ML SYRINGE IV SCH ×4 (01:22→12:31)
[2022-09-28] MEDS: TUBE FEEDING WATER FLUSH GT SCH ×8 (01:23→15:31)
[2022-09-28] MEDS: HYDROCORTISONE SOD 10 MG in SYRINGE 0 ML IV SCH ×3 (01:24→12:58)
[2022-09-28] MEDS: ACETAMINOPHEN 10MG/ML Custom 650 MG in EMPTY BAG 0 ML IV SCH ×2 (01:25→11:35)
[2022-09-28] MEDS: NAFCILLIN SODIUM 2,000 MG in DEXTROSE 5% 100 ML IV SCH ×4 (01:25→14:40)
--- NOTE | 2022-09-28 06:57 | Hospitalist Progress Note ---
Date of Service September 28, 2022 Assessment & Plan (1) Urinary tract infection: Plan: Patient is an 81 yo male with PMHx of BASHIR, hemorrhoids, chronic cholecystitis, hx gastric bypass, BPH, COVID, depression, DM2, gastroparesis, GERD, DVT, HLD, HTN, OA, severe , sleep apnea, and severe protein calorie malnutrition admitted 09/22/22 due to UTI and significant change in mental status/generalized weakness. Gram + Bacteremia w/ Sepsis, AMS, and Generalized Weakness - Patient presentation 09/22 drastically altered from 09/16 at PCP visit (6 days prior) - Sepsis noted on admission d/t tachycardia, tachypnea, and source of infection - Received IV Ceftriaxone in ER, continued q12h on admission, discontinued 09/23 - Known recent candidal esophagitis on EGD (received Fluconazole PO x 3 days), started IV Fluconazole 200 mg daily (anticipated 14 day course) - IVF started on admission 80 mL/hr, increased to 125 mL/hr 09/24 (patient appears dry) - MRSA Nares + - CTA Chest: No pulmonary emboli identified. Mucous plugging with considerable left lower lobe mucoid impaction and mild left lower lobe pneumonia. 10 mm ovoid filling defect within the left lower lobe bronchus is also likely specialty sales representative of mucous plugging. An endobronchial mass considered less likely. - Started IV Daptomycin 09/23 AM, discontinued PM post ID consult - 09/23 Consulted ID, following * Recommended daily blood cultures until confirmed clearance x 48 hours * Respiratory culture if sputum possible - 09/25 Worsening AMS in AM, patient remains able to communicate via nods, recognizes names of daughters, ordered CT Head w/o contrast and CXR - 09/25 CT Head: Impression: No acute intracranial hemorrhage, no evidence of acute territorial infarction or other acute intracranial disease process. - 09/25 CXR: Impression: No acute chest disease - 09/26 CTAP/Spine ordered to assess for evidence of infectious source vs abscess - 09/27 Ongoing evidence of Staph Bacteremia despite antibiotic use + CTAP/Spine showing evidence of fluid overload (ascites, anasarca, pleural effusions) and splenic infarcts, dependent edema present in UE and LE on PE, LR discontinued 0800, SCDs ordered, patient continues to oxygenate appropriately, Continue Ertapenem, Nafcillin, and Fluconazole per infectious disease recommendation, @ 1700 500 cc bolus of LR given d/t hypotension, @ 1830 Patient hypotensive, elevated HR, and respirations, now requiring 4L NC. --- 09/28 Family elected to transition to comfort care only. Will withdrawal BiPAP once family is fully present, per family's request. Orders placed. Will continue antibiotics at this time. Pain management regimen reviewed and updated. Clergy requested as patient is [facility]. Acute Embolic Stroke w/ AMS and Dysarthria - Patient presentation 09/22 drastically altered from 09/16 at PCP visit (6 days prior) - Known Urinary Infection w/ associated bacteremia - Head CT 09/22: Trace acute to subacute subarachnoid hemorrhage overlying the left parietal lobe. A short-term follow-up head CT in 24 to 48 hours is recommended. This finding will be called/faxed to the ordering provider at time of dictation. * Ordered f/u CT Urgent 19009/23 * CT 09/23: No evidence of new subarachnoid hemorrhage. Previously noted left parietal subarachnoid hemorrhage has demonstrated expected evolution and is now less conspicuous. - Brain MRI 09/23: Numerous acute infarcts, the largest which is a 2.4 cm right cerebellar infarct. Minimal mass effect. The findings suggest an embolic source. Findings discussed with Dr. Cohen at time of dictation. No change in trace subarachnoid hemorrhage overlying the left parietal lobe which is acute to subacute. - Consulted Neurology 09/23: * Patient will continue with antimicrobial therapy for endocarditis and probable associated embolic stroke. * The previously seen small subarachnoid hemorrhage is improved. * Would avoid antiplatelet medication or an oral anticoagulant at this time. - Speech therapy eval order placed - recommending NPO - 09/24 Diminished mentation (noted by Neurology, recommending low threshold for CT if mentation continus to change) - 09/24 assess B12 level - 09/25 B12 Level elevated 948 - Overall poor prognosis --- Worsening of neurologic state, patient no longer communicating with nods and mouthed words, patient no longer moving extremities. Significant dependent edema present. Elevated Troponin w/ EKG Changes - Troponin elevated at 2894.3 on admission; trend troponin * 1681 @ 0806 * 1733 @ 1057 * 1818 @ 1723 - Considered likely to be associated w/ demand ischemia a/w sepsis - Cardiac murmur present at RUSB 09/23 - Echo 09/23: EF 45-50%, borderline severe , small vegetation vs. mass on pulmonic valve, thickened mitral valves - 09/23 Consulted Cardiology, following - 09/25 Worsening chest pain, previously isolated to right chest, no spanning right and left chest. - 09/25 EKG showing tachycardia, regular rhythm, T wave inversion in II/III/avF, ST depression in anterior leads (V2/V3) - 09/26 EKG showering development of 1st degree AV block, Cardiology recommends avoidance of additional AV rebeca blocking agents Cachexia w/ Severe Protein Calorie Malnutrition - Per family report, at baseline patient eats full regular diet * Grandson noted 09/23 that patient has been requiring full assist w/ feeds over last few weeks and there has been concern for patient coughing and having difficulty swallowing meals - Hx of gastric bypass surgery, ? malabsorption syndrome - Family endorses decreased PO intake over the past several days - Patient has lost > 30 lbs in the last year, notably lost 7 lbs since PCP visit 6 days ago - Albumin 2.8 - Will consult nutrition - 09/25 Family elected to initiate NG feedings to supplement nutrition, started marinol and NG Tube feedings in PM - 09/27 Ongoing NGT feeding, LR held at this time d/t edema --- 09/28 Comfort care only, per family decision. Will discontinue NGT feedings and Marinol. Hypokalemia - Repleted, stable, following Dysphagia - Patient failed bedside swallow; coughing with mouth swabs as well - ST eval placed - NPO until ST eval completed - Recent EGD d/t dysphagia and weight loss w/ findings of candidal esophagitis (see above) --- Continue NPO Chronic Pain secondary to OA - Per PDMP, patient with 165 MME/day oxycodone - Held on admission - 09/24 Started Dilaudid 3 mg q3h IV KARUNA - 09/24 Started Dilaudid .5 mg q6h IV PRN - 09/24 Added stress dose steroids as patient is taking prednisone 5 mg daily at home - 09/25 Hydromorphone 1 mg IV Q4H, additional stress dose steroids given --- Continue Hydromorphone Hx DVT - Chemical DVT ppx held due to trace subarachnoid hemorrhage BASHIR - Continue ferrous sulfate 325mg daily; hold while NPO BPH - Continue flomax; hold while NPO FENGI: NPO, comfort DVT ppx: Neuro recommending against additional anticoagulation 09/24 Dispo: Med/surg/tele Code status: DNR/DNI (family decision 09/26), comfort care only (2) Sepsis: (3) Cachexia: (4) Iron deficiency: (5) Low back pain: (6) Embolic stroke: (7) Endocarditis: (8) MSSA bacteremia: Admission and Anticipated Discharge Date Admission Date: September 23, 2022 Supervising Physician Co-Signing Physician Notes Patient seen and examined independently of PGY-1 Dr. Luna. Agree with history, exam findings, assessment and plan of care as outlined. 81 year old male with hx of BASHIR, chronic cholecystitis, BPH, DM, depression, GERD, DVT, prior gastric bypass, severe aortic stenosis, HTN and severe protein calorie malnutrition admitted with urinary tract infection and altered mental status. Less responsive compared to yesterday. VS and nursing notes reviewed. Ill appearing. Tacky mucous membranes. Heart rate is intermittently tachycardic. Tachypenic, shallow breathing. No accessory muscle use. Diminished breath sounds in the bases. Clubbing noted in several fingernails bilaterally with several fingers appearing a bit cyanotic. Dependent edema of the hands, forearms and lower legs. 1. 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 Blood cultures growing MSSA. Repeat culture from 09/26 with gram positive cocci. Culture from 09/27 not gorwing anything yet. Nafcillin 2g IV q4h and ertapenem due to persistent bacteremia. Sputum culture pending. ID following. 2. Urinary tract infection. Urine culture grew out staph. Antibiotics as above. 3. Esophageal candidiasis. Continue fluconazole (14 day course) 4. Hypotension. Given a fluid bolus earlier in the day, but trying to be mindful of his already fluid-overloaded state/anasarca. Would be ok to give more fluids +/- albumin. ICU overnight clinician is aware of patient in the event that he would need to go to the ICU for pressor support. 5. Acute septic embolic stroke, dysarthria. Continue antibiotics as above. No anti-platelets for now with concomitant subarachnoid bled. Appreciate neurology recs. 6. Splenic infarcts. Secondary to septic emboli. 7. Anasarca. Secondary to immobility and third spacing due to severe protein calorie malnutrition (see below for details). Stopped IVFs now that he is getting tube feeds. Overall, he has a very poor prognosis and is declining. We are not able to diurese given his low blood pressures. Albumin with fluids may help but he will eventually third space the fluid due to low oncotic pressures. Dr. Luna has spoken with the family as outlined above. Currently on BiPAP for comfort. Stopped tube feds. Family has elected for comfort measures. BiPAP will be removed once his son arrives. Comfort measures, no vital signs please. Subjective Patient is an 81 yo male with PMHx of BASHIR, hemorrhoids, chronic cholecystitis, hx gastric bypass, BPH, COVID, depression, DM2, gastroparesis, GERD, DVT, HLD, HTN, OA, severe , sleep apnea, and severe protein calorie malnutrition who presented to the ER on 09/22/22 due to generalized weakness and change in mental status. 09/28: Patient's breathing labored upon arrival to his room, patient appearing uncomfortable. Krzysztof is unable to respond via nods or mouthed words today. No additional HPI. 0900 Discussed family's desire for additional assistance with patient's oxygenation. Patient's daughter requested that we attempt BiPAP. Requested that family come to the hospital to be with Krzysztof as he passes. 1400 Patient's family (Maritza, Maritza, Krzysztof, and grandson) present at bedside. Family relayed collective decision to transition to comfort care. They requested that we wait to remove BiPAP until Krzysztof's 4th child arrives. Nursing advised to stop tube feeding but leave tube in place until removal of BiPAP. 09/27: Patient continues to communicate via nods and head movements. Appearing more comfortable today upon arrival d/t neck pillow and arm pillow rests. Nursing noted increased extremity swelling overnight. Patient continues to endorse chest and abdominal discomfort. He denies shortness of breath. Ongoing headache present. 1300 Family at bedside. Answered questions and concerns at length. Family has decided that they want to provide medical assistance wherever possible for patient (including pressors in the event of hypotension), but that they do not wish to intervene with any resuscitation efforts (CPR/intubation). Diagnosis, additional information, and prognosis discussed in depth. Family expressed understanding. Review of Systems Review of Systems: As per HPI Physical Exam Physical Exam: Gen: cachectic, acutely uncomfortable (wincing), no means of communication, skin is cold Resp:labored, tachypneic, hypoxic, scattered expiratory wheeze, no rhonchi/rales, CTAB CV:RRR, normal S1/S2, systolic murmur present at RUSB and LUSB Abd: Soft, non-distended, no TTP, normoactive bowels, no masses Extr: Bilateral upper and lower extremity 2+ pitting edema (dependent), discoloration (darkening) of patient fingers bilaterally, clubbing : Urinary catheter in place, evidence of balanitis surrounding urethral meatus/glans Results & Data Results & Data ([facility]) Vital Signs (Past 12 Hours) Vital Signs Temp Pulse Pulse Resp BP Pulse Ox O2 Del Method 09/28/22 06:39 36.7 C 97 H 22 97/63 L 93 Room Air 09/28/22 03:38 37.0 C 85 18 99/61 L 94 Room Air 09/27/22 22:12 108 H 09/27/22 23:05 Nasal Cannula 09/27/22 23:01 36.6 C 91 H 18 91/57 L 94 Room Air 09/27/22 19:33 109 H 24 121/72 95 Nasal Cannula O2 Flow Rate 09/28/22 06:39 09/28/22 03:38 09/27/22 22:12 09/27/22 23:05 2 09/27/22 23:01 09/27/22 19:33 2 Resident Activity Tracking Resident Involvement: Resident Care Provided Care Provided: Adult [facility] Medicine
[2022-09-28 08:29] LABS: Basophils # (auto) 0.02 K/uL (0-0.2); Basophils % (auto) 0.1 %; Eosinophils # (auto) 0.01 K/uL (0-0.50); Eosinophils % (auto) 0.1 %; Hematocrit (blood only) 36.9 % (40.1-51.0); Hemoglobin 11.5 g/dl (14.0-18.0); Immature Granulocytes # (auto) 0.09 K/uL (0.00-0.02); Immature Granulocytes % (auto) 0.7 %; Lymphocytes # (auto) 1.36 K/uL (1.2-3.4); Lymphocytes % (auto) 10.1 %; Mean Corpuscular Hemoglobin 28.7 pg (25.0-34.0); Mean Corpuscular Hgb Conc 31.2 g/dL (32.0-36.0); Mean Platelet Volume 12.6 fL (9.4-12.4); Monocytes # (auto) 0.81 K/uL (0.24-0.82); Platelet Count 50 K/uL (130-400); RDW Coefficient of Variation 17.4 % (11.5-14.5); RDW Standard Deviation 58.3 fL (36.4-46.3); Red Blood Count 4.01 M/uL (4.63-6.08); White Blood Count 13.49 K/ul (4.8-10.8)
[2022-09-28 08:41] LABS: Albumin Globulin Ratio 0.7 (0.9-2); Albumin Level 2.3 gm/dl (3.4-5.0); Bilirubin,Total 0.6 mg/dl (0.2-1.0); Calcium 8.5 mg/dl (8.5-10.1); Creatinine Clr Calc Pharmacy 63.4 ml/min; Est GFR (Non-African American) 92.3 ml/min; Globulin 3.4 gm/dl (2.5-4.0); Potassium 3.9 mmol/L (3.5-5.1); Total Protein 5.7 gm/dl (6.0-8.3)
[2022-09-28] MEDS: FLUCONAZOLE 200 MG/100 ML BAG IV SCH (09:18)
[2022-09-28] MEDS: MULTI VIT W/MINERALS LIQUID 15 ML UDP PO SCH (09:19)
[2022-09-28] MEDS: PANTOprazole 40 MG in SYRINGE 0 ML IV SCH (12:33)
[2022-09-28] MEDS: ERTAPENEM SODIUM 1,000 MG in SYRINGE 0 ML IV SCH (12:57)
[2022-09-28] MEDS ORDERED: ONDANSETRON 4 MG OD TAB SL PRN (14:55)
[2022-09-28] MEDS ORDERED: LORazepam 0.5 MG TAB PO PRN (14:55)
[2022-09-28] MEDS ORDERED: ONDANSETRON INJ 2 MG/ML 2 ML VIAL IV PRN (14:55)
[2022-09-28] MEDS ORDERED: ACETAMINOPHEN 325 MG TAB PO PRN (14:55)
[2022-09-28] MEDS ORDERED: LORazepam 0.5 MG in SYRINGE 0 ML IV PRN (14:55)
[2022-09-28] MEDS ORDERED: HYDROmorphone INJ 1 MG/ML SYRINGE IV SCH (16:00)
--- NOTE | 2022-09-28 18:03 | Death Pronouncement Note ---
Date of Service September 28, 2022 Pronouncement Note Admission Date September 23, 2022 Date and Time of Date of : 09/28/22 Time of : 17:30 Preliminary Cause of (1) Endocarditis: (2) MSSA bacteremia: (3) Embolic stroke: (4) Sepsis: Summary Comfort measures initiated at 1400, BiPAP removed, patient ceased to breathe and was asystole on the monitor at 1730. Cardio: No heart beat present at RUSB or LUSB Resp: No breath sounds, bilaterally. Neuro: Pupils non-reactive to light Additional Data Confirmation of : no pulse, no respirations and pupils fixed and dilated Pronouncement Performed By: Resident Physician Family: at bedside Additional persons at bedside: other (attending physician) Attending/PCP notified?: Yes Attending physician: Angeline Gates, DO Was code activated?: No Autopsy requested?: No disability insurance claim examiner notified?: No Organ bank notified?: No Advance directives: No Supervising Physician Co-Signing Physician Notes I was present when Dr. Luna pronounced Mr. Farrelljason. Agree with above. certificate completed. Family at the bedside. Resident Activity Tracking Resident Involvement: Resident Care Provided Care Provided: Adult Hospital Medicine
--- NOTE | 2022-09-28 18:09 | Discharge Summary ---
Date of Service September 28, 2022 Admission HPI Per Admitting Provider Patient is an 81 yo male with PMHx of BASHIR, hemorrhoids, chronic cholecystitis, hx gastric bypass, BPH, COVID, depression, DM2, gastroparesis, GERD, DVT, HLD, HTN, OA, severe , sleep apnea, and severe protein calorie malnutrition who presented to the ER on 09/22/22 due to generalized weakness and change in mental status. History unable to be obtained by patient due to clinical condition. I personally obtained following information from patient's daughter, Maritza Rich ([phone]), by phone. At baseline, patient is reportedly fairly independent with ADLs and can ambulate with a walker, hold full conversations appropriately, interact appropriately, and he eats a full regular diet. Patient had a PCP appointment on Friday for his AWV during which time he received the flu vaccine; patient and patient's daughter went shopping after the appointment. Daughter states that patient was doing well until Friday evening (4 days ago) when a family member found patient confused and "shaking." Patient does take 165 MME/day of oxycodone for hx of OA of the neck and family had difficulty getting refill on Friday after the PCP appointment, so family presumed that patient was in withdrawal. The following day, patient's grandson woke up in the morning and noticed that the patient had urinary and fecal incontinence all over the bed, himself, and his bedroom meng; incontinence is reportedly not baseline for patient. Patient was then noted to have increased fatigue, decreased responsiveness/alertness, recurrent "shaking" episodes, recurrent urinary and stool incontinence, and a fever with Tmax 102 F. Patient continued to have progressive weakness and was eventually unable to get out of bed at the later part of this week. Daughter does note that since Friday, patient has been "ignoring and not responding" to family members but he has continued to complain of arm and body aches. Patient is closely followed by his PCP, Dr. Velasquez, as well as the [facility] ER course: 1 L NSS bolus, currently receiving an additional 1 L NSS at 125 cc/hr, 2 g ceftriaxone, and 10 mEq K+ Labs significant for normocytic anemia Hgb 12.0, normal WBC 9.58, hypokalemia 3.1, LFTs wnl, TSH 1.7, Hs-troponin elevated at 2894.3 UA contaminated with > 30 epithelial cells but significant for 1+ ketones, 3+ blood, positive nitrite, 1+ LE, 5-10 WBC, 10-30 RBC, and 4+ bacteria COVID negative Admission Exam Per Admitting Provider GENERAL: Cachectic, chronically ill appearing male. Awake. No apparent distress. EYES: PERRL. Anicteric sclerae. HENT: Edentulous. Dry mucous membranes. RESPIRATORY: Anterior and lateral lung ludwig auscultated and are clear to auscultation bilaterally without wheezing, rales, or rhonchi. CARDIOVASCULAR: Tachycardic. + murmur. No JVD. ABDOMEN: Thin abdomen with protrusion of anterior ribs. Abd is soft. Non- distended. No obvious tenderness to palpation. No guarding or rebound. EXTREMITIES: Very thin. No obvious tenderness to palpation. No edema. SKIN: Warm, dry. Multiple sacral ulcers / bed sores. NEUROLOGIC: Patient is alert. Difficulty following commands but does open eyes to command. Speech is garbled with 1 word responses that are difficult to make out. 4/5 strength with hand handle assembler bilaterally but otherwise no active movement of arms or legs. PSYCHIATRIC: Unable to evaluate. Principal Diagnosis Staph Bacteremia, Endocarditis, Embolic Stroke Discharge Exam Comfort measures initiated at 1400, BiPAP removed, patient ceased to breathe and was asystole on the monitor at 1730. Cardio: No heart beat present at RUSB or LUSB Resp: No breath sounds, bilaterally. Neuro: Pupils non-reactive to light Discharge Data Allergies Allergy/AdvReac Type Severity Reaction Status Date / Time No Known Allergies Allergy Verified 09/22/22 21:03 Consultations 09/22/22 21:47 ED Decision to Admit Stat 09/23/22 10:27 Consult Cardiology Routine Consult Neurology Routine 09/23/22 11:17 Consult Infectious Diseases Routine Ordered Studies 09/22/22 19:45 CT abd pelvis wo con Stat CT head/brain wo con Stat 09/23/22 00:46 MRI Brain [MR brain wo con] Stat 09/23/22 10:29 CT for pulmonary embolism PE [CT angio chest PE protocol] Stat 09/23/22 18:39 CT head/brain wo con Urgent 09/25/22 08:00 CT head/brain wo con Stat 09/26/22 16:26 CT Abd and Pelvis [CT abd pelvis IV con only] Urgent CT spine [CT lumbar spine w con] Urgent Laboratory Results WBC 13.49 K/ul (4.8-10.8) H 09/28/22 08:16 RBC 4.01 M/uL (4.63-6.08) L 09/28/22 08:16 Hgb 11.5 g/dl (14.0-18.0) L 09/28/22 08:16 Hct 36.9 % (40.1-51.0) L 09/28/22 08:16 MCV 92.0 fL (80.0-100.0) 09/28/22 08:16 MCH 28.7 pg (25.0-34.0) 09/28/22 08:16 MCHC 31.2 g/dL (32.0-36.0) L 09/28/22 08:16 RDW Std Deviation 58.3 fL (36.4-46.3) H 09/28/22 08:16 RDW Coeff of Yoanna 17.4 % (11.5-14.5) H 09/28/22 08:16 Plt Count 50 K/uL (130-400) L 09/28/22 08:16 MPV 12.6 fL (9.4-12.4) H 09/28/22 08:16 Immature Gran % (Auto) 0.7 % 09/28/22 08:16 Neut % (Auto) 83.0 % 09/28/22 08:16 Lymph % (Auto) 10.1 % 09/28/22 08:16 Wilcox % (Auto) 6.0 % 09/28/22 08:16 Eos % (Auto) 0.1 % 09/28/22 08:16 Baso % (Auto) 0.1 % 09/28/22 08:16 Neut # (Auto) 11.20 K/uL (1.4-6.5) H 09/28/22 08:16 Lymph # (Auto) 1.36 K/uL (1.2-3.4) 09/28/22 08:16 Wilcox # (Auto) 0.81 K/uL (0.24-0.82) 09/28/22 08:16 Eos # (Auto) 0.01 K/uL (0-0.50) 09/28/22 08:16 Baso # (Auto) 0.02 K/uL (0-0.2) 09/28/22 08:16 Immature Gran # (Auto) 0.09 K/uL (0.00-0.02) H 09/28/22 08:16 Hypersegmented Neuts 1+ 09/22/22 19:35 Toxic Vacuolation 1+ 09/23/22 08:06 Platelet Estimate Normal (Normal) 09/22/22 19:35 Echinocytes 1+ 09/22/22 19:35 Sodium 141 mmol/L (136-145) 09/28/22 07:13 Potassium 3.9 mmol/L (3.5-5.1) 09/28/22 07:13 Chloride 109 mmol/L (98-107) H 09/28/22 07:13 Carbon Dioxide 27 mmol/L (21-32) 09/28/22 07:13 Anion Gap 5 (3-11) 09/28/22 07:13 BUN 27 mg/dl (6-23) H 09/28/22 07:13 Creatinine 0.60 mg/dl (0.6-1.4) 09/28/22 07:13 Est Cr Clr Drug Dosing 63.4 ml/min 09/28/22 07:13 Est GFR ( Amer) 107.0 ml/min 09/28/22 07:13 Est GFR (Non-Af Amer) 92.3 ml/min 09/28/22 07:13 BUN/Creatinine Ratio 45.0 (10-20) H 09/28/22 07:13 Glucose 316 mg/dl (70-99(Fasting)) H* 09/28/22 07:13 POC Glucose 330 mg/dl (70-99) H* 09/28/22 11:30 Calcium 8.5 mg/dl (8.5-10.1) 09/28/22 07:13 Magnesium 1.8 mg/dl (1.7-2.4) 09/25/22 03:58 Total Bilirubin 0.6 mg/dl (0.2-1.0) 09/28/22 07:13 AST 11 U/L (13-39) L 09/28/22 07:13 ALT 9 U/L (7-52) 09/28/22 07:13 Alkaline Phosphatase 78 U/L (34-104) 09/28/22 07:13 Total Creatine Kinase 45 U/L (30-223) 09/23/22 03:34 Troponin I High Sens 1568.7 pg/ml (0-20) H* 09/24/22 10:42 Total Protein 5.7 gm/dl (6.0-8.3) L 09/28/22 07:13 Albumin 2.3 gm/dl (3.4-5.0) L 09/28/22 07:13 Globulin 3.4 gm/dl (2.5-4.0) 09/28/22 07:13 Albumin/Globulin Ratio 0.7 (0.9-2) L 09/28/22 07:13 Vitamin B12 948 pg/ml (180-914) H 09/25/22 03:58 Folate > 22.30 ng/ml (>5.38) 09/25/22 03:58 TSH 1.715 uIu/ml (0.300-4.500) 09/22/22 19:35 Random Cortisol 36.01 mcg/dl 09/25/22 09:27 Urine Color Dark Yellow 09/22/22 19:50 Urine Appearance Cloudy (Clear) A 09/22/22 19:50 Urine pH 6.5 (4.5-7.5) 09/22/22 19:50 Ur Specific Cassatt 1.020 (1.000-1.030) 09/22/22 19:50 Urine Protein 2+ (Negative) H 09/22/22 19:50 Urine Glucose (UA) Negative (Negative) 09/22/22 19:50 Urine Ketones 1+ (Negative) H 09/22/22 19:50 Urine Blood 3+ (Negative) H 09/22/22 19:50 Urine Nitrite Positive (Negative) A 09/22/22 19:50 Urine Bilirubin Negative (Negative) 09/22/22 19:50 Urine Urobilinogen Negative (Negative) 09/22/22 19:50 Ur Leukocyte Esterase 1+ (Negative) H 09/22/22 19:50 Urine WBC (Auto) 5-10 /hpf (0-5) H 09/22/22 19:50 Urine RBC (Auto) 10-30 /hpf (0-4) H 09/22/22 19:50 U Hyaline Cast (Auto) 5-10 /lpf (0-5) H 09/22/22 19:50 U Epithel Cells (Auto) >30 /lpf (0-5) H 09/22/22 19:50 Urine Bacteria (Auto) 4+ (Negative) H 09/22/22 19:50 Ur Renal Epithelial Cell Not Reportable 09/22/22 19:50 Urine Yeast Not Reportable 09/22/22 19:50 Nasal Screen MRSA (PCR) Positive (Negative) A 09/23/22 13:00 SARS-CoV-2, RNA, NAAT NEGATIVE (NEGATIVE) 09/22/22 19:57 Staphylococcus sp PCR DETECTED (NotDetected) A 09/22/22 19:35 Staph aureus (PCR) DETECTED (NotDetected) A 09/22/22 19:35 mecA/C & MREJ Resist Gene MRSA Not Detected (NotDetected) 09/22/22 19:35 Bld Cult ID Panel PCR See PCR Comment (NotDetected) 09/22/22 19:35 Impressions Brain MRI 09/23/22 00:46 MRI OF THE BRAIN WITHOUT CONTRAST CLINICAL HISTORY: Altered mental status. COMPARISON STUDY: Head CT 05/22/2021 and September 22, 2022. TECHNIQUE: Utilizing a 1.5 Elizabeth magnet and dedicated coil, multiplanar, multiecho imaging of the brain was performed without IV contrast. FINDINGS: There are numerous supratentorial and infratentorial foci of restricted diffusion consistent with acute infarcts. The largest measures 2.4 cm within the anterior right cerebellar hemisphere. There is minimal mass effect. These include a small infarct within the splenium of the corpus callosum. Basal cisterns are patent. Trace subarachnoid hemorrhage overlying the left parietal lobe is unchanged since prior head CT. This is best shown on coronal FLAIR sequence. No additional sites of intracranial hemorrhage are present. Minor T2 hyperintense foci suggest small vessel disease. No intracranial masses identified on this unenhanced exam. IMPRESSION: 1. Numerous acute infarcts, the largest which is a 2.4 cm right cerebellar infarct. Minimal mass effect. The findings suggest an embolic source. Findings discussed with Dr. Cohen at time of dictation. 2. No change in trace subarachnoid hemorrhage overlying the left parietal lobe which is acute to subacute. ACT 112: Negative or not required by law. Electronically signed by: Joshua Hernandez M.D. 09/23/2022 10:28 AM Chest CTA 09/23/22 10:29 CT angio chest PE protocol CT DOSE: 241.78 mGy.cm HISTORY: 81 years-old Male with PE. Acute shortness of breath TECHNIQUE: Multiple CTA images of the chest were obtained after the intravenous administration of 111 ml Optiray. Coronal and sagittal MIPS were obtained from the axial data set and were submitted for review. All measurements were obtained according to NASCET criteria. A dose lowering technique was utilized adhering to the principles of ALARA. COMPARISON: Chest radiograph 09/22/2022, CTA chest 07/26/2020. FINDINGS: CTA: The heart is normal in size. Extensive coronary artery calcifications. Prior median sternotomy with findings suggestive of CABG. Atherosclerosis of the aorta without aneurysm or dissection. There is patency of the imaged great vessels. Subsegmental filling defect noted within the left main pulmonary artery, image 182 may be artifactual. No definite pulmonary emboli are identified. CT CHEST: No thyroid nodule identified. No lymphadenopathy. Chronic left hemidiaphragmatic elevation. Trace left pleural effusion. Respiratory motion artifact limits evaluation of the lungs. No pneumothorax. Subsegmental right basilar atelectasis. 3 mm solid nodule of the right middle lobe on image 36 is favored to be benign. Mucous plugging of the left lower lobe with considerable mucoid impaction. There is an endobronchial 10 mm ovoid filling defects noted within the left lower lobar bronchus, image 159. Mild bilateral cylindrical bronchiectasis. Patchy consolidative opacities of the left lower lobe. Probable cyst of the superior pole right kidney, 7 mm. Small volume of upper abdominal ascites with body wall edema. Degenerative changes of the shoulders and spine. IMPRESSION: 1. No pulmonary emboli identified. 2. Mucous plugging with considerable left lower lobe mucoid impaction and mild left lower lobe pneumonia. 3. 10 mm ovoid filling defect within the left lower lobe bronchus is also likely self pay representative of mucous plugging. An endobronchial mass considered less likely. 4. Chronic left hemidiaphragmatic elevation. 5. No lymphadenopathy. 6. Body wall edema with small volume of upper abdominal ascites. ACT 112: Negative or not required by law. The above report was generated using voice recognition software. It may contain grammatical, syntax or spelling errors. Electronically signed by: Javon Erwin M.D. 09/23/2022 12:[address] 09/25/22 08:00 CT head/brain wo con CLINICAL HISTORY: Worsening mental status Technique: Contiguous axial CT images of the head were acquired from the base of the skull to the vertex without intravenous contrast administration. Images were viewed in brain, subdural and bone windows. Automated dose lowering techniques and/or adjustment according to patient size were utilized for this exam. Comparison: Comparison is made to CT head 09/23/2022 Findings: Areas of decreased attenuation are present in the periventricular and subcortical white matter bilaterally consistent with small vessel ischemic disease. Generalized cerebral atrophy with commensurate enlargement of the ventricles, sulci, and cisterns is also present. There is no acute intracranial hemorrhage or evidence of acute territorial infarction. No shift of the midline structures, mass effect, or extra-axial abnormalities are shown. Atherosclerotic calcifications are present in the intracranial segments of the internal carotid arteries. Imaged portions of the paranasal sinuses and mastoid air cells are clear. The orbits appear normal. There are no acute fractures of the calvaria or scalp sw elling. Impression: No acute intracranial hemorrhage, no evidence of acute territorial infarction or other acute intracranial disease process. ACT 112: Negative or not required by law. Electronically signed by: Jose M Mccall M.D. 09/25/2022 8:50 AM Chest X-Ray 09/25/22 13:30 XR chest 1V portable CLINICAL HISTORY: s/p NG tube placement TECHNIQUE: Single frontal radiograph of the chest was obtained. Comparison: Comparison is made to chest radiograph FINDINGS: Enteric tube terminates in the stomach. Median sternotomy wires are seen. Calcified aortic knob is seen. Elevation of the left hemidiaphragm is seen with atelectasis at the left lung base.. No evidence of pleural effusion or pneumothorax. IMPRESSION: No acute chest disease. Redemonstration of atelectasis and elevation of the left hemidiaphragm. ACT 112: Negative or not required by law. Electronically signed by: Jose M Mccall M.D. 09/25/2022 3:06 PM KUB X-Ray 09/25/22 18:52 KUB HISTORY: Reposition feeding tube Coresafe placement - replaced COMPARISON: KUB of same day at 6:06 PM. FINDINGS: Repositioned feeding tube, now with distal tip projected inferiorly within the expected location of the mid stomach. Prior median sternotomy. Cardiomediastinal and hilar silhouettes are unchanged. Left diaphragmatic hernia again noted. Air-filled loops of bowel appear unchanged. No urolith or acute fracture identified. IMPRESSION: Repositioned feeding tube, now with the distal tip in the expected location of the mid stomach. ACT 112: Negative or not required by law. The above report was generated using voice recognition software. It may contain grammatical, syntax or spelling errors. Electronically signed by: Javon Erwin M.D. 09/25/2022 7:39 PM Abdomen/Pelvis CT 09/26/22 16:[address] WITH IV CONTRAST CT DOSE: 350.52 mGy.cm HISTORY: Acute bacteremia and a patient with IV con/persistent bacteremia TECHNIQUE: Multiaxial CT images of the abdomen and pelvis and lumbar spine were performed following the IV administration of 90 cc of Optiray, A dose lowering technique was utilized adhering to the principles of ALARA. COMPARISON STUDY: KUB 09/25/2022, CT abdomen and pelvis 09/22/2022, 02/28/2022 FINDINGS: CT ABDOMEN/PELVIS: Prior median sternotomy. Extensive coronary artery calcifications. Mild cardiomegaly. Increased size of the small pleural effusions. Dependent bibasilar opacities suggest atelectasis. Study is degraded by respiratory motion artifact and relative lack of intra-abdominal fat. No pneumatosis or pneumoperitoneum identified. Arterial phase of imaging limits evaluation of the solid abdominal organs. Wedge-shaped area of decreased attenuation within the central spleen, 5.0 x 6.0 cm. Additionally decreased dilation of the anterior-inferior spleen. Abnormality identified within the visualized pancreas and adrenal glands. Normal-appearing position of the gallbladder. Unremarkable appearance of the visualized liver. Cysts of the kidneys measure up to a proximally 6.8 cm within the inferior pole right kidney. Punctate bilateral nephrolithiasis redemonstrated. No ureteral calculi identified. Urinary bladder wall thickening with Cortez catheter. Air is noted within the nondependent urinary bladder lumen. Atherosclerosis of aorta and branch vessels. Mild use warm aneurysm dilation of the infrarenal abdominal aorta, 3.2 x 2.7 cm. No dissection. No definite lymphadenopathy identified. Distal tip of feeding tube appears to terminate within the gastric body. Anasarca with mesenteric edema and small volume abdominal pelvic ascites. Fluid- filled loops of large and small bowel with air-fluid levels. No definite obstruction identified. The appendix is not well visualized. Postoperative changes of the anterior abdominal wall redemonstrated. Degenerative changes of the spine, pelvis and hips. Fixated proximal right femoral fracture. CT LUMBAR SPINE: No acute fracture, subluxation, destructive bone lesion or endplate erosion. The mineralized appearance of the bones. Unchanged minimal compression deformities of the L4 and L5 vertebral bodies. Moderate to severe multilevel facet arthrosis with mild intervertebral disc space narrowing and spondylitic spurring. Multilevel posterior disc osteophyte complex formations. Evaluation of the central canal and neuroforamina is better assessed by MRI. There is however suggestion of multilevel central canal stenosis which is at least moderate at L4-L5. Additionally, there is at least moderate lateral neural foraminal narrowing L3-L4 and L4-L5. IMPRESSION: 1. Limited CT of the abdomen and pelvis secondary to arterial phase of imaging and paucity of intra-abdominal fat. 2. Distal tip of the feeding tube appears to terminate within the gastric body. 3. Fluid overload manifested by layering pleural effusions, anasarca with mesenteric edema and abdominal pelvic ascites. 4. Splenic infarcts. 5. No bowel obstruction identified. Air-fluid levels are noted throughout several loops of large and small bowel. This may represent an ileus versus nonspecific enteritis with diarrheal illness. 6. 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 7. Punctate bilateral nephrolithiasis. 8. No acute fracture, subluxation or endplate erosion. ACT 112: Negative or not required by law. The above report was generated using voice recognition software. It may contain grammatical, syntax or spelling errors. Electronically signed by: Javon Erwin M.D. 09/26/2022 5:[address] 09/26/22 16:[address] WITH IV CONTRAST CT DOSE: 350.52 mGy.cm HISTORY: Acute bacteremia and a patient with IV con/persistent bacteremia TECHNIQUE: Multiaxial CT images of the abdomen and pelvis and lumbar spine were performed following the IV administration of 90 cc of Optiray, A dose lowering technique was utilized adhering to the principles of ALARA. COMPARISON STUDY: KUB 09/25/2022, CT abdomen and pelvis 09/22/2022, 02/28/2022 FINDINGS: CT ABDOMEN/PELVIS: Prior median sternotomy. Extensive coronary artery calcifications. Mild cardiomegaly. Increased size of the small pleural effusions. Dependent bibasilar opacities suggest atelectasis. Study is degraded by respiratory motion artifact and relative lack of intra-abdominal fat. No pneumatosis or pneumoperitoneum identified. Arterial phase of imaging limits evaluation of the solid abdominal organs. Wedge-shaped area of decreased attenuation within the central spleen, 5.0 x 6.0 cm. Additionally decreased dilation of the anterior-inferior spleen. Abnormality identified within the visualized pancreas and adrenal glands. Normal-appearing position of the gallbladder. Unremarkable appearance of the visualized liver. Cysts of the kidneys measure up to a proximally 6.8 cm within the inferior pole right kidney. Punctate bilateral nephrolithiasis redemonstrated. No ureteral calculi identified. Urinary bladder wall thickening with Cortez catheter. Air is noted within the nondependent urinary bladder lumen. Atherosclerosis of aorta and branch vessels. Mild use warm aneurysm dilation of the infrarenal abdominal aorta, 3.2 x 2.7 cm. No dissection. No definite lymphadenopathy identified. Distal tip of feeding tube appears to terminate within the gastric body. Anasarca with mesenteric edema and small volume abdominal pelvic ascites. Fluid- filled loops of large and small bowel with air-fluid levels. No definite obstruction identified. The appendix is not well visualized. Postoperative changes of the anterior abdominal wall redemonstrated. Degenerative changes of the spine, pelvis and hips. Fixated proximal right femoral fracture. CT LUMBAR SPINE: No acute fracture, subluxation, destructive bone lesion or endplate erosion. The mineralized appearance of the bones. Unchanged minimal compression deformities of the L4 and L5 vertebral bodies. Moderate to severe multilevel facet arthrosis with mild intervertebral disc space narrowing and spondylitic spurring. Multilevel posterior disc osteophyte complex formations. Evaluation of the central canal and neuroforamina is better assessed by MRI. There is however suggestion of multilevel central canal stenosis which is at least moderate at L4-L5. Additionally, there is at least moderate lateral neural foraminal narrowing L3-L4 and L4-L5. IMPRESSION: 1. Limited CT of the abdomen and pelvis secondary to arterial phase of imaging and paucity of intra-abdominal fat. 2. Distal tip of the feeding tube appears to terminate within the gastric body. 3. Fluid overload manifested by layering pleural effusions, anasarca with mesenteric edema and abdominal pelvic ascites. 4. Splenic infarcts. 5. No bowel obstruction identified. Air-fluid levels are noted throughout several loops of large and small bowel. This may represent an ileus versus nonspecific enteritis with diarrheal illness. 6. 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 7. Punctate bilateral nephrolithiasis. 8. No acute fracture, subluxation or endplate erosion. ACT 112: Negative or not required by law. The above report was generated using voice recognition software. It may contain grammatical, syntax or spelling errors. Electronically signed by: Javon Erwin M.D. 09/26/2022 5:48 PM Hospital Course (1) Endocarditis: (2) MSSA bacteremia: (3) Embolic stroke: (4) Sepsis: Plan Patient is an 81 yo male with PMHx of BASHIR, hemorrhoids, chronic cholecystitis, hx gastric bypass, BPH, COVID, depression, DM2, gastroparesis, GERD, DVT, HLD, HTN, OA, severe , sleep apnea, and severe protein calorie malnutrition admitted 09/22/22 due to UTI and significant change in mental status/generalized weakness. Krzysztof Briones JR was pronounced at 1730 on 09/28/2022 with family at bedside. Gram + Bacteremia w/ Sepsis, AMS, and Generalized Weakness - Patient presentation 09/22 drastically altered from 09/16 at PCP visit (6 days prior) - Sepsis noted on admission d/t tachycardia, tachypnea, and source of infection - Received IV Ceftriaxone in ER, continued q12h on admission, discontinued 09/23 - Known recent candidal esophagitis on EGD (received Fluconazole PO x 3 days), started IV Fluconazole 200 mg daily (anticipated 14 day course) - IVF started on admission 80 mL/hr,increased to 125 mL/hr 09/24 (patient appears dry) - MRSA Nares + - CTA Chest: No pulmonary emboli identified. Mucous plugging with considerable left lower lobe mucoid impaction andmild left lower lobe pneumonia.10 mm ovoid filling defect within the left lower lobe bronchus is also likely self pay representative ofmucous plugging.An endobronchial mass considered less likely. - Started IV Daptomycin 09/23 AM, discontinued PM post ID consult - 09/23Consulted ID, following * Recommended daily blood cultures until confirmed clearance x 48 hours * Respiratory culture if sputum possible- 09/25 Worsening AMS in AM, patient remains able to communicate via nods, recognizes names of daughters, ordered CT Head w/o contrast and CXR - 09/25 CT Head: Impression: No acute intracranial hemorrhage, no evidence of acute territorial infarction or other acute intracranial disease process. - 09/25 CXR: Impression: No acute chest disease - 09/26 CTAP/Spine ordered to assess for evidence of infectious source vs abscess - 09/27 Ongoing evidence of Staph Bacteremia despite antibiotic use + CTAP/Spine showing evidence of fluid overload (ascites, anasarca, pleural effusions) and splenic infarcts, dependent edema present in UE and LE on PE, LR discontinued 0800, SCDs ordered, patient continues to oxygenate appropriately, Continue Ertapenem, Nafcillin, and Fluconazole per infectious disease recommendation, @ 1700 500 cc bolus of LR given d/t hypotension, @ 1830 Patient hypotensive, elevated HR, and respirations, now requiring 4L NC. --- 09/28 Family elected to transition to comfort care only. Will withdrawal BiPAP once family is fully present, per family's request. Orders placed. Will continue antibiotics at this time. Pain management regimen reviewed and updated. Clergy requested as patient is Mosque. 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 A short-term follow-up head CT in 24 to 48 hours is recommended. This finding will be called/faxed to the ordering provider at time of dictation. * Ordered f/u CT Urgent 1900 09/23 * CT 09/23: No evidence of new subarachnoid hemorrhage. Previously noted left parietal subarachnoid hemorrhage has demonstrated expected evolution and is now less conspicuous.- Brain MRI 09/23: Numerous acute infarcts, the largest which is a 2.4 cm right cerebellar infarct. Minimal mass effect. The findings suggest an embolic source. Findings discussed with Dr. Cohen at time of dictation. No change in trace subarachnoid hemorrhage overlying the left parietal lobe which is acute to subacute. 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 * The previously seen small subarachnoid hemorrhage is improved. * Would avoid antiplatelet medication or an oral anticoagulant at this time.- Speech therapy eval order placed - recommending NPO - 09/24 Diminished mentation (noted by Neurology, recommending low threshold for CT if mentation continus to change) - 09/24 assess B12 level - 09/25 B12 Level elevated 948 - Overall poor prognosis --- Worsening of neurologic state, patient no longer communicating with nods and mouthed words, patient no longer moving extremities. Significant dependent edema present. Elevated Troponin w/ EKG Changes - Troponin elevated at 2894.3 on admission; trend troponin * 1681 @ 0806 * 1733 @ 1057 * 1818 @ 1723- Considered likely to be associated w/ demand ischemia a/w sepsis - Cardiac murmur present at [facility] 09/23 - Echo 09/23: EF 45-50%, borderline severe , small vegetation vs. mass on pulmonic valve, thickened mitral valves - 09/23 Consulted Cardiology, following - 09/25 Worsening chest pain, previously isolated to right chest, no spanning right and left chest. - 09/25 EKG showing tachycardia, regular rhythm, T wave inversion in II/III/avF, ST depression in anterior leads (V2/V3) - 09/26 EKG showering development of 1st degree AV block, Cardiology recommends avoidance of additional AV rebeca blocking agents Cachexia w/ Severe Protein Calorie Malnutrition - Per family report, at baseline patient eats full regular diet * Grandson noted 09/23 that patient has been requiring full assist w/ feeds over last few weeks and there has been concern for patient coughing and having difficulty swallowing meals- Hx of gastric bypass surgery, ? malabsorption syndrome - Family endorses decreased PO intake over the past several days - Patient has lost > 30 lbs in the last year, notably lost 7 lbs since PCP visit 6 days ago - Albumin 2.8 - Will consult nutrition - 09/25 Family elected to initiate NG feedings to supplement nutrition, started marinol and NG Tube feedings in PM - 09/27 Ongoing NGT feeding, LR held at this time d/t edema --- 09/28 Comfort care only, per family decision. Hypokalemia - Repleted, stable, following Dysphagia - Patient failed bedside swallow; coughing with mouth swabs as well - ST eval placed - NPO until ST eval completed - Recent EGD d/t dysphagia and weight loss w/ findings of candidal esophagitis (see above) --- Continue NPO Chronic Pain secondary to OA - Per PDMP, patient with 165 MME/day oxycodone - Held on admission - 09/24 Started Dilaudid 3 mg q3h IV KARUNA - 09/24 Started Dilaudid .5 mg q6h IV PRN - 09/24 Added stress dose steroids as patient is taking prednisone 5 mg daily at home - 09/25 Hydromorphone 1 mg IV Q4H, additional stress dose steroids given --- Continue Hydromorphone Hx DVT - Chemical DVT ppx held due to trace subarachnoid hemorrhage BASHIR - Continue ferrous sulfate 325mg daily; hold while NPO BPH - Continue flomax; hold while NPO FENGI: NPO, comfort DVT ppx: Neuro recommending against additional anticoagulation 09/24 Dispo: Code status: DNR/DNI, comfort only Total Time Total Time Spent Total Time Spent (In Minutes): See attending attestation Discharge Plan Discharge Items Patient Disposition: Discharge Diagnosis: Staph Bacteremia, Endocarditis, Embolic Strokes, Pneumonia Other Date/Time: 09/28/22 17:30 Supervising Physician Co-Signing Physician Notes Patient seen with PGY-1 Dr. Luna. In brief, Mr. Briones was admitted with bacterial endocarditis with persistent bacteremia, septic emboli to the digits and brain. Clinically worsening without signs of improvement with appropriate antibiotic therapy. On day of , he was persistently desaturating on supplemental oxygen and was placed on BiPAP at which point oxygen saturations improved. Family had decided to move towards comfort care as treatment options were very limited and prognosis was grim. Patient this afternoon with the family at the bedside. I personally spent 45 minutes caring for this patient today. Resident Activity Tracking Resident Involvement: Resident Care Provided Care Provided: Adult Hospital Medicine
--- NOTE | 2022-09-30 19:50 | Billing Data ---
Date of Service September 30, 2022 Coding Level of Care Code 17689 Initial Inpt Care Lvl 3
== END 2022-09-28 20:30 | disposition expired | DRG 871 ==
LOC: ED 19:13 → SUATTDRO 09-23 → 2N 09-23